=== PATIENT | male | born 1945 | race Caucasian/White ===

== ENCOUNTER 2024-10-26 11:33 | Inpatient (IN) ==
--- NOTE | 2024-10-26 11:59 | Emergency Department Note ---
Impression & Plan CARVER (dyspnea on exertion), Pneumonia, Leukocytosis, Failure of outpatient treatment, Pulmonary fibrosis ED Provider Note NAME: RYLAN MCCORMICK AGE: 79 SEX: M : 1945 ARRIVES VIA: Ambulance INFORMANT: [Patient][family] ED PROVIDER(S): [Jared Miranda MD] CHIEF COMPLAINT: Short of breath HISTORY OF PRESENT ILLNESS: The patient is a 79-year-old male with COPD who was discharged from [facility] 5 days ago. He was in the hospital for pneumonia, he did test positive for COVID-19. The patient states that when he left, he felt okay. He was on antibiotics but they have finished. He is on a daily maintenance dose of prednisone. In the last few days, he has been short of breath especially with exertion. No fever, he does cough some in the morning but this is a dry nonproductive cough. He has not really had chest pain. No sick contacts. No recent increased stuffy nose. The patient went to the [facility] today, his saturations were quite low in the 80s. He was sent to the hospital for evaluation. He feels better on oxygen. He does not currently have oxygen to use at home. PMHx/PSHx/Social Hx: See Below PHYSICAL EXAM: GENERAL: Patient is in no acute distress. HEENT: No acute trauma, normocephalic atraumatic, mucous membranes moist, no nasal congestion. NECK: No stridor, no adenopathy, no meningismus, trachea is midline. LUNGS: Crackles bilaterally, worse on the left. No wheezing. Slightly increased respiratory rate. HEART: Without murmurs gallops or rubs, regular rate and rhythm. ABDOMEN: Soft, nontender, no peritonitis. EXTREMITIES: No cyanosis, full range of motion of all the joints without pain or difficulty. No pedal edema. NEUROLOGIC: Oriented x 3, no acute motor or sensory deficits, no focal weakness. SKIN: No jaundice, no diaphoresis. DIFFERENTIAL DIAGNOSIS: Bronchitis or pneumonia, COPD flare, anemia, TN, PE, new viral illness, among others. EMERGENCY DEPARTMENT PROCEDURES: MEDICAL DECISION MAKING: There is a moderate leukocytosis, this would be consistent with infection. There is a mild anemia with a hemoglobin of 11.8. Platelet count was slightly high at 488. INR mildly elevated at 1.2. VBG does not show acidosis. CO2 was actually a bit low likely from tachypnea. There was no renal failure or significant electrolyte abnormality. Lactic acid level was not elevated making severe sepsis less likely. No concerning liver enzyme elevation. BNP was somewhat elevated consistent with potential fluid overload. Urinalysis did not show findings of infection. Respiratory bio fire was positive for COVID-19, this is consistent with his history. On exam, the patient had crackles throughout his lungs. He appeared somewhat tachypneic. The patient received IV Solu-Medrol and IV cefepime. He was given a DuoNeb. The patient presents with increasing dyspnea. He appears to have pneumonia on top of his pulmonary fibrosis. He has failed outpatient management. I do think he will require a hospital stay and further pulmonary workup/care. I spoke with the patient and his family, I spoke with case management. The on- call hospitalist was consulted. Prior/Outside records/notes reviewed: None ECG per my interpretation: Indication was shortness of breath. The ECG shows a normal sinus rhythm with a rate of 63. There is no acute ST elevation, no PVCs. There is some poor R wave progression. QTc is 450. Continuous Cardiac Monitoring per my interpretation: An order was placed for continuous cardiac monitoring. The monitor shows a rate of 69 with normal sinus rhythm. Imaging/x-ray results per my interpretation: Chest x-ray shows pulmonary congestion, far worse on the left. Findings consistent with pneumonia. Chronic Medical/Social conditions affecting care: Recent hospital discharge, advanced age. Care/Management discussed with: Case management, the on-call hospitalist. Level of care consideration(s): After review of the information above and other included data: --I believe the patient requires escalation of care to admission DISPOSITION: Admission Past Med/Surg History Problem List (Updated 10/27/24 @ 11:45 by Jared Miranda MD) Pulmonary fibrosis (Acute) Failure of outpatient treatment (Acute) Leukocytosis (Acute) Pneumonia (Acute) CARVER (dyspnea on exertion) (Acute) Abnormal chest CT Bilateral pulmonary infiltrates Status post partial lobectomy of lung BPH (benign prostatic hyperplasia) Hypertension History of bladder cancer History of lung cancer COPD (chronic obstructive pulmonary disease) Rheumatoid arthritis 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 Acute on chronic hypoxic respiratory failure Medical History ILD (interstitial lung disease) Social History Smoking Status: Former smoker Tobacco Type: Cigarettes Second Hand Exposure: No; Do You Dip or Chew Tobacco: No; Tobacco Cessation Education Requested by Patient: No Hx Alcohol Use: No Hx Substance Use: No Preferred Language: Maori Communication Ability: Effective Senior Pl Sql Developer Required: No Beliefs That Will Affect Care: None Current Living Situation: Spouse Other Information That Helps Us Care for You: No Feels Safe at Home: Yes Safety Concerns: Feels Safe At This Time Assistive Devices: Cane Allergies Allergies Allergy/AdvReac Type Severity Reaction Status Date / Time amlodipine Allergy Unknown Verified 10/26/24 12:25 Penicillins Allergy Hives Verified 10/26/24 12: simvastatin [From Zocor] Allergy Unknown Verified 10/26/24 12: Home Meds Home Medications Medication Instructions Recorded Confirmed atorvastatin 40 mg tablet 60 mg PO HS 10/26/24 10/26/24 budesonide 90 mcg/actuation breath 0 inh inhalation DAILY 10/26/24 10/26/24 activated powder inhaler carvedilol 12.5 mg tablet 12.5 mg PO BID 10/26/24 10/26/24 chlorthalidone 25 mg tablet 25 mg PO DAILY 10/26/24 10/26/24 cholecalciferol (vitamin D3) 25 50 mcg PO DAILY 10/26/24 10/26/24 mcg (1,000 unit) tablet (Vitamin D3) fluticasone 500 mcg-salmeterol 50 1 inh inhalation DAILY 10/26/24 10/26/24 mcg/dose blistr powdr for inhalation folic acid 1 mg tablet 1 mg PO DAILY 10/26/24 10/26/24 hydroxychloroquine 200 mg tablet 200 mg PO BID 10/26/24 10/26/24 methotrexate sodium 2.5 mg tablet 20 mg PO DAILY 10/26/24 10/26/24 montelukast 10 mg tablet 10 mg PO DAILY 10/26/24 10/26/24 nifedipine 60 mg tablet,extended 60 mg PO DAILY 10/26/24 10/26/24 release 24 hr oxybutynin chloride 5 mg tablet 5 mg PO BID 10/26/24 10/26/24 potassium chloride 20 mEq oral 20 meq PO DAILY 10/26/24 10/26/24 packet prednisone 5 mg tablet 5 mg PO QAM 10/26/24 10/26/24 sertraline 100 mg tablet 100 mg PO QAM 10/26/24 10/26/24 tamsulosin 0.4 mg capsule 0.4 mg PO HS 10/26/24 10/26/24 Results & Data (ED) Vital Signs Vital Signs - 24 hr 10/26/24 11:40 10/26/24 11:40 10/26/24 11:40 Temperature 36.4 C L Temperature Source Oral Pulse Rate 69 Pulse Rate from SpO2 Sensor Pulse Strength Normal Respiratory Rate 27 H Respiratory Effort / Characteristics Spontaneous Short of Breath SOB on Exertion Spontaneous Short of Breath Respiratory Depth Normal Normal Respiratory Pattern Regular Regular Blood Pressure 112/58 L Blood Pressure Mean 76 Pulse Oximetry 85 L 85 L Oxygen Delivery Method Room Air Room Air Oxygen Flow Rate Sepsis Recent Fever Within 48 Hours No Sepsis New/Unexplained Change in Mental Status N/A Sepsis Action Taken by Nursing No Action Required Oxygen Flow Rate - Titration 3 10/26/24 12:14 10/26/24 12:30 Temperature Temperature Source Pulse Rate 78 61 Pulse Rate from SpO2 Sensor 61 Pulse Strength Respiratory Rate 21 Respiratory Effort / Characteristics Respiratory Depth Respiratory Pattern Blood Pressure 125/63 Blood Pressure Mean 83 Pulse Oximetry 94 Oxygen Delivery Method Nasal Cannula Oxygen Flow Rate 3 Sepsis Recent Fever Within 48 Hours Sepsis New/Unexplained Change in Mental Status Sepsis Action Taken by Nursing Oxygen Flow Rate - Titration Home Medications Current Medication List: was personally reviewed by me Laboratory Data Attestation: I reviewed the patient's lab results. 10/27/24 07:27 10/27/24 07:27 Lab Results 10/26/24 10/26/24 10/26/24 Range/Units 11:45 11:57 12:15 WBC 15.16 H (4.8-10.8) K/ul RBC 3.89 L (4.70-6.10) M/uL Hgb 11.8 L (14.0-18.0) g/dl Hct 35.0 L (42.0-52.0) % MCV 90.0 (80.0-100.0) fL MCH 30.3 (25.0-34.0) pg MCHC 33.7 (32.0-36.0) g/dL RDW Std Deviation 45.8 (36.4-46.3) fL RDW Coeff of Parvin 13.8 (11.5-14.5) % Plt Count 488 H (130-400) K/uL MPV 10.1 (9.4-12.4) fL Immature Gran % (Auto) 0.8 % Neut % (Auto) 89.9 % Lymph % (Auto) 4.7 % Placer % (Auto) 4.2 % Eos % (Auto) 0.3 % Baso % (Auto) 0.1 % Neut # (Auto) 13.63 H (1.40-6.50) K/uL Lymph # (Auto) 0.71 L (1.20-3.40) K/uL Placer # (Auto) 0.64 H (0.11-0.59) K/uL Eos # (Auto) 0.04 (0.00-0.50) K/uL Baso # (Auto) 0.02 (0.00-0.20) K/uL Immature Gran # (Auto) 0.12 (0.01-0.20) K/uL ESR 117 H (0-20) mm/hr PT 13.0 H (9.0-12.0) Seconds INR 1.2 H (0.9-1.1) APTT 24 (21-31) Seconds PTT Ratio 0.9 VBG pH 7.54 H (7.36-7.41) VBG pCO2 32 L (38-50) mmHg VBG pO2 38 mmHg VBG HCO3 27 mmol/L VBG O2 Saturation 68.2 % VBG Base Excess 5.2 mEq/L Sodium 134 L (136-145) mmol/L Potassium 4.2 (3.5-5.1) mmol/L Chloride 99 (98-107) mmol/L Carbon Dioxide 28 (21-32) mmol/L Anion Gap 7 (3-11) BUN 20 (6-23) mg/dl Creatinine 0.94 (0.6-1.4) mg/dl Est Cr Clr Drug Dosing 79.5 ml/min eGFR 82.98 BUN/Creatinine Ratio 21.3 H (10-20) Glucose 104 H (70-99(Fasting)) mg/dl Lactate 1.4 (0.4-2.0) mmol/L Calcium 9.5 (8.6-10.3) mg/dl Magnesium 1.7 (1.7-2.4) mg/dl Total Bilirubin 0.8 (0.2-1.0) mg/dl AST 18 (13-39) U/L ALT 34 (7-52) U/L Alkaline Phosphatase 51 (34-104) U/L Troponin I High Sens 6.6 (0-20) pg/ml C-Reactive Protein 14.31 H (0-0.5) mg/dl B-Natriuretic Peptide 243 H (0-100) pg/ml Total Protein 7.1 (6.0-8.3) gm/dl Albumin 3.0 L (3.4-5.0) gm/dl Globulin 4.1 H (2.5-4.0) gm/dl Albumin/Globulin Ratio 0.7 L (0.9-2) Procalcitonin 0.05 (0-0.5) ng/ml Adenovirus (PCR) (NotDetected) B. pertussis DNA (PCR) (NotDetected) B.parapertussis DNA PCR (NotDetected) C. pneumoniae DNA (PCR) (NotDetected) Coronavirus OC43 (PCR) (NotDetected) Coronavirus HKU1 (PCR) (NotDetected) Coronavirus 229E (PCR) (NotDetected) SARS-CoV-2 (PCR) (NotDetected) Coronavirus NL63 (PCR) (NotDetected) Human Metapneumovir PCR (NotDetected) Influenza Type A (PCR) (NotDetected) Influenza Type B (PCR) (NotDetected) M. pneumoniae (PCR) (NotDetected) Parainfluenza 1 (PCR) (NotDetected) Parainfluenza 2 (PCR) (NotDetected) Parainfluenza 3 (PCR) (NotDetected) Parainfluenza 4 (PCR) (NotDetected) RSV (PCR) (NotDetected) Entero/Rhino (PCR) (NotDetected) Bld Cult ID Panel PCR PCR Panel Negative (NotDetected) 10/26/24 Range/Units 12:18 WBC (4.8-10.8) K/ul RBC (4.70-6.10) M/uL Hgb (14.0-18.0) g/dl Hct (42.0-52.0) % MCV (80.0-100.0) fL MCH (25.0-34.0) pg MCHC (32.0-36.0) g/dL RDW Std Deviation (36.4-46.3) fL RDW Coeff of Parvin (11.5-14.5) % Plt Count (130-400) K/uL MPV (9.4-12.4) fL Immature Gran % (Auto) % Neut % (Auto) % Lymph % (Auto) % Placer % (Auto) % Eos % (Auto) % Baso % (Auto) % Neut # (Auto) (1.40-6.50) K/uL Lymph # (Auto) (1.20-3.40) K/uL Placer # (Auto) (0.11-0.59) K/uL Eos # (Auto) (0.00-0.50) K/uL Baso # (Auto) (0.00-0.20) K/uL Immature Gran # (Auto) (0.01-0.20) K/uL ESR (0-20) mm/hr PT (9.0-12.0) Seconds INR (0.9-1.1) APTT (21-31) Seconds PTT Ratio VBG pH (7.36-7.41) VBG pCO2 (38-50) mmHg VBG pO2 mmHg VBG HCO3 mmol/L VBG O2 Saturation % VBG Base Excess mEq/L Sodium (136-145) mmol/L Potassium (3.5-5.1) mmol/L Chloride (98-107) mmol/L Carbon Dioxide (21-32) mmol/L Anion Gap (3-11) BUN (6-23) mg/dl Creatinine (0.6-1.4) mg/dl Est Cr Clr Drug Dosing ml/min eGFR BUN/Creatinine Ratio (10-20) Glucose (70-99(Fasting)) mg/dl Lactate (0.4-2.0) mmol/L Calcium (8.6-10.3) mg/dl Magnesium (1.7-2.4) mg/dl Total Bilirubin (0.2-1.0) mg/dl AST (13-39) U/L ALT (7-52) U/L Alkaline Phosphatase (34-104) U/L Troponin I High Sens (0-20) pg/ml C-Reactive Protein (0-0.5) mg/dl B-Natriuretic Peptide (0-100) pg/ml Total Protein (6.0-8.3) gm/dl Albumin (3.4-5.0) gm/dl Globulin (2.5-4.0) gm/dl Albumin/Globulin Ratio (0.9-2) Procalcitonin (0-0.5) ng/ml Adenovirus (PCR) Not Detected (NotDetected) B. pertussis DNA (PCR) Not Detected (NotDetected) B.parapertussis DNA PCR Not Detected (NotDetected) C. pneumoniae DNA (PCR) Not Detected (NotDetected) Coronavirus OC43 (PCR) Not Detected (NotDetected) Coronavirus HKU1 (PCR) Not Detected (NotDetected) Coronavirus 229E (PCR) Not Detected (NotDetected) SARS-CoV-2 (PCR) DETECTED A (NotDetected) Coronavirus NL63 (PCR) Not Detected (NotDetected) Human Metapneumovir PCR Not Detected (NotDetected) Influenza Type A (PCR) Not Detected (NotDetected) Influenza Type B (PCR) Not Detected (NotDetected) M. pneumoniae (PCR) Not Detected (NotDetected) Parainfluenza 1 (PCR) Not Detected (NotDetected) Parainfluenza 2 (PCR) Not Detected (NotDetected) Parainfluenza 3 (PCR) Not Detected (NotDetected) Parainfluenza 4 (PCR) Not Detected (NotDetected) RSV (PCR) Not Detected (NotDetected) Entero/Rhino (PCR) Not Detected (NotDetected) Bld Cult ID Panel PCR (NotDetected) Administered Medications Acetaminophen (Acetaminophen 325 Mg Tab) 650 mg PO Q4H PRN PRN Reason: pain/fever Stop: 11/25/24 16:20 Last Admin: 10/26/24 19:56 Dose: 650 mg Documented By: RES Albuterol (Albut/Ipratrop 3mg/0.5mg Neb 3 Ml Vial) 3 ml INH Q6R MAYTE Stop: 11/25/24 18:59 Last Admin: 10/27/24 07:59 Dose: 3 ml Documented By: Admin: 10/27/24 00:08 Dose: 3 ml Documented By: Admin: 10/26/24 20:08 Dose: 3 ml Documented By: RITESH Aspirin (Aspirin 81 Mg Ectab) 81 mg PO DAILY [facility] Stop: 11/26/24 08:59 Last Admin: 10/27/24 07:21 Dose: 81 mg Documented By: DELANEY Carvedilol (Carvedilol 12.5 Mg Tab) 12.5 mg PO BIDM [facility] Stop: 11/25/24 16:59 Last Admin: 10/27/24 08:17 Dose: Not Given Documented By: Admin: 10/26/24 17:42 Dose: 12.5 mg Documented By: MARLI Chlorthalidone (Chlorthalidone 25 Mg Tab) 25 mg PO QAM [facility] Stop: 11/26/24 08:59 Last Admin: 10/27/24 07:20 Dose: 25 mg Documented By: DELANEY Doxycycline Hyclate (Doxycycline Hyclate 100 Mg Cap) 100 mg PO BID [facility] Stop: 10/31/24 20:59 Last Admin: 10/27/24 07:22 Dose: 100 mg Documented By: Admin: 10/26/24 19:57 Dose: 100 mg Documented By: NOA Enoxaparin Sodium (Enoxaparin Inj 40 Mg/0.4 Ml Syr) 40 mg SQ Q24H [facility] Stop: 11/25/24 17:59 Last Admin: 10/26/24 17:43 Dose: 40 mg Documented By: MARLI Finasteride (Finasteride 5 Mg Tab) 5 mg PO QAM [facility] Stop: 11/26/24 08:59 Last Admin: 10/27/24 07:20 Dose: 5 mg Documented By: DELANEY Fluticasone/Vilanterol (Fluticasone/Vilanterol 100/25mcg 14 Puffs/Inhaler) 1 puffs INH DAILY [facility] Stop: 11/26/24 08:59 Last Admin: 10/27/24 07:19 Dose: 1 puffs Documented By: DELANEY Folic Acid (Folic Acid 1 Mg Tab) 1 mg PO QAM [facility] Stop: 11/26/24 08:59 Last Admin: 10/27/24 07:22 Dose: 1 mg Documented By: DELANEY Hydroxychloroquine Sulfate (Hydroxychloroquine Sulfate 200 Mg Tab) 200 mg PO BID [facility] Stop: 11/25/24 20:59 Last Admin: 10/27/24 07:21 Dose: 200 mg Documented By: Admin: 10/26/24 19:57 Dose: 200 mg Documented By: NOA Ceftriaxone Sodium (Rocephin) 2,000 mg in 50 mls @ 100 mls/hr IV Q24H [facility]TE Stop: 10/31/24 17:59 Last Infusion: 10/26/24 18:39 Dose: Infused Documented By: Admin: 10/26/24 18:04 Dose: 100 mls/hr Documented By: MARLI Montelukast Sodium (Montelukast Sodium 10 Mg Tablet) 10 mg PO HS [facility]TE Stop: 11/25/24 20:59 Last Admin: 10/26/24 19:58 Dose: 10 mg Documented By: NOA Nifedipine (Nifedipine Extended Rel 30 Mg Tabcr) 60 mg PO QAM [facility] Stop: 11/26/24 08:59 Last Admin: 10/27/24 07:20 Dose: 60 mg Documented By: DELANEY Oxybutynin Chloride (Oxybutynin Chloride 5 Mg Tab) 5 mg PO BID [facility] Stop: 11/25/24 20:59 Last Admin: 10/27/24 07:23 Dose: 5 mg Documented By: Admin: 10/26/24 19:57 Dose: 5 mg Documented By: NOA Potassium Chloride (Potassium Chloride Crtab 20 Meq Tabcr) 20 meq PO BID [facility] Stop: 11/25/24 20:59 Last Admin: 10/27/24 07:24 Dose: 20 meq Documented By: Admin: 10/26/24 20:02 Dose: 20 meq Documented By: NOA Prednisone (Pred[facility] 20 Mg Tab) [facility] Stop: 11/01/24 08:59 Last Admin: 10/27/24 07:20 Dose: 60 mg Documented By: DELANEY Sertraline HCl (Sertraline Hcl 100 Mg Tablet) [facility] Stop: 11/26/24 08:59 Last Admin: 10/27/24 07:21 Dose: 100 mg Documented By: DELANEY Tamsulosin HCl (Tamsulosin Hcl 0.4 Mg Cap) 0.4 [facility] Stop: 11/26/24 08:59 Last Admin: 10/27/24 07:21 Dose: 0.4 mg Documented By: DELANEY Trazodone HCl (Trazodone Hcl 50 Mg Tab) 150 mg PO HS [facility]TE Stop: 11/25/24 20:59 Last Admin: 10/26/24 19:58 Dose: 150 mg Documented By: NOA Discontinued Medications Albuterol (Albut/Ipratrop 3mg/0.5mg Neb 3 Ml Vial) 3 ml NEB NOW STA; Protocol Stop: 10/26/24 11:56 Last Admin: 10/26/24 12:30 Dose: 3 ml Documented By: ASA Cefepime HCl (Maxipime 2000mg) 2,000 mg in 20 mls @ 5 mls/min IV NOW STA; Protocol Stop: 10/26/24 12:09 Last Admin: 10/26/24 12:19 Dose: 5 mls/min Documented By: ASA Ioversol (Optiray 320 125ml) 94 ml IV ONCE ONE Stop: 10/26/24 13:59 Last Admin: 10/26/24 14:00 Dose: 94 ml Documented By: SAVANNAH Methylprednisolone (Methylprednisolone 125 Mg/2 Ml Vial) 80 mg IV NOW STA Stop: 10/26/24 11:56 Last Admin: 10/26/24 12:19 Dose: 80 mg Documented By: ASA Discharge Plan Visit Data Chief Complaint: Shortness of Breath/Dyspnea Stated Complaint: HYPOXIA ED Provider: Jared Miranda Discharge Problem: CARVER (dyspnea on exertion), Pneumonia, Leukocytosis, Failure of outpatient treatment, Pulmonary fibrosis Patient Disposition: Admitted As Inpatient Condition: Serious Discharge Instructions Interventions: ED Discharge Assessment Last Done: 10/26/24 16:11 Discharge Problem: Pneumonia Qualifiers: Pneumonia type: due to unspecified organism Laterality: bilateral Lung location: unspecified part of lung Qualified Code(s): J18.9 - Pneumonia, unspecified organism Leukocytosis Qualifiers: Leukocytosis type: unspecified Qualified Code(s): D72.829 - Elevated white blood cell count, unspecified
[2024-10-26 12:04] LABS: Basophils # (auto) 0.02 K/uL (0.00-0.20); Basophils % (auto) 0.1 %; Eosinophils # (auto) 0.04 K/uL (0.00-0.50); Eosinophils % (auto) 0.3 %; Hemoglobin 11.8 g/dl (14.0-18.0); Immature Granulocytes # (auto) 0.12 K/uL (0.01-0.20); Immature Granulocytes % (auto) 0.8 %; Lymphocytes # (auto) 0.71 K/uL (1.20-3.40); Lymphocytes % (auto) 4.7 %; Mean Corpuscular Hemoglobin 30.3 pg (25.0-34.0); Mean Corpuscular Hgb Conc 33.7 g/dL (32.0-36.0); Mean Platelet Volume 10.1 fL (9.4-12.4); Monocytes # (auto) 0.64 K/uL (0.11-0.59); Monocytes % (auto) 4.2 %; Neutrophils # (auto) 13.63 K/uL (1.40-6.50); Neutrophils % (auto) 89.9 %; Platelet Count 488 K/uL (130-400); RDW Coefficient of Variation 13.8 % (11.5-14.5); RDW Standard Deviation 45.8 fL (36.4-46.3); Red Blood Count 3.89 M/uL (4.70-6.10); White Blood Count 15.16 K/ul (4.8-10.8)
--- NOTE | 2024-10-26 12:10 | XRay Report ---
XR chest 1V portable CLINICAL HISTORY: Dyspnea COMPARISON STUDY: None FINDINGS: Heart size and pulmonary vasculature are normal. There are reticular and patchy opacities t hroughout the left lung and at the right lung base. No pleural effusion or pneumothorax. IMPRESSION: Bilateral pneumonia, left greater than right. Recommend follow-up to resolution to rule out underlying pulmonary nodule. ACT 112: Positive. There are findings on this exam that require communication between the performing entity and the patient following Patient Test Result Information Act ([place] Act 112) guidelines. Electronically signed by: Mat Westbrook M.D. 10/26/2024 12:09 PM
[2024-10-26 12:19] LABS: Base Excess VBG 5.2 mEq/L; HCO3 VBG 27 mmol/L; Oxygen Saturation VBG 68.2 %; PCO2 VBG 32 mmHg (38-50); PO2 VBG 38 mmHg; pH VBG 7.54 (7.36-7.41)
[2024-10-26 12:19] LABS: Albumin Globulin Ratio 0.7 (0.9-2); BUN Creatinine Ratio 21.3 (10-20); Bilirubin,Total 0.8 mg/dl (0.2-1.0); Calcium 9.5 mg/dl (8.6-10.3); Creatinine Clr Calc Pharmacy 79.5 ml/min; Globulin 4.1 gm/dl (2.5-4.0); Magnesium 1.7 mg/dl (1.7-2.4); Potassium 4.2 mmol/L (3.5-5.1); Total Protein 7.1 gm/dl (6.0-8.3)
[2024-10-26] MEDS: CEFEPIME 2000MG 2,000 MG/20 ML SYR IV STA (12:19)
[2024-10-26] MEDS: methylPREDNISolone 125 MG/2 ML VIAL IV STA (12:19)
[2024-10-26 12:24] LABS: Troponin I High Sensitivity 6.6 pg/ml (0-20)
[2024-10-26 12:27] LABS: INR 1.2 (0.9-1.1); Partial Thromboplastin Ratio 0.9; Partial Thromboplastin Time 24 Seconds (21-31)
[2024-10-26] MEDS: ALBUT/IPRATROP 3MG/0.5MG NEB 3 ML VIAL NEB STA (12:30)
[2024-10-26 13:50] LABS: Adenovirus PCR Not Detected (NotDetected); Bordetella parapertussis PCR Not Detected (NotDetected); Bordetella pertussis PCR Not Detected (NotDetected); Chlamydia pneumoniae PCR Not Detected (NotDetected); Coronavirus 229E PCR Not Detected (NotDetected); Coronavirus CoV-2 (COVID19)PCR DETECTED (NotDetected); Coronavirus HKU1 PCR Not Detected (NotDetected); Coronavirus NL63 PCR Not Detected (NotDetected); Coronavirus OC43PCR Not Detected (NotDetected); Human Metapneumovirus PCR Not Detected (NotDetected); Influenza A PCR Not Detected (NotDetected); Influenza B PCR Not Detected (NotDetected); Mycoplasma pneumoniae PCR Not Detected (NotDetected); Parainfluenza Virus 1 PCR Not Detected (NotDetected); Parainfluenza Virus 2 PCR Not Detected (NotDetected); Parainfluenza Virus 3 PCR Not Detected (NotDetected); Parainfluenza Virus 4 PCR Not Detected (NotDetected); Respiratory Syncytial VirusPCR Not Detected (NotDetected); Rhinovirus/Enterovirus PCR Not Detected (NotDetected)
--- NOTE | 2024-10-26 13:57 | History & Physical Report ---
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 Patient recently had a hospitalization for similar diagnosis. Over 1 month ago tested positive for COVID-19. He was also treated last week for possible bacterial pneumonia. And was also treated for flare/progression of interstitial lung/rheumatoid lung disease with steroids. Ultimately after pulmonary eval patient the interstitial lung disease is the most likely diagnosis. He was continued on a taper of steroids down to his baseline prednisone which he takes for his rheumatoid arthritis. He did not meet criteria for home oxygen at the time of discharge last week. Today he is hypoxic on room air. He is at high risk for further respiratory failure and subsequent additional organ failure if he is not cared for at the hospital. Admit to the MedSurg unit in the hospital He is at risk for secondary bacterial pneumonia with chronic prednisone use and autoimmune disorder with rheumatoid arthritis. Will empirically treat for bacterial pneumonia with antibiotics, however it is reassuring that lactic acid is low and procalcitonin is low. Continue oxygen support Patient received IV Solu-Medrol here in the hospital, continue prednisone 60 mg nebulizer treatments Continue home medications as ordered. Reviewed his outpatient medication list and ordered appropriate medications Consult pulmonary for ongoing input and recommendations on most likely progressive interstitial lung disease Case management, anticipate patient will require home oxygen. Will need to step testing prior to discharge Lites and renal function Patient did have recent position. His mobility has been decreased, would be at risk for possible PE, check CTA of the chest to rule out PE Follow-up viral respiratory panel, if positive for influenza would consider starting Tamiflu. History of Present Illness Chief Complaint: Shortness of breath and low oxygen level Primary Care Provider: [facility] Patient is a an 89-year-old gentleman who was just recently discharged from [facility] where he was treated for a presumed pneumonia and hypoxia. He received a full course of antibiotics and ultimately was determined that most likely he had progression of interstitial lung disease and possibly rheumatoid lung disease. At the time of discharge he did not meet criteria for home oxygen. He was discharged this past . Initially was doing fine, however the weekend he started noticing some more shortness of breath especially with exertion. Today he had a follow-up appointment at the [facility]. He reported just the activities of getting ready to go to the [facility] because some significant amount of dyspnea. Home O2 sat monitor showed that his O2 sat dropped into the low 70s. When he rested it would come up to about 88%. Over at the [facility] as he was going through there facility getting blood work etc. he was noted to be hypoxic. The [facility] sent to the emergency room here at [facility] for evaluation. Here in the emergency room was noted to be hypoxic on room air about 85% and improved on 3 to 4 L of oxygen. Chest x-ray was concerning for bilateral infiltrates and he did have a slightly elevated white blood cell count. He received IV antibiotics here in the emergency room as well as IV Solu-Medrol and referred to our service for further evaluation. Time my evaluation the patient was feeling better on the oxygen. He was convinced that he needed to have oxygen when he was discharged from [facility]. Did take some time to explain to him the criteria required for insurance to pay for home oxygen. He denies any fevers. His cough might be a little bit more congested than his chronic baseline cough. He has continued a low dose prednisone which is a chronic medication for him. As mentioned he completed all 6 at the time of discharge last week. Appetite has been down a little bit but no nausea, no diarrhea. Has chronic joint pain associated with his rheumatoid arthritis. 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 Sclera clear Neck: Soft, no adenopathy Lungs: Decreased breath sounds bilaterally, prolonged expiratory phase, diffuse crackles bilaterally with left greater than right, CV: S1-S2, regular Abdomen: Soft, nontender, nondistended Extremities: No significant edema Musculoskeletal: Chronic joint deformities from rheumatoid arthritis Neuro: No focal deficits, generalized weakness Psych: Cooperative, normal mood Results & Data Results & Data Vital Signs (Past 12 Hours) Vital Signs Temp Pulse Resp BP Pulse Ox O2 Del Method 10/26/24 12:14 78 10/26/24 11:40 36.4 C L 69 27 H 112/58 L 85 L Room Air Diagnostic Findings Reviewed imaging, laboratory and diagnostic studies. Pertinent findings as below. WBCs 15.1 Hemoglobin 11.8 Platelets 488 Venous blood gas reviewed Electrolytes stable Creatinine 0.94 Glucose 104 BNP 243 Respiratory viral panel pending Procalcitonin 0.05 Lactic acid 1.4 Personally reviewed chest x-ray, bilateral lower lobe groundglass haziness and infiltrates. Personally compared these images to chest x-ray done last week at [place]. Left sided infiltrates might be a little bit more pronounced today than compared to on 10/18/2024 Personally reviewed EKG, sinus rhythm no acute ST-T wave changes Reviewed outside EMR Reviewed past medical history, family history, social history, surgical history and outside EMR Reviewed hospitalization at [facility] discharge date 219 2520 mg of prednisone for a few days then decrease to his usual prednisone dose. Reviewed the lung disease or rheumatoid lung disease that is progressing excess prior Reviewed CT of the chest done at outside facility showed moderate bilateral groundglass infiltrates in the lower lobe, some mild infiltrates upper lobes. Overall more consistent with fibrotic/interstitial lung disease and infectious process. No pulmonary embolism. Code Status & VTE Plan VTE Prophylaxis Plan VTE Prophylaxis will be ordered: Yes
[2024-10-26] MEDS: OPTIRAY 320 125ml IV ONE (14:00)
[2024-10-26 14:23] LABS: Appearance Urine Clear (Clear); Bacteria Urine Automated None Seen (None Seen); Bilirubin Urine Negative (Negative); Blood Urine Negative (Negative); Cast Urine Automated 0-2 /lpf (0-2); Color Urine Yellow; Epithelial Cell Urine Auto 0-2 /hpf (0-2); Glucose Urine UA Negative (Negative); Ketones Urine Negative (Negative); Leukocyte Esterase Urine Negative (Negative); Nitrite Urine Negative (Negative); Protein Urine 1+ (Negative); RBC Urine Automated 0-2 /hpf (0-2); Specific Gravity Urine 1.018 (1.000-1.030); Urobilinogen Urine Negative (Negative); WBC Urine Automated 0-5 /hpf (0-5)
--- NOTE | 2024-10-26 14:24 | CT Scan Report ---
CT angio chest PE protocol CT DOSE: 851.18 mGy.cm HISTORY: 79 years-old Male with PE. Acute short of breath with hypoxia TECHNIQUE: Multiple CTA images of the chest were obtained after the intravenous administration of 112 ml Optiray. Coronal and sagittal MIPS were obtained from the axial data set and were submitted for review. All measurements were obtained according to NASCET criteria. A dose lowering technique was u tilized adhering to the principles of ALARA. COMPARISON: Chest radiograph of same day FINDINGS: CTA: Mild cardiomegaly without pericardial effusion. Moderate coronary artery calcifications. Atherosclero sis of the thoracic aorta with patency of the imaged great vessels. No pulmonary emboli identified. D ilation of the main pulmonary artery measures 3.[address] CHEST: No thyroid nodule. 1.3; tracheoesophageal recess lymph node on image 148 series 4. Subcarinal lymph n odes measure up to 1.2 cm. Small left pleural effusion. No pneumothorax. Subpleural reticulation with groundglass densities, sub pleural cyst with traction bronchiectasis, left greater than right. Mild subpleural consolidation not ed within the mid to lower lung zones, left greater than right. Prior right-sided pulmonary resection . No acute upper abdominal abnormality. No acute fracture. IMPRESSION: 1. No pulmonary emboli identified. 2. Cardiomegaly with coronary artery calcifications and probable pulmonary arterial hypertension. 3. Chronic interstitial lung disease. Groundglass opacities within the left greater than right lungs is likely secondary to the chronic lung disease, however a superimposed infectious or inflammatory pn eumonitis could appear similarly. 4. Mild likely reactive mediastinal lymphadenopathy. Attention at follow-up recommended. 5. Small left pleural effusion. ACT 112: Negative or not required by law. The above report was generated using voice recognition software. It may contain grammatical, syntax o r spelling errors. Electronically signed by: Fransisco Daniel M.D. 10/26/2024 2:22 PM
--- NOTE | 2024-10-26 15:48 | Electrocardiogram Report ---
Test Reason : Blood Pressure : */* mmHG Vent. Rate : 63 BPM Atrial Rate : 63 BPM P-R Int : 164 ms QRS Dur : 88 ms QT Int : 440 ms P-R-T Axes : -1 12 13 degrees QTcB Int : 450 ms Normal sinus rhythm Normal ECG No previous ECGs available Confirmed by Darell Madison ([id number]) on 10/26/2024 3:47:51 PM Referred By: REFERRED SELF Confirmed By: Darell Madison
[2024-10-26] MEDS ORDERED: ALBUT/IPRATROP 3MG/0.5MG NEB 3 ML VIAL NEB PRN (16:21)
[2024-10-26] MEDS ORDERED: ONDANSETRON INJ 2 MG/ML 2 ML VIAL IV PRN (16:21)
[2024-10-26] MEDS ORDERED: MAGNESIUM HYDROXIDE SUSP 30 ML UDC PO PRN (16:21)
[2024-10-26] MEDS: carvediloL 12.5 MG TAB PO SCH (17:42)
[2024-10-26] MEDS: ENOXAPARIN INJ 40 MG/0.4 ML SYR SQ SCH (17:43)
[2024-10-26] MEDS: cefTRIAXone SODIUM 2,000 MG/50 ML BAG IV SCH (18:04)
--- NOTE | 2024-10-26 18:15 | Pulmonary Consultation ---
Date of Consultation October 26, 2024 Assessment & Plan (1) Abnormal chest CT: (2) ILD (interstitial lung disease): (3) History of lung cancer: (4) COPD (chronic obstructive pulmonary disease): (5) Acute on chronic hypoxic respiratory failure: Plan CT chest 08/25/2025 personally reviewed: Increased interstitial marking appreciated in the left upper and left lower as well as right lower lobe More pronounced on the left side Questionable traction bronchiectasis in the right lower lobe Minimal subcarinal as well as 10L lymphadenopathy --Acute hypoxic respiratory failure Respiratory [employer] positive for COVID-19 on 10/26/2024, he also tested positive on 09/25/2024 at [facility] BNP 243 Procalcitonin 0.05 I do not think patient has active COVID given that he was positive more than a month ago -- History of rheumatoid arthritis On chronic prednisone as well as methotrexate --History of lung cancer Status post partial lobectomy Plan: Continue with empiric antibiotics for the time being Patient did not have any autoimmune workup done at [facility] I will try to get the images pushed from [facility] to look at the previous CAT scans Case discussed with primary team Please note the above document was generated using voice recognition software. It may contain grammatical, syntax or spelling errors.Any formal questions or concerns about the content, text or information contained within the body of this dictation should be directly addressed to the provider for clarification. History of Present Illness Attending Physician: Breezy Hameed DO History of Present Illness 79-year-old male presented to the hospital for shortness of breath Past medical history: Hypertension, rheumatoid arthritis on prednisone and methotrexate, hypertension, BPH, lung cancer s/p partial right sided lobectomy Pulmonary consulted for abnormal chest CT Signout was given by Dr. Hameed Patient was apparently admitted to the [facility] approximately a month ago where he was diagnosed with COVID-19 09/25/2024. He was given steroids and antibiotics and gradually discharged home on room air At the time of examination patient was not in respiratory distress He has been compliant with his prednisone and takes it on a regular basis Denies any hemoptysis No fever or chills When did have COVID his complaint was mostly cough. Did not have any fever or chills No unusual headache or blurry vision No other history of autoimmune disease in the family like lupus, sarcoid, Sjogren's No Raynaud's Social history: Approximately [id number] smoking history, quit around the age of 51. Used to work in [employer] with exposure to dust Pets: Has dogs and cats at home. No birds or poultry nearby Allergies Allergy/AdvReac Type Severity Reaction Status Date / Time amlodipine Allergy Unknown Verified 10/26/24 12:25 Penicillins Allergy Hives Verified 10/26/24 12:25 simvastatin [From Zocor] Allergy Unknown Verified 10/26/24 12:25 Home Medications Medication Instructions Recorded Confirmed Type atorvastatin 40 mg tablet 60 mg PO HS 10/26/24 10/26/24 History budesonide 90 mcg/actuation breath 0 inh inhalation DAILY 10/26/24 10/26/24 History activated powder inhaler carvedilol 12.5 mg tablet 12.5 mg PO BID 10/26/24 10/26/24 History chlorthalidone 25 mg tablet 25 mg PO DAILY 10/26/24 10/26/24 History cholecalciferol (vitamin D3) 25 50 mcg PO DAILY 10/26/24 10/26/24 History mcg (1,000 unit) tablet (Vitamin D3) fluticasone 500 mcg-salmeterol 50 1 inh inhalation DAILY 10/26/24 10/26/24 History mcg/dose blistr powdr for inhalation folic acid 1 mg tablet 1 mg PO DAILY 10/26/24 10/26/24 History hydroxychloroquine 200 mg tablet 200 mg PO BID 10/26/24 10/26/24 History methotrexate sodium 2.5 mg tablet 20 mg PO DAILY 10/26/24 10/26/24 History montelukast 10 mg tablet 10 mg PO DAILY 10/26/24 10/26/24 History nifedipine 60 mg tablet,extended 60 mg PO DAILY 10/26/24 10/26/24 History release 24 hr oxybutynin chloride 5 mg tablet 5 mg PO BID 10/26/24 10/26/24 History potassium chloride 20 mEq oral 20 meq PO DAILY 10/26/24 10/26/24 History packet prednisone 5 mg tablet 5 mg PO QAM 10/26/24 10/26/24 History sertraline 100 mg tablet 100 mg PO QAM 10/26/24 10/26/24 History tamsulosin 0.4 mg capsule 0.4 mg PO HS 10/26/24 10/26/24 History Patient History Medical History ILD (interstitial lung disease) Social History Smoking Status: Former smoker Tobacco Type: Cigarettes Second Hand Exposure: No; Do You Dip or Chew Tobacco: No; Tobacco Cessation Education Requested by Patient: No Hx Alcohol Use: No Hx Substance Use: No Preferred Language: Panamanian Communication Ability: Effective Window And Siding Craftsman Required: No Beliefs That Will Affect Care: None Current Living Situation: Spouse Other Information That Helps Us Care for You: No Feels Safe at Home: Yes Safety Concerns: Feels Safe At This Time Assistive Devices: Cane Review of Systems 2 Review of Systems: All systems reviewed & are unremarkable except as noted in HPI & below Physical Exam 2 Physical Exam: Constitutional: No acute distress HEENT: EOMI, PERRLA, legally blind in the right eye Respiratory system: Decreased air entry bilaterally, no wheeze, no rhonchi, positive Velcro-like crackles appreciated bilaterally more on the right side CVS: S1-S2 positive, no murmurs or gallops Abdomen: Soft, nontender, nondistended, positive bowel sounds x4 Extremities: +2 pulses bilaterally radialis/ dorsalis pedis, no cyanosis, no edema Neuro: Awake alert oriented x3 Psych: Normal mood and affect G/U: No Clemons Skin: no rashes, warm and dry Lymphatic: no cervical or axillary lymphadenopathy Results & Data Results & Data Vital Signs (Past 12 Hours) Vital Signs Temp Pulse Pulse Resp BP BP Pulse Ox 10/26/24 16:28 10/26/24 16:27 36.6 C 62 16 110/64 93 10/26/24 14:36 60 20 131/60 97 10/26/24 12:30 61 21 125/63 94 10/26/24 12:14 78 10/26/24 11:40 85 L 10/26/24 11:40 36.4 C L 69 27 H 112/58 L 85 L O2 Del Method O2 Flow Rate 10/26/24 16:28 Nasal Cannula 3 10/26/24 16:27 Nasal Cannula 3 10/26/24 14:36 Nasal Cannula 3 10/26/24 12:30 Nasal Cannula 3 10/26/24 12:14 10/26/24 11:40 Room Air 10/26/24 11:40 Room Air Laboratory Results 10/26/24 11:45 10/26/24 11:45 PG Care Time/CCT Total # of Minutes Spent Total Time Spent with Patient: Total time spent is greater than 50% in coordination of care (as documented) at patient's floor/unit and/or counseling patient: Coding Level of Care Code 30655 INT INP/OBS CARE 375MIN Diagnoses Abnormal chest CT R93.89 ILD (interstitial lung disease) J84.9 History of lung cancer Z85.118 COPD (chronic obstructive pulmonary disease) J44.9 Acute on chronic hypoxic respiratory failure J96.21
[2024-10-26 18:36] LABS: C Reactive Protein 14.31 mg/dl (0-0.5)
[2024-10-26] MEDS: ACETAMINOPHEN 325 MG TAB PO PRN (19:56)
[2024-10-26] MEDS: HYDROXYCHLOROQUINE SULFATE 200 MG TAB PO SCH (19:57)
[2024-10-26] MEDS: oxyBUTYnin chloride 5 MG TAB PO SCH (19:57)
[2024-10-26] MEDS: DOXYCYCLINE HYCLATE 100 MG CAP PO SCH (19:57)
[2024-10-26] MEDS: traZODone HCL 50 MG TAB PO SCH (19:58)
[2024-10-26] MEDS: MONTELUKAST SODIUM 10 MG TABLET PO SCH (19:58)
[2024-10-26] MEDS: POTASSIUM CHLORIDE CRTAB 20 MEQ TABCR PO SCH (20:02)
[2024-10-26] MEDS: ALBUT/IPRATROP 3MG/0.5MG NEB 3 ML VIAL INH SCH (20:08)
--- OUTSIDE RECORDS SUMMARY | 2024-10-27 02:37 | External Medical Summary ---
Author Name Unknown Address Unknown Organization K1[facility] - [address] [place] [address] [address] [address] Laboratory Report Ordering Provider Test Date Status FABIAN GAMEZ 10/21/2024 07:08:00 Final Observation Date Value Abnormality Reference (Units ) Status WBC, Total 10/21/2024 07:08:00 13.41 Above high normal 4.00-10.80 (K/uL) Final RBC 10/21/2024 07:08:00 3.31 4.50-5.25 (M/uL) Final Hemoglobin 10/21/2024 07:08:00 10.0 Below low normal 14.0-16.8 (g/dL) Final HCT 10/21/2024 07:08:00 31.5 Below low normal 40.0-48.4 (%) Final MCV 10/21/2024 07:08:00 95.2 82.0-99.5 (fL) Final MCH 10/21/2024 07:08:00 30.2 27.0-34.0 (pg) Final MCHC 10/21/2024 07:08:00 31.7 32.0-36.0 (g/dL) Final RDW 10/21/2024 07:08:00 14.0 11.5-15.5 (%) Final Platelets 10/21/2024 07:08:00 274 140-400 (K/uL) Final MPV 10/21/2024 07:08:00 10.4 6.6-11.1 (fL) Final Nucleated erythrocytes/100 leukocytes [Ratio] in Blood by Automated count 10/21/2024 07:08:00 0 <=0 (/100 WBCs) Final Performing Location [facility] - [address] [address]
--- OUTSIDE RECORDS SUMMARY | 2024-10-27 02:37 | External Medical Summary ---
Author Name Unknown Address Unknown Organization [facility] - [address] [address] Laboratory Report Ordering Provider Test Date Status LISA PRICE 10/18/2024 10:17:53 Final Observation Date Value Abnormality Reference (Units ) Status Lactic Acid 10/18/2024 10:17:53 1.0 0.4-2.0 (mmol/L) Final Performing Location [facility] - [address] [id number]
--- OUTSIDE RECORDS SUMMARY | 2024-10-27 02:37 | External Medical Summary ---
Author Name Unknown Address Unknown Organization K1[facility] - [address] [address] Laboratory Report Ordering Provider Test Date Status FABIAN GAMEZ 10/21/2024 07:08:00 Final Observation Date Value Abnormality Reference (Units ) Status BUN 10/21/2024 07:08:00 32 Above high normal 6-20 (mg/dL) Final Creatinine 10/21/2024 07:08:00 1.0 0.6-1.2 (mg/dL) Final Glomerular filtration rate/1.73 sq M.predicted [Volume Rate/Area] in Serum, Plasma or Blood by Creatinine-based formula (CKD-EPI) 10/21/2024 07:08:00 80 >=60 (mL/min) Final eGFR is calculated based on the CKD-EPI 2020 equation. Sodium 10/21/2024 07:08:00 136 135-146 (m mol/L) Final Potassium 10/21/2024 07:08:00 4.5 3.5-5.1 (m mol/L) Final Cl 10/21/2024 07:08:00 102 98-107 (mm ol/L) Final CO2 10/21/2024 07:08:00 24 22-32 (mmo l/L) Final Anion gap 10/21/2024 07:08:00 10 7-15 (mmol /L) Final Glucose 10/21/2024 07:08:00 144 Above high normal 70 -120 (mg/dL) Final Calcium 10/21/2024 07:08:00 8.9 8.4-10.2 ( mg/dL) Final Performing Location [facility] - [address] [address]
--- OUTSIDE RECORDS SUMMARY | 2024-10-27 02:37 | External Medical Summary | Summary of Care ---
Author Name Unknown Organization [facility] Address [address] [place] [address] Phone [phone] Care Team Providers Care Orthodontic Treatment Coordinator Name Role Phone Lesa Cash PA-C Primary Care Provid er Reason for Visit * Reason Comments Follow Up Encounter Details Date Type Department Care Team (Latest Contact Info) Description 10/08/2024 11:45 AM EST Office Visit General Surgery Vicky Kapoor [address] [address] Sidney Govea MD [address] [phone] Right groin pain*; Degeneration of intervertebral disc of lumbosacral region, unspecified whether pain present; Peripheral arterial disease (HCC) Allergies Active Allergy Reactions Criticality Noted Date Comments Amlodipine Unknown 04/01/2017 Penicillins 02/05/2002 hives/eye swelling Simvastatin Other (Please comment) 12/16/2007 Pt states felt really bad Other Reaction(s): Liver enzymes abnormal documented as of this encounter (statuses as of 10/08/2024) Medications ALBUTEROL 90 MCG/ACT IN AERSIndications :Acute sinusitis 2 puffs every 4 hrs as needed 1 MDI 5 4 Active oxybutynin (DITROPAN) 5 MG Tablet 1 Tablet in the morning and 1 Tablet before bedtime. Active Aspirin 81 MG Tablet Take 1 Tablet by mouth in the morning. Active budesonide-form oterol (SYMBICORT) 80-4.5 MCG/ACT inhaler Inhale 1 Puff by mouth in the morning and 1 Puff before bedtime. Active atorvaSTATin (LIPITOR) 20 MG TabletIndicatio ns:take half tablet at bedtime 2 Tablets in the morning. Active chlorthalidone (HYGROTON) 25 MG Tablet Take 1 Tablet by mouth in the morning. Active finasteride (PROSCAR) 5 MG Tablet 1 Tablet in the morning. Active tamsulosin (FLOMAX) 0.4 MG Capsule 1 Capsule in the morning. Active CYANOCOBALAMIN (VITAMIN B-12) 500 MCG Sublingual Tablet 1 Tablet in the morning. Active traZODone (DESYREL) 150 MG Tablet 1 Tablet at bedtime. Active NIFEdipine ER 30 MG Oral Tablet Extended Release 24 Hour (Adalat CC) Take 1 Tablet by mouth daily. 30 Tablet 2 Active Additional Information Patient taking differently:30 mg Oral Daily(AM),Taking 60 mg daily, Reported on 10/08/2024 Fluticasone-Stephen meterol 500-50 MCG/ACT Inhalation Aerosol Powder Breath Activated Inhale 1 Puff by mouth in the morning and 1 Puff before bedtime. Active Potassium Chloride 20 MEQ Oral Packet Take 20 mEq by mouth in the morning and 20 mEq before bedtime. Active Sertraline HCl 100 MG Oral Tablet (Zoloft) Take 1 Tablet by mouth in the morning. Active Carvedilol 25 MG Oral Tablet (Coreg) 0.5 Tablets. 3 Active Montelukast Sodium 10 MG Oral Tablet (Singulair) 1 Tablet. 3 Active Turmeric 500 MG Oral Capsule (RA Turmeric) daily. 4 Active Paraffin Wax Use as directed. 4 Active Vitamin D (Cholecalcifero l) 25 MCG (1000 UT) Oral Capsule Take by mouth every morning. Active Methotrexate Sodium 2.5 MG Oral Tablet Take 8 Tablets by mouth once a week. Takes on Saturday 4 Active Folic Acid 1 MG Oral Tablet Take 1 Tablet by mouth in the morning. 4 Active Hernia Belt Double MediumIndicatio ns:Right groin pain Wear as directed. 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 Post Traumatic Stress Disorder 04/16/2005 Overview (04/16/2005): mixed depression, panic and rage OBESITY, UNSPECIFIED 02/05/2002 Irritable bowel syndrome Osteoarthrosis Varicose vein of leg Strain of rotator cuff capsule Alcohol dependence in remission HTN (hypertension) BPH (benign prostatic hyperplasia) documented as of this encounter (statuses as of 10/08/2024) Social History Tobacco Use Types Packs/Day Years Used Date Smoking Tobacco: Former Cigarettes Q uit: 09/02/1986 Smokeless Tobacco: Never Alcohol Use Standard Drinks/Week Comments No 0 (1 standard drink = 0.6 oz pur e alcohol) Patient sober since 1986 Sex and Gender Information Value Date Recorded Sex Assigned at Not on file Legal Sex Male 5:53 AM EST Gender Identity Not on file Sexual Orientation Not on file 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 Answer Date of Assessment Author No 09/15/2021 4:32 PM EST Pamela Cole S, [employer]LECT[employer] MAINTENANCE MAN * Are you blind or do you have serious difficulty seeing, even when wearing glasses? Answer Date of Assessment Author No 09/15/2021 4:32 PM Pamela Ying S, ELECTRICAL MAINTENANCE MAN * Do you have serious difficulty walking or climbing stairs? (5 years old or older) Answer Date of Assessment Author Yes 09/15/2021 4:32 PM Pamela Ying S, ELECTRICAL MAINTENANCE MAN * Do you have difficulty dressing or bathing? (5 years old or older) Answer Date of Assessment Author No 09/15/2021 4:32 PM Pamela Ying S [employer] MAINTENA[employer] * Because of a physical, mental, or emotional condition, do you have difficulty doing errands alone such as visiting a doctors office or shopping? (15 years old or older) Answer Date of Assessment Author No 09/15/2021 4:32 PM Pamela Ying LPN documented as of this encounter Mental Status * Because of a physical, mental, or emotional condition, do you have serious difficulty concentrating, remembering, or making decisions? (5 years old or older) Answer Entry Date Author Yes 09/15/2021 4:32 PM Pamela Ying LPN documented in this encounter Progress Notes * Sidney Govea MD - 10/08/2024 11:54 AM EST DOS: 10/08/2024 CC: FU from Office Visit on 09/01/2024 for right groin pain HPI: Patient states pain much improved. Has been using hernia belt when he strains. Here to review CT. PE: BP 91/42 | Pulse 62 | Temp 36.8 C (98.2 F) (Temporal Artery) | Wt 97.9 kg (215 lb 12.8 oz) | BMI 26.28 kg/m | BSA 2.29 m General: Appears well. CT PELVIS WO IV CONTRAST AND WO ORAL CONTRAST on 09/09/2024 1. Postoperative changes of prior right inguinal hernia repair, without evidence of recurrent hernia. 2. Unchanged fat-containing left inguinal hernia. 3. Osseous degenerative findings as above. My read: 1) no recurrent right inguinal hernia. 2) the "left inguinal hernia" is a cord lipoma and does not require surgery. 3) degenerative disc disease of L4-5 and L5-S1 may cause referred pain to the groin. 4) significant atherosclerosis of the bifurcation and internal / external iliac arteries A: No sign recurrent hernia. Degenerative disc disease of the lumbar spine. Asymptomatic peripheral artery disease - atherosclerosis of the aortic bifurcation and its branches. P: No surgical intervention is planned. Would have PCP monitor patient for symptoms of lower back pain and consider referral for pain management should pain persist. Would have PCP monitor patient for symptoms of lower extremity claudication through regular vascular checks. Consider formal evaluation with duplex ultrasound with VARINDER should symptoms present. I spent a total of 30-39 minutes (exact time 30 mins) on the date of service in preparation, delivery, and documentation of the care provided to Levi Ford excluding any time spent in the performance of separately billed services or time spent by another provider/QHP. G Eleazar Govea MD 10/08/2024 documented in this encounter Nursing Notes * Samina Soto LPN - 10/08/2024 11:33 AM EST Chief Complaint Patient presents with Follow Up Pt here for FU CT images for RIGHT groin pain. He has been using the hernia belt with some relief. documented in this encounter Plan of Treatment Scheduled Procedures Name Priority Associated Diagnoses Date/Ti me COLONOSCOPY FLEXIBLE PROXIMA L DIAGNOSTIC Recall History of colonic polyps Health Maintenance Due Date Last Done Comments COVID-19 Vaccine (#1) 1950 Depression Screening 1958 Albumin/Creatinine Ratio 1964 Hepatitis C Screening 1963 DTap/Tdap Vaccines (1 - Tdap) 1965 GFR 09/25/2025 09/25/2024, 03/02, 09/16/2021, Additional history exists Colonoscopy 02/23/2028 02/22/2023, 02/01, 04/04/2017, Additional history exists Pneumococcal Vaccine: 50+ Years Completed 10/01/2017, 07/10/2016 Zoster Vaccines Completed 09/30/2019, 10/03, 08/06/2012 RETIRED - COLONOSCOPY-EVERY 5 YRS AGES 18-100 Discontinued 02/22/2023, 02/22/2023, 04/04/2017, Additional history exists Influenza Vaccine (FLU shot) Completed 04/29/2024, 08/12/2019, 09/15/2018, Additional history exists HPV (Gardasil) Vaccine Aged Out No lo nger eligible based on patient's age to complete this topic Hepatitis B Vaccine Aged Out No longe r eligible based on patient's age to complete this topic MENINGOCOCCAL (MENACTRA/MENVEO) Aged Out No longer eligible based on patient's age to complete this topic documented as of this encounter Medical Devices Implanted Type Area Farm Management Agent Device Identifier Shelf Expiration Date Model / Serial / Lot Mesh Plug And Patch Med - [id number] Implanted:Qty: 1 on 05/08/2024 by Carolina Goldman MD at OR [facility] Mesh Right: Groin COVIDIEN : US SURGICAL 06/01/2028 [facility]-02 [id number] documented as of this encounter Visit Diagnoses Diagnosis Right groin pain- Primary Abdominal pain, right lower quadrant Degeneration of intervertebral disc of lumbosacral region, unspecified whether pain present Peripheral arterial disease (HCC) Peripheral vascular disease, unspecified documented in this encounter Additional Health Concerns Infection Onset Date Last Indicated Resolved Time SARS-CoV-2 (COVID-19) 09/25/2024 09/25/2024 documented as of this encounter Advance Directives * Full Code (Latest Code Status on File) Date Activated Date Inactivated Comments 05/08/2024 10:21 AM 05/08/2024 6:36 PM This order re flects the patients wishes and were consensually agreed upon. Question Answer Comments Discussion of Advance Directives occurred with: Patient * Full Code Date Activated Date Inactivated Comments 09/15/2021 3:54 PM 09/16/2021 10:28 PM This order reflects the patients wishes and were consensually agreed upon. Question Answer Comments Discussion of Advance Directives occurred with: Patient * Full Code Date Activated Date Inactivated Comments 11/16/2019 8:26 AM 11/16/2019 3:56 PM This order r eflects the patients wishes and were consensually agreed upon. Question Answer Comments Discussion of Advance Directives occurred with: Not Discussed Does the patient have a Living Will? No Does the patient have Health Care Power of Attor mika? No Healthcare Agents on File Name Relationship Healthcare Agent [facility] Communication Jennifer Ford Spouse Health Care Agent Care Teams Orthodontic Treatment Coordinator Relationship Specialty Start Date End Date Lesa Cash PA-C [address] [place] [address] PCP - General Physician Facing End Trimmer 09/15/21 documented as of this encounter
--- OUTSIDE RECORDS SUMMARY | 2024-10-27 02:37 | External Medical Summary ---
Author Name Unknown Address Unknown Organization [id number]:[facility] - [address] [facility] [place] [address] Laboratory Report Ordering Provider Test Date Status LISA PRICE 10/18/2024 10:17:53 Final Observation Date Value Abnormality Reference (Units ) Status Body temperature 10/18/2024 10:17:53 37.0 (C) Final pH of Venous blood 10/18/2024 10:17:53 7.486 Above high normal 7.320-7.430 (units) Final Carbon dioxide [Partial pressure] in Venous blood 10/18/2024 10:17:53 33.5 Below low normal 40.0-60.0 (mmHg) Final Oxygen [Partial pressure] in Venous blood 10/18/2024 10:17:53 44.4 25.0-50.0 (mmHg) Final Base excess, Capillary 10/18/2024 10:17:53 2.3 Above high normal -2.0-2.0 (mmol/L) Final Hemoglobin [Mass/volume] in Blood by Oximetry 10/18/2024 10:17:53 11.2 Below low normal 14.0-16.8 (g/dL) Final Oxyhemoglobin, Venous (FO2HB) 10/18/2024 10:17:53 75.5 40.0-85.0 (% total Hgb) Final Carboxyhemoglobin 10/18/2024 10:17:53 2.0 Above high normal <=1.5 (% total Hgb) Final Smokers: 0-9.0 % Methemoglobin 10/18/2024 10:17:53 0.8 <=1.5 (% total Hgb) Final Deoxyhemoglobin/Hemoglobin.t otal in Venous blood 10/18/2024 10:17:53 21.7 (% total Hgb) Myranda l Oxygen content in Venous blood 10/18/2024 10:17:53 11.9 7.0-18.0 (%vol) Final Bicarbonate, Venous, POC (i-STAT) 10/18/2024 10:17:53 25.0 23.0-31.0 (mmol/L) formerly [facility] Performing Location [facility] [address] [place] [address]
--- OUTSIDE RECORDS SUMMARY | 2024-10-27 02:37 | External Medical Summary ---
Author Name Unknown Address Unknown Organization K01:[facility] [place] [address] [place] [address] Laboratory Report Ordering Provider Test Date Status MAGGIE CARNES 10/18/2024 16:39:54 Final Observation Date Value Abnormality Reference (Units ) Status Legionella pneumophila 1 Ag [Presence] in Urine 10/18/2024 16:39:54 Negative Negative Final Presumptive negative for L. pneumophila serogroup 1 antigens. A negative result does not rule out the possibility of Legionella infection due to other serogroups or species of Legionella. Performing Location [facility] [place] [address] [facility] [address]
--- OUTSIDE RECORDS SUMMARY | 2024-10-27 02:37 | External Medical Summary ---
Author Name Unknown Address Unknown Organization [id number]:[facility] - [address] [place] [address] Laboratory Report Ordering Provider Test Date Status NIDHITIGIST 10/19/2024 06:01:00 Final Less than 0.5 ng/mL: Low ris k for progression to sepsis. Review patients condition for localized infections.

0.5 to 2.0 ng/mL: Intermediate risk for progresion to sepsis. Review underlying conditions. Recommend repeat PCT after 6 hours has elapsed.

Greater than 2.0 ng/mL: high risk for progression to sepsis unless other causes are known. Observation Date Value Abnormality Reference (Units ) Status Procalcitonin [Mass/volume] in Serum or Plasma by Immunoassay 10/19/2024 06:01:00 0.07 <0.10 (ng/mL) Final Performing Location [facility] - [address] [place] [address]
--- OUTSIDE RECORDS SUMMARY | 2024-10-27 02:37 | External Medical Summary | Summary of Care ---
Author Name Unknown Organization [facility] [address] [place] [address] Phone [phone] Care Team Providers Care Agriculture Laborer Name Role Phone Lesa Cash PA-C Primary Care Provid er Reason for Visit * Auth/Cert Specialty Diagnoses / Procedures Referred By Tai t Referred To Contact [facility] [address] [place] [address] Phone: [phone] [facility] Emergency Department ([facility]) [address] [place] [address] Phone: tel: fax: Referral ID Status Reason Start Date Expiration Date Visits Re quested Visits Authorized [id number] Encounter Details Date Type Department Care Team (Latest Contact Info) Description 10/19/2024 2:19 PM EST - 10/19/2024 11:59 PM EST Hospital Encounter Cardiac Studies, [facility] [address] [place], [place] [id number] Discharge Disposition: Home - Self Care Allergies Active Allergy Reactions Criticality Noted Date Comments Amlodipine Unknown 04/01/2017 Penicillins 02/05/2002 hives/eye swelling Simvastatin Other (Please comment) 12/16/2007 Pt states felt really bad Other Reaction(s): Liver enzymes abnormal documented as of this encounter (statuses as of 10/20/2024) Medications ALBUTEROL 90 MCG/ACT IN AERSIndications :Acute sinusitis 2 puffs every 4 hrs as needed 1 MDI 5 4 Suspended oxybutynin (DITROPAN) 5 MG Tablet 1 Tablet in the morning and 1 Tablet before bedtime. Suspended Aspirin 81 MG Tablet Take 1 Tablet by mouth in the morning. Suspended chlorthalidone (HYGROTON) 25 MG Tablet Take 1 Tablet by mouth in the morning. Suspended finasteride (PROSCAR) 5 MG Tablet 1 Tablet in the morning. Suspended tamsulosin (FLOMAX) 0.4 MG Capsule 1 Capsule in the morning. Suspended traZODone (DESYREL) 150 MG Tablet 1 Tablet at bedtime. Suspended Fluticasone-Stephen meterol 500-50 MCG/ACT Inhalation Aerosol Powder Breath Activated Inhale 1 Puff by mouth in the morning and 1 Puff before bedtime. Suspended Potassium Chloride 20 MEQ Oral Packet Take 20 mEq by mouth in the morning and 20 mEq before bedtime. Suspended Sertraline HCl 100 MG Oral Tablet (Zoloft) Take 1 Tablet by mouth in the morning. Suspended Carvedilol 25 MG Oral Tablet (Coreg) 0.5 Tablets. 3 Suspended Montelukast Sodium 10 MG Oral Tablet (Singulair) 1 Tablet. 3 Suspended Turmeric 500 MG Oral Capsule (RA Turmeric) daily. 4 Suspended Paraffin Wax Use as directed. 4 Suspended Vitamin D (Cholecalcifero l) 25 MCG (1000 UT) Oral Capsule Take by mouth every morning. Suspended Methotrexate Sodium 2.5 MG Oral Tablet Take 8 Tablets by mouth once a week. Takes on Saturday 4 Suspended Folic Acid 1 MG Oral Tablet Take 1 Tablet by mouth in the morning. 4 Suspended Hernia Belt Double MediumIndicatio ns:Right groin pain Wear as directed. 1 Each 4 Suspended Atorvastatin Calcium 20 MG Oral Tablet (Lipitor) Take 1 Tablet by mouth every evening. Suspended NIFEdipine ER 60 MG Oral Tablet Extended Release 24 Hour (Adalat CC) Take 1 Tablet by mouth in the morning. Suspended Hydroxychloroqu ine Sulfate 100 MG Oral Tablet Take 200 mg by mouth in the morning and 200 mg before bedtime. Suspended predniSONE 5 MG Oral Tablet (Deltasone) Take 1 Tablet by mouth in the morning. Suspended documented as of this encounter (statuses as of 10/20/2024) Active Problems Problem Noted Date Diagnosed Date Bacterial pneumonia 10/18/2024 Immunocompromised 10/18/2024 Rheumatoid arthritis 10/18/2024 S/P lobectomy of lung 10/18/2024 Bladder cancer 10/18/2024 COPD (chronic obstructive pulmonary disease) HLD (hyperlipidemia) 10/18/2024 OAB (overactive bladder) 10/18/2024 Acute respiratory failure with hypoxia Peripheral arterial disease 10/08/2024 Right inguinal hernia [...] as of this encounter (statuses as of 10/20/2024) Social History Tobacco Use Types Packs/Day Years Used Date Smoking Tobacco: Former Cigarettes 1.5 25 Smokeless Tobacco: Never Alcohol Use Standard Drinks/Week Comments No 0 (1 standard drink = 0.6 oz pur e alcohol) Patient sober since 1986 Personal Safety Answer Date Recorded Do you feel unsafe or have concerns for your saf ety? No 10/18/2024 Do you have concerns for you r family's safety? (Household - for ages 0-17 years) Not on file 10/18/2024 Utilities Answer Date Recorded Do you have trouble paying y our heating, water, or electric bill? No 10/18/2024 Is your family able to pay t he heat, water, or electric bill? (Household - for ages 0-17 years) Not on file 10/18/2024 Does your family have access to good internet? (Household - for ages 0-17 years) Not on file 10/18/2024 Transportation Needs Answer Date Record ed Do you have trouble getting a ride to medical visits or work? (Adult - for ages 18 years and over) Not on file 10/18/2024 Does your family have a hard time getting a ride to doctors visits? (Household - for ages 0-17 years) Not on file 10/18/2024 Has lack of transportation k ept you from medical appointments, meetings, work, or from getting things needed for daily living? Check all that apply. No 10/18/2024 Do you (or your family) have trouble finding or paying for a ride (transportation)? (Household - for ages 0-17 years) Not on file 10/18/2024 Housing Stability Answer Date Recorded Do you currently live in a s helter or have no steady place to sleep at night? (Adult - for ages 18 years and over) Not on file 10/18/2024 Do you think you are at risk of becoming homeless? (Adult - for ages 18 years and over) Not on file 10/18/2024 Does your family worry about paying for your home or becoming homeless? (Household - for ages 0-17 years) Not on file 0 10/18/2024 Are you homeless or worried that you might be in the future? No 10/18/2024 Are you (or your family) jonatan eless or worried that you might be in the future? (Household - for ages 0-17 years) Not on file Food Insecurity Answer Date Recorded Worried About Running Out of Food in the Last Ye ar Not on file 10/18/2024 Ran Out of Food in the Last Year Not on file 10/18/2024 Do you need food for this week? 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 Answer Date of Assessment Author Yes 10/18/2024 4:48 PM Souleymane Orosco RN * Are you blind or do you have serious difficulty seeing, even when wearing glasses? Answer Date of Assessment Author Yes 10/18/2024 4:48 PM Souleymane Orosco RN * Do you have serious difficulty walking or climbing stairs? (5 years old or older) Answer Date of Assessment Author No 10/18/2024 4:48 PM Souleymane Orosco RN * Do you have difficulty dressing or bathing? (5 years old or older) Answer Date of Assessment Author No 10/18/2024 4:48 PM Souleymane Orosco RN * Because of a physical, mental, or emotional condition, do you have difficulty doing errands alone such as visiting a doctors office or shopping? (15 years old or older) Answer Date of Assessment Author No 10/18/2024 4:48 PM Souleymane Orosco RN documented as of this encounter Mental Status * Because of a physical, mental, or emotional condition, do you have serious difficulty concentrating, remembering, or making decisions? (5 years old or older) Answer Entry Date Author No 10/18/2024 4:48 PM Souleymane Orosco RN documented in this encounter Plan of Treatment Scheduled Procedures Name Priority Associated Diagnoses Date/Ti me COLONOSCOPY FLEXIBLE PROXIMA L DIAGNOSTIC Recall History of colonic polyps Health Maintenance Due Date Last Done Comments COVID-19 Vaccine (#1) 1950 Depression Screening 1957 Albumin/Creatinine Ratio 1964 Alpha-1 Antitrypsin 1964 Hepatitis C Screening 1963 DTap/Tdap Vaccines (1 - Tdap) 1965 O2 ASSESSMENT COMPLETED IN PAST YEAR FOR COPD 05/08/2025 05/08/2024 GFR 10/19/2025 10/19/2024, 10/03, 09/25/2024, Additional history exists Colonoscopy 02/23/2028 02/22/2023, 02/01, [...] on patient's age to complete this topic Meningitis B Vaccine (Bexsero/Trumemba) Aged Out No longer eligible based on patient's age to complete this topic documented as of this encounter Medical Devices Implanted Type Area Genetic Counselor Device Identifier Shelf Expiration Date Model / Serial / Lot Mesh Plug And Patch Med - [id number] Implanted:Qty: 1 on 05/08/2024 by Carolina Goldman MD at [facility] Mesh Right: Groin COVIDIEN : [facility] 06/01/2028 [id number] / / [id number] documented as of this encounter Procedures Procedure Name Priority Date/Time Associated Diagnosis Comments ECHO, COMPLETE (2D), TRANS-THORACIC Routine 10/19/2024 3:04 PM EST Heart failure (HCC) documented in this encounter Results * ECHO, COMPLETE (2D), TRANS-THORACIC (10/19/2024 3:04 PM EST) LEFT VENTRICULAR EJECTION FRACTION 60 % [facility] 10/19/2024 2:36 PM EST Jorge Weems MD ECHOCARDIOLOGY Final Result [facility] CARDIOLOGY documented in this encounter Advance Directives * Full Code (Latest Code Status on File) Date Activated Date Inactivated Comments 10/18/2024 3:49 PM This order ref lects the patients wishes and were consensually agreed upon. Question Answer Comments Discussion of Advance Directives occurred with: Patient * Full Code Date Activated Date Inactivated Comments 05/08/2024 10:21 [...] Agents on File Name Relationship Healthcare Agent Relationshi p Communication Jennifer A Logan Spouse Health Care Agent Care Teams Agriculture Laborer Relationship Specialty Start Date End Date Lesa Cahs PA-C [address] [place] [address] PCP - General Physician Cat Operator 09/15/21 documented as of this encounter
--- OUTSIDE RECORDS SUMMARY | 2024-10-27 02:37 | External Medical Summary ---
Author Name Unknown Address Unknown Organization K1F:LABORATORY [facility] - [address] [place] [address] Laboratory Report Ordering Provider Test Date Status RENNY HUTSON 10/19/2024 06:01:00 Final Observation Date Value Abnormality Reference (Units ) Status Magnesium 10/19/2024 06:01:00 1.7 1.5-2.6 (m g/dL) Final Performing Location [facility]ATORY [facility] - [address] [address]
--- OUTSIDE RECORDS SUMMARY | 2024-10-27 02:37 | External Medical Summary ---
Author Name Unknown Address Unknown Organization K1F:[facility] - [address] [facility]. [place] [address] Laboratory Report Ordering Provider Test Date Status LISA PRICE 10/18/2024 10:17:53 Final Observation Date Value Abnormality Reference (Units ) Status BUN 10/18/2024 10:17:53 20 6-20 (mg/dL) Final Creatinine 10/18/2024 10:17:53 0.9 0.6-1.2 (mg/dL) Final Glomerular filtration rate/1.73 sq M.predicted [Volume Rate/Area] in Serum, Plasma or Blood by Creatinine-based formula (CKD-EPI) 10/18/2024 10:17:53 89 >=60 (mL/min) Final eGFR is calculated based on the CKD-EPI 2020 equation. Sodium 10/18/2024 10:17:53 130 Below low normal 135 -146 (mmol/L) Final Potassium 10/18/2024 10:17:53 3.6 3.5-5.1 (m mol/L) Final Cl 10/18/2024 10:17:53 96 Below low normal 98- 107 (mmol/L) Final CO2 10/18/2024 10:17:53 22 22-32 (mmo l/L) Final Anion gap 10/18/2024 10:17:53 12 7-15 (mmol /L) Final Glucose 10/18/2024 10:17:53 90 70-120 (mg /dL) Final Albumin 10/18/2024 10:17:53 2.9 Below low normal 3.8 -5.0 (g/dL) Final AST (Aspartate aminotransferase) 10/18/2024 10:17:53 22 10-50 (U/L) Fin al Alk Phos 10/18/2024 10:17:53 52 35-130 (U/ L) Final Bilirubin, Total 10/18/2024 10:17:53 0.7 <=1 .2 (mg/dL) Final Calcium 10/18/2024 10:17:53 8.7 8.4-10.2 ( mg/dL) Final Protein 10/18/2024 10:17:53 6.7 6.0-8.3 (g /dL) Final ALT (Alanine aminotransferase) 10/18/2024 10:17:53 29 10-50 (U/L) Sajan wells Performing Location LAB[facility]ATORY [facility] - [address] [place] [address] [place] [address]
--- OUTSIDE RECORDS SUMMARY | 2024-10-27 02:37 | External Medical Summary ---
Author Name Unknown Address Unknown Organization K1F:LAB[facility]ATORY [facility] - [address] [address] Laboratory Report Ordering Provider Test Date Status LISA PRICE 10/18/2024 10:17:53 Final Exclude Heart Failure: <300 pg/mL
Diagnose Heart Failure:
Age <50 yr: >450 pg/mL
50-75 yr: >900 pg/mL
>75 yr: >1800 pg/mL
GFR is 30-59 mL/min: >1200 pg/mL or Age- adjusted values
GFR <30 mL/min: do not use, not reliable

Prognostic threshold: 1000 pg/mL Observation Date Value Abnormality Reference (Units ) Status BNP, Pro-hormone 10/18/2024 10:17:53 1138 Above high no rmal <300 (pg/mL) Final Performing Location [facility] - [address] [address]
--- OUTSIDE RECORDS SUMMARY | 2024-10-27 02:37 | External Medical Summary ---
Author Name Unknown Address Unknown Organization K01:LABORATORY [facility] - [facility] [address] [facility]. [place] [address] Laboratory Report Ordering Provider Test Date Status MAGGIE CARNES 10/19/2024 11:48:37 Final Observation Date Value Abnormality Reference (Units) Status Bacteria identified in Specimen by Culture 10/19/2024 11:48:37 Specimen unsatisfactory. Not tested. Final Gram Stain 10/19/2024 11:48:37 Specimen contaminated with epithelial cells customer field representative of oropharyngeal contamination. Further processing may yield potentially misleading results. Final Test: Culture, Respiratory, Lower, Aerobic
Specimen Source: Sputum
Specimen Type: Lower Respiratory
Specimen Date: 10/19/2024 1148
Result Date: 10/20/2024 0036
Result Status: Final result
Resulting Lab: [facility]ATORY [facility]
[address] [facility] [address]

CULTURE

Specimen unsatisfactory. Not tested.

STAIN

Specimen contaminated with epithelial cells customer field representative of oropharyngeal
contamination. Further processing may yield potentially misleading results.

null Performing Location LABORATORY [facility] - [address] [facility] [address] [place] [id number]
--- OUTSIDE RECORDS SUMMARY | 2024-10-27 02:37 | External Medical Summary | Summary of Care ---
Author Name Unknown Organization [facility] [address] [place] [address] Phone [phone] Care Team Providers Care [address] Service Name Role Phone Lesa Cash PA-C Primary Care Provid er Reason for Visit * Reason Comments Short of Breath * Auth/Cert Specialty Diagnoses / Procedures Referred By Tai t Referred To Contact [facility] [address] [place] [address] Phone: tel:[phone] [facility] Emergency Department (H) [address] [place] [address] Phone: tel: fax: Referral ID Status Reason Start Date Expiration Date Visits Re quested Visits Authorized [id number] Encounter Details Date Type Department Care Team (Latest Contact Info) Description 10/18/2024 10:01 AM EST - 10/21/2024 2:27 PM EST Hospital Encounter 3B [facility], [facility] 3rd Floor [address], [place] [id number] Wili Cassidy DO [address] [place] [id number] Jorge Weems MD [address] [place] [address] [address] Marco Gutierrez MD [address] [place] [address] [id number] Estrada Gomez MD [address] [facility] [place] [address] Various: KRAVS,EKG,CDIQDC Discharge Disposition: Home - Self Care Allergies Active Allergy Reactions Criticality Noted Date Comments Amlodipine Unknown 04/01/2017 Penicillins 02/05/2002 hives/eye swelling Simvastatin Other (Please comment) 12/16/2007 Pt states felt really bad Other Reaction(s): Liver enzymes abnormal documented as of this encounter (statuses as of 10/22/2024) Medications ALBUTEROL 90 MCG/ACT IN AERSIndication s:Acute sinusitis 2 puffs every 4 hrs as needed 1 MDI 5 12/22/19 04 Active oxybutynin (DITROPAN) 5 MG Tablet 1 Tablet in the morning and 1 Tablet before bedtime. Active Aspirin 81 MG Tablet Take 1 Tablet by mouth in the morning. Active chlorthalidone (HYGROTON) 25 MG Tablet Take 1 Tablet by mouth in the morning. Active finasteride (PROSCAR) 5 MG Tablet 1 Tablet in the morning. Active tamsulosin (FLOMAX) 0.4 MG Capsule 1 Capsule in the morning. Active traZODone (DESYREL) 150 MG Tablet 1 Tablet at bedtime. Active Fluticasone-Sa lmeterol 500-50 MCG/ACT Inhalation Aerosol Powder Breath Activated [...] 25 MG Oral Tablet (Coreg) 0.5 Tablets. 07/14/20 23 Active Turmeric 500 MG Oral Capsule (RA Turmeric) daily. 10/30/19 24 Active Paraffin Wax Use as directed. 01/29/20 24 Active Vitamin D (Cholecalcifer ol) 25 MCG (1000 UT) Oral Capsule Take by mouth every morning. Active Folic Acid 1 MG Oral Tablet Take 1 Tablet by mouth in the morning. 01/22/20 24 Active Hernia Belt Double MediumIndicati ons:Right groin pain Wear as directed. 1 Each 09/01/20 24 Active Atorvastatin Calcium 20 MG Oral Tablet (Lipitor) Take 1 Tablet by mouth every evening. Active NIFEdipine ER 60 MG Oral Tablet Extended Release 24 Hour (Adalat CC) Take 1 Tablet by mouth in the morning. Active Montelukast Sodium 10 MG Oral Tablet (Singulair) Take 1 Tablet by mouth at bedtime. 30 Tablet 3 5 2:09 PM EST 10/21/19 25 Active predniSONE 20 MG Oral Tablet (Deltasone) Take 1 Tablet by mouth in the morning for 5 days. 5 Tablet 5 2:09 PM EST 10/21/19 25 025 Active predniSONE 5 MG Oral Tablet (Deltasone) Take 1 Tablet by mouth in the morning. Do not start before October 27, 2024. 30 Tablet 3 10/27/19 25 Active Hydroxychloroq uine Sulfate 200 MG Oral Tablet (Plaquenil) Take 1 Tablet by mouth in the morning and 1 Tablet before bedtime. Do not start before October 22, 2024. 14 Tablet 3 5 2:09 PM EST 10/22/19 25 Active Methotrexate Sodium 2.5 MG Oral Tablet Take 8 Tablets by mouth once a week - take on Saturday - Do not start before October 25, 2024. 30 Tablet 5 2:09 PM EST 10/25/19 25 Active budesonide-for moterol (SYMBICORT) 80-4.5 MCG/ACT inhaler Inhale 1 Puff by mouth in the morning and 1 Puff before bedtime. 025 Discontinued(Me dication List Clean Up) atorvaSTATin (LIPITOR) 20 MG TabletIndicati ons:take half tablet at bedtime 2 Tablets in the morning. 025 Discontinued(Me dication List Clean Up) CYANOCOBALAMIN (VITAMIN B-12) 500 MCG Sublingual Tablet 1 Tablet in the morning. 025 Discontinued(Me dication List Clean Up) NIFEdipine ER 30 MG Oral Tablet Extended Release 24 Hour (Adalat CC) Take 1 Tablet by mouth daily. 30 Tablet 09/17/19 22 025 Discontinued(Me dication List Clean Up) Montelukast Sodium 10 MG Oral Tablet (Singulair) 1 Tablet. 06/20/20 23 025 Discontinued Methotrexate Sodium 2.5 MG Oral Tablet Take 8 Tablets by mouth once a week. Takes on Saturday04/06/20 24 025 Discontinued Azithromycin 250 MG Oral Tablet (Zithromax) Take 1 Tablet by mouth in the morning for 4 days. 4 Tablet 09/25/19 25 025 Discontinued Cefdinir 300 MG Oral Capsule (Omnicef) Take 1 Capsule by mouth in the morning and 1 Capsule before bedtime. Do all this for 7 days. 14 Capsule 09/25/19 25 025 Discontinued dexAMETHasone 6 MG Oral Tablet (Decadron) Take 1 Tablet by mouth in the morning for 10 days. 10 Tablet 09/25/19 025 Discontinued Hydroxychloroq uine Sulfate 100 MG Oral Tablet Take 200 mg by mouth in the morning and 200 mg before bedtime. 025 Discontinued predniSONE 5 MG Oral Tablet (Deltasone) Take 1 Tablet by mouth in the morning. 025 Discontinued Doxycycline Hyclate 100 MG Oral Tablet Take 1 Tablet by mouth in the morning and 1 Tablet before bedtime. Do all this for 8 days. 16 Tablet 10/21/19 025 Discontinued Hydroxychloroq uine Sulfate 100 MG Oral Tablet Take 200 mg by mouth in the morning and 200 mg before bedtime. Do not start before October 30, 2024. 30 Tablet 3 10/30/19 025 Discontinued Methotrexate Sodium 2.5 MG Oral Tablet Take 8 Tablets by mouth once a week. Takes on Saturday Do not start before October 30, 2024. 30 Tablet 10/30/19 025 Discontinued documented as of this encounter (statuses as of 10/22/2024) Active Problems Problem Noted Date Diagnosed Date [...] as of this encounter (statuses as of 10/22/2024) Social History Tobacco Use Types Packs/Day Years Used Date Smoking Tobacco: Former Cigarettes 1.5 25 Smokeless Tobacco: Never Tobacco Cessation:Counseling Given: Not Answered Alcohol Use Standard Drinks/Week Comments No 0 [...] Sign Reading Time Taken Comments Blood Pressure 143/70 10/21/2024 7:12 AM EST Pulse 60 10/21/2024 7:53 AM EST Temperature 35.9 C (96.6 F) 10/21/2024 7:12 AM ES T Respiratory Rate 18 10/21/2024 7:53 AM EST Oxygen Saturation 95% 10/21/2024 9:43 AM EST Inhaled Oxygen Concentration - - Weight 93.8 kg (206 lb 12.8 oz) 10/21/2024 4:00 AM EST Height 193 cm (6' 4") 10/18/2024 4:33 PM EST Body Mass Index 25.17 10/18/2024 4:33 PM EST documented in this encounter Functional Status * [...] Souleymane Orosco RN documented in this encounter Discharge Instructions * Appointments* Laney Rogers [facility] - 10/21/2024 1:24 PM EST [facility] Office will call to schedule with PCP (1 week) and Rheumatology (2 weeks). * Discharge Instr - AVS* Estrada Gomez MD - 10/21/2024 12:25 PM EST Discharge Date: 10/21/24 The information below provides you with the instructions and the list of medications you need to betaking following discharge from the hospital. If you have any questions, please ask before leaving. If you have questions after leaving, you can reach us at the numbers below. YOUR HOSPITAL PROVIDERS: Discharging Provider: Estrada Gomez MD Provider Department: Hospital Medicine To reach this Provider Saturday through Saturday (8:00 AM to 4:30 PM) for any questions or test results: Call [phone] For after-hours concerns: Call [phone] and have your provider paged, or the provider neonatal intensive care unit nurse for the Department of Hospital Medicine paged. Please note, the discharging provider will not be able to provide you with any medications refills.Please discuss these with your primary care provider. Worsening Symptoms: If you have new symptoms, or your symptoms get worse, please contact your Discharge Provider or Primary Care Provider (PCP). If these providers are not available, you can go to your local [facility] or [facility] Clinic during their business hours. In an EMERGENCY situation: Call [phone] or go to the nearest emergency room. A BRIEF SUMMARY OF YOUR HOSPITAL STAY: You came to the hospital with: complaint of shortness of breath, cough Your main diagnosis at discharge was: Acute hypoxic respiratory failure from interstitial lung disease , COPD Operations & Procedures performed: none Complications: none applicable Inpatient test results that are pending at discharge: none Advance Directive Documented: Advance Directive Does the Patient have an Advance Directive? Yes YOUR FOLLOW UP APPOINTMENTS: Primary Care Provider Information: PCP: Lesa Cash PA-C [id number] / [place] [address] (office) [phone] (fax) An appointment was requested with your PCP (Lesa Cash PA-C) within 7 days. (Please take this form to this visit with your primary care physician.) You need the following studies in the future: follow up CT chest in 4 -6 weeks INSTRUCTIONS: Diet: Heart healthy diet Activity: As tolerated COPD DISCHARGE INSTRUCTIONS HOW DO YOU FEEL TODAY? ALL CLEAR You are feeling well * Your breathing feels normal for you * The color of your phlegm is clear or white * You can do your normal activities without unusual tiredness or shortness of breath * Your appetite is normal * You are sleeping like you normally do * You can think clearly What you should do: * Take your daily medicines as prescribed * Eat healthy foods * Be active every day * Include some exercise, like walking, in your daily routine * Balance your activity with rest periods * Do not smoke. Make your home and car smoke free. Stay away from smoky areas. CAUTION You are feeling worse: * You are more short of breath * You are wheezing or coughing more than usual * You notice changes in your phlegm (thicker, color, amount) * You are using your rescue inhaler (the fast acting one) or your nebulizer more often than usual * You are more tired and cannot do your usual activities * You have a fever and chills * You are sleeping abnormally * Your symptoms wake you up What you should do: * Limit your activities * Make sure your oxygen system, if you have one, is working properly * Make sure you have been taking your medicines. Have you forgotten any today? * Eat smaller meals more often during the day rather than 3 big meals * Use your nebulizer or rescue inhaler (fast acting one), as prescribed CALL YOUR FAMILY DOCTOR !! EMERGENCY You feel you are in DANGER! * You have severe shortness of breath (You feel like you cannot breathe or catch your breath while resting) * Hard and fast breathing * Hard to walk and talk in complete sentences * You have chest pain * Your heart rate or pulse is very fast * You feel faint * You are sleepier than normal and have difficulty staying awake * You feel confused or are very drowsy * Your speech is slurred * You have bluish color to your lips or fingernails * Your medicine is not helping What you should do: CALL 911 OR GO TO THE HOSPITAL EMERGENCY ROOM !! Additional Instructions: - Call your primary care physician or seek medical attention if worsening shortness of breath, cough, fever, chills . You can resume your methotrexate , plaquenil since your antibiotics are off. Please follow up with plant physiology teacher for further evalautino of interstitial lung disease , possible from rheumatoid arthritis Prednisone 40 mg daily for 5 days, then go back to your home regimen. documented in this encounter Progress Notes * Marco Gutierrez MD - 10/20/2024 4:15 PM EST Images from the original note were not included. [facility] 3B-3019/D 79 y/o male with PMHx RA on MTX/plaquenil, IBS, lung cancer s/p lobectomy, BPH, bladder cancer, HLD, COPD, PTSD, HTN. 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 INTERVAL HISTORY: Patient states he feels better; however, still feels a bit winded, CARVER. CT Facial: Fluid density lesion or collection at the superficial aspect of the left masseter muscle, contained within the superficial facial fat, is nonspecific. Correlate with clinical information regarding possible abscess. Objective Physical Exam Most Recent Vital Signs: BP: 97 mmHg/51 mmHg (10/20/24 1400) Pulse: 61 (10/20/24 1400) Resp: 20 (10/20/24 1400) Temp: 35.72 C (10/20/24 1400) Temp Summary: Temp Min: 35.7 C (96.3 F) Max: 36.7 C (98.1 F) SpO2: 97 % (10/20/24 1400) O2 flow rate: 3 L/MIN (10/20/24 1400) Supplemental O2 Delivery: Nasal Cannula (10/20/24 1400) Physical Exam Vitals reviewed. Constitutional: Appearance: He is ill-appearing. He is not toxic-appearing. Comments: Left jaw with palpable soft mass. Cardiovascular: Rate and Rhythm: Normal rate. Heart sounds: No friction rub. No gallop. Pulmonary: Breath sounds: Decreased breath sounds and rales present. Abdominal: General: Abdomen is flat. Bowel sounds are normal. There is no distension. Tenderness: There is no abdominal tenderness. There is no guarding. Musculoskeletal: Right lower leg: No edema. Left lower leg: No edema. Neurological: Mental Status: He is alert. Motor: Weakness present. Peripheral Line Left;Lower;Posterior Arm 20 Gauge (Active) Number of days: 2 STUDIES: Encounter Orders Labs and other studies reviewed with pertinent findings noted below: Hematology Lab results within last 7 days (see chart for full results) Units 10/19/24 0601 10/18/24 1017 HGB g/dL 10.1* 10.5* HCT % 31.3* 32.5* WBC K/uL 9.90 10.96* PLT K/uL 224 223 MCV fL 95.1 95.3 Chemistry Lab results within last 7 days (see chart for full results) Units 10/19/24 0601 10/18/24 1017 SODIUM mmol/L 132* 130* POTASSIUM mmol/L 3.7 3.6 CHLORIDE mmol/L 99 96* CO2 mmol/L 24 22 BUN mg/dL 16 20 CREATININE mg/dL 0.8 0.9 GLUCOSE mg/dL 93 90 Lab results within last 7 days (see chart for full results) Units 10/19/24 0601 10/18/24 1017 Magnesium mg/dL 1.7 -- CALCIUM mg/dL 8.4 8.7 Lab results within last 7 days (see chart for full results) Units 10/19/24 0943 10/18/24 1017 Lactate mmol/L 0.9 1.0 Liver Function Lab results within last 7 days (see chart for full results) Units 10/18/24 1017 Protein g/dL 6.7 Bilirubin, Total mg/dL 0.7 Alkaline Phosphatase U/L 52 AST U/L 22 ALT U/L 29 Cardiac Markers Lab results within last 7 days (see chart for full results) Units 10/18/24 1017 Troponin T, High Sensitivity ng/L 19 Infectious Disease Recent Cultures (2 Weeks) 10/19/2024 11:48 AM STAIN DESCRIPTION Specimen contaminated with epithelial cells leasing representative of oropharyngeal contamination. Further processing may yield potentially misleading results. CULTURE GROWTH Specimen unsatisfactory. Not tested. No results found for the last [address] MAXILLOFACIAL WO CONTRAST Result Date: 10/19/2024 IMPRESSION: Fluid density lesion or collection at the superficial aspect of the left masseter muscle, contained within the superficial facial fat, is nonspecific. Correlate with clinical information regarding possible abscess. THIS DOCUMENT HAS BEEN ELECTRONICALLY SIGNED BY DESIREE CARDOZA MD CT PULMONARY EMBOLUS W CONTRAST Result Date: 10/18/2024 IMPRESSION: Moderate fibrotic changes in bilateral lower lobes (UIP pattern) and patchy fibrotic changes in upper lobes with superimposed ground-glass densities, peribronchial infiltrative pattern changes suspicious for superimposed acute infection. Recommend short-term follow-up study. THIS DOCUMENT HAS BEEN ELECTRONICALLY SIGNED BY BALDOMERO CARRION MD XR CHEST 2 VIEWS Result Date: 10/18/2024 IMPRESSION: Infiltrates superimposed on chronic changes in left lower lobe, suspicious for acute pneumonia. Recommend follow-up. THIS DOCUMENT HAS BEEN ELECTRONICALLY SIGNED BY BALDOMERO CARRION MD Assessment and Plan IMPRESSION : Principal Problem: Acute respiratory failure with hypoxia (HCC) Active Problems: Irritable bowel syndrome Post Traumatic Stress Disorder Cancer of lung (HCC) Right carotid artery occlusion HTN (hypertension) BPH (benign prostatic hyperplasia) Bacterial pneumonia Immunocompromised (HCC) Rheumatoid arthritis (HCC) S/P lobectomy of lung Bladder cancer (HCC) COPD (chronic obstructive pulmonary disease) (HCC) HLD (hyperlipidemia) OAB (overactive bladder) Resolved Problems: * No resolved hospital problems. * DIFFERENTIAL AND PLAN: De-escalating abx given Procal normal. No leukocytosis or fever. Will monitor Appreciate Pulm input . Hold MTX/Plaquenil for now. Might benefit from Ofev OP Continue supportive care Steroids/bronchodilators/IS/Flutter COMMUNITY OUTREACH COORDINATOR meds where appropriate Follow AM labs CT facial: unclear cause. Will have see ENT or maxillofacial at discharge Continue oxygen and wean as tolerated. Will need ambulatory pulse ox Will need PT/OT PHARMACOLOGIC VTE PROPHYLAXIS: Enoxaparin CODE STATUS: Full Code EXPECTED DISCHARGE DATE: 10/21/2024 I spent a total of 35 minutes coordinating, documenting, and providing care for this patient excluding time spent in the performance of separately billed services or time spent by another provider/QHP. * Marco Gutierrez MD - 10/19/2024 4:40 PM EST Images from the original note were not included. [facility] 3B-3019/D 79 y/o male with PMHx RA on MTX/plaquenil, IBS, lung cancer s/p lobectomy, BPH, bladder cancer, HLD, COPD, PTSD, HTN. 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 INTERVAL HISTORY: Patient states he feels better; however, noted mass of left jaw. Ordered CT of face. CT Facial: Fluid density lesion or collection at the superficial aspect of the left masseter muscle, contained within the superficial facial fat, is nonspecific. Correlate with clinical information regarding possible abscess. Objective Physical Exam Most Recent Vital Signs: BP: 104 mmHg/57 mmHg (10/19/24 1622) Pulse: 66 (10/19/24 1622) Resp: 18 (10/19/24 151) Temp: 35.61 C (10/19/24 151) Temp Summary: Temp Min: 35.6 C (96.1 F) Max: 38.4 C (101.2 F) SpO2: 96 % (10/19/24 151) O2 flow rate: 4 L/MIN (10/19/24 151) Supplemental O2 Delivery: Nasal Cannula (10/19/241511) Physical Exam Vitals reviewed. Constitutional: Appearance: He is ill-appearing. He is not toxic-appearing. Comments: Left jaw with palpable soft mass. Cardiovascular: Rate and Rhythm: Normal rate. Heart sounds: No friction rub. No gallop. Pulmonary: Breath sounds: Decreased breath sounds and rales present. Abdominal: General: Abdomen is flat. Bowel sounds are normal. There is no distension. Tenderness: There is no abdominal tenderness. There is no guarding. Musculoskeletal: Right lower leg: No edema. Left lower leg: No edema. Neurological: Mental Status: He is alert. Motor: Weakness present. Peripheral Line Left;Lower;Posterior Arm 20 Gauge (Active) Number of days: 1 STUDIES: Encounter Orders Labs and other studies reviewed with pertinent findings noted below: Hematology Lab results within last 7 days (see chart for full results) Units 10/19/24 0601 10/18/24 1017 HGB g/dL 10.1* 10.5* HCT % 31.3* 32.5* WBC K/uL 9.90 10.96* PLT K/uL 224 223 MCV fL 95.1 95.3 Chemistry Lab results within last 7 days (see chart for full results) Units 10/19/24 0601 10/18/24 1017 SODIUM mmol/L 132* 130* POTASSIUM mmol/L 3.7 3.6 CHLORIDE mmol/L 99 96* CO2 mmol/L 24 22 BUN mg/dL 16 20 CREATININE mg/dL 0.8 0.9 GLUCOSE mg/dL 93 90 Lab results within last 7 days (see chart for full results) Units 10/19/24 0601 10/18/24 1017 Magnesium mg/dL 1.7 -- CALCIUM mg/dL 8.4 8.7 Lab results within last 7 days (see chart for full results) Units 10/19/24 0943 10/18/24 1017 Lactate mmol/L 0.9 1.0 Liver Function Lab results within last 7 days (see chart for full results) Units 10/18/24 1017 Protein g/dL 6.7 Bilirubin, Total mg/dL 0.7 Alkaline Phosphatase U/L 52 AST U/L 22 ALT U/L 29 Cardiac Markers Lab results within last 7 days (see chart for full results) Units 10/18/24 1017 Troponin T, High Sensitivity ng/L 19 Infectious Disease Recent Cultures (2 Weeks) No lab values to display. No results found for the last [address] MAXILLOFACIAL WO CONTRAST Result Date: 10/19/2024 IMPRESSION: Fluid density lesion or collection at the superficial aspect of the left masseter muscle, contained within the superficial facial fat, is nonspecific. Correlate with clinical information regarding possible abscess. THIS DOCUMENT HAS BEEN ELECTRONICALLY SIGNED BY DESIREE CARDOZA MD CT PULMONARY EMBOLUS W CONTRAST Result Date: 10/18/2024 IMPRESSION: Moderate fibrotic changes in bilateral lower lobes (UIP pattern) and patchy fibrotic changes in upper lobes with superimposed ground-glass densities, peribronchial infiltrative pattern changes suspicious for superimposed acute infection. Recommend short-term follow-up study. THIS DOCUMENT HAS BEEN ELECTRONICALLY SIGNED BY BALDOMERO CARRION MD XR CHEST 2 VIEWS Result Date: 10/18/2024 IMPRESSION: Infiltrates superimposed on chronic changes in left lower lobe, suspicious for acute pneumonia. Recommend follow-up. THIS DOCUMENT HAS BEEN ELECTRONICALLY SIGNED BY BALDOMERO CARRION MD Assessment and Plan IMPRESSION : Principal Problem: Acute respiratory failure with hypoxia (HCC) Active Problems: Irritable bowel syndrome Post Traumatic Stress Disorder Cancer of lung (HCC) Right carotid artery occlusion HTN (hypertension) BPH (benign prostatic hyperplasia) Bacterial pneumonia Immunocompromised (HCC) Rheumatoid arthritis (HCC) S/P lobectomy of lung Bladder cancer (HCC) COPD (chronic obstructive pulmonary disease) (HCC) HLD (hyperlipidemia) OAB (overactive bladder) Resolved Problems: * No resolved hospital problems. * DIFFERENTIAL AND PLAN: Continue abx for now given imaging findings. Will consider de-escalating based on improvement Appreciate Pulm input . Hold MTX/Plaquenil for now. Might benefit from Ofev OP Procal normal. No leukocytosis or fever. Will monitor Continue supportive care Steroids/bronchodilators/IS/Flutter COMMUNITY OUTREACH COORDINATOR meds where appropriate Follow AM labs CT facial: unclear cause. Will have him see ENT at discharge Continue oxygen and wean as tolerated. Will need ambulatory pulse ox Will need PT/OT PHARMACOLOGIC VTE PROPHYLAXIS: Enoxaparin CODE STATUS: Full Code EXPECTED DISCHARGE DATE: 10/21/2024 I spent a total of 50 minutes coordinating, documenting, and providing care for this patient excluding time spent in the performance of separately billed services or time spent by another provider/QHP. documented in this encounter H&P Notes * Jessie Holder CRNP - 10/18/2024 2:47 PM EST Images from the original note were not included. [facility] H6/X PRESENTING PROBLEM: Shortness of breath and cough HPI: 79 y/o male with PMHx RA on MTX/plaquenil, IBS, lung cancer s/p lobectomy, BPH, bladder cancer, HLD, COPD, PTSD, HTN. HLD, OAB, depression, R carotid stenosis presented to ED with increased shortness of breath and coughing. Seen in ED 09/25/24--Covid 19--LLL pneumonia--given azithromycin, cefdinir and dexamethasone. He has been checking Spo2 at home and noted he was dropping with ambulation. EMS reported they put 4L on and Spo2 improved to 99%. Pt reports he has not felt good for several weeks and worse the past couple days. + shortness of breath and TAGMAN coughing, feels cold/chilled and has chronic night sweats. Does not use oxygen at home. Denies N/V/D and appetite has been ok. Lives with . In ED, WBC 10.96, D dimer 1.89, BNP 1138. RVP neg. CT PE---moderate fibrotic changes BLL, patchy fibrotic changes upper lobes with superimposed ground glass densities, peribronchial infiltrative pattern changes suspicious for superimposed acute infection. Ambulated in ED on RA and dropped to 75%. Placed on O2. Given azithromycin, ceftriaxone. Admission recommended for further monitoring and mgmt. Subjective Patient's past history, medications, and allergies were reviewed. Objective Physical Exam Most Recent Vital Signs: BP: 150 mmHg/68 mmHg (10/18/24 1530) Pulse: 64 (10/18/24 1530) Resp: 20 (10/18/24 1530) Temp: 37.5 C (10/18/24 1003) Temp Summary: Temp Min: 37.5 C (99.5 F) Max: 37.5 C (99.5 F) SpO2: 98 % (10/18/24 1230) O2 flow rate: Supplemental O2 Delivery: Room Air, None (10/18/24 1003) Physical Exam Vitals and nursing note reviewed. Constitutional: Appearance: He is ill-appearing. He is not toxic-appearing. HENT: Head: Normocephalic. Mouth/Throat: Mouth: Mucous membranes are dry. Eyes: Conjunctiva/sclera: Conjunctivae normal. Cardiovascular: Rate and Rhythm: Normal rate and regular rhythm. Heart sounds: No murmur heard. Pulmonary: Effort: Pulmonary effort is normal. No tachypnea. Abdominal: General: Bowel sounds are normal. Palpations: Abdomen is soft. Musculoskeletal: General: Normal range of motion. Right lower leg: No edema. Left lower leg: No edema. Skin: General: Skin is warm and dry. Coloration: Skin is not pale. Neurological: General: No focal deficit present. Mental Status: He is alert. Psychiatric: Mood and Affect: Mood normal. Behavior: Behavior normal. Thought Content: Thought content normal. Judgment: Judgment normal. Peripheral Line Left;Lower;Posterior Arm 20 Gauge (Active) Number of days: 0 STUDIES: Encounter Orders Labs and other studies reviewed with pertinent findings noted below: Results for orders placed or performed during the hospital encounter of 10/18/24 COMPREHENSIVE METABOLIC PANEL Result Value Ref Range BUN 20 6 - 20 mg/dL CREATININE 0.9 0.6 - 1.2 mg/dL EGFR 89 >=60 mL/min SODIUM 130 (L) 135 - 146 mmol/L POTASSIUM 3.6 3.5 - 5.1 mmol/L CHLORIDE 96 (L) 98 - 107 mmol/L CO2 22 22 - 32 mmol/L ANION GAP 12 7 - 15 mmol/L GLUCOSE 90 70 - 120 mg/dL Albumin 2.9 (L) 3.8 - 5.0 g/dL AST 22 10 - 50 U/L Alkaline Phosphatase 52 35 - 130 U/L Bilirubin, Total 0.7 <=1.2 mg/dL CALCIUM 8.7 8.4 - 10.2 mg/dL Protein 6.7 6.0 - 8.3 g/dL ALT 29 10 - 50 U/L BLOOD GAS, VENOUS Result Value Ref Range Temperature 37.0 C pH, Venous 7.486 (H) 7.320 - 7.430 units pCO2, Venous 33.5 (L) 40.0 - 60.0 mmHg pO2, Venous 44.4 25.0 - 50.0 mmHg Base Excess, Venous 2.3 (H) -2.0 - 2.0 mmol/L HGB 11.2 (L) 14.0 - 16.8 g/dL Oxyhemoglobin, Venous 75.5 40.0 - 85.0 % total Hgb Carboxyhemoglobin, Whole Blood 2.0 (H) <=1.5 % total Hgb Methemoglobin, Whole Blood 0.8 <=1.5 % total Hgb Reduced Hemoglobin, Venous 21.7 % total Hgb O2 Content, Venous 11.9 7.0 - 18.0 %vol Bicarbonate, Whole Blood 25.0 23.0 - 31.0 mmol/L LACTATE WITH REFLEX IF ABNORMAL Result Value Ref Range Lactate 1.0 0.4 - 2.0 mmol/L TROPONIN T, HIGH SENSITIVITY Result Value Ref Range Troponin T, High Sensitivity 19 <=22 ng/L BNP, NT-PRO Result Value Ref Range BNP, NT-Pro 1,138 (H) <300 pg/mL D-DIMER Result Value Ref Range D-Dimer 1.89 (H) <0.50 ug/mL FEU CBC Result Value Ref Range WBC 10.96 (H) 4.00 - 10.80 K/uL RBC 3.41 4.50 - 5.25 M/uL HGB 10.5 (L) 14.0 - 16.8 g/dL HCT 32.5 (L) 40.0 - 48.4 % MCV 95.3 82.0 - 99.5 fL MCH 30.8 27.0 - 34.0 pg MCHC 32.3 32.0 - 36.0 g/dL RDW 14.5 11.5 - 15.5 % PLT 223 140 - 400 K/uL MPV 9.8 6.6 - 11.1 fL nRBCs 0 <=0 /100 WBCs DIFFERENTIAL, AUTOMATED Result Value Ref Range WBC 10.96 (H) 4.00 - 10.80 K/uL Neutrophils % 78.5 (H) 40.0 - 75.0 % Lymphocytes % 9.9 (L) 18.0 - 42.0 % Monocytes % 7.3 1.0 - 11.0 % Eosinophils % 3.2 0.0 - 6.0 % Basophils % 0.6 0.0 - 2.0 % Immature Granulocytes % 0.5 0.0 - 2.0 % Absolute Neutrophils 8.60 (H) 1.80 - 7.70 K/uL Absolute Lymphocytes 1.09 1.00 - 4.80 K/ul Absolute Monocytes 0.80 0.00 - 1.10 K/uL Absolute Eosinophils 0.35 0.00 - 0.70 K/uL Absolute Basophils 0.07 0.00 - 0.20 K/uL Absolute Immature Granulocytes 0.05 0.00 - 0.20 K/uL RESPIRATORY PATHOGEN PANEL, PCR Result Value Ref Range Adenovirus by PCR Negative Negative Coronavirus 229E by PCR Negative Negative Coronavirus HKU1 by PCR Negative Negative Coronavirus NL63 by PCR Negative Negative Coronavirus OC43 by PCR Negative Negative Coronavirus SARS-CoV-2 by PCR Negative Negative Human Metapneumovirus by PCR Negative Negative Rhinovirus/Enterovirus by PCR Negative Negative Influenza A Virus by PCR Negative Negative Influenza B Virus by PCR Negative Negative Parainfluenza Virus 1 by PCR Negative Negative Parainfluenza Virus 2 by PCR Negative Negative Parainfluenza Virus 3 by PCR Negative Negative Parainfluenza Virus 4 by PCR Negative Negative Respiratory Syncytial Virus by PCR Negative Negative Bordetella pertussis by PCR Negative Negative Chlamydia pneumoniae by PCR Negative Negative Mycoplasma pneumoniae by PCR Negative Negative Bordetella parapertussis by PCR Negative Negative CT PULMONARY EMBOLUS W CONTRAST Final Result PROCEDURE INFORMATION: Exam: CTA Chest With Contrast Exam date and time: 10/18/2024 1:00 PM Age: 79 years old Clinical indication: Other: SOB; Recent covid; HX malignancy; Elevated d-dimer TECHNIQUE: Imaging protocol: Computed tomographic angiography of the chest with contrast. Exam focused on the arteries. 3D rendering (Not supervised by radiologist): MIP and/or 3D reconstructed images were created by the technologist. Radiation optimization: All CT scans at this facility use at least one of these dose optimization techniques: automated exposure control; mA and/or kV adjustment per patient size (includes targeted exams where dose is matched to clinical indication); or iterative reconstruction. Contrast material: ISOVUE 370; Contrast volume: 100 ml; Contrast route: INTRAVENOUS (IV); COMPARISON: DX XR CHEST 2 VIEWS 10/18/2024 11:36 AM FINDINGS: Pulmonary arteries: No acute pulmonary embolism. Aorta: Atherosclerotic calcifications. Coronary artery calcifications. No aortic aneurysm. No aortic dissection. Lungs: Peripheral reticulations and ground-glass densities in left upper lobe anteriorly. Minimal honeycombing and traction bronchiectasis also noted. Small focal peripheral honeycombing and ground-glass densities in right upper lobe inferiorly. Bilateral lower lobes show diffuse honeycombing and traction bronchiectasis with superimposed ground-glass densities. Postop changes of the right middle lobe with volume loss noted. Pleural spaces: Small left pleural effusion. Heart: Cardiomegaly. No pericardial effusion. Lymph nodes: Nonenlarged right paratracheal lymph nodes. Aortopulmonary window lymph node measuring 1 cm. Left lower paratracheal lymph node measuring 1.4 cm, subcarinal lymph node measuring 1.8 cm. Nonenlarged hilar lymph nodes. Bones/joints: Minimal spondylotic changes. No acute fracture. Soft tissues: Unremarkable. IMPRESSION IMPRESSION: Moderate fibrotic changes in bilateral lower lobes (UIP pattern) and patchy fibrotic changes in upper lobes with superimposed ground-glass densities, peribronchial infiltrative pattern changes suspicious for superimposed acute infection. Recommend short-term follow-up study. THIS DOCUMENT HAS BEEN ELECTRONICALLY SIGNED BY BALDOMERO CARRION MD XR CHEST 2 VIEWS Final Result PROCEDURE INFORMATION: Exam: XR Chest Exam date and time: 10/18/2024 11:36 AM Age: 79 years old Clinical indication: Other: SOB; Cough; 3 weeks ago diagnosed with covid SX worsening past week TECHNIQUE: Imaging protocol: Radiologic exam of the chest. Views: 2 views. COMPARISON: DX XR CHEST 2 VIEWS 09/25/2024 3:07 PM FINDINGS: Lungs: Infiltrates in left lower lobe superimposed on interstitial changes. Likely chronic changes in right lung base. Pleural spaces: Pleural thickening bilaterally suspected. Small pleural effusions can not be excluded. No pneumothorax. Heart/Mediastinum: Stable. Bones/joints: Stable. IMPRESSION IMPRESSION: Infiltrates superimposed on chronic changes in left lower lobe, suspicious for acute pneumonia. Recommend follow-up. THIS DOCUMENT HAS BEEN ELECTRONICALLY SIGNED BY BALDOMERO CARRION MD Assessment and Plan IMPRESSION: Principal Problem: Bacterial pneumonia Active Problems: Irritable bowel syndrome Post Traumatic Stress Disorder Cancer of lung (HCC) Right carotid artery occlusion HTN (hypertension) BPH (benign prostatic hyperplasia) Immunocompromised (HCC) Rheumatoid arthritis (HCC) S/P lobectomy of lung Bladder cancer (HCC) COPD (chronic obstructive pulmonary disease) (HCC) HLD (hyperlipidemia) OAB (overactive bladder) Acute respiratory failure with hypoxia (HCC) Resolved Problems: * No resolved hospital problems. * DIFFERENTIAL AND PLAN: Bacterial pneumonia/acute respiratory failure/COPD --Treated with azith and cefdinir 09/25/24 when seen in ED for COVID pneumonia. Will treat with cefepime and vanco for now --Follow up MRSA screen, legionella, sputum cx --Duoneb QID --NAC BID --Flutter and incentive spirometry --Pulm consult --Titrate oxygen to maintain SpO2>90% --Appears slightly dry, give NSS 100ml x 10 hrs --Continue breo --Echo in am RA/immunocompromised: --Holding MTX and plaquenil --continue COMMUNITY OUTREACH COORDINATOR prednisone 5mg daily HTN: --Continue COMMUNITY OUTREACH COORDINATOR carvedilol, nifedipine --Continue COMMUNITY OUTREACH COORDINATOR Chlorthalidone tomorrow BPH: -- continue COMMUNITY OUTREACH COORDINATOR tamsulosin, finasteride OAB: --Continue COMMUNITY OUTREACH COORDINATOR oxybutynin PTSD/depression: --Continue COMMUNITY OUTREACH COORDINATOR sertraline HLD: --Continue COMMUNITY OUTREACH COORDINATOR atorvastatin PHARMACOLOGIC VTE PROPHYLAXIS: Enoxaparin CODE STATUS: Full Code-- Desiree emergency contact EXPECTED DISCHARGE DATE: 10/21/24 I spent a total of 75 minutes coordinating, documenting, and providing care for this patient excluding time spent in the performance of separately billed services or time spent by another provider/QHP. Discussed case and plan of care with Dr. Weems. OLIVERIO Erazo Cosigned by Jorge Weems MD at 10/18/2024 4:35 PM EST Associated attestation - Jorge Weems MD - 10/18/2024 4:35 PM EST I have reviewed the advanced practitioner's documentation on the date of service referenced in note, and I agree with, and take responsibility for the plan of care. I spent a total of 30 minutes coordinating, documenting, and providing care for this patient excluding time spent in the performance of separately billed services or time spent by another provider/QHP. Patient is being admitted for signs and symptoms consistent with acute respiratory failure with hypoxia in the setting of secondary bacterial pneumonia, given recent COVID-19 infection. Given that heis immunocompromised being on methotrexate Plaquenil and steroids I suspect patient is having either Gram-negative bacterial pneumonia or MRSA bacterial pneumonia. We will admit to med [facility] under inpatient status. We will continue broad- spectrum IV antibiotics including cefepime and vancomycin. We have ordered for respiratory culture as well as MRSA screen as well as Legionella testing. Thoracic Medicine consulted. Rest of the plan as per OLIVERIO note. documented in this encounter Procedure Notes * Guillermo Archer DO - 10/18/2024 10:09 AM ESTAssociated Order(s): EKG REASON FOR STUDY: SOB CONCLUSIONS: Normal sinus rhythm Normal ECG When compared with ECG of 25-Sep-2024 15:05, Premature atrial complexes are no longer Present Ventricular Rate: 66 Atrial Rate: 66 NC Interval: 160 QRS Duration: 88 QT/QTc: 416/436 ms P-R-T [place]: 6 : 1 : 4 degrees documented in this encounter Consult Notes * Elton Ramey PA-C - 10/19/2024 2:27 PM ESTAssociated Order(s): THORACIC MEDICINE / PULMONOLOGY CONSULT IP CONSULT - Thoracic / Pulmonary Medicine [facility]-[address] [id number] Name: Levi Ford Location: [facility] [id number] Date: 10/19/2024 Time: 2:28 PM REQUESTING SERVICE: Hospitalist REASON FOR CONSULT: Pneumonia HISTORY OF PRESENT ILLNESS: Patient is a 79-year-old male with past medical history significant for history of lung cancer (2010 s/p lobectomy, no chemo or XRT), history of tobacco use, rheumatoid arthritis on methotrexate and Plaquenil, and COPD (per history, no gilson). Patient was seen in the ED on 09/25 and diagnosed with COVID-19 and left lower lobe pneumonia. He was not hypoxic at the time, and was discharged with 10 day course of Decadron, azithromycin and cefdinir. He returned to the ED yesterday with complaints of shortness of breath, malaise, dry cough andthis time desaturated to 75% on room air in the ED. chest CT was performed and shows bibasilar pneumonia superimposed on chronic fibrotic changes, most consistent with UIP. At the time of my exam, patient continues to feel short of breath, and he does seem short of breatheven just with talking briefly. Currently on 4 L of oxygen with SpO2 in the low 90s. Cough has beenmostly dry, he did bring up a small amount of foamy clear sputum for culture. He reports roughly 25pack-year history, quit smoking nearly 40 years ago. He is a [place] of [employer] and was exposed to agent orange. 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 Has been maintained on methotrexate and Plaquenil for his RA, and notes that he was told to hold the methotrexate when he was diagnosed with COVID and since then he has had increasing RA symptoms. Denies chest pain, n/v/d. He was febrile on presentation to the ED. Chronic very dry mouth with some dysphagia but denies olga aspiration. 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 Bladder cancer (HCC) BPH (benign prostatic hyperplasia) HTN (hypertension) Hyperlipemia INFORMATION blind in right eye Irritable bowel syndrome Lung cancer (HCC) Osteoarthrosis Rheumatoid arthritis (HCC) Strain of rotator cuff capsule R shoulder Varicose vein of leg Varicose Veins of Leg PAST SURGICAL HISTORY: Past Surgical History: Procedure Laterality Date COLONOSCOPY, DIAGNOSTIC (RECTUM) N/A 04/04/2017 normal/recall 5 years/COLONOSCOPY FLEXIBLE PROXIMAL DIAGNOSTIC performed by Singh Bailey MD at ENDOSCOPY [facility] COLONOSCOPY, DIAGNOSTIC (RECTUM) N/A 02/22/2023 biopsies show adenomatous polps/recall 5 years/COLONOSCOPY FLEXIBLE PROXIMAL DIAGNOSTIC performed by Singh Bailye MD at ENDOSCOPY [facility] CYSTOSCOPY/TREAT MED BLADDER TUMOR N/A 11/16/2019 CYSTOURETHROSCOPY WITH FULGURATION MEDIUM BLADDER TUMOR performed by Elijah Moulton Jr., MD at OR [facility] EGD, FLEXIBLE, DIAGNOSTIC 04/06/2024 erythematous mucosa antrum/biopsies normal/ESOPHAGOGASTRODUODENOSCOPY (EGD), FLEXIBLE, TRANSORAL, DIAGNOSTIC performed by Mat Rincon DO at ENDOSCOPY [facility] INFORMATION Right 2006 [facility] lung lobectomy INFORMATION surgery for bladder cancer x3 prior to 2019 INFORMATION romeo REPAIR INITIAL INGUINAL HERNIA REDUCIBLE AGE 5 OR MORE Right 05/08/2024 REPAIR INITIAL INGUINAL HERNIA REDUCIBLE AGE 6 OR MORE performed by Carolina Goldman MD at OR [facility] REPAIR OF NASAL SEPTUM 1960 Nasal Septum Repair FAMILY HISTORY: Family History Problem Relation Name Age of Onset Cancer Father colon Heart Disorder Father Heart Disorder Mother Heart Disorder Brother Heart Disorder Brother SOCIAL HISTORY: Social History Tobacco Use Smoking status: Former Current packs/day: 1.50 Average packs/day: 1.5 packs/day for 25.0 years (37.5 ttl pk-yrs) Types: Cigarettes Smokeless tobacco: Never Vaping Use Vaping status: Never Used Substance Use Topics Alcohol use: No Comment: Patient sober since 1986 Drug use: Never ALLERGIES: Amlodipine, Penicillins, and Simvastatin Current Outpatient Medications Medication Instructions ALBUTEROL 90 MCG/ACT IN AERS 2 puffs every 4 hrs as needed Aspirin 81 mg, Daily(AM) atorvaSTATin (LIPITOR) 20 mg, QPM-1999 Carvedilol (COREG) 12.5 mg Chlorthalidone (HYGROTON) 25 mg, Daily(AM) Finasteride (PROSCAR) 5 mg, Daily(AM) Fluticasone-Salmeterol 500-50 MCG/ACT Inhalation Aerosol Powder Breath Activated 1 Puff, BID (.AM/PM) folic acid 1 mg, Daily(AM) Hernia Belt Double Medium Wear as directed. Hydroxychloroquine Sulfate 200 mg, BID (.AM/PM) Methotrexate Sodium 2.5 MG Oral Tablet 8 Tablets, QWEEK montelukast (SINGULAIR) 10 mg NIFEdipine ER (ADALAT CC) 60 mg, Daily(AM) oxybutynin (DITROPAN) 5 mg, BID (.AM/PM) Paraffin Wax Use as directed. Potassium Chloride 20 MEQ Oral Packet 20 mEq, BID (.AM/PM) predniSONE (DELTASONE) 5 mg, Daily(AM) sertraline (ZOLOFT) 100 mg, Daily(AM) tamsulosin (FLOMAX) 0.4 mg, Daily(AM) traZODone (DESYREL) 150 mg, HS Turmeric 500 MG Oral Capsule (RA Turmeric) Daily(AM) Vitamin D (Cholecalciferol) 25 MCG (1000 UT) Oral Capsule [id number] ROS: See HPI PHYSICAL EXAMINATION: Most Recent Vital Signs: BP: 92 mmHg/53 mmHg (10/19/24 1025) Pulse: 64 (10/19/24 1025) Resp: 16 (10/19/24 1025) Temp: 36.28 C (10/19/24 1025) Temp Summary: Temp Min: 36.3 C (97.3 F) Max: 38.4 C (101.2 F) SpO2: 97 % (10/19/24 1025) O2 flow rate: 4 L/MIN (10/19/24 1025) Supplemental O2 Delivery: Nasal Cannula (10/19/24 1025) O2 Mode: O2 %: O2 Flow Rate: O2 flow rate: 4 L/MIN (10/19/24 102) IPAP: CPAP/EPAP: Vital Signs Last 24 Hours: Systolic BP: Most Recent Systolic BP Av.3 mmHg Min: 92 mmHg Max: 157 mmHg Temperature: Most Recent Temperature Av.4 C Min: 36.28 C Max: 38.44 C Pulse: Pulse Av.1 Min: 56 Max: 69 Respirations: Resp Av.4 Min: 16 Max: 20 SpO2: SpO2 Av.6 % Min: 90 % Max: 100 % Constitutional: no acute distress, (+) ill appearing HEENT: normal: normocephalic, atraumatic; no masses, tenderness, or adenopathy Neck: supple, normal range of motion CV: normal rate and rhythm, no murmur, gallops or rub Chest: mild tachypnea with conversation, fine bibasilar crackles BL, otherwise CTA. Abdomen: soft Extremities: no clubbing, cyanosis, or edema, otherwise grossly normal, warm, and dry Skin: warm, dry, intact Neuro: alert, oriented to person, place, and time LABS: Labs reviewed as indicated below: Latest Reference Range & Units 10/18/24 10:17 Temperature C 37.0 pH, Venous 7.320 - 7.430 units 7.486 (H) pCO2, Venous 40.0 - 60.0 mmHg 33.5 (L) pO2, Venous 25.0 - 50.0 mmHg 44.4 O2 Content, Venous 7.0 - 18.0 %vol 11.9 Oxyhemoglobin, Venous 40.0 - 85.0 % total Hgb 75.5 Base Excess, Venous -2.0 - 2.0 mmol/L 2.3 (H) Carboxyhemoglobin, Whole Blood <=1.5 % total Hgb 2.0 (H) Methemoglobin, Whole Blood <=1.5 % total Hgb 0.8 Reduced Hemoglobin, Venous % total Hgb 21.7 Latest Reference Range & Units 10/18/24 10:17 Troponin T, High Sensitivity <=22 ng/L 19 BNP, NT-Pro <300 pg/mL 1,138 (H) Latest Reference Range & Units 10/19/24 06:01 SODIUM 135 - 146 mmol/L 132 (L) POTASSIUM 3.5 - 5.1 mmol/L 3.7 CHLORIDE 98 - 107 mmol/L 99 CO2 22 - 32 mmol/L 24 BUN 6 - 20 mg/dL 16 CREATININE 0.6 - 1.2 mg/dL 0.8 EGFR >=60 mL/min 90 ANION GAP 7 - 15 mmol/L 9 GLUCOSE 70 - 120 mg/dL 93 CALCIUM 8.4 - 10.2 mg/dL 8.4 Magnesium 1.5 - 2.6 mg/dL 1.7 Phosphorus 2.5 - 4.8 mg/dL 3.0 CBC Rpt ! WBC 4.00 - 10.80 K/uL 9.90 RBC 4.50 - 5.25 M/uL 3.29 HGB 14.0 - 16.8 g/dL 10.1 (L) HCT 40.0 - 48.4 % 31.3 (L) MCV 82.0 - 99.5 fL 95.1 MCH 27.0 - 34.0 pg 30.7 MCHC 32.0 - 36.0 g/dL 32.3 RDW 11.5 - 15.5 % 14.4 PLT 140 - 400 K/uL 224 MPV 6.6 - 11.1 fL 10.3 Latest Reference Range & Units 10/18/24 10:17 10/19/24 09:43 Lactate 0.4 - 2.0 mmol/L 1.0 0.9 Latest Reference Range & Units 10/18/24 15:08 10/18/24 16:39 Coronavirus SARS-CoV-2 by PCR Negative Negative Legionella Antigen, Urine Negative Negative Latest Reference Range & Units 10/18/24 16:39 MRSA PCR Result Negative Negative CT THORAX: IMPRESSION: No PE. Moderate fibrotic changes in bilateral lower lobes (UIP pattern) and patchy fibrotic changes in upper lobes with superimposed ground-glass densities, peribronchial infiltrative pattern changes suspicious for superimposed acute infection. Recommend short-term follow-up study. 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 No Patient is being followed by a Forestry Scientist: yes, non-[facility] ([place]) PULMONARY CONSULTATION SUGGESTION(S): Start medrol 40 mg IV daily for ILD flare, can taper to prednisone at discharge but should have 40 mg x 5 days, followed by 30 mg x 5, 20 mg x 5, 10 mg x 5 then return to daily 5 mg. Continue cefepime Add procalcitonin Continue nebulized bronchodilators Continue Breo He reports baseline BID ICS[facility]LABA [facility] Hold MTX and Plaquenil for now Stop NAC, he c/o feeling very dry Flutter, incentive gilson Ambulatory pulse ox prior to DC Will need outpatient chest CT in 4-6 weeks May be a candidate for Ofev or other antifibrotic, as these are indicated for pulmonary fibrosis related to connective tissue disease -- this should be discussed at his outpatient follow up. Follow up with his [place] pulmonary provider after discharge Pulm will sign off, please TT or re-consult if patient status changes or with any questions or concerns Patient seen and discussed with Dr Anton, Pulmonary / Thoracic Medicine Attending. STAFF NOTE: Cosigned by Cynthia Anton MD at 10/19/2024 7:08 PM EST Associated attestation - Cynthia Anton MD - 10/19/2024 7:08 PM EST I was the supervising physician in the delivery of the service. I have personally seen and examinedthe patient, and personally reviewed the patient's database including laboratory, radiographic, cardiac, etc. studies. I have discussed and reviewed the case with AN Conde. I reviewed the documentation on the date of service referenced in note, and I agree with, and take responsibility for the planof care other than any changes indicated below. These 2 notes should be considered linked. Attending Narrative: Known rheumatoid arthritis and worsened hands and ankles. On methotrexate. Receiving treatment by Rheumatology at [facility]. COVID-19 infection September 21, 2024. He presented with increased shortness of breath and cough. Unable to expectorate. Symptoms started about a week ago. He was found to be febrile on admission. He reports occasional lumps on his wrists and forearms. Stopped smoking more than 35 years ago. 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 Currently on supplemental oxygen at 4 liters/minute via nasal cannula. T-max is 38.2. Comfortable. No JVD or stridor. Chest examination with fine inspiratory crackles. I did not hear any murmurs. Abdomen was soft and benign. Extremities showed tender right wrist and swollen MCPs. There was mild edema. There was no clubbing or cyanosis. Neurologic examination appears to be nonfocal. CT scan of the chest was reviewed. Concerning for interstitial lung disease - UIP, in this case possibly secondary to rheumatoid arthritis. The normal procalcitonin argues against a bacterial infection-pneumonia. Agree with burst steroids. Would discontinue antibiotics, if procalcitonin remains negative after 24 hours. He will discuss the CT scan findings with his plant physiology teacher. I strongly recommended a follow-up CT scan of the chest in 4-6 weeks, and complete pulmonary function test. Doubt that this is methotrexate toxicity. I have personally - independently reviewed the patient's data base including labs results, relevantradiographic studies and cardiac reports, available ED and previous admissions notes, etc. I have personally spent a total of 25 minutes coordinating, documenting, and providing care for this patient in addition to the time spent by the GUEST HISTORY CLERK. Those minutes exclude time spent in the performance of separately billed services or time spent by another provider - [facility]. Cynthia Anton MD [facility] Pulmonary and Critical Care Medicine documented in this encounter Nursing Notes * Alejadnro Barnes RN - 10/21/2024 2:15 PM EST Patient being discharged home at this time. Discharge teaching and instructions were provided by this RN. Patient verbalizes understanding and has no further questions or concerns at this time. IV site removed. Patient ambulated out of this department independently with supervision from this RN. Nofurther concerns at this time. * Alejandro Barnes RN - 10/21/2024 9:55 AM EST Patient assessment completed by this RN. Patient has no complaints at this time. Patient oxygen removed at this time and placed on RA. SPO2 remains 95% at this time. Is to have an ambulatory pulse oxy completed today. * Fifi Austin RN - 10/18/2024 7:12 PM EST While completing the admission database, the pt admitted he attempted to commit suicide many years in 1983. Pt DOES NOT have these thoughts at this time. Pt answered NO to all other suicide questions. This VRN made his bedside nurse (Gail Colon RN) aware of this information via tiger text. * Fifi Austin RN - 10/18/2024 5:04 PM EST VIRTUAL RN [facility]-[address] [id number] Name: Levi Ford Location: [facility] [id number] Date: 10/18/2024 Time: 5:04 PM I completed the Admission Navigator. The patient was in the hospital. I was not in a hospital or clinic location. After connecting through [employer], the patient was identified by name and date of and / or wristband checked. Patient (or authorized legal leasing representative) was then informed that this was a Virtual Nurse visit and was being conducted confidentially over secure lines. I used a headset and other methods to ensure confidentiality for the patient. My office door was closed. No oneelse was in the room with me. Patient acknowledged consent and understanding of privacy and security of the Virtual Nurse visit. I presented the opportunity for the patient or authorized legal leasing representative to ask any questions regarding the visit today. The patient or authorized legal leasing representative agreed to participate. documented in this encounter ED Notes * Wili Cassidy, - 10/18/2024 4:13 PM EST HISTORY OF PRESENT ILLNESS Levi Ford is a 79 year old male who presents to the ED for evaluation of Short of Breath. The patient was seen at 10/18/24 1009. Short of Breath This is a 79-year-old male with history of bladder cancer, lung cancer status post lobectomy, hypertension, COPD, hyperlipidemia presenting for shortness of breath and cough. Reports that around 3 weeks ago he was diagnosed with COVID. Was having some degree of shortness of breath and cough with this. One week ago this seemed to acutely worsened. Has not noticed any fevers at home. Has been checking his oxygen saturation at home intermittently since then. Does not typically require oxygen. Seemed to be in the upper 80s at room air, not normal for him. Shortness of breath seems to worsened with exertion. Has not noticed any recent lower extremity swelling or weight gain. Denies any history of CHF. Denies any associated headache, vision changes, neck pain, back pain, chest pain, abdominal pain, nausea, vomiting, diarrhea, urinary symptoms, lightheadedness, focal weakness, or numbness. Review of Systems Respiratory: Positive for shortness of breath. The patient's allergies, past history, and medications were reviewed. PHYSICAL EXAM Initial Vitals (see all): BP 153/87 | Pulse 68 | Resp 20 | Temp 99.5 | O2 91 %, Room Air, None | Weight 95.44 kg | Height 193cm | BMI 25.61 kg/m2 Initial Pain Assessment (see all): 4 (moderate pain)/10, location: L shoulder blade ([facility] Adult Scale 0-10 (18 years and older)) Physical Exam Vitals and nursing note reviewed. Constitutional: General: He is not in acute distress. Appearance: He is well-developed. HENT: Head: Normocephalic and atraumatic. Right Ear: External ear normal. Left Ear: External ear normal. Nose: Nose normal. No rhinorrhea. Mouth/Throat: Mouth: Mucous membranes are moist. Pharynx: Oropharynx is clear. Eyes: Extraocular Movements: Extraocular movements intact. Conjunctiva/sclera: Conjunctivae normal. Pupils: Pupils are equal, round, and reactive to light. Cardiovascular: Rate and Rhythm: Normal rate and regular rhythm. Heart sounds: No murmur heard. Pulmonary: Effort: Pulmonary effort is normal. No respiratory distress. Breath sounds: No stridor. Rhonchi (Bibasilar) present. No wheezing or rales. Abdominal: General: There is no distension. Palpations: Abdomen is soft. Tenderness: There is no abdominal tenderness. There is no right CVA tenderness, left CVA tenderness, guarding or rebound. Musculoskeletal: General: No swelling. Normal range of motion. Cervical back: Normal range of motion and neck supple. Skin: General: Skin is warm and dry. Capillary Refill: Capillary refill takes less than 2 seconds. Neurological: General: No focal deficit present. Mental Status: He is alert and oriented to person, place, and time. Sensory: No sensory deficit. Motor: No weakness. Psychiatric: Mood and Affect: Mood normal. PROCEDURES AND TREATMENTS ED Orders | ED Results MEDICAL DECISION MAKING Nursing notes and vital signs were reviewed. ED consults were placed. ED Course as of 10/18/24 1702 Sun Oct 18, 2024 1059 Patient was evaluated. Afebrile and hemodynamically stable. Presenting for shortness of breathand cough. Reportedly diagnosed with COVID 3 weeks ago. Worsened shortness of breath and cough overthe past week. Somewhat worsened with exertion. Denies history of heart failure. No lower extremityswelling. History of lung cancer no recent treatment for this previously controlled. Saturating well on room air at bedside. Laboratory studies with BNP elevated at 1100, no leukocytosis, no significant anemia, negative troponin, negative lactate, normal renal function, no significant electrolyte abnormalities. Venous blood gas with no acidosis or hypercarbia. Chest x-ray pending. EKG interpretedby ut with normal sinus rhythm with a rate of 66bpm, no evidence of significant ST elevation, ST depressions, or significant dysrhythmia otherwise. [AH] 1326 CT Pulmonary Embolus with IV contrast No large saddle or proximal pulmonary emboli on my independent interpretation. What appears to be multifocal pneumonia on my independent interpretation. Patient was taken for ambulatory trial while going to the bathroom. Desaturated to 75% on room air. Placed on 4 L of oxygen via nasal cannula withimprovement. Provided with ceftriaxone and azithromycin. [AH] 1701 Patient resting comfortably on re-evaluation on supplemental oxygen. Discussed plan for admission, who was agreeable. Admitted to hospitalist service for further management. [AH] ED Course User Index [AH] Wili Cassidy DO Differential Diagnoses Based on my history, physical exam, and evaluation, the differential includes, but is not limited, to the following diagnoses: Pneumonia, URI, pulmonary embolism, ACS, dysrhythmia. Amount and/or Complexity of Data Reviewed Labs: ordered. Radiology: ordered. Decision-making details documented in ED Course. ECG/medicine tests: ordered. Risk Prescription drug management. Decision regarding hospitalization. Clinical Impressions SOB (shortness of breath) Community acquired pneumonia Acute hypoxic respiratory failure (HCC) Disposition Admitted. I discussed the management of this patient with the admitting provider and I made a decision to admit the patient. Admission Order Ordered Status . 10/18/24 1500 Admit for Inpatient Services (incl ZPO) ONCE Completed Wili Cassidy * Erika Acosta RN - 10/18/2024 10:04 AM EST Per EMS, pt is having SOB and has a cough. Says that pt was 90% on RA. EMS says they put pt on 4L O2 and spo2 improved to 99%. Says that pt was covid + at some point. documented in this encounter Miscellaneous Notes * Diagnostic Clarification - Estrada Gomez MD - 10/21/2024 2:27 PM EST Pneumonia has been ruled out at this time. * Pt Handout (on AVS) - Zoraida Carbone RN - 10/21/2024 12:46 PM EST Images from the original note were not included. [id number] Interstitial Lung Disease: Preventing Lung Infections Interstitial lung disease is a group of conditions with inflammation and scarring around the tiny air sacs (alveoli)of the lungs. The changes make it hard to take in oxygen. Often, the cause is unknown. This is called idiopathic pulmonary fibrosis. Breathing in certain substances, such as asbestos,can also cause fibrosis of the lungs. Some medicines and radiation treatments can also cause interstitial lung disease. When you have interstitial lung disease, you're more likely to get lung infections. Do what you jes prevent infections. And get treatment right away at the first sign of illness. Prevent infection Wash hands often with soap and warm water. Practice correct hand washing. Wash hands often. This includes before and after eating, after coughing, sneezing, or blowing your nose, when you are in public places, and after using the bathroom. o Use soap and clean, running water. Scrub your hands for at least 20 seconds. o Scrub all over your hands, under your nails, and between your fingers. o If soap and water are not available, use a hand microfabrication engineer manager with at least 60% alcohol in it. Don't touch your face and mouth with your hands. Use disposable tissues instead of a handkerchief. Throw away used tissues. Wash your hands after. Stay away from people who have a cold or the flu. Try to stay away from crowded places. Don't smoke or let people smoke in your home or car. Get vaccinated Vaccines help prevent lung infections and complications. Talk with your healthcare provider about what vaccines are right for you and when you should get them. These may include: Influenza (flu) vaccine Pneumococcal pneumonia vaccine COVID-19 vaccine Take care of your body Drink plenty of water to keep yourself hydrated. Eat well-balanced, nutritious meals. Don't drink alcohol. Don't smoke. Stay away from places where people are smoking. Stay away from irritants. Try to stay away from chemicals, fumes, and dust in your home and the workplace. Stay indoors on smoggy days. Reduce your exposure to outdoor pollution. Don?t be afraid to be active. Being active may make you short of breath. But it's good for your lungs. Exercise can strengthen the muscles that help you breathe. Ask your healthcare provider aboutsafe exercises for you. Walking is often a good choice. Get regular check-ups. See your provider even when you are feeling well. Get enough rest. Sleep at least 8 hours each night. Rest or nap during the day as needed. When to call your healthcare provider If you start to get sick, call your healthcare provider right away. Symptoms to watch for include: Increased shortness of breath with normal activities A fever of 100.4 F ( 38C ) or higher, or as directed by your healthcare provider Shaking or chills Increased coughing or coughing up dark or bloody mucus Increased tiredness and lack of energy (fatigue) Chest tightness or wheezing Ankle swelling or fast weight gain Call 911 Call 911 if any of these occur: Chest pain or pressure Severe shortness of breath Feeling dizzy or faint Lips or skin looks blue, purple, or syed Confusion or loss of consciousness Last Reviewed Date: 2023 00:00:00 [id number] [employer]. All rights reserved. This information is not intended as a substitute for professional medical care. Always follow your healthcare professional's instructions. * Pt Handout (on AVS) - Zoraida Carbone RN - 10/21/2024 12:46 PM EST 17498 Discharge Instructions: COPD You have been diagnosed with chronic obstructive pulmonary disease (COPD). This group of diseases that limit the flow of air in and out of your lungs. This makes it harder to breathe. With COPD, you are also more likely to get lung infections. COPD includes chronic bronchitis and emphysema. COPD ismost often caused by heavy, long-term cigarette smoking. Home care Quit smoking If you smoke, get help to quit. It's the best thing you can do for your COPD and your overall health. Join a program to stop smoking. There are even telephone, text message, and online programs to help you quit. Ask your healthcare provider about medicines or other methods to help you quit. Ask family members to quit smoking as well. Don't allow people to smoke in your home, in your car, or when they are around you. Don't use e-cigarettes and vaping products because their long-term risks aren't known. Protect yourself from infection Wash your hands often. Do your best to keep your hands away from your face. Most germs are spread from your hands to your mouth. Get a flu shot every year. Also ask your healthcare provider about pneumonia vaccines and the most recent COVID vaccine. Stay away from crowds. It's especially important to do this in the winter when more people have colds and flu. Get enough sleep, exercise regularly, and eat a balanced diet to stay healthy. : o Get about 8 hours of sleep every night. o Try to exercise for at least 30 minutes on most days. Ask your healthcare provider what type of exercise is safe for you. o Have healthy foods, including fruits and vegetables, 100% whole grains, lean meats and fish, and low-fat dairy products. Try to stay away from foods high in fats and sugar. Eating a healthy, balanced diet is important to staying as healthy as possible. So is trying to stay at your ideal weight. Being overweight or underweight can affect your health. Take your medicines and use oxygen therapy Take your medicines exactly as directed. Don't skip doses. Talk with your healthcare provider during each appointment about how well you can: Correctly use your inhaler. This is to make sure you are getting the correct medicine dose. [place] with other conditions you have and their treatments and if they affect your COPD Use oxygen correctly if you use it. That means the amount you use and the length of time you use it. Discuss long-term oxygen therapy with your provider. Don?t allow smoking in your home, in your car, or around you. This is very important if you use oxygen. Try to stay away from things that may affect your breathing. Stay away from indoor and outdoor pollution. Indoor pollution includes burning wood, smoke from home cooking, and heating fuels. Outdoor pollution includes smoke, dusts, vapors, fumes, gases, and other chemicals. It also includes cold weather, high humidity, and allergens. Drink at least 8 glasses of fluid every day to keep mucus thin unless your provider has told you otherwise. Ask about other things that can help. Ask your provider to show you how to breathe through pursed lips to help decrease shortness of breath. Manage your stress Stress can make COPD worse. Use this stress management method: Find a quiet place and sit or lie in a comfortable position. Close your eyes and do breathing exercises for several minutes. Ask your provider about the bestway to breathe. Talk to your healthcare provider about your ability to cope in your normal environment. Pulmonary rehabilitation Pulmonary rehab can help you feel better. Programs that are based in the community or at home work as well as those based in a hospital as long as they are held as often and are at the same intensity. Standard pulmonary rehab programs based at home help with breathing problems in people with COPD. Traditional supervised pulmonary rehab is still the best choice for people with COPD. These programs include exercise, breathing methods, information about COPD, counseling, and help for smokers. Ask your provider or your local hospital about programs in your area. Also talk with your healthcare provider about a self-management program to help control your symptoms. When to call your healthcare provider Call your provider right away if you have: More mucus Yellow, green, bloody, or smelly mucus Fever of 100.4F (38C) or higher, or as directed by your healthcare provider Chills Swollen ankles Increased cough Call 911 Call 911 if you have: Shortness of breath, wheezing, or trouble breathing that gets worse or doesn't get better with treatment Tightness in your chest that does not go away with your normal medicines, or as directed by yourhealthcare provider A new irregular heartbeat or feeling that your heart is racing Trouble talking Feeling lightheaded or dizzy Feeling of doom Skin turning blue, syed, or purple Last Reviewed Date: 2022 00:00:00 2613-7577 [employer]. All rights reserved. This information is not intended as a substitute for professional medical care. Always follow your healthcare professional's instructions. * Pt Handout (on AVS) - Zoraida Carbone RN - 10/21/2024 12:46 PM EST Images from the original note were not included. [id number] Chronic Lung Disease: Preventing Lung Infections There are many types of chronic lung disease. You may have one of these: Chronic obstructive lung disease (COPD) Chronic bronchitis Emphysema Pulmonary fibrosis Sarcoidosis When you have a chronic lung disease, it's important to protect yourself from respiratory infections. This includes colds, the flu, and lung infections such as pneumonia. Infections like these may cause your chronic lung disease to get worse. It's hard to fully escape getting sick. But there are things you can do to lower your risk of infections. Tips for preventing illness You can lower your risk of respiratory infections with these steps: Keep your hands clean. Wash your hands often, including before and after eating, after using thebathroom, and after coughing, sneezing, or blowing your nose. If you can?t wash, use hand sanitizerthat has at least 60% alcohol. Use it after touching doorknobs, handles, keypads, and anything elseother people have touched. Then wash your hands as soon as you can. Wash well. When you wash your hands, use soap and clean, running water. Rub your hands together well for at least 20 seconds. Be sure to wash the backs of your hands, between your fingers, and under your fingernails. Rinse them well. Dry your hands on clean towels or let them air-dry. Don?t touch your face. If your hands aren?t clean, keep them away from your nose and mouth. Germs on your hands can get into your respiratory system this way. Get recommended vaccines. To help prevent the flu, get a flu shot every year. You may be able toget it at your healthcare provider's office, a drugstore, pharmacy, or at work. Get your flu shot as soon as the vaccines are available in your area. This is often around May each year. A pneumonia vaccine can also help prevent pneumococcal pneumonia. Talk with your healthcare provider about which vaccine you need, the number of doses, and when you should have them. The COVID-19 vaccine canhelp prevent serious illness from COVID-19. Stay away from sick people. Try to stay away from people with colds or the flu. Stay away from crowded places during cold and flu season. This may include shopping centers, movie theaters, and social events. Quit smoking. If you smoke, talk with your healthcare provider about getting help to quit. Smoking can make your lung disease worse. And it increases your risk of infections. Also stay away from other people's smoke. This is called secondhand smoke. It is also harmful and increases your chance of infections. Wear a mask. Wearing a mask indoors can help prevent respiratory illnesses. Consider wearing a mask during cold and flu season if you are in crowded places. Last Reviewed Date: 2022 00:00:00 5829-1028 [employer]. All rights reserved. This information is not intended as a substitute for professional medical care. Always follow your healthcare professional's instructions. * Pt Handout (on AVS) - Zoraida Carbone RN - 10/21/2024 12:46 PM EST Images from the original note were not included. 13772 Interstitial Lung Disease (ILD) Interstitial lung disease (ILD) is a group of conditions that cause inflammation and scarring around the tiny air sacs (alveoli) in the lungs. The changes make it hard to take in oxygen. People with ILD may feel short of breath and tired. They may also have a dry cough and chest discomfort. Examples of ILD include these conditions: Asbestosis Hypersensitivity pneumonitis Idiopathic pulmonary fibrosis Sarcoidosis The diaphragm is a muscle below the lungs. It flattens to draw air in as you inhale, then rises as you exhale. Inside your lungs When you breathe, air travels in and out of your lungs through the windpipe (trachea), airways (bronchi), and branching airways (bronchioles). Oxygen (O2) and carbon dioxide (CO2) are exchanged in the tiny air sacs (alveoli). Oxygen passes from the alveoli to the blood vessels through the tissue called interstitium. The blood vessels then carry oxygen-rich blood to the rest of your body. Carbon dioxide moves back from the blood vessels to the alveoli. You then breathe it out. Alveoli are air sacs at the ends of bronchioles. Damaged alveoli supply less oxygen to the body. How lungs become damaged With ILD, the lungs have inflammation and scarring around the alveoli. The changes make it hard to take in oxygen. Normal interstitium Scarred interstitium Causes of ILD In most cases, ILD has no known cause. This is called idiopathic pulmonary fibrosis. Some known causes of ILD include: Dust from asbestos or silica, coal dust, gases, fumes, or poisons Some medicines Radiation therapy Certain lung infections Connective tissue disease, such as scleroderma, lupus, or rheumatoid arthritis Smoking. Smoking can cause ILD or make it much worse. Treatment and healthcare providers for ILD Treatment may include: Medicine Breathing methods Exercise Pulmonary rehab Supplemental oxygen Smoking cessation programs In some cases, you may need a lung transplant Your healthcare team may include: Primary care provider. This could be your family healthcare provider or principal statistical scientist. Forestry Scientist. This is a healthcare provider who specializes in treating lung problems. Respiratory therapist. This person gives treatment and support for people with lung disease. tannery worker. This person helps with your daily needs and family life, accessing community resources, counseling services, and stress management. Last Reviewed Date: 2021 00:00:00 9001-3677 [employer]. All rights reserved. This information is not intended as a substitute for professional medical care. Always follow your healthcare professional's instructions. * Ancillary Progress Note - Jelena Comer RRT - 10/21/2024 10:14 AM EST AMBULATING PULSE OX TESTING/TITRATION- [facility] [address] [address] Name: Levi Ford Location: [facility] [id number] Date: 10/21/2024 Time: 10:15 AM Date and Time performed: 10/21/2024 at 10:15 AM 1. Resting SpO2: SpO2(at rest on O2 flow rate) 96 O2 flow rate: room air Resting Heart Rate: 86 bpm 2. Is SpO2 on at rest greater than 88%? yes If greater than 88% 3. Exercise Only: SpO2(Exercise w/O2 flow rate):91 O2 flow rate:room air Date: 10/21/24 4. Comments: patient does not qualify for oxygen with rest or ambulation. * Care Plan - Kelis Sommer RN - 10/21/2024 5:39 AM EST Clinical Goal(s): Patient's SPO2 will remain greater than 90% this shift. (10/20/24 6104) Possible barriers to meeting goal(s)/advancing plan of care: Acuity of illness Stability of the patient: Moderately stable - low risk of patient condition declining or worsening Summary regarding today's goal(s): Met: Patient's SPO2 remained greater than 90% this shift. Recommendations: Continue current plan of care. * Care Plan - Samantha Egan RN - 10/20/2024 6:45 PM EST Clinical Goal(s): pt will not have any falls this shift (10/20/24 0700) Possible barriers to meeting goal(s)/advancing plan of care: falls, SOB Stability of the patient: Moderately stable - low risk of patient condition declining or worsening Summary regarding today's goal(s): Met: no falls reported or witnessed Recommendations: continue to monitor * Care Plan - Melissa Dawson RN - 10/19/2024 6:05 AM EST Clinical Goal(s): Pt will have adequate pain control this shift (10/18/24 1900) Possible barriers to meeting goal(s)/advancing plan of care: Pt has arthritis. Stability of the patient: Moderately stable - low risk of patient condition declining or worsening Summary regarding today's goal(s): Met: Pt had adequate pain control with PRN Tylenol this shift Recommendations: continue to assess for pain and administer meds per doctors orders. * Pt Handout (on AVS) - Ann Marie Hernandes RN - 10/19/2024 12:54 AM EST Images from the original note were not included. [id number] Pneumonia (Adult) Pneumonia is an infection inside the lungs. It's in the small air sacs (alveoli). It may be caused by a virus, fungus, or bacteria. Pneumonia caused by bacteria is treated with an antibiotic medicine. Severe cases may need to be treated in the hospital. Milder cases can be treated at home. Symptomsmay include fever, chills, and cough (dry or with phlegm). You may have a headache, muscle weakness, trouble breathing, and pain. These symptoms often get worse in the first 2 days. But they often start to get better in the first week of treatment. Home care Follow these guidelines when caring for yourself at home: Get plenty of rest. Take naps as needed. Don?t let yourself get too tired when you go back to your activities. Go back to activities as directed by your healthcare provider. Stop smoking. This is the most important step you can take to help treat pneumonia. If you need help to stop, talk with your healthcare provider. Stay away from secondhand smoke. Don?t let anyone smoke in your home or your car. Wash your hands often with soap and clean, running water. Rub for at least 20 seconds. Make sureto clean under your nails and between your fingers. When you can't wash your hands, use hand microfabrication engineer manager with at least 60% alcohol. Cover your mouth and nose when coughing or sneezing. Use a tissue or the inside of your elbow. Don't cough or sneeze into your hands. Throw used tissues away. Be sure to wash your hands after coughing, sneezing, or blowing your nose. Limit close contact with other people while you are sick. Stay away from crowds during cold and flu season. Consider wearing a mask in crowds. Use pain medicine as directed. You may use acetaminophen or ibuprofen to control fever or pain, unless another medicine was prescribed. If you have chronic liver or kidney disease, talk with your healthcare provider before using these medicines. Also talk with your provider if you?ve had a stomach ulcer or bleeding in your stomach or intestines. Don?t give aspirin to a child younger than age 19 unless directed by the provider. Taking aspirin can put a child at risk for Robert syndrome. This [place] rare but very serious disorder. It most often affects the brain and the liver. Drink plenty of water and other fluids. This can make mucus thinner and easier to cough up. Ask your healthcare provider how much water you should drink. For many people, 6 to 8 glasses (8 ounces each) a day is a good goal. Other fluids include sport drinks, sodas without caffeine, juices, tea, or soup. If you also have heart or kidney disease, check with your provider before you drink extra fluids. Eat as you are able. You may not feel hungry, so a light diet is fine. Follow the treatment syd advised by your healthcare provider. Take medicines as instructed by your healthcare provider. If you were given an antibiotic medicine, take it until it's all gone, even if you are feeling better after a few days. Try to stay away from air pollution. If you live in an area with air pollution, track the Air Quality Index reports. Plan your outdoor activities when air quality is OK. Follow-up care Follow up with your healthcare provider in the next 2 to 3 days, or as advised. Following up with your provider as directed is important to make sure you are getting better. You may need more tests if you aren't getting better. Take steps to prevent future infections. Ask your healthcare provider what vaccines are right for you and when to get them. This may include the influenza (flu), COVID-19, and pneumococcal vaccines. Call 911 Call 911 if any of these occur: Unable to speak or swallow Lips or skin looks blue, purple, or syed Feeling dizzy Fainting Unable to be awake or aware Feeling of doom Trouble breathing or wheezing Shortness of breath gets worse or doesn't get better with treatment Rapid breathing (more than 25 breaths per minute) Coughing up blood Chest pain gets worse with breathing or doesn't get better with treatment When to get medical advice Call your healthcare provider right away if any of these occur: You don?t get better in the first 2 to 3 days of treatment Fever of 100.4F (38C) or higher, or as directed by your healthcare provider Shaking chills Cough with phlegm that doesn't get better, or get worse Shortness of breath with activities Weakness, dizziness, or fainting that gets worse Thirst or dry mouth that gets worse Sinus pain, headache, or a stiff neck Chest pain with breathing or coughing Symptoms that get worse or don't get better Last Reviewed Date: 2024 00:00:00 [id number] [employer]. All rights reserved. This information is not intended as a substitute for professional medical care. Always follow your healthcare professional's instructions. * Pt Handout (on AVS) - Ann Marie Hernandes RN - 10/19/2024 12:54 AM EST Images from the original note were not included. [id number] What Is Pneumonia? Pneumonia is a serious lung infection. It can affect 1 or both lungs. Many cases of pneumonia are caused by bacteria or viruses. Fungi may also cause pneumonia. But this is less common. You may get pneumonia after an illness, such as a cold, flu, or bronchitis. Those most at risk for pneumonia include: Babies Children Older adults Smokers People with long-term (chronic) health problems or weak immune systems Healthy lungs Air travels in and out of the lungs through tubes called airways. The tubes branch into smaller passages called bronchioles. These end in tiny air sacs called alveoli. Blood vessels surrounding the alveoli take oxygen into the bloodstream. At the same time, the alveoli remove carbon dioxide (a waste gas) from the blood. The carbon dioxide is then exhaled. When you have pneumonia Pneumonia causes the bronchioles and the alveoli to fill with excess mucus or pus. They become inflamed. Your body?s response may be to cough. This can help clear out the fluid. The fluid (mucus) you cough up may look green or dark yellow. The excess mucus may make you feel short of breath. The inflammation and infection may give you a fever. What are the symptoms? Pneumonia symptoms can come without warning. At first, you may think you have a cold or flu. But symptoms may get worse quickly. They then turn into pneumonia. Symptoms can be different for bacterialand viral pneumonia. They may be mild or severe. Common symptoms may include: Severe cough with green or yellow mucus that doesn't get better. Or gets worse. Fever and chills Upset stomach (nausea), vomiting, or diarrhea Loss of appetite Shortness of breath with normal daily activities Increased heart rate Chest pain or discomfort when breathing in or coughing Headache A lot of sweating and clammy skin Severe tiredness (fatigue) Last Reviewed Date: 2023 00:00:00 [id number] [employer]. All rights reserved. This information is not intended as a substitute for professional medical care. Always follow your healthcare professional's instructions. * ED Tire Beader Maker Note - Erika Acosta RN - 10/18/2024 4:17 PM EST Report called to Gail on 3B. All questions addressed and answered. * Medical Necessity - Suzanne Castellon RN - 10/18/2024 3:01 PM EST AdmissionCare Guideline: Pneumonia, Inpatient Based on the indications selected for the patient, the bed status of Inpatient was determined to beMET The following indications were selected as present at the time of evaluation of the patient: - Clinical Indications for Admission to Inpatient Care - Admission is indicated for 1 or more of the following: - Hypoxemia, as indicated by 1 or more of the following: - Patient without baseline need for supplemental oxygen with oxygen saturation (SaO2) of less than 90% or arterial blood gas partial pressure of oxygen (PO2) of less than 60 mm Hg (8.0 kPa) on room air Additional Information: CAP 75%RA AdmissionCare documentation entered by: [facility] SendMe, 28th edition, Copyright 2023 [facility] [employer] All Rights Reserved. [id number]:01:[id number]:00 Solely for purpose of utilization review and payment; not a diagnostic tool Cosigned by Estrada Gomez MD at 10/21/2024 8:50 AM EST * ED Tire Beader Maker Note - Mason Velásquez TECH - 10/18/2024 11:49 AM EST This tech completed an ambulatory pulse ox on this patient to the restroom. Pt did not tolerate as his SpO2 was down to 75% on RA. Pt was returned to his room following using the restroom where he was placed on 5 L NC. Pt's SpO2 returned to 95%. Pt is currently on 2 L NC while being transported to X-ray. He denied any lightheadedness or dizziness. Mild SOB reported but otherwise no other complaints. JEREMY Emanuel informed and aware. * ED Tire Beader Maker Note - Adelina Francois RN - 10/18/2024 10:43 AM EST This RN has reviewed and agrees with the assessment completed by Mark Kirkland LPN. * ED Tire Beader Maker Note - Chente Medina LPN - 10/18/2024 10:22 AM EST Pt presents for evaluation of ongoing SOB and cough. Pt reports a recent admission for Covid, pt reports he has noticed his SpO2 has been dropping with ambulation. Pt reports a persistent non-productive cough. Pt reports his recently had shoulder surgery and he would like to stay in the hospital to get over his symptoms. PIV 20g L forearm established, ordered labs obtained, CCM initiated, call mcneil in place. documented in this encounter Plan of Treatment Scheduled Orders Name Type Priority Associated Diagnoses Orde r Schedule EKG EKG STAT Screening for cardiovascular condition Perform Now for 1 Occurrences starting 10/18/2024 until 10/18/2024 Scheduled Procedures Name Priority Associated Diagnoses Date/Ti me COLONOSCOPY FLEXIBLE PROXIMA L DIAGNOSTIC Recall History of colonic polyps Health Maintenance Due Date Last Done Comments COVID-19 Vaccine (#1) 1950 Depression Screening 1958 Albumin/Creatinine Ratio 1964 Alpha-1 Antitrypsin 1964 Hepatitis C Screening 1964 DTap/Tdap Vaccines (1 - Tdap) 1965 *COPD SEVERITY VERIFIED BY PFT 10/21/2024 O2 ASSESSMENT COMPLETED IN PAST YEAR FOR COPD 05/08/2025 05/08/2024 GFR 10/21/2025 10/21/2024, 10/03, 10/18/2024, Additional history exists Colonoscopy 02/23/2028 02/22/2023, 02/01, [...] this encounter Medical Devices Implanted Type Area Health Care Liaison Device Identifier Shelf Expiration Date Model / Serial / Lot Mesh Plug And Patch Med - [id number] Implanted:Qty: 1 on 05/08/2024 by Carolina Goldman MD at OR [facility] Mesh Right: Groin COVIDIEN : US SURGICAL 06/01/2028 PM-02 / / [id number] documented as of this encounter Procedures Procedure Name Priority Date/Time Associated Diagnosis Comments BASIC METABOLIC PANEL Routine 10/21/2024 7:08 AM EST CBC Routine 10/21/2024 7:[address] MAXILLOFACIAL WO CONTRAST STAT 10/19/2024 3:52 PM EST ECHO, COMPLETE (2D), TRANS-THORACIC Routine 10/19/2024 3:04 PM EST Heart failure (HCC) CULTURE, RESPIRATORY, LOWER, AEROBIC Routine 10/19/2024 11:48 AM EST LACTATE, WHOLE BLOOD WITH REFLEX IF ABNORMAL STAT 10/19/2024 9:43 AM EST PROCALCITONIN Add-on 10/19/2024 6:01 AM EST BASIC METABOLIC PANEL Routine 10/19/2024 6:01 AM EST PHOSPHORUS Routine 10/19/2024 6:01 AM EST CBC Routine 10/19/2024 6:01 AM EST MAGNESIUM Routine 10/19/2024 6:01 AM EST MRSA SCREEN, PCR Routine 10/18/2024 4:39 PM EST LEGIONELLA ANTIGEN, URINE Routine 10/18/2024 4:39 PM EST RESPIRATORY PATHOGEN PANEL, PCR STAT 10/18/2024 3:[address] PULMONARY EMBOLUS W CONTRAST STAT 10/18/2024 1:05 PM EST Emphysema, unspecified (HCC) Other nonspecific abnormal finding of lung field Abnormal coagulation profile COVID-19 Personal history of malignant neoplasm, unspecified XR CHEST 2 VIEWS STAT 10/18/2024 12:0 4 PM EST Other nonspecific abnormal finding of lung field COVID-19 D-DIMER STAT 10/18/2024 10:44 AM EST LACTATE WITH REFLEX IF ABNORMAL STAT 10/18/2024 10:17 AM EST DIFFERENTIAL, AUTOMATED STAT 10/18/2024 10:17 AM EST TROPONIN T, HIGH SENSITIVITY STAT 10/18/2024 10:17 AM EST BLOOD GAS, VENOUS STAT 10/18/2024 10: 17 AM EST BNP (NT-PROBNP) STAT 10/18/2024 10:17 AM EST COMPREHENSIVE METABOLIC PANEL STAT 10/18/2024 10:17 AM EST CBC STAT 10/18/2024 10:17 AM EST CBC STAT 10/18/2024 10:17 AM EST HC ECG TRACING ONLY STAT 10/18/2024 1 0:09 AM EST SOB (shortness of breath) documented in this encounter Results * (ABNORMAL) BASIC METABOLIC PANEL (10/21/2024 7:08 AM EST) BUN 32(H) 6 - 20 mg/dL 10/21/2024 8:23 AM EST LABORATORY [facility] CREATININE 1.0 0.6 - 1.2 mg/dL 10/21/2024 8:23 AM EST LAB[facility]ATORY [facility] EGFR 80 >=60 mL/min 10/21/2024 8:23 AM EST LAB[facility]ORY [facility] Comment:eGFR is calculated b ased on the CKD-EPI 2020 equation. SODIUM 136 135 - 146 mmol/L 10/21/2024 8:23 AM EST [facility] POTASSIUM 4.5 3.5 - 5.1 mmol/L 10/21/2024 8:23 AM EST [facility] CHLORIDE 102 98 - 107 mmol/L 10/21/2024 8:23 AM EST [facility] CO2 24 22 - 32 mmol/L 10/21/2024 8:23 AM EST [facility] ANION GAP 10 7 - 15 mmol/L 10/21/2024 8:23 AM EST [facility] GLUCOSE 144(H) 70 - 120 mg/dL 10/21/2024 8:23 AM EST [facility] CALCIUM 8.9 8.4 - 10.2 mg/dL 10/21/2024 8:23 AM EST [facility] Blood Venous blood specimen / Unknown Venipuncture / Unknown 10/21/2024 7:08 AM EST 10/21/2024 7:36 AM EST us Marco Gutierrez MD LAB BLOOD ORDERABLES Final Resu lt LABORATORY [facility] [address] [place] [address] * (ABNORMAL) CBC (10/21/2024 7:08 AM EST) WBC 13.41(H) 4.00 - 10.80 K/uL 10/21/2024 7:59 AM EST LABORATORY GL RBC 3.31 4.50 - 5.25 M/uL 10/21/2024 7:59 AM EST LABORATORY [facility] HGB 10.0(L) 14.0 - 16.8 g/dL 10/21/2024 7:59 AM EST LABORATORY [facility] HCT 31.5(L) 40.0 - 48.4 % 10/21/2024 7:59 AM EST LABORATORY [facility] MCV 95.2 82.0 - 99.5 fL 10/21/2024 7:59 AM EST LABORATORY [facility] MCH 30.2 27.0 - 34.0 pg 10/21/2024 7:59 AM EST LABORATORY [facility] MCHC 31.7 32.0 - 36.0 g/dL 10/21/2024 7:59 AM EST LABORATORY [facility] RDW 14.0 11.5 - 15.5 % 10/21/2024 7:59 AM EST LABORATORY [facility] PLT 274 140 - 400 K/uL 10/21/2024 7:59 AM EST LABORATORY [facility] MPV 10.4 6.6 - 11.1 fL 10/21/2024 7:59 AM EST LABORATORY GL nRBCs 0 <=0 /100 WBCs 10/21/2024 7:59 AM EST LABORATORY GL Blood Venous blood specimen / Unknown Venipuncture / Unknown 10/21/2024 7:08 AM EST 10/21/2024 7:36 AM EST Marco Gutierrez MD LAB BLOOD ORDERABLES [place] [address] * CT MAXILLOFACIAL WO CONTRAST (10/19/2024 3:52 PM EST) Anatomical Region Laterality Modality Head, Neck, Sinus Computed Tomog sascha 10/19/2024 3:44 PM EST Impressions 10/19/2024 4:13 PM EST IMPRESSION: Fluid density lesion or collection at the superficial aspect of the left masseter muscle, contained within the superficial facial fat, is nonspecific. Correlate with clinical information regarding possible abscess. THIS DOCUMENT HAS BEEN ELECTRONICALLY SIGNED BY DESIREE CARDOZA MD Narrative 10/19/2024 4:13 PM EST PROCEDURE INFORMATION: Exam: CT Maxillofacial Without Contrast; Mandible Exam date and time: 10/19/2024 3:44 PM Age: 79 years old Clinical indication: Other: Left jaw mass TECHNIQUE: Imaging protocol: Computed tomography maxillofacial without contrast. Exam focused on the mandible. Radiation optimization: All CT scans at this facility use at least one of these dose optimization techniques: automated exposure control; mA and/or kV adjustment per patient size (includes targeted exams where dose is matched to clinical indication); or iterative reconstruction. COMPARISON: [facility] DUPLEX CAROTID BILAT 08/05/2023 12:10 PM FINDINGS: Paranasal sinuses: There is mild sinus mucosal disease, with no air-fluid level identified. Orbital cavities: Postsurgical changes of the right optic globe.The appearance of the optic globes suggests previous bilateral cataract surgery. Bones: No acute fracture. No destructive osseous lesions. Mastoid air cells: There is no mastoid effusion detected. Soft tissues: At the superficial aspect of the left masseter muscle, contained within the left facial superficial fat, there is a triangular fluid density lesion or collection which measures 15 x 8 x 15 mm (series 8 image 91, series 10, image 83). The under lying masseter muscle is unremarkable. Teeth: Edentulous. Procedure Note Desiree Cardoza MD - 10/19/2024 PROCEDURE INFORMATION: Exam: CT Maxillofacial Without Contrast; Mandible Exam date and time: 10/19/2024 3:44 PM Age: 79 years old Clinical indication: Other: Left jaw mass TECHNIQUE: Imaging protocol: Computed tomography maxillofacial without contrast. Exam focused on the mandible. Radiation optimization: All CT scans at this facility use at least one ofthese dose optimization techniques: automated exposure control; mA and/or kV adjustment per patient size (includes targeted exams where dose is matchedto clinical indication); or iterative reconstruction. COMPARISON: [facility] DUPLEX CAROTID BILAT 08/05/2023 12:10 PM FINDINGS: Paranasal sinuses: There is mild sinus mucosal disease, with no air-fluidlevel identified. Orbital cavities: Postsurgical changes of the right optic globe.Theappearance of the optic globes suggests previous bilateral cataract surgery. Bones: No acute fracture. No destructive osseous lesions. Mastoid air cells: There is no mastoid effusion detected. Soft tissues: At the superficial aspect of the left masseter muscle,contained within the left facial superficial fat, there is a triangular fluiddensity lesion or collection which measures 15 x 8 x 15 mm (series 8 image 91,series 10, image 83). The under lying masseter muscle is unremarkable. Teeth: Edentulous. IMPRESSION IMPRESSION: Fluid density lesion or collection at the superficial aspect of the left masseter muscle, contained within the superficial facial fat, isnonspecific. Correlate with clinical information regarding possible abscess. THIS DOCUMENT HAS BEEN ELECTRONICALLY SIGNED BY DESIREE CARDOZA MD Marco Gutierrez MD RAD CT Final Result * ECHO, COMPLETE (2D), TRANS-THORACIC (10/19/2024 3:04 PM EST) LEFT VENTRICULAR EJECTION FRACTION 60 % [facility] CARDIOLOGY 10/19/2024 2:36 PM EST Jorge Weems MD ECHOCARDIOLOGY Final Result [facility] CARDIOLOGY * CULTURE, RESPIRATORY, LOWER, AEROBIC (10/19/2024 11:48 AM EST) Culture Growth Specimen unsatisfactory. Not tested. 10/20/2024 12:36 AM EST LAB[facility]ATORY [facility] Stain Description Specimen contaminated with epithelial cells leasing representative of oropharyngeal contamination. Further processing may yield potentially misleading results. 10/20/2024 12:36 AM EST [facility] Lower Respiratory Sputum specimen / Unknown Non-blood Collection / Unknown 10/19/2024 11:48 AM EST 10/19/2024 11:52 AM EST Jorge Weems MD LAB MICRO - GENERAL ORDERABLE S Final Result Performing Organization Address City/[facility]/ZIP Co de Phone Number LABORATORY [facility] [address] [place] [address] * LACTATE, WHOLE BLOOD WITH REFLEX IF ABNORMAL (10/19/2024 9:43 AM EST) Lactate 0.9 0.4 - 2.0 mmol/L 10/19/2024 12:25 PM EST LABORATORY [facility] Blood Venous blood specimen / Unknown Venipuncture / Unknown 10/19/2024 9:43 AM EST 10/19/2024 9:46 AM EST Elton NOLAN-Jenae LAB BLOOD ORDERABLES Final Res ult Performing Organization Address City/[facility]/ZIP Co de Phone Number LABORATORY [address] [address] * PROCALCITONIN (10/19/2024 6:01 AM EST) Procalcitonin 0.07 <0.10 ng/mL 10/19/2024 3:16 PM EST LABORATORY [facility] Blood Venous blood specimen / Unknown Venipuncture / Unknown 10/19/2024 6:01 AM EST 10/19/2024 6:29 AM EST Narrative LABORATORY [facility] - 10/19/2024 3:16 PM EST Less than 0.5 ng/mL: Low risk for progression to sepsis. Review patients condition for localized infections. 0.5 to 2.0 ng/mL: Intermediate risk for progresion to sepsis. Review underlying conditions. Recommend repeat PCT after 6 hours has elapsed. Greater than 2.0 ng/mL: high risk for progression to sepsis unless other causes are known. Elton NOLAN-C LAB BLOOD ORDERABLES Final Res ult Performing Organization Address [facility]/[place] Co de Phone Number LABORATORY [address] [address] * PHOSPHORUS (10/19/2024 6:01 AM EST) Phosphorus 3.0 2.5 - 4.8 mg/dL 10/19/2024 6:58 AM EST LABORATORY [facility] Blood Venous blood specimen / Unknown Venipuncture / Unknown 10/19/2024 6:01 AM EST 10/19/2024 6:29 AM EST us Jessie DURON LAB BLOOD ORDERABLES Final Re sult Performing Organization Address [facility]/[place] Co de Phone Number LABORATORY [address] [address] * MAGNESIUM (10/19/2024 6:01 AM EST) Magnesium 1.7 1.5 - 2.6 mg/dL 10/19/2024 6:58 AM EST LABORATORY [facility] Blood Venous blood specimen / Unknown Venipuncture / Unknown 10/19/2024 6:01 AM EST 10/19/2024 6:29 AM EST us Jessie DURON LAB BLOOD ORDERABLES Final Re sult Performing Organization Address [facility] de Phone Number LABORATORY [address] [phone] * (ABNORMAL) CBC (10/19/2024 6:01 AM EST) WBC 9.90 4.00 - 10.80 K/uL 10/19/2024 6:46 AM EST LABORATORY [facility] RBC 3.29 4.50 - 5.25 M/uL 10/19/2024 6:46 AM EST LABORATORY GL HGB 10.1(L) 14.0 - 16.8 g/dL 10/19/2024 6:46 AM EST LABORATORY GL HCT 31.3(L) 40.0 - 48.4 % 10/19/2024 6:46 AM EST LABORATORY [facility] MCV 95.1 82.0 - 99.5 fL 10/19/2024 6:46 AM EST LABORATORY [facility] MCH 30.7 27.0 - 34.0 pg 10/19/2024 6:46 AM EST LABORATORY [facility] MCHC 32.3 32.0 - 36.0 g/dL 10/19/2024 6:46 AM EST LABORATORY [facility] RDW 14.4 11.5 - 15.5 % 10/19/2024 6:46 AM EST LABORATORY [facility] PLT 224 140 - 400 K/uL 10/19/2024 6:46 AM EST LABORATORY [facility] MPV 10.3 6.6 - 11.1 fL 10/19/2024 6:46 AM EST LABORATORY [facility] nRBCs 0 <=0 /100 WBCs 10/19/2024 6:46 AM EST LABORATORY [facility] Blood Venous blood specimen / Unknown Venipuncture / Unknown 10/19/2024 6:01 AM EST 10/19/2024 6:29 AM EST us Jessie DURON LAB BLOOD ORDERABLES Final Re sult LABORATORY [facility] [address] [place] [address] * (ABNORMAL) BASIC METABOLIC PANEL (10/19/2024 6:01 AM EST) BUN 16 6 - 20 mg/dL 10/19/2024 6:58 AM EST LABORATORY GL CREATININE 0.8 0.6 - 1.2 mg/dL 10/19/2024 6:58 AM EST LABORATORY GL EGFR 90 >=60 mL/min 10/19/2024 6:58 AM EST LABORATORY GL Comment:eGFR is calculated b ased on the CKD-EPI 2020 equation. SODIUM 132(L) 135 - 146 mmol/L 10/19/2024 6:58 AM EST LABORATORY GL POTASSIUM 3.7 3.5 - 5.1 mmol/L 10/19/2024 6:58 AM EST LABORATORY GL CHLORIDE 99 98 - 107 mmol/L 10/19/2024 6:58 AM EST LAB[facility]ATORY [facility] CO2 24 22 - 32 mmol/L 10/19/2024 6:58 AM EST LABORATORY GL ANION GAP 9 7 - 15 mmol/L 10/19/2024 6:58 AM EST LABORATORY GL GLUCOSE 93 70 - 120 mg/dL 10/19/2024 6:58 AM EST LABORATORY GL CALCIUM 8.4 8.4 - 10.2 mg/dL 10/19/2024 6:58 AM EST LABORATORY [facility] Blood Venous blood specimen / Unknown Venipuncture / Unknown 10/19/2024 6:01 AM EST 10/19/2024 6:29 AM EST Jessie DURON LAB BLOOD ORDERABLES Final Re sult Performing Organization Address City/[facility]/ZIP Co de Phone Number LABORATORY [address] [phone] * LEGIONELLA ANTIGEN, URINE (10/18/2024 4:39 PM EST) Pathologist [facility] Legionella Antigen, Urine Negative Negative 10/19/2024 6:54 AM EST LABORATORY [facility] Comment:Presumptive negative for L. pneumophila serogroup 1 antigens. A negative result does not rule out the possibility of Legionella infection due to other serogroups or species of Legionella. Urine Urine specimen obtained by clean catch procedure / Unknown Non-blood Collection / Unknown 10/18/2024 4:39 PM EST 10/18/2024 4:43 PM EST Jorge Weems MD LAB URINE ORDERABLES Final Re sult LABORATORY [facility] [address] [place] [address] * MRSA SCREEN, PCR (10/18/2024 4:39 PM EST) Pathologist [facility] MRSA PCR Result Negative Negative 1:00 AM EST LABORATORY [facility] Comment:No Methicillin resis tant Staphylococcus aureus detected by PCR (amplified probe). Upper Respiratory Swab of internal nose / Unknown Non-blood Collection / Unknown 10/18/2024 4:39 PM EST 10/18/2024 4:42 PM EST us Jorge Weems MD LAB MICRO - GENERAL ORDERABLE S Final Result LABORATORY [facility] [address] [place] [address] * RESPIRATORY PATHOGEN PANEL, PCR (10/18/2024 3:08 PM EST) Adenovirus by PCR Negative Negative 025 4:05 PM EST LABORATORY [facility] Coronavirus 229E by PCR Negative Negative 10/18/2024 4:05 PM EST LABORATORY [facility] Coronavirus HKU1 by PCR Negative Negative 10/18/2024 4:05 PM EST LABORATORY [facility] Coronavirus NL63 by PCR Negative Negative 10/18/2024 4:05 PM EST LABORATORY [facility] Coronavirus OC43 by PCR Negative Negative 10/18/2024 4:05 PM EST LABORATORY [facility] Coronavirus SARS-CoV-2 by PCR Negative Negative 10/18/2024 4:05 PM EST LABORATORY [facility] Human Metapneumovirus by PCR Negative Negative 10/18/2024 4:05 PM EST LABORATORY [facility] Rhinovirus/Enterovi clifton by PCR Negative Negative 10/18/2024 4:05 PM EST LABORATORY [facility] Influenza A Virus by PCR Negative Negative 10/18/2024 4:05 PM EST LABORATORY [facility] Influenza B Virus by PCR Negative Negative 10/18/2024 4:05 PM EST LABORATORY [facility] Parainfluenza Virus 1 by PCR Negative Negative 10/18/2024 4:05 PM EST LABORATORY [facility] Parainfluenza Virus 2 by PCR Negative Negative 10/18/2024 4:05 PM EST LABORATORY [facility] Parainfluenza Virus 3 by PCR Negative Negative 10/18/2024 4:05 PM EST LABORATORY [facility] Parainfluenza Virus 4 by PCR Negative Negative 10/18/2024 4:05 PM EST LABORATORY [facility] Respiratory Syncytial Virus by PCR Negative Negative 10/18/2024 4:05 PM EST LABORATORY [facility] Bordetella pertussis by PCR Negative Negative 10/18/2024 4:05 PM EST LABORATORY [facility] Chlamydia pneumoniae by PCR Negative Negative 10/18/2024 4:05 PM EST LABORATORY [facility] Mycoplasma pneumoniae by PCR Negative Negative 10/18/2024 4:05 PM EST LABORATORY [facility] Bordetella parapertussis by PCR Negative Negative 10/18/2024 4:05 PM EST LABORATORY [facility] Comment: The primers that detect Rhinovirus may cross react with some Enterorviruses. The validation of bronchial specimens, tracheal aspirates, and throats for this assay was developed and performance characteristics determined by [employer]. The validation of alternate specimen types has not been cleared or approved by the U.S. Food and Drug Administration (FDA). It has been determined that such clearance or approval is not necessary. 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 Recommend short-term follow-up study. THIS DOCUMENT HAS BEEN ELECTRONICALLY SIGNED BY BALDOMERO CARRION MD Narrative 10/18/2024 1:37 PM EST PROCEDURE INFORMATION: Exam: CTA Chest With Contrast Exam date and time: 10/18/2024 1:00 PM Age: 79 years old Clinical indication: Other: SOB; Recent covid; HX malignancy; Elevated d-dimer TECHNIQUE: Imaging protocol: Computed tomographic angiography of the chest with contrast. Exam focused on the arteries. 3D rendering (Not supervised by radiologist): MIP and/or 3D reconstructed images were created by the technologist. Radiation optimization: All CT scans at this facility use at least one of these dose optimization techniques: automated exposure control; mA and/or kV adjustment per patient size (includes targeted exams where dose is matched to clinical indication); or iterative reconstruction. Contrast material: ISOVUE 370; Contrast volume: 100 ml; Contrast route: INTRAVENOUS (IV); COMPARISON: DX XR CHEST 2 VIEWS 10/18/2024 11:36 AM FINDINGS: Pulmonary arteries: No acute pulmonary embolism. Aorta: Atherosclerotic calcifications. Coronary artery calcifications. No aortic aneurysm. No aortic dissection. Lungs: Peripheral reticulations and ground-glass densities in left upper lobe anteriorly. Minimal honeycombing and traction bronchiectasis also noted. Small focal peripheral honeycombing and ground-glass densities in right upper lobe inferiorly. Bilateral lower lobes show diffuse honeycombing and traction bronchiectasis with superimposed ground-glass densities. Postop changes of the right middle lobe with volume loss noted. Pleural spaces: Small left pleural effusion. Heart: Cardiomegaly. No pericardial effusion. Lymph nodes: Nonenlarged right paratracheal lymph nodes. Aortopulmonary window lymph node measuring 1 cm. Left lower paratracheal lymph node measuring 1.4 cm, subcarinal lymph node measuring 1.8 cm. Nonenlarged hilar lymph nodes. Bones/joints: Minimal spondylotic changes. No acute fracture. Soft tissues: Unremarkable. Procedure Note Baldomero Carrion MD - 10/18/2024 PROCEDURE INFORMATION: Exam: CTA Chest With Contrast Exam date and time: 10/18/2024 1:00 PM Age: 79 years old Clinical indication: Other: SOB; Recent covid; HX malignancy; Elevatedd-dimer TECHNIQUE: Imaging protocol: Computed tomographic angiography of the chest withcontrast. Exam focused on the arteries. 3D rendering (Not supervised by radiologist): MIP and/or 3D reconstructed images were created by the technologist. Radiation optimization: All CT scans at this facility use at least one ofthese dose optimization techniques: automated exposure control; mA and/or kV adjustment per patient size (includes targeted exams where dose is matchedto clinical indication); or iterative reconstruction. Contrast material: ISOVUE 370; Contrast volume: 100 ml; Contrast route: INTRAVENOUS (IV); COMPARISON: DX XR CHEST 2 VIEWS 10/18/2024 11:36 AM FINDINGS: Pulmonary arteries: No acute pulmonary embolism. Aorta: Atherosclerotic calcifications. Coronary artery calcifications. No aortic aneurysm. No aortic dissection. Lungs: Peripheral reticulations and ground-glass densities in left upperlobe anteriorly. Minimal honeycombing and traction bronchiectasis also noted.Small focal peripheral honeycombing and ground-glass densities in right upperlobe inferiorly. Bilateral lower lobes show diffuse honeycombing and traction bronchiectasis with superimposed ground-glass densities. Postop changes ofthe right middle lobe with volume loss noted. Pleural spaces: Small left pleural effusion. Heart: Cardiomegaly. No pericardial effusion. Lymph nodes: Nonenlarged right paratracheal lymph nodes. Aortopulmonarywindow lymph node measuring 1 cm. Left lower paratracheal lymph node measuring1.4 cm, subcarinal lymph node measuring 1.8 cm. Nonenlarged hilar lymph nodes. Bones/joints: Minimal spondylotic changes. No acute fracture. Soft tissues: Unremarkable. 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 Recommend short-term follow-up study. THIS DOCUMENT HAS BEEN ELECTRONICALLY SIGNED BY BALDOMERO CARRION MD [facility] DO RAD CT Final Result * XR CHEST 2 VIEWS (10/18/2024 12:04 PM EST) Anatomical Region Laterality Modality Chest Digital Radiogra phy 10/18/2024 11:3 6 AM EST Impressions 10/18/2024 12:41 PM EST IMPRESSION: Infiltrates superimposed on chronic changes in left lower lobe, suspicious for acute pneumonia. Recommend follow-up. THIS DOCUMENT HAS BEEN ELECTRONICALLY SIGNED BY BALDOMERO CARRION MD Narrative 10/18/2024 12:41 PM EST PROCEDURE INFORMATION: Exam: XR Chest Exam date and time: 10/18/2024 11:36 AM Age: 79 years old Clinical indication: Other: SOB; Cough; 3 weeks ago diagnosed with covid SX worsening past week TECHNIQUE: Imaging protocol: Radiologic exam of the chest. Views: 2 views. COMPARISON: DX XR CHEST 2 VIEWS 09/25/2024 3:07 PM FINDINGS: Lungs: Infiltrates in left lower lobe superimposed on interstitial changes. Likely chronic changes in right lung base. Pleural spaces: Pleural thickening bilaterally suspected. Small pleural effusions can not be excluded. No pneumothorax. Heart/Mediastinum: Stable. Bones/joints: Stable. Procedure Note Baldomero Carrion MD - 10/18/2024 PROCEDURE INFORMATION: Exam: XR Chest Exam date and time: 10/18/2024 11:36 AM Age: 79 years old Clinical indication: Other: SOB; Cough; 3 weeks ago diagnosed with covidSX worsening past week TECHNIQUE: Imaging protocol: Radiologic exam of the chest. Views: 2 views. COMPARISON: DX XR CHEST 2 VIEWS 09/25/2024 3:07 PM FINDINGS: Lungs: Infiltrates in left lower lobe superimposed on interstitialchanges. Likely chronic changes in right lung base. Pleural spaces: Pleural thickening bilaterally suspected. Small pleural effusions can not be excluded. No pneumothorax. Heart/Mediastinum: Stable. Bones/joints: Stable. IMPRESSION IMPRESSION: Infiltrates superimposed on chronic changes in left lower lobe, suspiciousfor acute pneumonia. Recommend follow-up. THIS DOCUMENT HAS BEEN ELECTRONICALLY SIGNED BY BALDOMERO CARRION MD [employer] RADIOLOGY (RAD GENERAL) Final Result * (ABNORMAL) D-DIMER (10/18/2024 10:44 AM EST) D-Dimer 1.89(H) <0.50 ug/mL FEU 10/18/2024 11:16 AM EST LABORATORY [facility] Blood Venous blood specimen / Unknown Venipuncture / Unknown 10/18/2024 10:44 AM EST 10/18/2024 10:50 AM EST [facility] LABORATORY [facility] - 10/18/2024 11:16 AM EST Rheumatoid factor at a level above 50 IU/mL may lead to an overestimation of the D-dimer level. A normal D-dimer result (<0.50 ug/mL FEU) has a negative predictive value of approximately 95% for the exclusion of acute pulmonary embolism (PE) or deep vein thrombosis when there is low or moderate pretest PE probability. Increased D-dimer values are abnormal but do not indicate a specific disease state and the D-dimer increase does not definitively correlate with clinical severity of disease. [employer] LAB BLOOD ORDERABLES Final Re sult LABORATORY [facility] [address] [place] [address] * (ABNORMAL) DIFFERENTIAL, AUTOMATED (10/18/2024 10:17 AM EST) WBC 10.96(H) 4.00 - 10.80 K/uL 10/18/2024 10:29 AM EST LABORATORY [facility] Neutrophils % 78.5(H) 40.0 - 75.0 % 10/18/2024 10:29 AM EST LABORATORY [facility] Lymphocytes % 9.9(L) 18.0 - 42.0 % 10/18/2024 10:29 AM EST LABORATORY [facility] Monocytes % 7.3 1.0 - 11.0 % 10/18/2024 10:29 AM EST LAB[facility]ATORY [facility] Eosinophils % 3.2 0.0 - 6.0 % 10/18/2024 10:29 AM EST LAB[facility]ATORY [facility] Basophils % 0.6 0.0 - 2.0 % 10/18/2024 10:29 AM EST LABORATORY [facility] Immature Granulocytes % 0.5 0.0 - 2.0 % 10/18/2024 10:29 AM EST LABORATORY [facility] Absolute Neutrophils 8.60(H) 1.80 - 7.70 K/uL 10/18/2024 10:29 AM EST LABORATORY [facility] Absolute Lymphocytes 1.09 1.00 - 4.80 K/ul 10/18/2024 10:29 AM EST LABORATORY [facility] Absolute Monocytes 0.80 0.00 - 1.10 K/uL 10/18/2024 10:29 AM EST LAB[facility]ATORY [facility] Absolute Eosinophils 0.35 0.00 - 0.70 K/uL 10/18/2024 10:29 AM EST LAB[facility]ATORY [facility] Absolute Basophils 0.07 0.00 - 0.20 K/uL 10/18/2024 10:29 AM EST LABORATORY [facility] Absolute Immature Granulocytes 0.05 0.00 - 0.20 K/uL 10/18/2024 10:29 AM EST LAB[facility]ATORY [facility] Blood Venous blood specimen / Unknown Venipuncture / Unknown 10/18/2024 10:17 AM EST 10/18/2024 10:21 AM EST Wili Cassidy DO LAB BLOOD ORDERABLES Final Re sult Performing Organization Address City/[facility]/ZIP Co de Phone Number LABORATORY [facility] [address], [place] [phone] * (ABNORMAL) CBC (10/18/2024 10:17 AM EST) WBC 10.96(H) 4.00 - 10.80 K/uL 10/18/2024 10:29 AM EST LABORATORY [facility] RBC 3.41 4.50 - 5.25 M/uL 10/18/2024 10:29 AM EST LABORATORY [facility] HGB 10.5(L) 14.0 - 16.8 g/dL 10/18/2024 10:29 AM EST LABORATORY GL HCT 32.5(L) 40.0 - 48.4 % 10/18/2024 10:29 AM EST LABORATORY GL MCV 95.3 82.0 - 99.5 fL 10/18/2024 10:29 AM EST LABORATORY [facility] MCH 30.8 27.0 - 34.0 pg 10/18/2024 10:29 AM EST LABORATORY [facility] MCHC 32.3 32.0 - 36.0 g/dL 10/18/2024 10:29 AM EST LABORATORY [facility] RDW 14.5 11.5 - 15.5 % 10/18/2024 10:29 AM EST LABORATORY [facility] PLT 223 140 - 400 K/uL 10/18/2024 10:29 AM EST LABORATORY [facility] MPV 9.8 6.6 - 11.1 fL 10/18/2024 10:29 AM EST LABORATORY [facility] nRBCs 0 <=0 /100 WBCs 10/18/2024 10:29 AM EST LABORATORY GL Blood Venous blood specimen / Unknown Venipuncture / Unknown 10/18/2024 10:17 AM EST 10/18/2024 10:21 AM EST Wili Cassidy LAB BLOOD ORDERABLES Final Re sult Performing Organization Address City/[facility]/ZIP Co de Phone Number LABORATORY [facility] [address], [place] [phone] * (ABNORMAL) BNP, NT-PRO (10/18/2024 10:17 AM EST) BNP, NT-Pro 1,138(H) <300 pg/mL 10/18/2024 10:53 AM EST LABORATORY [facility] Blood Venous blood specimen / Unknown Venipuncture / Unknown 10/18/2024 10:17 AM EST 10/18/2024 10:21 AM EST Narrative LABORATORY [facility] - 10/18/2024 10:53 AM EST Exclude Heart Failure: <300 pg/mL Diagnose Heart Failure: Age <50 yr: >450 pg/mL 50-75 yr: >900 pg/mL >75 yr: >1800 pg/mL GFR is 30-59 mL/min: >1200 pg/mL or Age-adjusted values GFR <30 mL/min: do not use, not reliable Prognostic threshold: 1000 pg/mL [facility] LAB BLOOD ORDERABLES Final Re sult Performing Organization Address [facility] de Phone Number LABORATORY [address] [address] * TROPONIN T, HIGH SENSITIVITY (10/18/2024 10:17 AM EST) Pathologist [facility] Troponin T, High Sensitivity 19 <=22 ng/L 10/18/2024 10:46 AM EST LABORATORY [facility] Blood Venous blood specimen / Unknown Venipuncture / Unknown 10/18/2024 10:17 AM EST 10/18/2024 10:21 AM EST [facility] LAB BLOOD ORDERABLES Final Re sult Performing Organization Address City/[facility]/ZIP Co de Phone Number LABORATORY [address] [address] * LACTATE WITH REFLEX IF ABNORMAL (10/18/2024 10:17 AM EST) Pathologist [facility] Lactate 1.0 0.4 - 2.0 mmol/L 10/18/2024 10:43 AM EST LABORATORY [facility] Blood Venous blood specimen / Unknown Venipuncture / Unknown 10/18/2024 10:17 AM EST 10/18/2024 10:21 AM EST us Wili Cassidy LAB BLOOD ORDERABLES Final Re sult LABORATORY [facility] [address] [place] [address] * (ABNORMAL) BLOOD GAS, VENOUS (10/18/2024 10:17 AM EST) Temperature 37.0 C 10/18/2024 10:27 AM EST LABORATORY [facility] pH, Venous 7.486(H) 7.320 - 7.430 units 10/18/2024 10:27 AM EST LABORATORY [facility] pCO2, Venous 33.5(L) 40.0 - 60.0 mmHg 10/18/2024 10:27 AM EST LAB[facility]AT[facility] pO2, Venous 44.4 25.0 - 50.0 mmHg 10/18/2024 10:27 AM EST LAB[facility]ATORY [facility] Base Excess, Venous 2.3(H) -2.0 - 2.0 mmol/L 10/18/2024 10:27 AM EST LAB[facility]ATORY [facility] HGB 11.2(L) 14.0 - 16.8 g/dL 10/18/2024 10:27 AM EST LAB[facility]ATORY [facility] Oxyhemoglobin, Venous 75.5 40.0 - 85.0 % total Hgb 10/18/2024 10:27 AM EST LAB[facility]AT[facility] Carboxyhemoglobi n, Whole Blood 2.0(H) <=1.5 % total Hgb 10/18/2024 10:27 AM EST LAB[facility]ATORY [facility] Comment:Smokers: 0-9.0 % Methemoglobin, Whole Blood 0.8 <=1.5 % total Hgb 10/18/2024 10:27 AM EST LAB[facility]ATORY [facility] Reduced Hemoglobin, Venous 21.7 % total Hgb 10/18/2024 10:27 AM EST LAB[facility] O2 Content, Venous 11.9 7.0 - 18.0 %vol 10/18/2024 10:27 AM EST LAB[facility] Bicarbonate, Whole Blood 25.0 23.0 - 31.0 mmol/L 10/18/2024 10:27 AM EST LAB[facility] Blood Venous blood specimen / Unknown Venipuncture / Unknown 10/18/2024 10:17 AM EST 10/18/2024 10:21 AM EST us Wili Cassidy LAB BLOOD ORDERABLES Final Re sult LABORATORY [facility] [address] [place] [address] * (ABNORMAL) COMPREHENSIVE METABOLIC PANEL (10/18/2024 10:17 AM EST) BUN 20 6 - 20 mg/dL 10/18/2024 10:53 AM EST LAB[facility]ATORY [facility] CREATININE 0.9 0.6 - 1.2 mg/dL 10/18/2024 10:53 AM EST LABORATORY [facility] EGFR 89 >=60 mL/min 10/18/2024 10:53 AM EST LAB[facility]ATORY [facility] Comment:eGFR is calculated b ased on the CKD-EPI 2020 equation. SODIUM 130(L) 135 - 146 mmol/L 10/18/2024 10:53 AM EST LAB[facility]ATORY [facility] POTASSIUM 3.6 3.5 - 5.1 mmol/L 10/18/2024 10:53 AM EST LAB[facility]ATORY [facility] CHLORIDE 96(L) 98 - 107 mmol/L 10/18/2024 10:53 AM EST LAB[facility] CO2 22 22 - 32 mmol/L 10/18/2024 10:53 AM EST LAB[facility]ORY [facility] ANION GAP 12 7 - 15 mmol/L 10/18/2024 10:53 AM EST LAB[facility] GLUCOSE 90 70 - 120 mg/dL 10/18/2024 10:53 AM EST LAB[facility] Albumin 2.9(L) 3.8 - 5.0 g/dL 10/18/2024 10:53 AM EST LAB[facility] AST 22 10 - 50 U/L 10/18/2024 10:53 AM EST LAB[facility] Alkaline Phosphatase 52 35 - 130 U/L 10/18/2024 10:53 AM EST [facility] Bilirubin, Total 0.7 <=1.2 mg/dL 10/18/2024 10:53 AM EST LAB[facility] CALCIUM 8.7 8.4 - 10.2 mg/dL 10/18/2024 10:53 AM EST LAB[facility] Protein 6.7 6.0 - 8.3 g/dL 10/18/2024 10:53 AM EST LAB[facility] ALT 29 10 - 50 U/L 10/18/2024 10:53 AM EST LABORATORY [facility] Blood Venous blood specimen / Unknown Venipuncture / Unknown 10/18/2024 10:17 AM EST 10/18/2024 10:21 AM EST Wili Cassidy DO LAB BLOOD ORDERABLES Final Re sult Performing Organization Address City/[facility]/ZIP Co de Phone Number LABORATORY [address] [address] * EKG (10/18/2024 10:09 AM EST) 10/18/2024 10:0 9 AM EST Narrative Procedure Note Guillermo Archer DO - 10/18/2024 10:09 AM EST REASON FOR STUDY: SOB CONCLUSIONS: Normal sinus rhythm Normal ECG When compared with ECG of 25-Sep-2024 15:05, Premature atrial complexes are no longer Present Ventricular Rate: 66 Atrial Rate: 66 NC Interval: 160 QRS Duration: 88 QT/QTc: 416/436 ms P-R-T [place]: 6 : 1 : 4 degrees [facility] EKG Final Result Performing Organization Address City/[facility]/[place] Co de Phone Number [facility] documented in this encounter Visit Diagnoses Diagnosis Acute respiratory failure with hypoxia (HCC)- Primary Acute respiratory failure SOB (shortness of breath) Shortness of breath Screening for cardiovascular condition Screening for other and unspecified cardiovascular conditions Community acquired pneumonia Pneumonia, organism unspecified Heart failure (HCC) Heart failure, unspecified Chest pain Chest pain, unspecified Acute hypoxic respiratory failure (HCC) Other nonspecific abnormal finding of lung field COVID-19 Emphysema, unspecified (HCC) Abnormal coagulation profile Personal history of malignant neoplasm, unspecified Bacterial pneumonia Bacterial pneumonia, unspecified Immunocompromised (HCC) Unspecified immunity deficiency Cancer of lung (HCC) Malignant neoplasm of bronchus and lung, unspecified site Post Traumatic Stress Disorder Anxiety state, unspecified Right carotid artery occlusion Occlusion and stenosis of carotid artery without mention of cerebral infarction HTN (hypertension) Unspecified essential hypertension BPH (benign prostatic hyperplasia) Unspecified hyperplasia of prostate without urinary obstruction and other lower urinary tract symptoms (LUTS) Rheumatoid arthritis (HCC) Irritable bowel syndrome S/P lobectomy of lung Other postprocedural status Bladder cancer (HCC) Malignant neoplasm of bladder, part unspecified COPD (chronic obstructive pulmonary disease) (HCC) Chronic airway obstruction, not elsewhere classified HLD (hyperlipidemia) Other and unspecified hyperlipidemia OAB (overactive bladder) Hypertonicity of bladder documented in this encounter Administered Medications Inactive Administered Medications - up to 3 most recent administrations Medication Order MAR Action Action Date Dose Rate Site Acetaminophen (Tylenol) tab 650 mg 650 mg, Oral, Q6H PRN Pain, Mild, Fever >38C(100.5F), Starting on Sat10/18/24 at 1548, Until Sat10/21/24 at 1827, Maximum of 4 grams (4000 mg) per day. Given 10/19/2024 8:20 AM EST 650 mg Given 10/18/2024 7:41 PM EST 650 mg Acetylcysteine (NAC) cap 600 mg 600 mg, Oral, BID (.AM/PM), First dose on Sat10/18/24 at 2100, Until Discontinued Given 10/19/2024 8:20 AM EST 600 mg Given 10/18/2024 8:10 PM EST 600 mg albuterol-ipratropium (Duoneb) inhalation solution 3 mL 3 mL, Nebulizer, RESPQID, First dose on Sat10/18/24 at 1900, Until Discontinued, 3 mL = 0.5 mg ipratropium/ 2.5 mg albuterol Given 10/19/2024 11:04 AM EST 3 mL Given 10/19/2024 6:28 AM EST 3 mL Given 10/18/2024 6:56 PM EST 3 mL albuterol-ipratropium (Duoneb) inhalation solution 3 mL 3 mL, Nebulizer, Q4H PRN Dyspnea, Starting on Sat10/19/24 at 1442, Until Sat10/21/24 at 1827, 3 mL = 0.5 mg ipratropium/ 2.5 mg albuterol aspirin enteric coated tab 81 mg 81 mg, Oral, Daily(AM), First dose on Sat10/19/24 at 0900, Until Discontinued Given 10/21/2024 9:23 AM EST 81 mg Given 10/20/2024 9:23 AM EST 81 mg Given 10/19/2024 8:20 AM EST 81 mg atorvaSTATin (Lipitor) tab 20 mg 20 mg, Oral, QPM-1999, First dose on Sat10/19/24 at 2000, Until Discontinued Given 10/20/2024 10:13 PM EST 20 mg Given 10/19/2024 9:32 PM EST 20 mg Azithromycin (Zithromax) tab 500 mg 500 mg, Oral, ONCE, On Sat10/18/24 at 1345, For 1 dose Given 10/18/2024 2:33 PM EST 500 mg Bisacodyl (Dulcolax) supp 10 mg 10 mg, Rectal, DAILY PRN Constipation, Starting on Sat10/21/24 at 1548, Until Sat10/21/24 at 1827, Administer if no bowel movement within past 72 hours and patient unable to take oral medications. Bisacodyl (Dulcolax) tab 5 mg 5 mg, Oral, DAILY PRN Constipation, Starting on Sat10/21/24 at 1548, Until Sat10/21/24 at 1827, Administer in addition to polyethylene glycol and senna-docusate if no bowel movement in past 72 hours. Carvedilol (Coreg) tab 12.5 mg 12.5 mg, Oral, BID (AM/PM MEALS), First dose on Sat10/18/24 at 1915, Until Discontinued, Hold for HR less than 60 or SBP below 100 and notify service if dose is held MUST BE GIVEN WITH MEAL Given 10/21/2024 9:23 AM EST 12.5 mg Given 10/20/2024 5:47 PM EST 12.5 mg Given 10/20/2024 9:24 AM EST 12.5 mg cefepime in D5W (Maxipime) ivpb (THREE hour infusion) 1 g 1 g, IV Piggyback, Q6HNOW, 20 doses, First dose on Sat10/18/24 at 2200, Last dose on Sat10/23/24 at 1600, THREE HOUR INFUSION Rate Verify 10/20/2024 6:49 AM EST 0.333 g/hr 16.67 mL/hr New Bag 10/20/2024 5:04 AM EST 1 g 16.67 mL/hr New Bag 10/19/2024 9:47 PM EST 1 g 16.67 mL/hr cefepime in dextrose premix ivpb 2 g 2 g, IV Piggyback, ONCE, 1 dose, On Sat10/18/24 at 1545, Administer over 30 Minutes New Bag 10/18/2024 4:46 PM EST 2 g 100 mL/hr cefTRIAXone in dextrose (Rocephin) IVPB 1 g IV Piggyback, 1 g, ONCE, 1 dose, On Sat10/18/24 at 1345, Administer over 30 Minutes New Bag 10/18/2024 1:47 PM EST 1 g 100 mL/hr Chlorthalidone (Hygroton) tab 25 mg 25 mg, Oral, Daily(AM), First dose on Sat10/19/24 at 0900, Until Discontinued Given 10/21/2024 9:23 AM EST 25 mg Given 10/20/2024 9:37 AM EST 25 mg Given 10/19/2024 8:19 AM EST 25 mg cholecalciferol (VIT D3) (Vitamin D3) tab 1,000 Units 1,000 Units, Oral, Daily(AM), First dose on Sat10/19/24 at 0900, Until Discontinued Given 10/21/2024 9:23 AM EST 1,000 Units Given 10/20/2024 9:24 AM EST 1,000 Units Given 10/19/2024 8:20 AM EST 1,000 Units doxycycline tab 100 mg 100 mg, Oral, Q12H, First dose on Sat10/20/24 at 0900, Last dose on Sat10/29/24 at 2100, For 10 days Given 10/21/2024 9:22 AM EST 100 mg Given 10/20/2024 10:13 PM EST 100 mg Given 10/20/2024 9:37 AM EST 100 mg Enoxaparin (Lovenox) inj 40 mg 40 mg, Subcutaneous, Daily(AM), First dose on Sat10/19/24 at 0900, Until Discontinued, If patient is on warfarin, inform provider if daily INR value is 2 or greater! Given 10/21/2024 9:23 AM EST 40 mg Abdom en Left Lower Given 10/20/2024 9:23 AM EST 40 mg Ab domen Right Lower Given 10/19/2024 8:19 AM EST 40 mg Ab domen Right Lower Finasteride (Proscar) tab 5 mg 5 mg, Oral, Daily(AM), First dose on Sat10/19/24 at 0900, Until Discontinued Given 10/21/2024 9:23 AM EST 5 mg Given 10/20/2024 9:24 AM EST 5 mg Given 10/19/2024 8:20 AM EST 5 mg fluticasone furoate-vilanterol (BREO ellipta) 200-25 MCG/ACT inhaler 1 Puff 1 Puff, Inhalation, Daily(AM), First dose on Sat10/19/24 at 0900, Until Discontinued Given 10/21/2024 7:53 AM EST 1 Pu ff Given 10/20/2024 8:16 AM EST 1 Puff Given 10/19/2024 6:28 AM EST 1 Puff folic acid tab 1 mg 1 mg, Oral, Daily(AM), First dose on Sat10/19/24 at 0900, Until Discontinued Given 10/21/2024 9:23 AM EST 1 mg Given 10/20/2024 9:24 AM EST 1 mg Given 10/19/2024 8:20 AM EST 1 mg Iopamidol (Isovue 370) inj 80 mL 80 mL, Intravenous, ONCE, On Sat10/18/24 at 1345, For 1 dose, Radiology Medication Routing (Non-IR) Given 10/18/2024 1:05 PM EST 80 mL melatonin tab 3 mg 3 mg, Oral, HS PRN Insomnia, Starting on Sat10/18/24 at 1548, Until Sat10/21/24 at 1827 methylPREDNISolone sodium succ (SOLU-Medrol) inj 40 mg 40 mg, Intravenous, Q12H, First dose (after last modification) on Sat10/19/24 at 2100, Last dose on Sat10/21/24 at 2100, For 5 doses Given 10/21/2024 9:2 3 AM EST 40 mg Given 10/20/2024 10:13 PM EST 40 mg Given 10/20/2024 9:23 AM EST 40 mg montelukast (Singulair) tab 10 mg 10 mg, Oral, QHS, First dose on Sat10/18/24 at 2200, Until Discontinued Given 10/20/2024 10:13 PM EST 10 mg Given 10/19/2024 9:33 PM EST 10 mg Given 10/18/2024 9:47 PM EST 10 mg NIFEdipine ER (Adalat CC) tab 60 mg 60 mg, Oral, Daily(AM), First dose on Sat10/19/24 at 0900, Until Discontinued, Hold for SBP below 100 and notify service if dose is held This med should NOT be Crushed or Chewed. Take on an empty stomach ! Given 10/21/2024 9:22 AM EST 60 mg Given 10/20/2024 9:23 AM EST 60 mg Given 10/19/2024 8:20 AM EST 60 mg NSS infusion Intravenous, at 100 mL/hr, CONTINUOUS, Starting on Sat10/18/24 at 1630, Until Sat10/19/24 at 0229 Restarted 10/19/2024 5:21 AM EST 100 mL/hr Rate Verify 10/19/2024 4:19 AM EST 100 mL/hr Restarted 10/19/2024 1:53 AM EST 100 mL/hr oxybutynin (Ditropan) tab 5 mg 5 mg, Oral, BID (.AM/PM), First dose on Sat10/18/24 at 2100, Until Discontinued Given 10/21/2024 9:23 AM EST 5 mg Given 10/20/2024 10:13 PM EST 5 mg Given 10/20/2024 9:24 AM EST 5 mg Polyethylene Glycol 3350 (Miralax) oral powder 17 g 17 g (1 Packet), Oral, DAILY PRN Constipation, Starting on Sat10/18/24 at 1548, Until Sat10/21/24 at 1827, Administer if no bowel movement within past 24 hours. potassium CHLORide liquid 20 mEq 20 mEq, Oral, BID (.AM/PM), First dose on Sat10/18/24 at 2100, Until Discontinued, To avoid GI irritation, must further diilute 15 ml in 3 ounces H2O or other fluid Given 10/21/2024 9:23 AM EST 20 mEq Given 10/20/2024 10:13 PM EST 20 mEq Given 10/20/2024 9:23 AM EST 20 mEq predniSONE (Deltasone) tab 5 mg 5 mg, Oral, Daily(AM), First dose on Sat10/19/24 at 0900, Until Discontinued Given 10/19/2024 8:20 AM EST 5 mg senna-docusate (Senokot-S) 1 Tablet 1 Tablet, Oral, BID PRN Constipation, Starting on Sat10/20/24 at 1548, Until Sat10/21/24 at 1827, Administer in addition to polyethylene glycol if no bowel movement within past 48 hours. sertraline (Zoloft) tab 100 mg 100 mg, Oral, Daily(AM), First dose on Sat10/19/24 at 0900, Until Discontinued Given 10/21/2024 9:23 AM EST 100 mg Given 10/20/2024 9:23 AM EST 100 mg Given 10/19/2024 8:20 AM EST 100 mg sodium chloride 0.9 % flush/inj 3 mL 3 mL, IV Push, PRN Other, Line Patency, Starting on Sat10/18/24 at 1545, Until Sat10/21/24 at 1827, Do not flush if lock, PICC, or central line not in place, IV infusing or unable to flush tamsulosin (Flomax) cap 0.4 mg 0.4 mg, Oral, Daily(AM), First dose on Sat10/19/24 at 0900, Until Discontinued, Administer 30 min after meal. This med should NOT be Crushed or Chewed or opened! ORAL administration only!! Given 10/21/2024 9:23 AM EST 0.4 mg Given 10/20/2024 9:24 AM EST 0.4 mg Given 10/19/2024 8:20 AM EST 0.4 mg traZODone (Desyrel) tab 150 mg 150 mg, Oral, QHS, First dose on Sat10/18/24 at 2200, Until Discontinued Given 10/20/2024 10:13 PM EST 150 mg Given 10/19/2024 9:32 PM EST 150 mg Given 10/18/2024 9:47 PM EST 150 mg vancomycin (Vancocin) 2500 mg in NSS 500 mL ivpb 2,500 mg, IV Piggyback, ONCE, 1 dose, On Sat10/18/24 at 1545 Rate Verify 10/18/2024 6:50 PM EST 1,000 mg/hr 230 mL/hr New Bag 10/18/2024 5:20 PM EST 2,500 mg 230 mL/hr documented in this encounter Active and Recently Administered Medications Times are shown in EST. Scheduled Medication Order 10/19/2024 10/20/2024 10/21/2024 Acetylcysteine (NAC) cap 600 mg (CANCELED) 600 mg, Oral, BID (.AM/PM), First dose on Sat10/18/24 at 2100, Until Discontinued 0820 (Given - Provider: Erika Santillan LPN) albuterol-ipratropium (Duoneb) inhalation solution 3 mL (CANCELED) 3 mL, Nebulizer, RESPQID, First dose on Sat10/18/24 at 1900, Until Discontinued, 3 mL = 0.5 mg ipratropium/ 2.5 mg albuterol 0628 (Given - Provider: Sarah Horne, RETAINING ROOM CUTTER)1104 (Given - Provider: Andriy Soriano, RETAINING ROOM CUTTER) aspirin enteric coated tab 81 mg 81 mg, Oral, Daily(AM), First dose on Sat10/19/24 at 0900, Until Discontinued 08 (Given - Provider: Erika Santillan LPN) 09 (Given - Provider: Samantha Egan, JEREMY) 09 (Given - Provider: Alejandro Barnes, JEREMY) atorvaSTATin (Lipitor) tab 20 mg 20 mg, Oral, QPM-1999, First dose on Sat10/19/24 at 2000, Until Discontinued 2131 (Given - Provider: Rosie Steward, JEREMY) 221 (Given - Provider: Kelsi Sommer, JEREMY) Carvedilol (Coreg) tab 12.5 mg 12.5 mg, Oral, BID (AM/PM MEALS), First dose on Sat10/18/24 at 1915, Until Discontinued, Hold for HR less than 60 or SBP below 100 and notify service if dose is held MUST BE GIVEN WITH MEAL 0820 (Given - Provider: Erika Santillan LPN)1622 (Given - Provider: Erika Santillan LPN) 0924 (Given - Provider: Samantha Egan, JEREMY)1747 (Given - Provider: Samantha Egan, JEREMY) 09 (Given - Provider: Alejandro Barnes RN) cefepime in D5W (Maxipime) ivpb (THREE hour infusion) 1 g (CANCELED) 1 g, IV Piggyback, Q6HNOW, 20 doses, First dose on Sat10/18/24 at 2200, Last dose on Sat10/23/24 at 1600, THREE HOUR INFUSION 0111 (Stopped - Provider: Melissa Dawson RN)0418 (New Bag - Provider: Melissa Dawson RN)0419 (Rate Verify - Provider: Melissa Dawson RN)0526 (Rate Verify - Provider: Melissa Dawson RN)1008 (New Bag - Provider: Erika Santillan LPN)1308 (Stopped - Provider: Rosie Steward RN)1637 (New Bag - Provider: Erika Santillan LPN)1937 (Stopped - Provider: Rosie Setward, JEREMY)2147 (New Bag - Provider: Rosie Steward, JEREMY) 0047 (Stopped - Provider: Rosie Steward RN)0504 (New Bag - Provider: Rosie Steward RN)0649 (Rate Verify - Provider: Rosie Steward RN)0811 (Stopped - Provider: Samantha Egan RN) Chlorthalidone (Hygroton) tab 25 mg 25 mg, Oral, Daily(AM), First dose on Sat10/19/24 at 0900, Until Discontinued 0819 (Given - Provider: Erika Santillan LPN) 0937 (Given - Provider: Samantha Egan RN) 0923 (Given - Provider: Alejandro Barnes RN) cholecalciferol (VIT D3) (Vitamin D3) tab 1,000 Units 1,000 Units, Oral, Daily(AM), First dose on Sat10/19/24 at 0900, Until Discontinued 0820 (Given - Provider: Erika Santillan LPN) 0924 (Given - Provider: Samantha Egna RN) 0923 (Given - Provider: Alejandro Barnes, JEREMY) doxycycline tab 100 mg 100 mg, Oral, Q12H, First dose on Sat10/20/24 at 0900, Last dose on Sat10/29/24 at 2100, For 10 days 0937 (Given - Provider: Samantha Egan RN)2213 (Given - Provider: Kelsi Sommer RN) 0922 (Given - Provider: Alejandro Barnes RN) Enoxaparin (Lovenox) inj 40 mg 40 mg, Subcutaneous, Daily(AM), First dose on Sat10/19/24 at 0900, Until Discontinued, If patient is on warfarin, inform provider if daily INR value is 2 or greater! 0819 (Given - Provider: Erika Santillan LPN) 09 (Given - Provider: Samantha Egan RN) 09 (Given - Provider: Alejandro Barnes RN) Finasteride (Proscar) tab 5 mg 5 mg, Oral, Daily(AM), First dose on Sat10/19/24 at 0900, Until Discontinued 08 (Given - Provider: Erika Santillan LPN) 0924 (Given - Provider: Samantha Egan RN) 09 (Given - Provider: Alejandro Barnes RN) fluticasone furoate-vilanterol (BREO ellipta) 200-25 MCG/ACT inhaler 1 Puff 1 Puff, Inhalation, Daily(AM), First dose on Sat10/19/24 at 0900, Until Discontinued 06 (Given - Provider: Sarah Horne, GURU) 0816 (Given - Provider: Yaquelin Christianson, GURU) 0753 (Given - Provider: Jelena Comer, GURU) folic acid tab 1 mg 1 mg, Oral, Daily(AM), First dose on Sat10/19/24 at 0900, Until Discontinued 08 (Given - Provider: Erika Santillan LPN) 09 (Given - Provider: Samantha Egan RN) 09 (Given - Provider: Alejandro Barnes RN) methylPREDNISolone sodium succ (SOLU-Medrol) inj 40 mg 40 mg, Intravenous, Q12H, First dose (after last modification) on Sat10/19/24 at 2100, Last dose on Sat10/21/24 at 2100, For 5 doses 2132 (Given - Provider: Rosie Steward RN) 922 (Given - Provider: Samantha Egan RN)2212 (Given - Provider: Kelsi Sommer RN) 09 (Given - Provider: Alejandro Barnes RN) montelukast (Singulair) tab 10 mg 10 mg, Oral, QHS, First dose on Sat25 at 2200, Until Discontinued 2132 (Given - Provider: Rosie Steward, JEREMY) 2212 (Given - Provider: Kelsi Sommer, JEREMY) NIFEdipine ER (Adalat CC) tab 60 mg 60 mg, Oral, Daily(AM), First dose on Sat10/19/24 at 0900, Until Discontinued, Hold for SBP below 100 and notify service if dose is held This med should NOT be Crushed or Chewed. Take on an empty stomach ! 819 (Given - Provider: Erika Santillan LPN) 922 (Given - Provider: Samantha Egan, JEREMY) 921 (Given - Provider: Alejandro Barnes, JEREMY) oxybutynin (Ditropan) tab 5 mg 5 mg, Oral, BID (.AM/PM), First dose on 10/18/24 at 2100, Until Discontinued 819 (Given - Provider: Erika Santillan LPN)2131 (Given - Provider: Rosie Steward RN) 923 (Given - Provider: Samantha Egan RN)2212 (Given - Provider: Kelsi Sommer, JEREMY) 922 (Given - Provider: Alejandro Barnes, JEREMY) potassium CHLORide liquid 20 mEq 20 mEq, Oral, BID (.AM/PM), First dose on 10/18/24 at 2100, Until Discontinued, To avoid GI irritation, must further diilute 15 ml in 3 ounces H2O or other fluid 819 (Given - Provider: Erika Santillan LPN)2132 (Given - Provider: Rosie Steward RN) 922 (Given - Provider: Samantha Egan, JEREMY)2212 (Given - Provider: Kelsi Sommer, JEREMY) 922 (Given - Provider: Alejandro Barnes, JEREMY) predniSONE (Deltasone) tab 5 mg (CANCELED) 5 mg, Oral, Daily(AM), First dose on Sat10/19/24 at 0900, Until Discontinued 819 (Given - Provider: Erika Santillan LPN) sertraline (Zoloft) tab 100 mg 100 mg, Oral, Daily(AM), First dose on Sat10/19/24 at 0900, Until Discontinued 0820 (Given - Provider: Erika Santillan LPN) 922 (Given - Provider: Samantha Egan, JEREMY) 922 (Given - Provider: Alejandro Barnes, JEREMY) tamsulosin (Flomax) cap 0.4 mg 0.4 mg, Oral, Daily(AM), First dose on 10/19/24 at 0900, Until Discontinued, Administer 30 min after meal. This med should NOT be Crushed or Chewed or opened! ORAL administration only!! 0820 (Given - Provider: Erika Santillan LPN) 24 (Given - Provider: Samantha Egan, JEREMY) 922 (Given - Provider: Alejandro Barnes, JEREMY) traZODone (Desyrel) tab 150 mg 150 mg, Oral, QHS, First dose on Sat10/18/24 at 2200, Until Discontinued 2131 (Given - Provider: Rosei Steward, JEREMY) 2212 (Given - Provider: Kelsi Sommer RN) Continuous Medication Order 10/19/2024 10/20/2024 10/21/2024 NSS infusion () Intravenous, at 100 mL/hr, CONTINUOUS, Starting on 10/18/24 at 1630, Until Sat10/19/24 at 0229 0150 (Paused - Provider: Melissa Dawson RN)0153 (Restarted - Provider: Melissa Dawson RN)0419 (Rate Verify - Provider: Melissa Dawson RN)0518 (Paused - Provider: Melissa Dawson RN)0521 (Restarted - Provider: Melissa Dawson RN)0521 (Stopped - Provider: Melissa Dawson RN) PRN Medication Order 10/19/2024 10/20/2024 10/21/2024 Acetaminophen (Tylenol) tab 650 mg 650 mg, Oral, Q6H PRN Pain, Mild, Fever >38C(100.5F), Starting on 10/18/24 at 1548, Until Sat10/21/24 at 1827, Maximum of 4 grams (4000 mg) per day. 0820 (Given - Provider: Erika Santillan LPN) albuterol-ipratropium (Duoneb) inhalation solution 3 mL 3 mL, Nebulizer, Q4H PRN Dyspnea, Starting on 10/19/24 at 1442, Until Sat10/21/24 at 1827, 3 mL = 0.5 mg ipratropium/ 2.5 mg albuterol Bisacodyl (Dulcolax) supp 10 mg(Linked Group 1) 10 mg, Rectal, DAILY PRN Constipation, Starting on Sat10/21/24 at 1548, Until Sat10/21/24 at 1827, Administer if no bowel movement within past 72 hours and patient unable to take oral medications. Bisacodyl (Dulcolax) tab 5 mg(Linked Group 1) 5 mg, Oral, DAILY PRN Constipation, Starting on Sat10/21/24 at 1548, Until Sat10/21/24 at 182, Administer in addition to polyethylene glycol and senna-docusate if no bowel movement in past 72 hours. melatonin tab 3 mg 3 mg, Oral, HS PRN Insomnia, Starting on Sat10/18/24 at 1548, Until Sat10/21/24 at 1827 Polyethylene Glycol 3350 (Miralax) oral powder 17 g(Linked Group 1) 17 g (1 Packet), Oral, DAILY PRN Constipation, Starting on Sat10/18/24 at 1548, Until Sat10/21/24 at 1827, Administer if no bowel movement within past 24 hours. senna-docusate (Senokot-S) 1 Tablet(Linked Group 1) 1 Tablet, Oral, BID PRN Constipation, Starting on Tu10/20/24 at 1548, Until Sat10/21/24 at 1827, Administer in addition to polyethylene glycol if no bowel movement within past 48 hours. sodium chloride 0.9 % flush/inj 3 mL 3 mL, IV Push, PRN Other, Line Patency, Starting on Sat10/18/24 at 1545, Until Sat10/21/24 at 1827, Do not flush if lock, PICC, or central line not in place, IV infusing or unable to flush Linked Groups Order Group 1: Polyethylene Glycol 3350 (Miralax) oral powder 17 gJump to med 17 g (1 Packet), Oral, DAILY PRN Constipation, Starting on Sat10/18/24 at 1548, Until Sat10/21/24 at 1827, Administer if no bowel movement within past 24 hours. And senna-docusate (Senokot-S) 1 TabletJump to med 1 Tablet, Oral, BID PRN Constipation, Starting on Sat10/20/24 at 1548, Until Sat10/21/24 at 1827, Administer in addition to polyethylene glycol if no bowel movement within past 48 hours. And Bisacodyl (Dulcolax) tab 5 mgJump to med 5 mg, Oral, DAILY PRN Constipation, Starting on Sat10/21/24 at 1548, Until Sat10/21/24 at 1827, Administer in addition to polyethylene glycol and senna- docusate if no bowel movement in past 72 hours. And Bisacodyl (Dulcolax) supp 10 mgJump to med 10 mg, Rectal, DAILY PRN Constipation, Starting on Sat10/21/24 at 1548, Until Sat10/21/24 at 1827, Administer if no bowel movement within past 72 hours and patient unable to take oral medications. documented in this encounter Additional Health Concerns Infection Onset Date Last Indicated Resolved Time Respiratory Rule-Out 10/18/2024 10/18/2024 025 4:05 PM EST COVID-19 Rule-Out 10/18/2024 10/18/2024 10/18/2024 4:05 PM EST documented as of this encounter Advance Directives * Full Code (Latest Code Status on File) Date Activated Date Inactivated Comments 10/18/2024 3:49 PM 10/21/2024 6:32 PM This order r eflects the patients [...] Name Relationship Healthcare Agent Relationshi p Communication Desiree Ford Spouse Health Care Agent Care Teams [address] Service Relationship Specialty Start Date End Date Lesa Cash PA-C [id number] [place] [address] PCP - General Physician Photocopier Technician 09/15/21 documented as of this encounter
--- OUTSIDE RECORDS SUMMARY | 2024-10-27 02:37 | External Medical Summary ---
Author Name Unknown Address Unknown Organization K01:[facility] [address] [facility] [place] [address] Laboratory Report Ordering Provider Test Date Status MAGGIE CARNES 10/18/2024 16:39:54 Final Observation Date Value Abnormality Reference (Units ) Status Methicillin resistant Staphylococcus aureus (MRSA) DNA [Presence] in Nose by JACQUI with probe detection 10/18/2024 16:39:54 Negative Negative Final No Methicillin resistant Sta phylococcus aureus detected by PCR (amplified probe). Performing Location [facility] - [address] [facility] [place] [address]
--- OUTSIDE RECORDS SUMMARY | 2024-10-27 02:37 | External Medical Summary ---
Author Name Unknown Address Unknown Organization [id number]:LABORATORY [facility] - [address] [address] Laboratory Report Ordering Provider Test Date Status RENNY HUTSON 10/19/2024 06:01:00 Final Observation Date Value Abnormality Reference (Units ) Status WBC, Total 10/19/2024 06:01:00 9.90 4.00-10.80 (K/uL) Final RBC 10/19/2024 06:01:00 3.29 4.50-5.25 (M/uL) Final Hemoglobin 10/19/2024 06:01:00 10.1 Below low normal 14.0-16.8 (g/dL) Final HCT 10/19/2024 06:01:00 31.3 Below low normal 40.0-48.4 (%) Final MCV 10/19/2024 06:01:00 95.1 82.0-99.5 (fL) Final MCH 10/19/2024 06:01:00 30.7 27.0-34.0 (pg) Final MCHC 10/19/2024 06:01:00 32.3 32.0-36.0 (g/dL) Final RDW 10/19/2024 06:01:00 14.4 11.5-15.5 (%) Final Platelets 10/19/2024 06:01:00 224 140-400 (K/uL) Final MPV 10/19/2024 06:01:00 10.3 6.6-11.1 (fL) Final Nucleated erythrocytes/100 leukocytes [Ratio] in Blood by Automated count 10/19/2024 06:01:00 0 <=0 (/100 WBCs) Final Performing Location LABORATORY [facility] - [address] [address]
--- OUTSIDE RECORDS SUMMARY | 2024-10-27 02:37 | External Medical Summary ---
Author Name Unknown Address Unknown Organization K1F:LABORATORY [facility] - [address] [address] Laboratory Report Ordering Provider Test Date Status RENNY HUTSON 10/19/2024 06:01:00 Final Observation Date Value Abnormality Reference (Units ) Status BUN 10/19/2024 06:01:00 16 6-20 (mg/dL) Final Creatinine 10/19/2024 06:01:00 0.8 0.6-1.2 (mg/dL) Final Glomerular filtration rate/1.73 sq M.predicted [Volume Rate/Area] in Serum, Plasma or Blood by Creatinine-based formula (CKD-EPI) 10/19/2024 06:01:00 90 >=60 (mL/min) Final eGFR is calculated based on the CKD-EPI 2020 equation. Sodium 10/19/2024 06:01:00 132 Below low normal 135 -146 (mmol/L) Final Potassium 10/19/2024 06:01:00 3.7 3.5-5.1 (m mol/L) Final Cl 10/19/2024 06:01:00 99 98-107 (mm ol/L) Final CO2 10/19/2024 06:01:00 24 22-32 (mmo l/L) Final Anion gap 10/19/2024 06:01:00 9 7-15 (mmol /L) Final Glucose 10/19/2024 06:01:00 93 70-120 (mg /dL) Final Calcium 10/19/2024 06:01:00 8.4 8.4-10.2 ( mg/dL) Final Performing Location LABORATORY [facility] - [address] [address]
--- OUTSIDE RECORDS SUMMARY | 2024-10-27 02:37 | External Medical Summary ---
Author Name Unknown Address Unknown Organization K1F:LABORATORY [facility] - [address] [place] [address] [address] [address] Laboratory Report Ordering Provider Test Date Status LISA PRICE 10/18/2024 10:44:20 Final Rheumatoid factor at a level above 50 [...] definitively correlate with clinical severity of disease. Observation Date Value Abnormality Reference (Units ) Status Fibrin D-dimer FEU [Mass/volume] in Platelet poor plasma by Immunoassay 10/18/2024 10:44:20 1.89 Above high normal <0.50 (ug/mL FEU) Final Performing Location LABORATORY [facility] - [address] [facility] [address] [place] [address]
--- OUTSIDE RECORDS SUMMARY | 2024-10-27 02:37 | External Medical Summary ---
Author Name Unknown Address Unknown Organization [id number]:LABORATORY [facility] - [address] [place] [address] [address] [address] Laboratory Report Ordering Provider Test Date Status LISA PRICE 10/18/2024 10:17:53 Final Observation Date Value Abnormality Reference (Units ) Status WBC, Total 10/18/2024 10:17:53 10.96 Above high normal 4.00-10.80 (K/uL) Final RBC 10/18/2024 10:17:53 3.41 4.50-5.25 (M/uL) Final Hemoglobin 10/18/2024 10:17:53 10.5 Below low normal 14.0-16.8 (g/dL) Final HCT 10/18/2024 10:17:53 32.5 Below low normal 40.0-48.4 (%) Final MCV 10/18/2024 10:17:53 95.3 82.0-99.5 (fL) Final MCH 10/18/2024 10:17:53 30.8 27.0-34.0 (pg) Final MCHC 10/18/2024 10:17:53 32.3 32.0-36.0 (g/dL) Final RDW 10/18/2024 10:17:53 14.5 11.5-15.5 (%) Final Platelets 10/18/2024 10:17:53 223 140-400 (K/uL) Final MPV 10/18/2024 10:17:53 9.8 6.6-11.1 (fL) Final Nucleated erythrocytes/100 leukocytes [Ratio] in Blood by Automated count 10/18/2024 10:17:53 0 <=0 (/100 WBCs) Final Performing Location LABORATORY [facility] - [address] [address]
--- OUTSIDE RECORDS SUMMARY | 2024-10-27 02:38 | External Medical Summary | Summary of Care ---
Author Name Unknown Organization [facility] Address [address] [place] [address] Phone [phone] Care Team Providers Care Post Office Markup Clerk Name Role Phone Lesa Cash PA-C Primary Care Provid er Reason for Visit * Reason Onset Date Comments TRIAGE 05/22/2024 Encounter Details Date Type Department Care Team (Late st Contact Info) Description 05/22/2024 Telephone Access Center, [place] [address] [facility] *DO NOT REMOVE THIS DEPARTMENT* [place] [phone] Services, Scheduling [address] [place] [address] TRIAGE Allergies Active Allergy Reactions Criticality Noted Date Comments Amlodipine Unknown 04/01/2017 Penicillins 02/05/2002 hives/eye swelling Simvastatin Other (Please comment) 12/16/2007 Pt states felt really bad Other Reaction(s): Liver enzymes abnormal documented as of this encounter (statuses as of 05/22/2024) Medications Medication Sig Dispensed Refills Start Date End Date Status ALBUTEROL 90 MCG/ACT IN AERSIndications:Acu te sinusitis 2 puffs every 4 hrs as needed 1 MDI 5 12/22/2003 Active oxybutynin (DITROPAN) 5 MG Tablet 1 Tablet in the morning and 1 Tablet before bedtime. Active Aspirin 81 MG Tablet Take 1 Tablet by mouth in the morning. Active budesonide-formoter ol (SYMBICORT) 80-4.5 MCG/ACT inhaler Inhale 1 Puff by mouth in the morning and 1 Puff before bedtime. Active atorvaSTATin (LIPITOR) 20 MG TabletIndications:t yana half tablet at bedtime 2 Tablets in [...] 1 Tablet by mouth daily. 30 Tablet 09/17/2021 Active Additional Information Patient taking differently:30 mg Oral Daily(AM),Taking 60 mg daily, Reported on 02/15/2023 Fluticasone-Salmete rol 500-50 MCG/ACT Inhalation Aerosol Powder Breath Activated [...] 25 MG Oral Tablet (Coreg) 0.5 Tablets. 07/14/2023 Act keanu Montelukast Sodium 10 MG Oral Tablet (Singulair) 1 Tablet. 06/20/2023 Active predniSONE 5 MG Oral Tablet (Deltasone) Take 1 Tablet by mouth in the morning. 01/22/2024 Active Turmeric 500 MG Oral Capsule (RA Turmeric) daily. 10/30/2023 Active Paraffin Wax Use as directed. 01/29/2024 Active Vitamin D (Cholecalciferol) 25 MCG (1000 UT) Oral Capsule Take by mouth every morning. Active Methotrexate Sodium 2.5 MG Oral Tablet Take 8 Tablets by mouth once a week. Takes on Saturday04/06/2024 Active Folic Acid 1 MG Oral Tablet Take 1 Tablet by mouth in the morning. 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, panic and rage OBESITY, UNSPECIFIED 02/05/2002 Irritable bowel syndrome Osteoarthrosis Varicose vein of leg Strain of rotator cuff capsule Alcohol dependence in remission HTN (hypertension) BPH (benign prostatic hyperplasia) documented as of this encounter (statuses as of 05/22/2024) Immunizations Name Administration Dates Next Due Seasonal Influenza, Trivalen t, (IIV3), with Preserv, (Fluzone) 07/23/1996 documented as of this encounter Social History Tobacco Use Types Packs/Day Years Used Date Smoking Tobacco: Former Cigarettes Q uit: 09/02/1986 Smokeless Tobacco: Never Alcohol Use Standard Drinks/Week Comments No 0 (1 standard drink = 0.6 oz pur e alcohol) Patient sober since 1986 Utilities Answer Date Recorded Do you have trouble paying y our heating, water, or electric bill? (Adult - for ages 18 years and over) Not on file 02/18/2024 Is your family able to pay t he heat, water, or electric bill? (Household - for ages 0-17 years) Not on file 02/18/2024 Does your family have access to good internet? (Household - for ages 0-17 years) Not on file 02/18/2024 Social Connections Answer Date Recorded How often do you feel lonely or isolated from those around you? (Adult - for ages 18 years and over) Not on file 02/18/2024 Sex and Gender Information Value Date Recorded Sex Assigned at Not on file Gender Identity Not on file Sexual Orientation Not on file Job Start Date Occupation Industry Not on file Not on file Not on file documented as of this encounter Functional Status Functional Status Response Date of Assess ment Are you deaf or do you have serious difficulty h earing? No 09/15/2021 Are you blind or do you have serious difficulty seeing, even when wearing glasses? No 09/15/2021 Do you have serious difficul ty walking or climbing stairs? (5 years old or older) Yes-Stairs 09/15/2021 Do you have difficulty dress ing or bathing? (5 years old or older) No 09/15/2021 Because of a physical, menta l, or emotional condition, do you have difficulty doing errands alone such as visiting a doctor s office or shopping? (15 years old or older) No 09/15/19 22 Cognitive Status Response Date of Assessm ent Because of a physical, menta l, or emotional condition, do you have serious difficulty concentrating, remembering, or making decisions? (5 years old or older) Yes 09/15/2021 documented as of this encounter Miscellaneous Notes * Telephone Encounter - Chloé Aguilera CRNP - 05/22/2024 10:19 AM EDT I see no reason this patient needs seen sooner. I don't see a new scan. Patient was evaluated 08/2023 and we recommended a 2 year follow-up which would be 08/2025. Erika/Jermain, do you see anything I'm missing. If not, [facility] reach out to [facility] and see if there is some new testing they did that was not attached to the scans that were sent 05/2024. Thanks. * Telephone Encounter - Jerri Rogers OSA - 05/22/2024 9:50 AM EDT Please advise on this referral from the [facility] patient [facility] states [facility] sent [facility] imaging reports in scan with referral wanting patient seen jessica, documented in this encounter Plan of Treatment Upcoming Encounters Date Type Department Care Team (Late st Contact Info) Description 08/10/2024 9:00 AM EST Office Visit Rheumatology, [address] [place] [address] Yan Del Rio CRNP [address] [facility] [place] [address] Scheduled Procedures Name Priority Associated Diagnoses Date/Ti me COLONOSCOPY FLEXIBLE PROXIMA L DIAGNOSTIC Recall History of colonic polyps Health Maintenance Due Date Last Done Comments COVID-19 Vaccine (#1) 1950 Depression Screening 1958 Albumin/Creatinine Ratio 1964 Hepatitis C Screening 1964 DTap/Tdap Vaccines (1 - Tdap) 1965 GFR 03/14/2025 03/14/2024, 09/02, 09/15/2021, Additional history exists Colonoscopy 02/23/2028 02/22/2023, 02/01, 04/04/2017, Additional history exists Pneumococcal Vaccine: 65+ Years Completed 10/01/2017, 07/10/2016 Zoster Vaccines Completed [...] this encounter Medical Devices Implanted Type Area Biofuels Engineering Manager Device Identifier Shelf Expiration Date Model / Serial / Lot Mesh Plug And Patch Med - [id number] Implanted:Qty: 1 on 05/08/2024 by Carolina Goldman MD at OR [facility] Mesh Right: Groin COVIDIEN : US SURGICAL 06/01/2028 [facility]-02 / / [id number] documented as of this encounter Advance Directives [...] Agents on File Name Relationship Healthcare Agent [facility] Communication Jennifer Ford Spouse Health Care Agent Care Teams Post Office Markup Clerk Relationship Specialty Start Date End Date Lesa Cash PA-C [address] [facility] [address] PCP - General Physician Continuous Crusher Operator 09/15/21 documented as of this encounter
--- OUTSIDE RECORDS SUMMARY | 2024-10-27 02:38 | External Medical Summary | Summary of Care ---
Author Name Unknown Organization [facility] Address [address] [place] [address] Phone [phone] Care Team Providers Care Cylinder Honer Name Role Phone Lesa Cash PA-C Primary Care Provid er Reason for Visit * Reason Onset Date Comments TRIAGE 05/22/2024 Encounter Details Date Type Department Care Team (Late st Contact Info) Description 05/22/2024 Telephone Access Center, [place] [address] [facility] *DO NOT REMOVE THIS DEPARTMENT* [place] [phone] Services, Scheduling [address] [place] [address] TRIAGE Allergies Active Allergy Reactions Criticality Noted [...] encounter Miscellaneous Notes * Telephone Encounter - Jermain Ballesteros OSA - 05/22/2024 3:36 PM EDT [facility] asking if they have any other imaging reports they can send us * Telephone Encounter - Chloé Aguilera CRNP [...] Please advise on this referral from the [facility] patient [facility] states they sent all imaging reports in scan with referral wanting patient seen jessica, documented in this encounter Plan of Treatment Upcoming Encounters Date Type Department Care Team (Late st Contact Info) Description 08/10/2024 9:00 AM EST Office Visit Rheumatology, [address] [place] [address] Yan Del Rio CRNP [address] [facility] [place] [place] [address] Scheduled Procedures Name Priority Associated Diagnoses [...] this encounter Medical Devices Implanted Type Area Maintenance Advisor Device Identifier Shelf Expiration Date Model / Serial / Lot Mesh Plug And Patch Med - [id number] Implanted:Qty: 1 on 05/08/2024 by Carolina Goldman MD at OR [facility] Mesh Right: Groin COVIDIEN : US SURGICAL 06/01/2028 [facility]-02 / / [id number] documented as of this encounter Advance Directives [...] Agents on File Name Relationship Healthcare Agent [facility] p Communication Jennifer Farr katherine Spouse Health Care Agent Care Teams Cylinder Honer Relationship Specialty Start Date End Date Lesa Cash PA-C [address] [place] [address] PCP - General Physician Paint Line Production Supervisor 09/15/21 documented as of this encounter
--- OUTSIDE RECORDS SUMMARY | 2024-10-27 02:38 | External Medical Summary ---
Author Name Unknown Address Unknown Organization K1F:LABORATORY [facility] - [address] [place] [address] Laboratory Report Ordering Provider Test Date Status ILSA ASENCIO 09/25/2024 15:21:00 Final Observation Date Value Abnormality Reference (Units ) Status WBC, Total 09/25/2024 15:21:00 8.75 4.00-10.80 (K/uL) Final RBC 09/25/2024 15:21:00 3.60 4.50-5.25 (M/uL) Final Hemoglobin 09/25/2024 15:21:00 11.5 Below low normal 14.0-16.8 (g/dL) Final HCT 09/25/2024 15:21:00 34.1 Below low normal 40.0-48.4 (%) Final MCV 09/25/2024 15:21:00 94.7 82.0-99.5 (fL) Final MCH 09/25/2024 15:21:00 31.9 27.0-34.0 (pg) Final MCHC 09/25/2024 15:21:00 33.7 32.0-36.0 (g/dL) Final RDW 09/25/2024 15:21:00 13.5 11.5-15.5 (%) Final Platelets 09/25/2024 15:21:00 250 140-400 (K/uL) Final MPV 09/25/2024 15:21:00 10.4 6.6-11.1 (fL) Final Nucleated erythrocytes/100 leukocytes [Ratio] in Blood by Automated count 09/25/2024 15:21:00 0 <=0 (/100 WBCs) Final Performing Location [facility] - [address] [place] [address]
--- OUTSIDE RECORDS SUMMARY | 2024-10-27 02:38 | External Medical Summary | Summary of Care ---
Author Name Unknown Organization [facility] Address [address] [facility] [address] Phone [phone] Care Team Providers Care Art Conservator Name Role Phone Lesa Cash PA-C Primary Care Provid er Reason for Visit * Reason Onset Date Comments Test Results 09/14/2024 Encounter Details Date Type Department Care Team (Late st Contact Info) Description 09/14/2024 Telephone General Surgery [address] [place] [address] Sidney Govea MD [address] [id number] Test Results Allergies Active Allergy Reactions Criticality Noted Date Comments Amlodipine Unknown 04/01/2017 Penicillins 02/05/2002 hives/eye swelling Simvastatin Other (Please comment) 12/16/2007 Pt states felt really bad Other Reaction(s): Liver enzymes abnormal documented as of this encounter (statuses as of 09/14/2024) Medications ALBUTEROL 90 MCG/ACT IN AERSIndications :Acute [...] Oral Daily(AM),Taking 60 mg daily, Reported on 09/01/2024 Fluticasone-Stephen meterol 500-50 MCG/ACT Inhalation Aerosol Powder [...] Oral Tablet (Singulair) 1 Tablet. 3 Active predniSONE 5 MG Oral Tablet (Deltasone) Take 1 Tablet by mouth in the morning. 4 Active Turmeric 500 MG Oral Capsule (RA [...] as of this encounter (statuses as of 09/14/2024) Active Problems Problem Noted Date Diagnosed Date [...] as of this encounter (statuses as of 09/14/2024) Social History Tobacco Use Types Packs/Day Years [...] No 09/15/2021 4:32 PM Pamela Ying LPN * Are you blind or do you have serious difficulty seeing, even when wearing glasses? Answer Date of Assessment Author No 09/15/2021 4:32 PM Pamela Ying LPN * Do you have serious difficulty walking or climbing stairs? (5 years old or older) Answer Date of Assessment Author Yes 09/15/2021 4:32 PM Pamela Ying LPN * Do you have difficulty dressing or bathing? (5 years old or older) Answer Date of Assessment Author No 09/15/2021 4:32 PM Pamela Ying LPN * Because of a physical, mental, or emotional condition, do you have difficulty doing errands alone such as visiting a doctors office or shopping? (15 years old or older) Answer Date of Assessment Author No 09/15/2021 4:32 PM EST Pamela Cole LPN documented as of this encounter Mental Status * Because of a physical, mental, or emotional condition, do you have serious difficulty concentrating, remembering, or making decisions? (5 years old or older) Answer Entry Date Author Yes 09/15/2021 4:32 PM EST Pamela Cole LPN documented in this encounter Miscellaneous Notes * Telephone Encounter - Tess Subramanian CMA - 09/14/2024 9:15 AM EST ----- Message from Sidney Govea MD sent at 09/12/2024 10:37 AM EST ----- I would like to have the patient make a return appointment to review and discuss the images. documented in this encounter Plan of Treatment [...] this encounter Medical Devices Implanted Type Area Sailboat Captain Device Identifier Shelf Expiration Date Model / Serial / Lot Mesh Plug And Patch Med - [id number] Implanted:Qty: 1 on 05/08/2024 by Carolina Goldman MD at OR [facility] Mesh Right: Groin COVIDIEN : US SURGICAL 06/01/2028 [facility]-02 / / [id number] documented as of this encounter Advance Directives [...] Agents on File Name Relationship [facility] Communication Jennifer Farr Drkatherine Spouse Health Care Agent Care Teams Art Conservator Relationship Specialty Start Date End Date Lesa Cash PA-C [address] [place] [address] PCP - General Physician Hotel Room Attendant 09/15/21 documented as of this encounter
--- OUTSIDE RECORDS SUMMARY | 2024-10-27 02:38 | External Medical Summary ---
Author Name Unknown Address Unknown Organization K1F:LABORATORY [facility] - [address] [place] [address] Laboratory Report Ordering Provider Test Date Status ILSA ASENCIO 09/25/2024 15:21:00 Final Observation Date Value Abnormality Reference (Units ) Status Troponin T 09/25/2024 15:21:00 24 Above high normal < =22 (ng/L) Final Performing Location LABORATORY [facility] - [address] [place] [address]
--- OUTSIDE RECORDS SUMMARY | 2024-10-27 02:38 | External Medical Summary | Summary of Care ---
Author Name Unknown Organization [facility] Address [address] [facility] [address] Phone [phone] Care Team Providers Care Nurse Sane Name Role Phone Lesa Cash PA-C Primary Care Provid er Reason for Visit * Reason Onset Date Comments Test Results 09/14/2024 Encounter Details Date Type Department Care Team (Late st Contact Info) Description 09/14/2024 Telephone General Surgery [address] [place] [address] Sidney Govea MD [address] [id number] Test Results Allergies Active Allergy Reactions Criticality [...] of this encounter (statuses as of 09/14/2024) Immunizations Name Administration Dates Next Due Seasonal Influenza Vac., MDV, IM, 0.5 mL (Fluzon e) 07/23/1996 documented as of this encounter Social [...] 09/15/2021 4:32 PM EST Pamela Cole LPN * Because of a physical, mental, [...] Pamela Ying LPN documented in this encounter Miscellaneous Notes * Telephone Encounter - Samina Soto LPN - 09/14/2024 10:27 AM EST Verified patient and . Patient has been informed of instructions. Verbalized understanding and no further questions. Appt scheduled. * Telephone Encounter - Tess Subramanian CMA - 09/14/2024 9:15 AM EST ----- Message from Sidney Govea MD sent at 09/12/2024 10:37 AM EST ----- I would like to have the patient make a return appointment to review and discuss the images. documented in this encounter Plan of Treatment Upcoming Encounters Date Type Department Care Team (Late st Contact Info) Description 09/17/2024 11:00 AM EST Office Visit General Surgery [address] [place] [address] Sidney Govea MD [address] [address] Scheduled Procedures Name Priority Associated Diagnoses Date/Ti [...] this encounter Medical Devices Implanted Type Area Automatic I Threading Machine Feeder Device Identifier Shelf Expiration Date Model / Serial / Lot Mesh Plug And Patch Med - [id number] Implanted:Qty: 1 on 05/08/2024 by Carolina Goldman MD at OR [facility] Mesh Right: Groin COVIDIEN : US SURGICAL 06/01/2028 [facility]-02 / / [id number] documented as of this encounter Advance Directives [...] Name Relationship Healthcare Agent Relationshi p Communication Jennifermin Ford Spouse Health Care Agent Care Teams Nurse Sane Relationship Specialty Start Date End Date Lesa Cash PA-C [address] [place] [address] PCP - General Physician Grounds/Maintenance Specialist 09/15/21 documented as of this encounter
--- OUTSIDE RECORDS SUMMARY | 2024-10-27 02:38 | External Medical Summary | Summary of Care ---
Author Name Unknown Organization [facility] Address [address] [place] [address] Phone [phone] Care Team Providers Care Field Radio Technician Name Role Phone Lesa Cash PA-C Primary Care Provid er Reason for Visit * Reason Onset Date Comments TRIAGE 05/22/2024 Encounter Details Date Type Department Care Team (Late st Contact Info) Description 05/22/2024 Telephone Access Center, [place] [address] [facility] *DO NOT REMOVE THIS DEPARTMENT* [place] [phone] Services, Scheduling [address] [place] [address] TRIAGE Allergies Active Allergy Reactions Criticality Noted [...] of this encounter (statuses as of 05/22/2024) Social History Tobacco Use Types Packs/Day Years [...] encounter Miscellaneous Notes * Telephone Encounter - Jerri Rogers OSA - 05/22/2024 9:50 AM EDT Please advise on this referral from the N[facility] patient Nv states they sent all imaging reports in scan with referral wanting patient seen jessica, documented in this encounter Plan of Treatment Upcoming Encounters Date Type Department Care Team (Late st Contact Info) Description 08/10/2024 9:00 AM EST Office Visit Rheumatology, [address] [address] Yan Del Rio CRNP [address] [place] [address] Scheduled Procedures Name Priority Associated Diagnoses [...] this encounter Medical Devices Implanted Type Area Flaking Roll Operator Device Identifier Shelf Expiration Date Model / Serial / Lot Mesh Plug And Patch Med - [id number] Implanted:Qty: 1 on 05/08/2024 by Carolina Goldman MD at OR [facility] Mesh Right: Groin COVIDIEN : US SURGICAL 06/01/2028 [facility]-02 / / [id number] documented as of this encounter Advance Directives [...] Healthcare Agent Relationshi p Communication Jennifer A Drass Spouse Health Care Agent Care Teams Field Radio Technician Relationship Specialty Start Date End Date Lesa Cash PA-C [address] [facility] [address] PCP - General Physician Reinsurance Clerk 09/15/21 documented as of this encounter
--- OUTSIDE RECORDS SUMMARY | 2024-10-27 02:38 | External Medical Summary ---
Author Name Unknown Address Unknown Organization K1F:LABORATORY [facility] - [address] [place] [address] Laboratory Report Ordering Provider Test Date Status RATNA ZHUONIEL 09/25/2024 17:25:33 Final Observation Date Value Abnormality Reference (Units ) Status Troponin T 09/25/2024 17:25:33 14 <=22 (ng/ L) Final Performing Location LABORATORY [facility] - [address] [place] [address]
--- OUTSIDE RECORDS SUMMARY | 2024-10-27 02:38 | External Medical Summary | Summary of Care ---
Author Name Unknown Organization [facility] Address [address] [facility] [place] [address] Phone [phone] Care Team Providers Care Mass Spectrometry Specialist Name Role Phone Lesa Cash PA-C Primary Care Provid er Reason for Visit * Reason Comments Post Op Surgery Encounter Details Date Type Department Care Team (Latest Contact Info) Description 05/21/2024 11:15 AM EDT Office Visit General Surgery Vicky Kapoor [address] [place] [address] [place] [id number] Carolina Goldman MD [address] [place] [address] Postoperative follow-up* Allergies Active Allergy Reactions Criticality Noted Date Comments Amlodipine Unknown 04/01/2017 Penicillins 02/05/2002 hives/eye swelling Simvastatin Other (Please comment) 12/16/2007 Pt states felt really bad Other Reaction(s): Liver enzymes abnormal documented as of this encounter (statuses as of 05/21/2024) Medications Medication Sig Dispensed Refills Start Date End Date Status ALBUTEROL 90 MCG/ACT IN AERSIndications: Acute sinusitis 2 puffs every 4 hrs as needed 1 MDI 5 12/22/2003 Active oxybutynin (DITROPAN) 5 MG Tablet 1 Tablet in the morning and 1 Tablet before bedtime. Active Aspirin 81 MG Tablet Take 1 Tablet by mouth in the morning. Active budesonide-formo terol (SYMBICORT) 80-4.5 MCG/ACT inhaler Inhale 1 Puff by mouth in the morning and 1 Puff before bedtime. Active atorvaSTATin (LIPITOR) 20 MG TabletIndication s:take half tablet at bedtime 2 Tablets in [...] Daily(AM),Taking 60 mg daily, Reported on 02/15/2023 Fluticasone-Salm eterol 500-50 MCG/ACT Inhalation Aerosol Powder Breath Activated [...] MG Oral Tablet (Coreg) 0.5 Tablets. 07/14/2023 Active Montelukast Sodium 10 MG Oral Tablet (Singulair) 1 Tablet. 06/20/2023 Active predniSONE 5 MG Oral Tablet (Deltasone) Take 1 Tablet by mouth in the morning. 01/22/2024 Active Turmeric 500 MG Oral Capsule (RA Turmeric) daily. 10/30/2023 Active Paraffin Wax Use as directed. 01/29/2024 Active Vitamin D (Cholecalciferol ) 25 MCG (1000 UT) Oral Capsule Take by mouth every morning. Active Methotrexate Sodium 2.5 MG Oral Tablet Take 8 Tablets by mouth once a week. Takes on Saturday04/06/2024 Active Folic Acid 1 MG Oral Tablet Take 1 Tablet by mouth in the morning. 01/22/2024 Active oxyCODONE-Acetam inophen 5-325 MG Oral Tablet (Percocet) Take 1 Tablet by mouth every 6 hours as needed for Pain, Breakthrough. 20 Tablet 05/08/2024 05/21/2024 Discontinue d(End of Procedure) documented as of this encounter (statuses as of 05/21/2024) Active Problems Problem Noted Date Diagnosed Date [...] as of this encounter (statuses as of 05/21/2024) Social History Tobacco Use Types Packs/Day Years Used Date Smoking Tobacco: Former Cigarettes Q uit: 09/02/1986 Smokeless Tobacco: Never Tobacco Cessation:Counseling Given: No Alcohol Use Standard Drinks/Week Comments No 0 [...] Sign Reading Time Taken Comments Blood Pressure 110/55 05/21/2024 10:57 AM EDT Pulse 63 05/21/2024 10:57 AM EDT Temperature 36.9 C (98.4 F) 05/21/2024 10:57 AM E DT Respiratory Rate - - Oxygen Saturation - - Inhaled Oxygen Concentration - - Weight 98.9 kg (218 lb) 05/21/2024 10:57 AM EDT Height - - Body Mass Index 26.55 05/08/2024 10:32 AM EDT documented in this encounter Functional Status Functional Status Response [...] (15 years old or older) No 09/15/19 Cognitive Status Response Date of Assessm ent Because of a physical, menta l, or emotional condition, do you have serious difficulty concentrating, remembering, or making decisions? (5 years old or older) Yes 09/15/2021 documented as of this encounter Progress Notes * Carolina Goldman MD - 05/21/2024 11:03 AM EDT F/U S/P open repair right inguinal hernia with mesh, POD 2 weeks Pt is doing fine. No incision pain. No fever or chills. PE : V S S AO x 3 Abd : soft, NT, ND. The incision heals well. No redness or bulging. Plan: F/U prn documented in this encounter Nursing Notes * Tess Subramanian CMA - 05/21/2024 10:54 AM EDT Chief Complaint Patient presents with Post Op Surgery Pt here for post op Open repair right inguinal hernia with mesh. Patient doing well with no complications. Incision healing well. Denies redness, swelling, dehiscence, or drainage. Denies N/V, fevers, chills, sweats. Pain is 0/10. Bowels are moving well with no problems documented in this encounter Plan of Treatment Upcoming Encounters Date Type Department Care Team (Late st Contact Info) Description 08/10/2024 9:00 AM EST Office Visit Rheumatology, [address] [address] Yan Del Rio CRNP [address] [place] [address] Scheduled Procedures Name Priority Associated Diagnoses [...] this encounter Medical Devices Implanted Type Area Special Needs Librarian Device Identifier Shelf Expiration Date Model / Serial / Lot Mesh Plug And Patch Med - [id number] Implanted:Qty: 1 on 05/08/2024 by Carolina Goldman MD at OR [facility] Mesh Right: Groin COVIDIEN : [place] SURGICAL 06/01/2028 [facility]-02 / / [id number] documented as of this encounter Visit Diagnoses Diagnosis Postoperative follow-up- Primary Follow-up examination, following unspecified surgery documented in this encounter Advance Directives * [...] Agents on File Name Relationship [facility] Jennifer Ford Spouse Health Care Agent Care Teams Mass Spectrometry Specialist Relationship Specialty Start Date End Date Lesa Cash [facility]-C [address] [facility] [address] PCP - General Physician Senior Corporate Accountant 09/15/21 documented as of this encounter
--- OUTSIDE RECORDS SUMMARY | 2024-10-27 02:38 | External Medical Summary | Summary of Care ---
Author Name Unknown Organization [facility] Address [address] [place] [address] Phone [phone] Care Team Providers Care Hand Stoner Name Role Phone Lesa Cash PA-C Primary Care Provid er Reason for Referral * Precert (Within 10 days (routine)) - Authorized Specialty Diagnoses / Procedures Referred By Contac t Referred To Contact Radiology Diagnoses Right groin pain Procedures CT PELVIS WO IV CONTRAST AND WO ORAL CONTRAST Sidney Govea MD [address] [place] [address] Phone: tel: fax: Referral ID Status Reason Start Date Expiration Date V isits Requested Visits Authorized [id number] Authorized Precert 03/17/2024 09/15/2024 [id number] Reason for Visit * Precert (Within 10 days (routine)) - Authorized Specialty Diagnoses / Procedures Referred By Contac t Referred To Contact Radiology Diagnoses Right groin pain Procedures CT PELVIS WO IV CONTRAST AND WO ORAL CONTRAST Sidney Govea MD [address] [place] [address] Phone: tel: fax: Referral ID Status Reason Start Date Expiration Date V isits Requested Visits Authorized [id number] Authorized Precert 03/17/2024 09/15/2024 [id number] Encounter Details Date Type Department Care Team (Latest Contact Info) Description 09/09/2024 7:25 AM EST - 09/09/2024 11:59 PM EST Hospital Encounter Radiology, [address] [place] [address] Arrived Discharge Disposition: Home - Self Care Allergies Active Allergy Reactions Criticality Noted Date Comments Amlodipine Unknown 04/01/2017 Penicillins 02/05/2002 hives/eye swelling Simvastatin Other (Please comment) 12/16/2007 Pt states felt really bad Other Reaction(s): Liver enzymes abnormal documented as of this encounter (statuses as of 09/10/2024) Medications ALBUTEROL 90 MCG/ACT IN AERSIndications :Acute [...] as of this encounter (statuses as of 09/10/2024) Active Problems Problem Noted Date Diagnosed Date [...] as of this encounter (statuses as of 09/10/2024) Social History Tobacco Use Types Packs/Day Years [...] Assessment Author No 09/15/2021 4:32 PM EST QuintonoPamela walker S, RESEARCH SUBJECT * Are you blind or do you have serious difficulty seeing, even when wearing glasses? Answer Date of Assessment Author No 09/15/2021 4:32 PM EST Linko, Ro walker S, RESEARCH SUBJECT * Do you have serious difficulty walking or climbing stairs? (5 years old or older) Answer Date of Assessment Author Yes 09/15/2021 4:32 PM EST Quintono Ro walker S, RESEARCH SUBJECT * Do you have difficulty dressing or bathing? (5 years old or older) Answer Date of Assessment Author No 09/15/2021 4:32 PM EST Linko, Ro walker S, RESEARCH SUBJECT * Because of a physical, mental, or emotional condition, do you have difficulty doing errands alone such as visiting a doctors office or shopping? (15 years old or older) Answer Date of Assessment Author No 09/15/2021 4:32 PM EST Linko, Ro walker S, RESEARCH SUBJECT documented as of this encounter Mental Status * Because of a physical, mental, or emotional condition, do you have serious difficulty concentrating, remembering, or making decisions? (5 years old or older) Answer Entry Date Author Yes 09/15/2021 4:32 PM EST QuintonoPamela walker S, RESEARCH SUBJECT documented in this encounter Plan of Treatment [...] this encounter Medical Devices Implanted Type Area Circulation Crew Leader Device Identifier Shelf Expiration Date Model / Serial / Lot Mesh Plug And Patch Med - [id number] Implanted:Qty: 1 on 05/08/2024 by Carolina Goldman MD at OR [facility] Mesh Right: Groin COVIDIEN : US SURGICAL 06/01/2028 [facility]-02 / / [id number] documented as of this encounter Procedures Procedure Name Priority Date/Time Associated Diagnosis Comments CT PELVIS WO IV CONTRACT AND WO ORAL CONTRAST Routine 09/09/2024 7:34 AM EST Right groin pain documented in this encounter Results * CT PELVIS WO IV CONTRAST AND WO ORAL CONTRAST (09/09/2024 7:34 AM EST) Anatomical Region Laterality Modality Pelvis, Body Computed Tomogra phy 09/09/2024 9:35 AM EST Impressions 09/09/2024 9:32 AM EST IMPRESSION 1. Postoperative changes of prior right inguinal hernia repair, without evidence of recurrent hernia. 2. Unchanged fat-containing left inguinal hernia. 3. Osseous degenerative findings as above. Narrative 09/09/2024 9:32 AM EST EXAM EXAM: CT PELVIS WO IV CONTRAST AND WO ORAL CONTRAST DATE and TIME: 09/09/2024 7:34 am HISTORY Provided clinical history: "Right groin pain s/p hernia repair; Evaluate for recurrence" Status post open right inguinal hernia repair with mesh on May 08, 2024. TECHNIQUE CT scan of the pelvis was performed without IV contrast, and coronal and sagittal reformats are provided. Oral contrast was not administered. COMPARISON Abdominopelvic CT scan dated March 14, 2024. FINDINGS LINES AND DEVICES: None BLADDER: Decompressed. BOWEL: Unremarkable PERITONEUM/RETROPERITONEUM: Unremarkable LYMPH NODES: Unremarkable VESSELS: Atherosclerotic calcifications. REPRODUCTIVE ORGANS: Unremarkable ABDOMINAL WALL/SOFT TISSUES: There is scarring of the adipose tissue in the right inguinal region and surrounding the right spermatic cord, in keeping with the history of prior open inguinal hernia repair. There is no recurrent hernia identified. Fat-containing left inguinal hernia is unchanged. 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 Transitional lumbosacral anatomy. 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 Procedure Note Jhonathan Flaherty MD - 09/09/2024 EXAM EXAM: CT PELVIS WO IV CONTRAST AND WO ORAL CONTRAST DATE and TIME: 09/09/2024 7:34 am HISTORY Provided clinical history: "Right groin pain s/p hernia repair; Evaluatefor recurrence" Status post open right inguinal hernia repair with mesh on May. TECHNIQUE CT scan of the pelvis was performed without IV contrast, and coronal andsagittal reformats are provided. Oral contrast was not administered. COMPARISON Abdominopelvic CT scan dated March 14, 2024. FINDINGS LINES AND DEVICES: None BLADDER: Decompressed. BOWEL: Unremarkable PERITONEUM/RETROPERITONEUM: Unremarkable LYMPH NODES: Unremarkable VESSELS: Atherosclerotic calcifications. REPRODUCTIVE ORGANS: Unremarkable ABDOMINAL WALL/SOFT TISSUES: There is scarring of the adipose tissue inthe right inguinal region and surrounding the right spermatic cord, inkeeping with the history of prior open inguinal hernia repair. There isno recurrent hernia identified. Fat-containing left inguinal hernia isunchanged. BONES: Severe multilevel intervertebral disc degeneration and facetosteoarthritis in the lower lumbar spine. Transitional lumbosacralanatomy. Moderate bilateral sacroiliac osteoarthritis. Moderateosteoarthritis of both hips. IMPRESSION IMPRESSION 1. Postoperative changes of prior right inguinal hernia repair, withoutevidence of recurrent hernia. 2. Unchanged fat-containing left inguinal hernia. 3. Osseous degenerative findings as above. Sidney Govea MD RAD CT Final Result documented in this encounter Visit Diagnoses Diagnosis Right groin pain Abdominal pain, right lower quadrant documented in this encounter Advance Directives * [...] Agents on File Name Relationship Healthcare Agent [facility] Communication Jennifer Ford Spouse Health Care Agent Care Teams Hand Stoner Relationship Specialty Start Date End Date Lesa Cash PA-C [address] [place] [id number] PCP - General Physician Urban Anthropologist 09/15/21 documented as of this encounter
--- OUTSIDE RECORDS SUMMARY | 2024-10-27 02:38 | External Medical Summary | Summary of Care ---
Author Name Unknown Organization [facility] Address [address] [facility] [place] [address] Phone [phone] Care Team Providers Care Carbonation Equipment Operator Name Role Phone Lesa Cash PA-C Primary Care Provid er Reason for Referral * Evaluate & Treat - Unlimited Visits (Within 10 days (routine)) - Authorized Specialty Diagnoses / Procedures Referred By Contbree t Referred To Contact General Surgery Diagnoses Unilateral inguinal hernia without obstruction or gangrene, recurrent Amisha Leblanc [facility]-C [address] [facility] [address] Phone: tel: fax: Referral ID Status Reason Start Date Expiration Date Visits Requested Visits Authorized [id number] Authorized Specialty Services Required 4 02/20/2025 [id number] Question Answer Referral Priority Within 10 days (routine) Where should this appointment be scheduled? [facility] What condition is the patient being seen for? General Surgery Conditions What condition is the patient being seen for? Hernia (excluding Hiatal) Comments Inguinal hernia Encounter Details Date Type Department Care Team (Late st Contact Info) Description 09/06/2024 Orders Only [facility] [place] [place] [address] [place] [address] Ext *DO NOT REMOVE THIS DEPARTMENT* AN [place] [id number] Request, External Referral Unilateral inguinal hernia without obstruction or gangrene, recurrent* Allergies Active Allergy Reactions Criticality Noted Date Comments Amlodipine Unknown 04/01/2017 Penicillins 02/05/2002 hives/eye swelling Simvastatin Other (Please comment) 12/16/2007 Pt states felt really bad Other Reaction(s): Liver enzymes abnormal documented as of this encounter (statuses as of 09/06/2024) Medications ALBUTEROL 90 MCG/ACT IN AERSIndications :Acute [...] as of this encounter (statuses as of 09/06/2024) Active Problems Problem Noted Date Diagnosed Date [...] as of this encounter (statuses as of 09/06/2024) Social History Tobacco Use Types Packs/Day Years [...] 09/15/2021 4:32 PM EST Pamela [place] S, PAPERBOARD MACHINE OPERATOR * Are you blind or do you have serious difficulty seeing, even when wearing glasses? Answer Date of Assessment Author No 09/15/2021 4:32 PM EST Pamela [place] S, PAPERBOARD MACHINE OPERATOR * Do you have serious difficulty walking or climbing stairs? (5 years old or older) Answer Date of Assessment Author Yes 09/15/2021 4:32 PM EST Pamela [place] S, PAPERBOARD MACHINE OPERATOR * Do you have difficulty dressing or bathing? (5 years old or older) Answer Date of Assessment Author No 09/15/2021 4:32 PM EST Pamela [place] S, PAPERBOARD MACHINE OPERATOR * Because of a physical, mental, or emotional condition, do you have difficulty doing errands alone such as visiting a doctors office or shopping? (15 years old or older) Answer Date of Assessment Author No 09/15/2021 4:32 PM EST Pamela [place] S, PAPERBOARD MACHINE OPERATOR documented as of this encounter Mental Status * Because of a physical, mental, or emotional condition, do you have serious difficulty concentrating, remembering, or making decisions? (5 years old or older) Answer Entry Date Author Yes 09/15/2021 4:32 PM EST Pamela [place] S, PAPERBOARD MACHINE OPERATOR documented in this encounter Plan of Treatment Upcoming Encounters Date Type Department Care Team (Late st Contact Info) Description 09/09/2024 7:30 AM EST Appointment Radiology, [address] [phone] Scheduled Procedures Name Priority Associated Diagnoses Date/Ti me COLONOSCOPY FLEXIBLE PROXIMA L DIAGNOSTIC Recall History of colonic polyps Scheduled Referrals Name Type Priority Associated Diagnoses Orde r Schedule SURGERY REFERRAL OP Referral Within 10 da ys (routine) Unilateral inguinal hernia without obstruction or gangrene, recurrent Ordered: 09/06/2024 Health Maintenance Due Date Last Done Comments [...] this encounter Medical Devices Implanted Type Area Social Services Counselor Device Identifier Shelf Expiration Date Model / Serial / Lot Mesh Plug And Patch Med - [id number] Implanted:Qty: 1 on 05/08/2024 by Carolina Goldman MD at [facility] Mesh Right: Groin COVIDIEN : US SURGICAL 06/01/2028 [facility]-02 / / [id number] documented as of this encounter Visit Diagnoses Diagnosis Unilateral inguinal hernia without obstruction or gangrene, recurrent- Primary Inguinal hernia without mention of obstruction or gangrene, recurrent unilateral or unspecified documented in this encounter Advance Directives * [...] Relationship Healthcare Agent Relationshi p Communication Jennifer Ford Spouse Health Care Agent Care Teams Carbonation Equipment Operator Relationship Specialty Start Date End Date Lesa Cash PA-C [address] [place] [address] PCP - General Physician Delivery Merchandiser 09/15/21 documented as of this encounter
--- OUTSIDE RECORDS SUMMARY | 2024-10-27 02:38 | External Medical Summary | Summary of Care ---
Author Name Unknown Organization [facility] Address [address] [facility] [address] Phone [phone] Care Team Providers Care Plant Utilities Engineer Name Role Phone Lesa Cash PA-C Primary Care Provid er Reason for Referral * Precert (Within 10 days (routine)) - Authorized Specialty Diagnoses / Procedures Referred By Contac t Referred To Contact Radiology Diagnoses Right groin pain Procedures CT PELVIS WO IV CONTRAST AND WO ORAL CONTRAST Sidney Govea MD [address] [address] Phone: tel: fax: Referral ID Status Reason Start Date Expiration Date V isits Requested Visits Authorized [id number] Authorized Precert 03/17/2024 09/15/2024 [id number] Reason for Visit * Reason Comments NEW PATIENT Encounter Details Date Type Department Care Team (Late st Contact Info) Description 09/01/2024 9:00 AM EST Office Visit General Surgery Vicky Kapoor [address] [phone] Sidney Govea MD [address] [phone] Right groin pain* Allergies Active Allergy Reactions Criticality Noted Date Comments Amlodipine Unknown 04/01/2017 Penicillins 02/05/2002 hives/eye swelling Simvastatin Other (Please comment) 12/16/2007 Pt states felt really bad Other Reaction(s): Liver enzymes abnormal documented as of this encounter (statuses as of 09/01/2024) Medications ALBUTEROL 90 MCG/ACT IN AERSIndications :Acute [...] as of this encounter (statuses as of 09/01/2024) Active Problems Problem Noted Date Diagnosed Date [...] as of this encounter (statuses as of 09/01/2024) Social History Tobacco Use Types Packs/Day Years Used Date Smoking Tobacco: Former Cigarettes Q uit: 09/02/1986 Smokeless Tobacco: Never Tobacco Cessation:Counseling Given: Not [...] Sign Reading Time Taken Comments Blood Pressure 122/84 09/01/2024 8:55 AM EST Pulse 61 09/01/2024 8:55 AM EST Temperature 36.6 C (97.9 F) 09/01/2024 8:55 AM ES T Respiratory Rate - - Oxygen Saturation - - Inhaled Oxygen Concentration - - Weight 98.7 kg (217 lb 9.6 oz) 09/01/2024 8:55 A M EST Height - - Body Mass Index 26.5 05/08/2024 10:32 AM EDT documented in this encounter Functional Status * Are you deaf or do you have serious difficulty hearing? Answer Date of Assessment Author No 09/15/2021 4:32 PM EST Linko, Ro walker S, BYPRODUCTS OPERATOR * Are you blind or do you have serious difficulty seeing, even when wearing glasses? Answer Date of Assessment Author No 09/15/2021 4:32 PM EST Linko, Ro walker S, BYPRODUCTS OPERATOR * Do you have serious difficulty walking or climbing stairs? (5 years old or older) Answer Date of Assessment Author Yes 09/15/2021 4:32 PM EST Linko, Ro walker S, BYPRODUCTS OPERATOR * Do you have difficulty dressing or bathing? (5 years old or older) Answer Date of Assessment Author No 09/15/2021 4:32 PM EST Linko, Ro walker S, BYPRODUCTS OPERATOR * Because of a physical, mental, or emotional condition, do you have difficulty doing errands alone such as visiting a doctors office or shopping? (15 years old or older) Answer Date of Assessment Author No 09/15/2021 4:32 PM EST Linko, Ro walker S, BYPRODUCTS OPERATOR documented as of this encounter Mental Status * Because of a physical, mental, or emotional condition, do you have serious difficulty concentrating, remembering, or making decisions? (5 years old or older) Answer Entry Date Author Yes 09/15/2021 4:32 PM EST Linko, Ro walker S, BYPRODUCTS OPERATOR documented in this encounter Progress Notes * Sidney Govea MD - 09/01/2024 9:26 AM EST DOS: 09/01/2024 Ref: Patient is seen at the request of Lesa Cash PA-C. CC: Right inguinal pain HPI: 79-year-old male presents for persistent right groin pain and bulge since right inguinal hernia repair performed in May, by Dr. Goldman. OR Encounter Link 05/08/2024. He states that since that surgery he has had persistent right groin pain along with testicle pain. Recently he began experiencing swelling in the groin like he had had previous to the repair. He is concerned about a recurrent hernia. He has a history of rheumatoid arthritis and is treated with methotrexate and prednisone. Subjective ROS: CONST: no weight loss, no fever, no fatigue EYES: no changes in vision ENT: no changes in hearing, no sinus problems, no sore throat, no hoarseness, no nodes RESP: no cough, no wheezing, no SOB, no change in breathing CV: no chest pain, no dyspnea, no palpitations, no edema GI: no melena, no hemetemesis, no vomiting, no diarrhea, no constipation : no dysuria, no hematuria, no frequency MSK: no change in joint pains, no new arthritis PSYCH: no anxiety, no depression HEME: no bleeding tendency, no clotting tendency NEURO: no significant headache, no seizures, no strokes SKIN: no new rashes, no itching Past Medical History: Diagnosis Date 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 Hernia Belt Double Medium Wear as directed. Folic Acid 1 MG Oral Tablet Take 1 Tablet by mouth in the morning. 08/31/2024 Methotrexate Sodium 2.5 MG Oral Tablet Take 8 Tablets by mouth once a week. Takes on Saturday08/31/2024 Paraffin Wax Use as directed. 08/31/2024 predniSONE 5 MG Oral Tablet (Deltasone) Take 1 Tablet by mouth in the morning. 08/31/2024 Turmeric 500 MG Oral Capsule (RA Turmeric) daily. 08/31/2024 Vitamin D (Cholecalciferol) 25 MCG (1000 UT) Oral Capsule Take by mouth every morning. 08/31/2024 Carvedilol 25 MG Oral Tablet (Coreg) 0.5 Tablets. 08/31/2024 Montelukast Sodium 10 MG Oral Tablet (Singulair) 1 Tablet. 08/31/2024 Fluticasone-Salmeterol 500-50 MCG/ACT Inhalation Aerosol Powder Breath Activated Inhale 1 Puff by mouth in the morning and 1 Puff before bedtime. 08/31/2024 Potassium Chloride 20 MEQ Oral Packet Take 20 mEq by mouth in the morning and 20 mEq before bedtime. 08/31/2024 Sertraline HCl 100 MG Oral Tablet (Zoloft) Take 1 Tablet by mouth in the morning. 08/31/2024 NIFEdipine ER 30 MG Oral Tablet Extended Release 24 Hour (Adalat CC) Take 1 Tablet by mouth daily. Patient taking differently: Take 1 Tablet by mouth in the morning. Taking 60 mg daily. 08/31/2024 Aspirin 81 MG Tablet Take 1 Tablet by mouth in the morning. 08/31/2024 atorvaSTATin (LIPITOR) 20 MG Tablet 2 Tablets in the morning. 08/31/2024 budesonide-formoterol (SYMBICORT) 80-4.5 MCG/ACT inhaler Inhale 1 Puff by mouth in the morning and 1 Puff before bedtime. 08/31/2024 chlorthalidone (HYGROTON) 25 MG Tablet Take 1 Tablet by mouth in the morning. 08/31/2024 CYANOCOBALAMIN (VITAMIN B-12) 500 MCG Sublingual Tablet 1 Tablet in the morning. 08/31/2024 finasteride (PROSCAR) 5 MG Tablet 1 Tablet in the morning. 08/31/2024 oxybutynin (DITROPAN) 5 MG Tablet 1 Tablet in the morning and 1 Tablet before bedtime. 08/31/2024 tamsulosin (FLOMAX) 0.4 MG Capsule 1 Capsule in the morning. 08/31/2024 traZODone (DESYREL) 150 MG Tablet 1 Tablet at bedtime. 08/31/2024 ALBUTEROL 90 MCG/ACT IN AERS 2 puffs every 4 hrs as needed 08/31/2024 Review of patient's allergies indicates: Allergen Reactions Amlodipine Unknown Penicillins hives/eye swelling Simvastatin Other (Please comment) Pt states felt really bad Other Reaction(s): Liver enzymes abnormal Past Surgical History: Procedure Laterality Date COLONOSCOPY, DIAGNOSTIC (RECTUM) N/A 04/04/2017 normal/recall 5 years/COLONOSCOPY FLEXIBLE PROXIMAL DIAGNOSTIC performed by Singh Bailey MD at ENDOSCOPY [facility] COLONOSCOPY, DIAGNOSTIC (RECTUM) N/A 02/22/2023 biopsies show adenomatous polps/recall 5 years/COLONOSCOPY FLEXIBLE PROXIMAL DIAGNOSTIC performed by Singh Bailey MD at ENDOSCOPY [facility] CYSTOSCOPY/TREAT MED BLADDER TUMOR N/A 11/16/2019 CYSTOURETHROSCOPY WITH FULGURATION MEDIUM BLADDER TUMOR performed by Elijah Moulton Jr., MD at OR [facility] EGD, FLEXIBLE, DIAGNOSTIC 04/06/2024 erythematous mucosa antrum/biopsies normal/ESOPHAGOGASTRODUODENOSCOPY (EGD), FLEXIBLE, TRANSORAL, DIAGNOSTIC performed by Mat Rincon DO at ENDOSCOPY [facility] INFORMATION Right 2007 right center lung lobectomy INFORMATION surgery for bladder cancer x3 prior to 2019 INFORMATION romeo REPAIR INITIAL INGUINAL HERNIA REDUCIBLE AGE 5 OR MORE Right 05/08/2024 REPAIR INITIAL INGUINAL HERNIA REDUCIBLE AGE 6 OR MORE performed by Carolina Goldman MD at OR [facility] REPAIR OF NASAL SEPTUM 1960 Nasal Septum Repair Family History Problem Relation Name Age of Onset Cancer Father colon Heart Disorder Father Heart Disorder Mother Heart Disorder Brother Heart Disorder Brother Social History Tobacco Use Smoking status: Former Current packs/day: 0.00 Types: Cigarettes Quit date: 09/02/1986 Years since quittin.0 Smokeless tobacco: Never Substance Use Topics Alcohol use: No Comment: Patient sober since 1986 Drug use: No Objective EXAM: BP 122/84 | Pulse 61 | Temp 36.6 C (97.9 F) (Temporal Artery) | Wt 98.7 kg (217 lb 9.6 oz) | BMI 26.50 kg/m | BSA 2.3 m GENERAL: alert, healthy, and no distress HEAD: Normocephalic, No masses, lesions, tenderness or abnormalities EYES: sclera clear EARS: External ears normal NOSE: no mucosal erythema MOUTH: mucous membranes are moist NECK: supple, no adenopathy ABDOMEN: abdomen soft and non-tender : testicles normal bilaterally; no obvious right recurrent hernia, but some tenderness to palpation BACK: no tenderness to percussion or palpation, No CVA tenderness EXTREMITIES: no edema NEURO: alert & oriented x 3 with fluent speech, no focal motor/sensory deficits SKIN: skin color, texture, turgor are normal, no rashes or significant lesions Assessment & Plan ASSESSMENT: ICD-10-CM 1. Right groin pain R10.31 PLAN: Will obtain CT Pelvis to further evaluate and will compare with preop CT 03/2024. Will contact patient with results. I spent a total of 40-54 minutes (exact time 40 mins) on the date of service in preparation, delivery, and documentation of the care provided to Levi Ford excluding any time spent in the performance of separately billed services or time spent by another provider/QHP. Chelsea Govea MD documented in this encounter Nursing Notes * Samina Soto LPN - 09/01/2024 8:50 AM EST Chief Complaint Patient presents with NEW PATIENT Pt is S/P Open repair right inguinal hernia with mesh from 05/08/[address] Goldman. Pt c/o RIGHT groin pain and swelling. Pain radiates to RIGHT testicle. documented in this encounter Plan of Treatment Upcoming Encounters Date Type Department Care Team (Late st Contact Info) Description 09/09/2024 7:30 AM EST Appointment Radiology, [address] [address] Scheduled Orders Name Type Priority Associated Diagnoses Orde r Schedule CT PELVIS WO IV CONTRAST AND WO ORAL CONTRAST Medical Imaging Routine Right groin pain Expected: 09/01/2024, Expires: 10/02/2025 Scheduled Procedures Name Priority Associated Diagnoses Date/Ti [...] this encounter Medical Devices Implanted Type Area Cloth Tester Device Identifier Shelf Expiration Date Model / Serial / Lot Mesh Plug And Patch Med - [id number] Implanted:Qty: 1 on 05/08/2024 by Caroilna Goldman MD at OR [facility] Mesh Right: Groin COVIDIEN : [employer] 06/01/2028 [facility]-02 / / [id number] documented as of this encounter Visit Diagnoses Diagnosis Right groin pain- Primary Abdominal pain, right lower quadrant documented in [...] Agents on File Name Relationship Healthcare Agent [facility] p Communication Jennifer Ford Spouse Health Care Agent Care Teams Plant Utilities Engineer Relationship Specialty Start Date End Date Lesa Cash PA-C [address] [facility] [place] [address] PCP - General Physician Forensic Social Worker 09/15/21 documented as of this encounter"
--- OUTSIDE RECORDS SUMMARY | 2024-10-27 02:38 | External Medical Summary | Summary of Care ---
Author Name Unknown Organization [facility] Address [address] [place] [address] Phone [phone] Care Team Providers Care Police Patrol Lieutenant Name Role Phone Lesa Cash PA-C Primary Care Provid er Reason for Visit * Reason Onset Date Comments TRIAGE 05/22/2024 Encounter Details Date Type Department Care Team (Late st Contact Info) Description 05/22/2024 Telephone Access Center, [place] [address] [facility] *DO NOT REMOVE THIS DEPARTMENT* [place] [phone] Services, Scheduling [address] [place] [address] TRIAGE Allergies Active Allergy Reactions Criticality Noted Date Comments Amlodipine Unknown 04/01/2017 Penicillins 02/05/2002 hives/eye swelling Simvastatin Other (Please comment) 12/16/2007 Pt states felt really bad Other Reaction(s): Liver enzymes abnormal documented as of this encounter (statuses as of 05/29/2024) Medications Medication Sig Dispensed Refills Start Date [...] as of this encounter (statuses as of 05/29/2024) Active Problems Problem Noted Date Diagnosed Date [...] as of this encounter (statuses as of 05/29/2024) Immunizations Name Administration Dates Next Due Seasonal [...] encounter Miscellaneous Notes * Telephone Encounter - Dawn Amos OSA - 05/29/2024 2:37 PM EDT Lmam ptc. Thank you LASHAY Cruz * Telephone Encounter - Jermain Ballesteros OSA [...] on this referral from the [facility] In states they sent all imaging reports in scan with referral wanting patient seen jessica, documented in this encounter Plan of Treatment Upcoming Encounters Date Type Department Care Team (Late st Contact Info) Description 08/10/2024 9:00 AM EST Office Visit Rheumatology, [address] [address] Yan Del Rio CRNP [facility] [place] [address] Scheduled Procedures Name Priority Associated Diagnoses [...] this encounter Medical Devices Implanted Type Area Power Transformer Repairer Device Identifier Shelf Expiration Date Model / Serial / Lot Mesh Plug And Patch Med - [id number] Implanted:Qty: 1 on 05/08/2024 by Carolina Goldman MD at OR [facility] Mesh Right: Qiana ARMSTRONG : [employer] 06/01/2028 [facility]-02 / / [id number] documented as of this encounter Advance Directives [...] Healthcare Agent Relationshi p Communication Jennifer A Drkatherine Spouse Health Care Agent Care Teams Police Patrol Lieutenant Relationship Specialty Start Date End Date Lesa Cash PA-C [address] [facility] [place] [address] PCP - General Physician Crusher Foreman 09/15/21 documented as of this encounter
--- OUTSIDE RECORDS SUMMARY | 2024-10-27 02:38 | External Medical Summary | Summary of Care ---
Author Name Unknown Organization [facility] [address] [place] [address] Phone [phone] Care Team Providers Care Cushion Worker Name Role Phone Lesa Cash PA-C Primary Care Provid er Reason for Visit * Reason Comments Cold Symptoms * Auth/Cert Specialty Diagnoses / Procedures Referred By Tai ramos Referred To Contact [place] [address] [place] [address] Phone: tel:[phone] [facility] Emergency Department ([facility]) [address] [place] [address] Phone: tel: fax: Referral ID Status Reason Start Date Expiration Date Visits Re quested Visits Authorized [id number] Encounter Details Date Type Department Care Team (Late st Contact Info) Description 09/25/2024 4:46 PM EST - 09/25/2024 7:13 PM EST Emergency [facility] Emergency Department ([facility]) [address] [place] [address] Valeria Jc MD [address] [facility] [place] [id number] COVID-19 (Primary Dx); Chest tightness; SOB (shortness of breath) Discharge Disposition: Home - Self Care Allergies Active Allergy Reactions Criticality Noted Date Comments Amlodipine Unknown 04/01/2017 Penicillins 02/05/2002 hives/eye swelling Simvastatin Other (Please comment) 12/16/2007 Pt states felt really bad Other Reaction(s): Liver enzymes abnormal documented as of this encounter (statuses as of 09/26/2024) Medications ALBUTEROL 90 MCG/ACT IN AERSIndication s:Acute sinusitis 2 puffs every 4 hrs as needed 1 MDI 5 12/22/19 04 Active oxybutynin (DITROPAN) 5 MG Tablet 1 Tablet in the morning and 1 Tablet before bedtime. Active Aspirin 81 MG Tablet Take 1 Tablet by mouth in the morning. Active budesonide-for moterol (SYMBICORT) 80-4.5 MCG/ACT inhaler Inhale 1 Puff by mouth in the morning and 1 Puff before bedtime. Active atorvaSTATin (LIPITOR) 20 MG TabletIndicati ons:take half [...] by mouth daily. 30 Tablet 09/17/19 22 Active Additional Information Patient taking differently:30 mg Oral Daily(AM),Taking 60 mg daily, Reported on 09/01/2024 Fluticasone-Sa lmeterol 500-50 MCG/ACT Inhalation Aerosol Powder [...] Tablet (Coreg) 0.5 Tablets. 07/14/20 23 Active Montelukast Sodium 10 MG Oral Tablet (Singulair) 1 Tablet. 06/20/20 23 Active Turmeric 500 MG Oral Capsule (RA Turmeric) daily. 10/30/19 Active Paraffin Wax Use as directed. 01/29/20 Active Vitamin D (Cholecalcifer ol) 25 MCG (1000 UT) Oral Capsule Take by mouth every morning. Active Methotrexate Sodium 2.5 MG Oral Tablet Take 8 Tablets by mouth once a week. Takes on Saturday04/06/20 Active Folic Acid 1 MG Oral Tablet Take 1 Tablet by mouth in the morning. 01/22/20 Active Hernia Belt Double MediumIndicati ons:Right groin pain Wear as directed. 1 Each 09/01/20 Active Azithromycin 250 MG Oral Tablet (Zithromax) Take 1 Tablet by mouth in the morning for 4 days. 4 Tablet 09/25/19 Active Cefdinir 300 MG Oral Capsule (Omnicef) Take 1 Capsule by mouth in the morning and 1 Capsule before bedtime. Do all this for 7 days. 14 Capsule 09/25/19 025 Active dexAMETHasone 6 MG Oral Tablet (Decadron) Take 1 Tablet by mouth in the morning for 10 days. 10 Tablet 09/25/19 025 Active predniSONE 5 MG Oral Tablet (Deltasone) Take 1 Tablet by mouth in the morning. 01/22/20 025 Discontinued documented as of this encounter (statuses as of 09/26/2024) Active Problems Problem Noted Date Diagnosed Date [...] as of this encounter (statuses as of 09/26/2024) Social History Tobacco Use Types Packs/Day Years [...] Sign Reading Time Taken Comments Blood Pressure 125/54 09/25/2024 6:20 PM EST Pulse 51 09/25/2024 6:20 PM EST Temperature 36.8 C (98.2 F) 09/25/2024 3:01 PM ES T Respiratory Rate 18 09/25/2024 6:20 PM EST Oxygen Saturation 93% 09/25/2024 3:01 PM EST Inhaled Oxygen Concentration - - Weight 97.5 kg (214 lb 14.4 oz) 09/25/2024 3:01 PM EST Height - - Body Mass Index 26.17 05/08/2024 10:32 AM EDT documented in this encounter Functional Status * Are you deaf or do you have serious difficulty hearing? Answer Date of Assessment Author No 09/15/2021 4:32 PM Pamela Ying LPN * Are you blind or do you have serious difficulty seeing, even when wearing glasses? Answer Date of Assessment Author No 09/15/2021 4:32 PM Pamela Ying, SURGICAL TECHNOLOGIST * Do you have serious difficulty walking [...] Pamela Cole LPN documented in this encounter Discharge Instructions * Discharge Instructions* Marisol Elizabeth CRNP - 09/25/2024 7:03 PM EST Start azithromycin and cefdinir for pneumonia. Start the Decadron for COVID-19. Do not take this medication while taking prednisone. You may use your nebulizers for wheezing and shortness of breath. Follow up with your primary care provider in 1-2 days. Return to the ER with new or worsening symptoms. documented in this encounter ED Notes * Samantha Jara PA-C - 09/25/2024 3:03 PM EST ED TRIAGE NOTE HISTORY OF PRESENT ILLNESS Levi Ford is a 79 year old male who presents to the ED with Cold Symptoms. Informant: patient Cough, congestion, fatigue, myalgias, SOB, chest tightness x 1 week. Worse with exertion. PHYSICAL EXAM Initial Vitals (see all): BP 101/51 | Pulse 63 | Resp 20 | Temp 98.2 | O2 93 %Weight 97.48 kg | Height 193 cm | BMI 26.17 kg/m2 Initial Pain Assessment (see all): 2 (mild pain)/10, location: body aches, no chest pain now ([facility] Adult Scale 0-10 (18 years andolder)) NOSE: no mucosal erythema, no mucosal edema, no purulent discharge. LUNGS: chest symmetric with normal AP diameter, no chest deformities noted, no chest wall tenderness, lungs clear to auscultation. HEART: regular rate , no murmurs, no gallops, and PMI non-displaced. ABDOMEN: abdomen soft, non-tender, no masses, no hepatosplenomegaly, no rebound or guarding. MEDICAL DECISION MAKING Are the vital signs unstable? No Degree of pain: none Is the patient's mental status altered? No Does the patient appear acutely ill or toxic? No Is there evidence for poor perfusion? No Is the patient and near term? No Was pain medication given? N/A I evaluated the patient in triage in order to provide a brief medical screening exam and initiationof appropriate diagnostic testing. Instructions were given to notify nursing staff if symptoms should worsen or if any other concerns arise while waiting for further evaluation. Samantha Jara PA-C Cosigned by Bear Inman MD at 09/26/2024 2:47 AM EST * Singh Pablo RN - 09/25/2024 2:59 PM EST Patient reports sick for one week, states trouble breathing, chest tightness, body aches, cough (limited sputum). Taking tylenol, mucinex, limited improvement with these. documented in this encounter Miscellaneous Notes * ED Mill Helper Note - Cee Payne LPN - 09/25/2024 7:12 PM EST Medicated patient per MAR. See MAR for details. PIV removed, cath intact. Reviewed d/c instructionswith patient. Patient verbalized understanding of information provided. Patient d/c with steady gait. * ED Mill Helper Note - Meera Maldonado TECH - 09/25/2024 7:08 PM EST Pt ambulated on Room Air from bed SW1 past bathrooms, Dr station, middle hallway , past dietary station and back to bed SW1. Pt started ambulation 95OX 58HR Pt while ambulating 94OX 67 * Pt Handout (on AVS) - Marisol Elizabeth LAYER UP - 09/25/2024 6:56 PM EST [id number] COVID-19 COVID-19 is an illness that infects the lungs. You may hear it called COVID or coronavirus disease 2019. It's caused by a type of coronavirus. The virus is called SARS-CoV-2. There are many types of coronaviruses. They are a common cause of colds and bronchitis. They can cause a lung infection called pneumonia. Symptoms can range from mild to severe. Some people have no symptoms. These types of viruses are also found in some animals. Viruses change (mutate) all the time. The changes lead to different forms of a virus. These are called variants. COVID-19 variants may spread more easily from person to person. They may cause milder symptoms. Or they may cause more severe symptoms. The virus spreads and infects people easily. It can infect a person more easily if they are not immune to it. The virus most often spreads through droplets of fluid that a person coughs or sneezes into the air. In some cases, you can get it from touching a surface with the virus on it and then touching your eyes, nose, or mouth. To help prevent spreading the infection, wash your hands often, or use an alcohol-based hand licensing representative. To learn more For the latest from the CDC: Go to the CDC website Call 315-VJX-SOKJ ([phone]) What are the symptoms of COVID-19? Some people have no symptoms. Some have mild symptoms. Others may have severe symptoms. This variesfrom person to person. Symptoms may start 2 to 14 days after contact with the virus. They can include: Fever Chills Coughing Trouble breathing or feeling short of breath Sore throat Stuffy or runny nose Headache Body aches Tiredness Nausea, vomiting, diarrhea, or belly pain New loss of sense of smell or taste What are possible complications of COVID-19? The virus can cause an infection in the lungs. This is called pneumonia. This can lead to in some cases. Experts are still learning more about COVID-19 problems. Problems may include: Low blood pressure Kidney failure Inflammation of the brain or heart Rashes Some people are at higher risk for problems. This includes: Older adults People with heart or lung disease People with diabetes or kidney disease People with health conditions that limit the immune system People who take medicines that limit the immune system Rarely, a child may have a severe complication. This is called multisystem inflammatory syndrome inchildren (MIS-C). MIS-C seems to be like Kawasaki disease. This is a rare illness. It causes swelling of blood vessels and body organs. MIS can also happen in adults. But this is less common. How is COVID-19 diagnosed? Your healthcare provider will ask: What symptoms you have If you've had recent close contact with someone known to have COVID-19 Where you live If you?ve traveled recently If you?ve had contact with sick people If you are vaccinated against COVID-19 If you have had COVID-19 You may have one of these tests for COVID-19: Viral (molecular) test. You may also hear this called a PCR or RT-PCR test. Viral tests are veryaccurate. A viral test looks for the genetic material (RNA) of the SARS-CoV-2 virus. There are a few ways to do this. A swab may be wiped inside your nose or throat. Or a long swab may be put into your nose down to the back of your throat. Or a sample of your saliva may be taken. Your test results may be back in 45 minutes to a few hours. This depends on the type of test. Some tests must be sent to a lab. These can take several days for the results. You can now get test kits to use at home. Some of these need a prescription. Follow the instructions in the kit closely if you use a home kit. Some kits show results quickly at home. Others must be sent to a lab for the results. Antigen test. This can find proteins from the SARS-CoV-2 virus. A swab may be wiped inside your nose or throat. Or a long swab may be put into your nose down to the back of your throat. Some results are back within 15 to 60 minutes. This depends on the type of test. Positive results are very accurate. But false positive results can happen. And the results can be negative even in people with COVID-19. Antigen tests are more likely to miss a COVID-19 infection than a viral (molecular) test. You may need to have a viral test if your antigen test is negative but you have symptoms of COVID-19. Breath test. This rapid test is not widely available at this time. It finds SARS-CoV-2 infectionin the breath. The test is done at healthcare providers' offices, hospitals, and mobile testing sites. You may have other tests if your provider thinks or confirms that you have COVID-19. These tests may include: Antibody blood test. This type of test can show if you had the virus in the past. It shows antibodies for the virus in the blood. The accuracy of these tests varies. And they are not available everywhere. An antibody test may not show if you have an infection right now. This is because it can take up to a few weeks for your body to make antibodies. None of the antibody tests can yet be used totell if a person is immune to the virus. Sputum culture. If you have a wet cough, you may be asked to cough up a bit of mucus (sputum) from your lungs. This is tested for the virus. It may be tested for pneumonia. Imaging tests. You may have a chest X-ray or CT scan. Can you get COVID-19 again? Yes, you can get COVID-19 more than once. You may not have immunity. You could have lost the immunity. Or you may get COVID-19 from a different strain (variant) of the virus that you are not immune to. But the COVID-19 vaccine helps lower the risk for COVID-19. Vaccines for COVID-19 The FDA and CDC advise the 1529-6350 updated COVID-19 vaccines for people 6 months and older to protect against COVID-19. These vaccines are Vostu, [employer], or Novavax. The vaccines can also make the illness less severe should you still get COVID-19. The vaccines can keep you from needingto go to the hospital. And they can prevent the spread of the virus to others. No vaccine is 100% effective at preventing an illness. But getting a vaccine is important. or people are also advised to be vaccinated. COVID-19 vaccines are given as a shot (injection) into the muscle. Ask your healthcare provider which vaccine is best for you and your loved ones. How is COVID-19 treated? The best treatments right now are those to help your body while it fights the virus. This is calledsupportive care. It includes: Rest. This helps your body fight the illness. Fluids. Try to drink 6 to 8 glasses of fluids every day. Ask your healthcare provider which drinks are best for you. Don't have drinks with caffeine or alcohol. Vklq-kgr-gbqmmaj (OTC) medicine. These are used to help ease pain and reduce fever. Ask your provider which OTC medicine is safe for you to use. Talk with your provider if you have confirmed COVID-19. You may qualify for medicines approved by the FDA to prevent severe COVID-19 infection. You may need to stay in the hospital for severe illness. Your care may include: IV fluids. These are given through a vein. This helps to replace fluids in your body. Oxygen. You may be given extra oxygen. Or you may be put on a breathing machine (ventilator). This is done so you get enough oxygen in your body. Prone positioning. Your healthcare team may regularly turn you on your stomach. This is called prone positioning. It helps increase the amount of oxygen you get to your lungs. Follow their instructions on position changes while you're in the hospital and at home. Antiviral medicines. Antivirals stop the SARS-CoV-2 virus from spreading in the body. The FDA has approved certain antiviral medicines to treat mild to moderate COVID-19 in people who are more likely to get very sick. These treatments are not available for everyone. Talk with your provider to learn more. Steroids or other anti-inflammatory medicines. These are used to lessen the inflammation that some people with COVID-19 have. Inflammation can lead to more trouble breathing. It can cause other complications or . Monoclonal antibodies. These were once used for earlier COVID-19 strains, but monoclonal antibody treatment is not effective for the latest variant. Talk with your provider to learn more. COVID-19 convalescent plasma. Plasma is the liquid part of blood. People who had COVID-19 may beasked to donate plasma. This is called COVID-19 convalescent plasma. The plasma may have antibodies. Some people with COVID-19 who have very weak immune systems may benefit from this treatment. Your provider can help decide if it's right for you. Are you at risk for COVID-19? You are at risk for COVID-19 if any of these apply to you: You live in or traveled to an area with cases of COVID-19 You had close contact (within 6 feet) with someone who had COVID-19 COVID-19 may be spread by people who don't show symptoms. Date last modified: 10/17/2023 Last Reviewed Date: 2023 00:00:00 [id number] The [employer]. All rights reserved. This information is not intended as a substitute for professional medical care. Always follow your healthcare professional's instructions. documented in this encounter Plan of Treatment Upcoming Encounters Date Type Department Care Team (Late st Contact Info) Description 09/29/2024 11:45 AM EST Office Visit General Surgery Vicky Kapoor [address] [address] Sidney Govea MD [address] [address] Pending Results Name Type Priority Associated Diagnoses Date /Time ECG Interpret Procedure Report Routine 09/25 5:54 PM EST Scheduled Procedures Name Priority Associated Diagnoses Date/Ti [...] this encounter Medical Devices Implanted Type Area Blood Bank Specialist Device Identifier Shelf Expiration Date Model / Serial / Lot Mesh Plug And Patch Med - [id number] Implanted:Qty: 1 on 05/08/2024 by Carolina Goldman MD at OR [facility] Mesh Right: Groin COVIDIEN : [employer] SURG[employer] 06/01/2028 [id number] / / [id number] documented as of this encounter Procedures Procedure Name Priority Date/Time Associated Diagnosis Comments ECG INTERPRET Routine 09/25/2024 5:54 PM EST TROPONIN T, HIGH SENSITIVITY STAT 09/25/2024 5:25 PM EST EXTRA LIGHT BLUE TOP Routine 09/25/2024 3:21 PM EST DIFFERENTIAL, AUTOMATED STAT 09/25/2024 3:21 PM EST TROPONIN T, HIGH SENSITIVITY STAT 09/25/2024 3:21 PM EST COMPREHENSIVE METABOLIC PANEL STAT 09/25/2024 3:21 PM EST CBC STAT 09/25/2024 3:21 PM EST CBC STAT 09/25/2024 3:21 PM EST XR CHEST 2 VIEWS STAT 09/25/2024 3:16 PM EST RESPIRATORY PATHOGEN PANEL, PCR STAT 09/25/2024 3:03 PM EST documented in this encounter Results * TROPONIN T, HIGH SENSITIVITY (09/25/2024 5:25 PM EST) Troponin T, High Sensitivity 14 <=22 ng/L 09/25/2024 6:37 PM EST LABORATORY [facility] Blood Venous blood specimen / Unknown Venipuncture / Unknown 09/25/2024 5:25 PM EST 09/25/2024 5:32 PM EST us Marisol Elizabeth LAYER UP LAB BLOOD ORDERABLES F inal Result LABORATORY [facility] [address] [place] [address] * (ABNORMAL) DIFFERENTIAL, AUTOMATED (09/25/2024 3:21 PM EST) Pathologist [facility] WBC 8.75 4.00 - 10.80 K/uL 09/25/2024 3:34 PM EST LABORATORY GL Neutrophils % 81.4(H) 40.0 - 75.0 % 09/25/2024 3:34 PM EST LABORATORY GL Lymphocytes % 9.8(L) 18.0 - 42.0 % 09/25/2024 3:34 PM EST LABORATORY GL Monocytes % 7.5 1.0 - 11.0 % 09/25/2024 3:34 PM EST LABORATORY GL Eosinophils % 0.3 0.0 - 6.0 % 09/25/2024 3:34 PM EST LABORATORY GL Basophils % 0.3 0.0 - 2.0 % 09/25/2024 3:34 PM EST LABORATORY GL Immature Granulocytes % 0.7 0.0 - 2.0 % 09/25/2024 3:34 PM EST LABORATORY GL Absolute Neutrophils 7.11 1.80 - 7.70 K/uL 09/25/2024 3:34 PM EST LABORATORY GL Absolute Lymphocytes 0.86(L) 1.00 - 4.80 K/ul 09/25/2024 3:34 PM EST LABORATORY GL Absolute Monocytes 0.66 0.00 - 1.10 K/uL 09/25/2024 3:34 PM EST LABORATORY GL Absolute Eosinophils 0.03 0.00 - 0.70 K/uL 09/25/2024 3:34 PM EST LABORATORY GL Absolute Basophils 0.03 0.00 - 0.20 K/uL 09/25/2024 3:34 PM EST LABORATORY GL Absolute Immature Granulocytes 0.06 0.00 - 0.20 K/uL 09/25/2024 3:34 PM EST LABORATORY GL Blood Venous blood specimen / Unknown Venipuncture / Unknown 09/25/2024 3:21 PM EST 09/25/2024 3:27 PM EST Samantha Jara PA-C LAB BLOOD ORDERABLES Fi nal Result LABORATORY [facility] [address] [place] [address] * (ABNORMAL) CBC (09/25/2024 3:21 PM EST) [facility] WBC 8.75 4.00 - 10.80 K/uL 09/25/2024 3:34 PM EST LABORATORY GL RBC 3.60 4.50 - 5.25 M/uL 09/25/2024 3:34 PM EST LABORATORY GL HGB 11.5(L) 14.0 - 16.8 g/dL 09/25/2024 3:34 PM EST LABORATORY [facility] HCT 34.1(L) 40.0 - 48.4 % 09/25/2024 3:34 PM EST LABORATORY [facility] MCV 94.7 82.0 - 99.5 fL 09/25/2024 3:34 PM EST LABORATORY [facility] MCH 31.9 27.0 - 34.0 pg 09/25/2024 3:34 PM EST LABORATORY GL MCHC 33.7 32.0 - 36.0 g/dL 09/25/2024 3:34 PM EST LABORATORY [facility] RDW 13.5 11.5 - 15.5 % 09/25/2024 3:34 PM EST LABORATORY GL PLT 250 140 - 400 K/uL 09/25/2024 3:34 PM EST LABORATORY GL MPV 10.4 6.6 - 11.1 fL 09/25/2024 3:34 PM EST LABORATORY GL nRBCs 0 <=0 /100 WBCs 09/25/2024 3:34 PM EST LABORATORY GL Blood Venous blood specimen / Unknown Venipuncture / Unknown 09/25/2024 3:21 PM EST 09/25/2024 3:27 PM EST Samantha Jara PA-C LAB BLOOD ORDERABLES Fi nal Result Performing Organization Address [facility] de Phone Number LABORATORY [address] [address] * (ABNORMAL) TROPONIN T, HIGH SENSITIVITY (09/25/2024 3:21 PM EST) Pathologist [facility] Troponin T, High Sensitivity 24(H) <=22 ng/L 09/25/2024 3:58 PM EST LABORATORY [facility] Blood Venous blood specimen / Unknown Venipuncture / Unknown 09/25/2024 3:21 PM EST 09/25/2024 3:27 PM EST Samantha Jara PA-C LAB BLOOD ORDERABLES Fi nal Result Performing Organization Address [facility] Co de Phone Number LABORATORY [address] [address] * EXTRA LIGHT BLUE TOP (09/25/2024 3:21 PM EST) Blood Venous blood specimen / Unknown Venipuncture / Unknown 09/25/2024 3:21 PM EST 09/25/2024 3:28 PM EST Samantha Jara PA-C LAB BLOOD ORDERABLES Fi nal Result Performing Organization Address [facility] de Phone Number LABORATORY [address] [address] * (ABNORMAL) COMPREHENSIVE METABOLIC PANEL (09/25/2024 3:21 PM EST) Pathologist [facility] BUN 17 6 - 20 mg/dL 09/25/2024 3:58 PM EST LABORATORY GL CREATININE 0.9 0.6 - 1.2 mg/dL 09/25/2024 3:58 PM EST LABORATORY GL EGFR 83 >=60 mL/min 09/25/2024 3:58 PM EST LABORATORY GL Comment:eGFR is calculated b ased on the CKD-EPI 2020 equation. SODIUM 131(L) 135 - 146 mmol/L 09/25/2024 3:58 PM EST LABORATORY GL POTASSIUM 3.5 3.5 - 5.1 mmol/L 09/25/2024 3:58 PM EST LABORATORY [facility] CHLORIDE 95(L) 98 - 107 mmol/L 09/25/2024 3:58 PM EST LABORATORY [facility] CO2 25 22 - 32 mmol/L 09/25/2024 3:58 PM EST LABORATORY [facility] ANION GAP 11 7 - 15 mmol/L 09/25/2024 3:58 PM EST LABORATORY [facility] GLUCOSE 104 70 - 120 mg/dL 09/25/2024 3:58 PM EST LABORATORY [facility] Albumin 3.1(L) 3.8 - 5.0 g/dL 09/25/2024 3:58 PM EST LABORATORY [facility] AST 19 10 - 50 U/L 09/25/2024 3:58 PM EST LABORATORY GL[facility] Alkaline Phosphatase 45 35 - 130 U/L 09/25/2024 3:58 PM EST LABORATORY [facility] Bilirubin, Total 0.5 <=1.2 mg/dL 09/25/2024 3:58 PM EST LABORATORY [facility] CALCIUM 8.8 8.4 - 10.2 mg/dL 09/25/2024 3:58 PM EST LABORATORY GL[facility] Protein 6.8 6.0 - 8.3 g/dL 09/25/2024 3:58 PM EST LABORATORY [facility] ALT 17 10 - 50 U/L 09/25/2024 3:58 PM EST LABORATORY [facility] Blood Venous blood specimen / Unknown Venipuncture / Unknown 09/25/2024 3:21 PM EST 09/25/2024 3:28 PM EST us Samantha Jara PA-C LAB BLOOD ORDERABLES Fi nal Result LABORATORY [address] [address] * XR CHEST 2 VIEWS (09/25/2024 3:16 PM EST) Anatomical Region Laterality Modality Chest Digital Radiogra phy 09/25/2024 3:07 PM EST Impressions 09/25/2024 3:39 PM EST IMPRESSION: Left lower lobe pneumonia. THIS DOCUMENT HAS BEEN ELECTRONICALLY SIGNED BY LILIAM ARECHIGA MD Narrative 09/25/2024 3:39 PM EST PROCEDURE INFORMATION: Exam: XR Chest Exam date and time: 09/25/2024 3:07 PM Age: 79 years old Clinical indication: Other: Patient reports sick for one week, states trouble breathing, chest tightness, body aches, cough (limited sputum); Additional info: Cough congestion TECHNIQUE: Imaging protocol: Radiologic exam of the chest. Views: 2 views. COMPARISON: DX (CXR AP X-GREEN GRID, CHEST, CXR AP GRID Crosswise) 09/15/2021 10:33 AM FINDINGS: Lungs: Left lower lobe ground-glass opacity compatible with pneumonia. Minimal right basilar atelectasis. Pleural spaces: Unremarkable. No pleural effusion. No pneumothorax. Heart/Mediastinum: Unremarkable. No cardiomegaly. Vasculature: Atherosclerotic disease of the aorta. Bones/joints: Degenerative disease of the spine. Procedure Note Liliam Arechiga MD - 09/25/2024 PROCEDURE INFORMATION: Exam: XR Chest Exam date and time: 09/25/2024 3:07 PM Age: 79 years old Clinical indication: Other: Patient reports sick for one week, statestrouble breathing, chest tightness, body aches, cough (limited sputum); Additional info: Cough congestion TECHNIQUE: Imaging protocol: Radiologic exam of the chest. Views: 2 views. COMPARISON: DX (CXR AP X-GREEN GRID, CHEST, CXR AP GRID Crosswise) 09/15/2021 10:33 AM FINDINGS: Lungs: Left lower lobe ground-glass opacity compatible with pneumonia.Minimal right basilar atelectasis. Pleural spaces: Unremarkable. No pleural effusion. No pneumothorax. Heart/Mediastinum: Unremarkable. No cardiomegaly. Vasculature: Atherosclerotic disease of the aorta. Bones/joints: Degenerative disease of the spine. IMPRESSION IMPRESSION: Left lower lobe pneumonia. THIS DOCUMENT HAS BEEN ELECTRONICALLY SIGNED BY LILIAM ARECHIGA MD Samantha Jara PA-C RADIOLOGY ([facility]) Final Result * (ABNORMAL) RESPIRATORY PATHOGEN PANEL, PCR (09/25/2024 3:03 PM EST) Adenovirus by PCR Negative Negative 025 4:36 PM EST [facility] Coronavirus 229E by PCR Negative Negative 09/25/2024 4:36 PM EST [facility] Coronavirus HKU1 by PCR Negative Negative 09/25/2024 4:36 PM EST LAB[facility] Coronavirus NL63 by PCR Negative Negative 09/25/2024 4:36 PM EST [facility] Coronavirus OC43 by PCR Negative Negative 09/25/2024 4:36 PM EST [facility] Coronavirus SARS-CoV-2 by PCR Positive(A) Negative 09/25/2024 4:36 PM EST [facility] Comment:Coronavirus SARS det ected by PCR (amplified probe). Test results reported to [facility]. Human Metapneumovirus by PCR Negative Negative 09/25/2024 4:36 PM EST [facility] Rhinovirus/Enterov irus by PCR Negative Negative 09/25/2024 4:36 PM EST [facility] Influenza A Virus by PCR Negative Negative 09/25/2024 4:36 PM EST [facility] Influenza B Virus by PCR Negative Negative 09/25/2024 4:36 PM EST [facility] Parainfluenza Virus 1 by PCR Negative Negative 09/25/2024 4:36 PM EST [facility] Parainfluenza Virus 2 by PCR Negative Negative 09/25/2024 4:36 PM EST [facility] Parainfluenza Virus 3 by PCR Negative Negative 09/25/2024 4:36 PM EST [facility] Parainfluenza Virus 4 by PCR Negative Negative 09/25/2024 4:36 PM EST [facility] Respiratory Syncytial Virus by PCR Negative Negative 09/25/2024 4:36 PM EST [facility] Bordetella pertussis by PCR Negative Negative 09/25/2024 4:36 PM EST [facility] Chlamydia pneumoniae by PCR Negative Negative 09/25/2024 4:36 PM EST [facility] Mycoplasma pneumoniae by PCR Negative Negative 09/25/2024 4:36 PM EST [facility] Bordetella parapertussis by PCR Negative Negative 09/25/2024 4:36 PM EST [facility] Comment: The primers that detect Rhinovirus may cross react with some Enterorviruses. The validation of bronchial specimens, tracheal aspirates, and throats for this assay was developed and performance characteristics determined by [email or web address]. The validation of alternate specimen types has not been cleared or approved by the U.S. Food and Drug Administration (FDA). It has been determined that such clearance or approval is not necessary. Upper Respiratory Mid-turbinate nasal swab / Unknown Non-blood Collection / Unknown 09/25/2024 3:03 PM EST 09/25/2024 3:18 PM EST us Samantha Jara PA-C LAB MICRO - GENERAL ORD ERABLES Final Result LABORATORY [address] [address] documented in this encounter Visit Diagnoses Diagnosis COVID-19- Primary Chest tightness Other chest pain SOB (shortness of breath) Shortness of breath documented in this encounter Administered Medications Inactive Administered Medications - up to 3 most recent administrations Medication Order MAR Action Action Date Dose Rate Site Albuterol Sulfate (Proventil) (2.5 MG/3ML) 0.083% inhalation solution 2.5 mg 2.5 mg, Nebulizer, ONCE, On Sat09/25/24 at 1745, For 1 dose Given 09/25/2024 5:25 PM EST 2.5 mg albuterol-ipratropium (Duoneb) inhalation solution 3 mL 3 mL, Nebulizer, ONCE, On Sat09/25/24 at 1745, For 1 dose, 3 mL = 0.5 mg ipratropium/ 2.5 mg albuterol Given 09/25/2024 5:25 PM EST 3 mL Azithromycin (Zithromax) tab 500 mg 500 mg, Oral, ONCE, On Sat09/25/24 at 1930, For 1 dose Given 09/25/2024 7:09 PM EST 500 mg Cefdinir (Omnicef) cap 300 mg 300 mg, Oral, ONCE, On Sat09/25/24 at 1945, For 1 dose Given 09/25/2024 7:09 PM EST 300 mg dexAMETHasone Sodium Phosphate (Decadron) 4 MG/ML inj 8 mg 8 mg, IV Push, ONCE, On Sat09/25/24 at 1745, For 1 dose, PROTECT FROM LIGHT Given 09/25/2024 5:25 PM EST 8 mg NSS 0.9% 500 mL bolus infusion Peripheral IV, at 500 mL/hr Administer over 60 Minutes, Administer entire volume within 60 minutes or less., ONCE, 1 dose, On Sat09/25/24 at 1745 New Bag 09/25/2024 5:29 PM EST 500 mL 500 mL/hr documented in this encounter Active and Recently Administered Medications Times are shown in EST. Scheduled Medication Order 09/23/2024 09/24/2024 09/25/2024 Albuterol Sulfate (Proventil) (2.5 MG/3ML) 0.083% inhalation solution 2.5 mg (COMPLETED) 2.5 mg, Nebulizer, ONCE, On Sat09/25/24 at 1745, For 1 dose 172 (Given - Provid er: Esther Gar, GURU) albuterol-ipratropium (Duoneb) inhalation solution 3 mL (COMPLETED) 3 mL, Nebulizer, ONCE, On Sat09/25/24 at 1745, For 1 dose, 3 mL = 0.5 mg ipratropium/ 2.5 mg albuterol 172 (Given - Provid er: Esther Gar, GURU) Azithromycin (Zithromax) tab 500 mg (COMPLETED) 500 mg, Oral, ONCE, On Sat09/25/24 at 1930, For 1 dose 190 (Given - Provid er: Cee Payne LPN) Cefdinir (Omnicef) cap 300 mg (COMPLETED) 300 mg, Oral, ONCE, On Sat09/25/24 at 1945, For 1 dose 190 (Given - Provid er: Cee Payne LPN) dexAMETHasone Sodium Phosphate (Decadron) 4 MG/ML inj 8 mg (COMPLETED) 8 mg, IV Push, ONCE, On Sat09/25/24 at 1745, For 1 dose, PROTECT FROM LIGHT 172 (Given - Provid er: Allie Dawson RN) NSS 0.9% 500 mL bolus infusion (COMPLETED) Peripheral IV, at 500 mL/hr Administer over 60 Minutes, Administer entire volume within 60 minutes or less., ONCE, 1 dose, On Sat09/25/24 at 1745 1729 (New Bag - Prov ider: Allie Dawson RN)190 (Stopped - Provider: Allie Dawson RN) documented in this encounter Additional Health Concerns [...] Agents on File Name Relationship Healthcare Agent [facility] Communication Jennifer Ford Spouse Health Care Agent Care Teams Cushion Worker Relationship Specialty Start Date End Date Lesa Cash [facility]-C [address] [facility] [address] PCP - General Physician Caster Operator 09/15/21 documented as of this encounter"
--- OUTSIDE RECORDS SUMMARY | 2024-10-27 02:38 | External Medical Summary | Summary of Care ---
Author Name Unknown Organization [facility] Address [address] [facility] [address] Phone [phone] Care Team Providers Care Sausage Inspector Name Role Phone Lesa Cash PA-C Primary Care Provid er Reason for Referral * Evaluate & Treat - Unlimited Visits (Within 10 days (routine)) - Pending Review Specialty Diagnoses / Procedures Referred By Tai ramos Referred To Contact Vascular Surgery / Cardiovascular Surgery Diagnoses Occlusion and stenosis of unspecified carotid artery Lesa Cash PA-C [address] [place] [address] Referral ID Status Reason Start Date Expiration Date Visits Requested Visits Authorized [id number] Pending Review Specialty Services Required 04/30/2024 10/27/2024 999 999 Question Answer Referral Priority Within 10 days (routine) Where should this appointment be scheduled? Yan What condition is the patient being seen for? Carotid stenosis / Bruit / TIA / CVA Comments Occlusion and stenosis of unspec carotid artery, [place], Appt request/medical notes scanned into patients chart under Media tab on 05/18/24, mif Encounter Details Date Type Department Care Team (Late st Contact Info) Description 05/18/2024 Orders Only Access [place] [address] [place] [address] Ext *DO NOT REMOVE THIS DEPARTMENT* [place] [phone] Request, External Referral Occlusion and stenosis of unspecified carotid artery* Allergies Active Allergy Reactions Criticality Noted Date Comments Amlodipine Unknown 04/01/2017 Penicillins 02/05/2002 hives/eye swelling Simvastatin Other (Please comment) 12/16/2007 Pt states felt really bad Other Reaction(s): Liver enzymes abnormal documented as of this encounter (statuses as of 05/18/2024) Medications Medication Sig Dispensed Refills Start Date [...] CYANOCOBALAMIN (VITAMIN B-12) 500 MCG Sublingual Tablet 500 mcg daily. Active traZODone (DESYREL) 150 MG Tablet 1 [...] by mouth in the morning. 01/22/2024 Active oxyCODONE-Acetamino phen 5-325 MG Oral Tablet (Percocet) Take 1 Tablet by mouth every 6 hours as needed for Pain, Breakthrough. 20 Tablet 05/08/2024 Active documented as of this encounter (statuses as of 05/18/2024) Active Problems Problem Noted Date Diagnosed Date [...] as of this encounter (statuses as of 05/18/2024) Social History Tobacco Use Types Packs/Day Years [...] Yes 09/15/2021 documented as of this encounter Plan of Treatment Upcoming Encounters Date Type Department Care Team (Late st Contact Info) Description 05/21/2024 11:15 AM EDT Office Visit General Surgery [place] [address] [place] [address] Carolina Goldman MD [address] [place] [address] 08/10/2024 9:00 AM EST Office Visit Rheumatology, [address] [place] [address] Yan Del Rio CRNP [address] [place] [address], [place] [address] Scheduled Procedures Name Priority Associated Diagnoses Date/Ti me COLONOSCOPY FLEXIBLE PROXIMA L DIAGNOSTIC Recall History of colonic polyps Scheduled Referrals Name Type Priority Associated Diagnoses Orde r Schedule VASCULAR SURGERY REFERRAL OP Referral Within 10 days (routine) Occlusion and stenosis of unspecified carotid artery Ordered: 05/18/2024 Health Maintenance Due Date Last Done Comments [...] this encounter Medical Devices Implanted Type Area Hat Block Bench Hand Device Identifier Shelf Expiration Date Model / Serial / Lot Mesh Plug And Patch Med - [id number] Implanted:Qty: 1 on 05/08/2024 by Carolina Goldman MD at OR [facility] Mesh Right: Groin COVIDIEN : [place] SURGICAL 06/01/2028 [facility]-02 / / [id number] documented as of this encounter Visit Diagnoses Diagnosis Occlusion and stenosis of unspecified carotid artery- Primary documented in this encounter Advance Directives * [...] Ford Spouse Health Care Agent Care Teams Sausage Inspector Relationship Specialty Start Date End Date Lesa Cash PA-C [address] [place] [address] PCP - General Physician Leather Sponger 09/15/21 documented as of this encounter
--- OUTSIDE RECORDS SUMMARY | 2024-10-27 02:38 | External Medical Summary ---
Author Name Unknown Address Unknown Organization [facility] [address] [facility] [place] [address] Laboratory Report Ordering Provider Test Date Status ILSA ASENCIO 09/25/2024 15:03:35 Final ADMITTED patient Observation Date Value Abnormality Reference (Units ) Status Adenovirus DNA [Presence] in Nasopharynx by JACQUI with non-probe detection 09/25/2024 15:03:35 Negative Negative Final Human coronavirus 229E RNA [Presence] in Nasopharynx by JACQUI with non-probe detection 09/25/2024 15:03:35 Negative Negative Final Human coronavirus HKU1 RNA [Presence] in Nasopharynx by JACQUI with non-probe detection 09/25/2024 15:03:35 Negative Negative Final Human coronavirus NL63 RNA [Presence] in Nasopharynx by JACQUI with non-probe detection 09/25/2024 15:03:35 Negative Negative Final Human coronavirus OC43 RNA [Presence] in Nasopharynx by JACQUI with non-probe detection 09/25/2024 15:03:35 Negative Negative Final SARS-CoV-2 (COVID-19) RNA [Presence] in Nasopharynx by JACQUI with non-probe detection 09/25/2024 15:03:35 Positive Abnormal Negative Final Coronavirus SARS detected by PCR (amplified probe). Test results reported to [facility]. Human metapneumovirus RNA [P resence] in Nasopharynx by JACQUI with non-probe detection 09/25/2024 15:03:35 Negative Negative Final Rhinovirus+Enterovirus RNA [ Presence] in Nasopharynx by JACQUI with non-probe detection 09/25/2024 15:03:35 Negative Negative Final Influenza virus A RNA [Prese nce] in Nasopharynx by JACQUI with non-probe detection 09/25/2024 15:03:35 Negative Negative Final Influenza virus B RNA [Prese nce] in Nasopharynx by JACQUI with non-probe detection 09/25/2024 15:03:35 Negative Negative Final Parainfluenza virus 1 RNA [P resence] in Nasopharynx by JACQUI with non-probe detection 09/25/2024 15:03:35 Negative Negative Final Parainfluenza virus 2 RNA [P resence] in Nasopharynx by JACQUI with non-probe detection 09/25/2024 15:03:35 Negative Negative Final Parainfluenza virus 3 RNA [P resence] in Nasopharynx by JACQUI with non-probe detection 09/25/2024 15:03:35 Negative Negative Final Parainfluenza virus 4 RNA [P resence] in Nasopharynx by JACQUI with non-probe detection 09/25/2024 15:03:35 Negative Negative Final Respiratory syncytial virus RNA [Presence] in Nasopharynx by JACQUI with non-probe detection 09/25/2024 15:03:35 Negative Negative F inal Bordetella pertussis.pertuss is toxin promoter region [Presence] in Nasopharynx by JACQUI with non-probe detection 09/25/2024 15:03:35 Negative Negative Final Chlamydophila pneumoniae DNA [Presence] in Nasopharynx by JACQUI with non-probe detection 09/25/2024 15:03:35 Negative Negative Final Mycoplasma pneumoniae DNA [P resence] in Nasopharynx by JACQUI with non-probe detection 09/25/2024 15:03:35 Negative Negative Final Bordetella parapertussis IS1 001 DNA [Presence] in Nasopharynx by JACQUI with non-probe detection 09/25/2024 15:03:35 Negative Negative F inal The primers that detect Rhin ovirus may cross react with some Enterorviruses. The validation of bronchial specimens, tracheal aspirates, and throats for this assay was developed and performance characteristics determined by [employer]. The validation of alternate specimen types has not been cleared or approved by the U.S. Food and Drug Administration (FDA). It has been determined that such clearance or approval is not necessary. [facility] - [address] [place] [address] sarah [place] [id number]
--- OUTSIDE RECORDS SUMMARY | 2024-10-27 02:39 | External Medical Summary | Summary of Care ---
Author Name Unknown Organization [facility] Address [address] [facility] [place] [address] Phone [phone] Care Team Providers Care Oncology Registrar Name Role Phone Lesa Cash PA-C Primary Care Provid er Reason for Visit * Reason Onset Date Comments Follow Up 05/11/2024 Encounter Details Date Type Department Care Team (Late st Contact Info) Description 05/11/2024 8:30 AM EDT Scheduled Telephone General Surgery Vicky Kapoor [address] [place] [place] [address] Vicky Nurse Gen Surg Lisa Tee RN [address] [place] [address] Arrived Allergies Active Allergy Reactions Criticality Noted Date Comments Amlodipine Unknown 04/01/2017 Penicillins 02/05/2002 hives/eye swelling Simvastatin Other (Please comment) 12/16/2007 Pt states felt really bad Other Reaction(s): Liver enzymes abnormal documented as of this encounter (statuses as of 05/11/2024) Medications Medication Sig Dispensed Refills Start Date [...] as of this encounter (statuses as of 05/11/2024) Active Problems Problem Noted Date Diagnosed Date [...] as of this encounter (statuses as of 05/11/2024) Social History Tobacco Use Types Packs/Day Years [...] Telephone Encounter - Tess Subramanian CMA - 05/11/2024 8:35 AM EDT PATIENT IS S/p Open repair right inguinal hernia with mesh on 05/08/[address] Goldman No answer. Left message to contact our office with any questions/concerns. If no questions/concernswill follow up at appointment scheduled below. Post operative follow up scheduled for 05/21/2024 at 11:15 AM documented in this encounter Plan of Treatment Upcoming Encounters Date Type Department Care Team (Late st Contact Info) Description 05/21/2024 11:15 AM EDT Office Visit General Surgery Lisa Randal [place] [address] [facility] [place] [address] [place] [address] Carolina [facility] [place] [address] 08/10/2024 9:00 AM EST Office Visit Rheumatology, [facility] [address] [facility] [place] [address] Yan Del Rio CRNP [address] [place] [address] [place] [address] Scheduled Procedures Name Priority Associated Diagnoses Date/Ti [...] this encounter Medical Devices Implanted Type Area Critical Care Cns Device Identifier Shelf Expiration Date Model / Serial / Lot Mesh Plug And Patch Med - [id number] Implanted:Qty: 1 on 05/08/2024 by Carolina Goldman MD at OR [facility] Mesh Right: Groin COVIDIEN : [place] SURGICAL 06/01/2028 [facility]-02 / / [id number] documented as of this encounter Advance Directives [...] Agents on File Name Relationship Healthcare Agent [facility] p Communication Jennifer Ford Spouse Health Care Agent Care Teams Oncology Registrar Relationship Specialty Start Date End Date Lesa Cash PA-C [address] [place] [address] PCP - General Physician Certified Corporate Travel Executive 09/15/21 documented as of this encounter
--- OUTSIDE RECORDS SUMMARY | 2024-10-27 02:39 | External Medical Summary | Summary of Care ---
Author Name Unknown Organization [facility] Address [address] [place] [address] Phone [phone] Care Team Providers Care Ore Miner Blasting Name Role Phone Lesa Cash PA-C Primary Care Provid er Reason for Visit * Reason Onset Date Comments Films 05/06/2024 Encounter Details Date Type Department Care Team (Late st Contact Info) Description 05/06/2024 Telephone Radiology Film File [address] [place] [address] Support, Imaging Radiology [address] [place] [address] Films Allergies Active Allergy Reactions Criticality Noted Date Comments Amlodipine Unknown 04/01/2017 Penicillins 02/05/2002 hives/eye swelling Simvastatin Other (Please comment) 12/16/2007 Pt states felt really bad Other Reaction(s): Liver enzymes abnormal documented as of this encounter (statuses as of 05/06/2024) Medications Medication Sig Dispensed Refills Start Date End Date Status ALBUTEROL 90 MCG/ACT IN AERSIndications:Acu te sinusitis 2 puffs every 4 hrs as needed 1 MDI 5 12/22/2003 Active Additional Information Patient not taking.Reported on 03/30/2024 oxybutynin (DITROPAN) 5 MG Tablet 1 Tablet [...] Oral Tablet (Singulair) 1 Tablet. 06/20/2023 Active documented as of this encounter (statuses as of 05/06/2024) Active Problems Problem Noted Date Diagnosed Date [...] as of this encounter (statuses as of 05/06/2024) Social History Tobacco Use Types Packs/Day Years [...] encounter Miscellaneous Notes * Telephone Encounter - Britt Kwong, LASHAY - 05/06/2024 4:41 PM [facility]T [facility] MRI and CT image(s) [place] Authorization to Release on file. Images pushed to [facility] account. Job ID: [id number] Associated report(s) not needed. documented in this encounter Plan of Treatment Upcoming Encounters Date Type Department Care Team (Latest Contact Info) Description 05/08/2024 11:53 AM EDT Hospital Encounter OR GL, Operating Room, [facility] - 4th Floor [address] [place] [address] Carolina Goldman MD [address] [place] [address] 05/08/2024 11:53 AM EDT - 05/08/2024 1:24 PM EDT Surgery OR [facility], Operating Room, [facility] Floor [address] [place] [address] [place] [phone] Carolina Goldman MD [address] [place] [address] REPAIR INITIAL INGUINAL HERNIA REDUCIBLE AGE 5 OR MORE 05/11/2024 8:30 AM EDT Scheduled Telephone General Surgery Vicky Kapoor [address] [place] [address] iVcky, Nurse Gen Surg Lisa Tee RN [address] [place] [address] 05/21/2024 11:15 AM EDT Office Visit General Surgery Vicky Kapoor [address] [place] [address] Carolina Goldman MD [address] [place] [address] 08/10/2024 9:00 AM EST Office Visit Rheumatology, [address] [place] [address] Yan Del Rio CRNP [address] [place] [address] Scheduled Procedures Name Priority Associated Diagnoses Date/Ti me REPAIR INITIAL INGUINAL HERNIA REDUCIBLE AGE 5 OR MORE Right inguinal hernia 05/08/2024 11:53 AM EDT COLONOSCOPY FLEXIBLE PROXIMAL DIAGNOSTIC Recall History of colonic polyps Health Maintenance Due Date Last Done Comments COVID-19 Vaccine (#1) 1950 Depression Screening 1958 Albumin/Creatinine Ratio 1964 Hepatitis C Screening 1963 DTap/Tdap Vaccines (1 - Tdap) 1965 Influenza Vaccine (FLU shot) (#1) 2024 08/12/2019, 09/15/2018, 05/25/2017, Additional history exists GFR 03/14/2025 03/14/2024, 09/02, 09/15/2021, Additional history exists Colonoscopy 02/23/2028 02/22/2023, 02/01, 04/04/2017, Additional history exists Pneumococcal Vaccine: 65+ Years Completed 10/01/2017, 07/10/2016 Zoster Vaccines Completed 09/30/2019, 10/03, 08/06/2012 RETIRED - COLONOSCOPY-EVERY 5 YRS AGES 18-100 Discontinued 02/22/2023, 02/22/2023, 04/04/2017, Additional history exists HPV (Gardasil) Vaccine Aged Out No lo nger eligible based on patient's age to complete this topic Hepatitis B Vaccine Aged Out No longe r eligible based on patient's age to complete this topic MENINGOCOCCAL (MENACTRA/MENVEO) Aged Out No longer eligible based on patient's age to complete this topic documented as of this encounter Medical Devices Not on filedocumented as of this encounter Advance Directives * Full Code (Latest Code Status on File) Date Activated Date Inactivated Comments 09/15/2021 3:54 [...] Ford Spouse Health Care Agent Care Teams Ore Miner Blasting Relationship Specialty Start Date End Date Lesa Cash PA-C [address] [place] [address] PCP - General Physician Physician Gynecologist 09/15/21 documented as of this encounter
--- OUTSIDE RECORDS SUMMARY | 2024-10-27 02:39 | External Medical Summary ---
Author Name Unknown Address Unknown Organization : Laboratory Report Ordering Provider Test Date Status EMILIE MURDOCK 05/08/2024 10:59:30 Final Observation Date Value Abnormality Reference (Units ) Status Glucose Point of Care 05/08/2024 10:59:30 120 70-120 (mg/dL) Final Performing Location
--- OUTSIDE RECORDS SUMMARY | 2024-10-27 02:39 | External Medical Summary | Summary of Care ---
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 Name Role Phone Lesa Cash PA-C Primary Care Provid er Reason for Visit * Auth/Cert Specialty Diagnoses / Procedures Referred By Tai t Referred To Contact Diagnoses Right inguinal hernia Right inguinal hernia [K40.90] Procedures REPAIR INITIAL INGUINAL HERNIA REDUCIBLE AGE 5 OR MORE REPAIR INITIAL INGUINAL HERNIA REDUCIBLE AGE 5 OR MORE Carolina Goldman MD [address] [place] [address] Or [facility] [address] [place] [phone] Referral ID Status Reason Start Date Expiration Date Visits Re quested Visits Authorized [id number] Encounter Details Date Type Department Care Team (Latest Contact Info) Description 05/08/2024 10:15 AM EDT - 05/08/2024 2:36 PM EDT Hospital Encounter OR [facility], Operating Room, [facility] - 4th Floor [address] [place] [phone] Carolina Goldman MD [address] [place] [address] Discharge Disposition: Home - Self Care Allergies Active Allergy Reactions Criticality Noted Date Comments Amlodipine Unknown 04/01/2017 Penicillins 02/05/2002 hives/eye swelling Simvastatin Other (Please comment) 12/16/2007 Pt states felt really bad Other Reaction(s): Liver enzymes abnormal documented as of this encounter (statuses as of 05/09/2024) Medications Medication Sig Dispensed Refills Start Date [...] for Pain, Breakthrough. 20 Tablet 05/08/2024 Active Cholecalciferol (VITAMIN D3) 3000 units Tablet 1,000 Units daily. 05/06/2024 Discontinue d(Medicatio n/Dose Changed) documented as of this encounter (statuses as of 05/09/2024) Active Problems Problem Noted Date Diagnosed Date [...] as of this encounter (statuses as of 05/09/2024) Social History Tobacco Use Types Packs/Day Years [...] Sign Reading Time Taken Comments Blood Pressure 116/68 05/08/2024 2:15 PM EDT Pulse 50 05/08/2024 2:15 PM EDT Temperature 36.4 C (97.5 F) 05/08/2024 2:15 PM ED T Respiratory Rate 14 05/08/2024 2:15 PM EDT Oxygen Saturation 96% 05/08/2024 2:15 PM EDT Inhaled Oxygen Concentration - - Weight 94.3 kg (208 lb) 05/08/2024 10:32 AM EDT Height 193 cm (6' 3.98") 05/08/2024 10:32 AM EDT Body Mass Index 25.33 05/08/2024 10:32 AM EDT documented in this [...] Yes 09/15/2021 documented as of this encounter Discharge Summaries * Carolina Goldman MD - 05/08/2024 1:39 PM EDT [address] [facility] [place] [place] [phone] OUTPATIENT SURGERY DISCHARGE SUMMARY NOTE Name: Levi Ford Location: [facility]/[place] Date: 05/08/2024 Time: 1:39 PM Surgery Date: 05/08/2024 Procedure: REPAIR INITIAL INGUINAL HERNIA REDUCIBLE AGE 5 OR MORE Right Surgeon: Carolina Goldman MD Discharge Diagnosis: Open repair right inguinal hernia with mesh After examination of this patient, I have determined he is ready for discharge to home when the patient meets criteria. Discharge instructions were given to the patient. documented in this encounter Discharge Instructions * Discharge Instr - AVS* Carolina Goldman MD - 05/08/2024 1:36 PM EDT Discharge Date: 05/08/2024 The information below provides you with the instructions and the list of medications you need to betaking following discharge from the hospital. If you have any questions, please ask before leaving.Please carry this letter with you when you see your doctor in the clinic. If you have questions, you can reach us at the numbers above. Post Anesthesia Instructions: 1. Do not drive today. 2. Resume driving when surgeon permits. 3. Do not make important decisions or sign legal documents today. 4. Call surgeon for: Temperature evaluation greater than 101 degrees Uncontrollable pain Excessive Bleeding Persistent Nausea and vomiting Medication intolerance (nausea, vomiting, or rash) 5. For nausea and vomiting use only clear liquids such as: tea, soda, bouillon until nausea subsides, then gradually increase diet as tolerated. 6. If you have any concerns or questions, call your surgeon's office at [phone] . If the physician is unavailable and it is an emergency, call 911 or go to the nearest emergency room. Preprinted instructions given: None (Form No.) Special Care / Other: Keep the dressing on for 4 days. He can take a shower on 05/12/2024. No driving while taking pain medicine. No heavy lifting > 15 LBS for 4 weeks. Activity : Rest today. Return to School or Work: May return to work/school on 05/12/2024 Diet: Resume previous diet Follow-up Visit with: Dr. Goldman [phone] When: in 2 weeks Discharged To: Home documented in this encounter H&P Notes * Carolina Goldman MD - 05/08/2024 11:44 AM EDT HISTORY & PHYSICAL INTERVAL NOTE [facility] [id number] History and Physical Update: Name: Levi Ford Location: [facility] Date: 05/08/2024 Time: 11:44 AM DATE OF HISTORY AND PHYSICAL: 05/08/2024 BP: 125 mmHg/75 mmHg (05/08/24 103) Pulse: 70 (05/08/24 103) Resp: 16 (05/08/24 103) Temp: 36.22 C (05/08/24 103) Temp Summary: Temp Min: 36.2 C (97.2 F) Max: 36.2 C (97.2 F) SpO2: 96 % (05/08/24 103) O2 flow rate: Supplemental O2 Delivery: Room Air, None (05/08/241031) Does patient take a beta keegan? No Did patient stop anticoagulants? None Heart Exam: regular rate and rhythm Lung Exam: clear to auscultation bilaterally Other Pertinent Physical Exam: I have reviewed the H&P previously performed and examined the patient today. There are no new findings noted. * Carolina Goldman MD - 05/08/2024 11:41 AM EDT Images from the original note were not included. HISTORY AND PHYSICAL EXAMINATION - General Surgery Name: Levi Ford Date: 05/08/2024 Time: 11:42 AM Subjective PRESENTING PROBLEM: Right inguinal hernia HISTORY OF PRESENT ILLNESS: Levi Ford is a 78 year-old male who is referral for consult right inguinal hernia by Doreen Hawkins PA- C. Patient's past medical history with HTN ,BPH, lung cancer, right carotid artery occlusion, and IBS. Patient presents couple of mi history bulging and discomfort on right groin area. The bulging is reducible. Patient denies nausea vomiting. No constipation, No pain or bulging left groinarea. Patient had a CT scan diagnoses-Small fat containing inguinal hernias. No bowel herniation identified. 05/08/2024 Time: 11:42 AM I reviewed pt's H/P with pt, no change. PROBLEM LIST: Problem List Patient Active Problem List Diagnosis OBESITY, UNSPECIFIED Irritable bowel syndrome Osteoarthrosis Varicose vein of leg Strain of rotator cuff capsule Alcohol dependence in remission (HCC) Post Traumatic Stress Disorder Cancer of lung (HCC) Right carotid artery occlusion Left carotid artery stenosis Syncope and collapse Orthostatic hypotension HTN (hypertension) BPH (benign prostatic hyperplasia) Right inguinal hernia PAST MEDICAL HISTORY: Past Medical History Past Medical History: Diagnosis Date Alcohol dependence in remission (HCC) patient sober since 1986 Bladder cancer (HCC) BPH (benign prostatic hyperplasia) HTN (hypertension) Hyperlipemia INFORMATION blind in right eye Irritable bowel syndrome Lung cancer (HCC) Osteoarthrosis Strain of rotator cuff capsule R shoulder Varicose vein of leg Varicose Veins of Leg PAST SURGICAL HISTORY: Past Surgical History Past Surgical History: Procedure Laterality Date COLONOSCOPY, DIAGNOSTIC (RECTUM) N/A 04/04/2017 normal/recall 5 years/COLONOSCOPY FLEXIBLE PROXIMAL DIAGNOSTIC performed by Singh Bailey MD at [facility] COLONOSCOPY, DIAGNOSTIC (RECTUM) N/A 02/22/2023 biopsies show adenomatous polps/recall 5 years/COLONOSCOPY FLEXIBLE PROXIMAL DIAGNOSTIC performed by Singh Bailey MD at [facility] CYSTOSCOPY/TREAT MED BLADDER TUMOR N/A 11/16/2019 CYSTOURETHROSCOPY WITH FULGURATION MEDIUM BLADDER TUMOR performed by Elijah Moulton Jr., MD at OR [facility] INFORMATION Right 2006 [facility] center lung lobectomy INFORMATION surgery for bladder cancer x3 prior to 2019 REPAIR OF NASAL SEPTUM 1960 Nasal Septum Repair FAMILY HISTORY: Family History Family History Problem Relation Name Age of Onset Cancer Father colon Heart Disorder Father Heart Disorder Mother Heart Disorder Brother Heart Disorder Brother SOCIAL HISTORY: Social History Social History Tobacco Use Smoking status: Former Current packs/day: 0.00 Types: Cigarettes Quit date: 09/02/1986 Years since quittin.5 Smokeless tobacco: Never Substance Use Topics Alcohol use: No Comment: Patient sober since 1986 Drug use: No CURRENT MEDICATIONS: Note that discontinued continue to display for 24 hours. Ordered medications to be given in the future also display. Current Medications Current Outpatient Medications Medication Sig Dispense Refill ALBUTEROL 90 MCG/ACT IN AERS 2 puffs every 4 hrs as needed 1 MDI 5 oxybutynin (DITROPAN) 5 MG Tablet 1 Tablet in the morning and 1 Tablet before bedtime. Aspirin 81 MG Tablet Take 1 Tablet by mouth in the morning. budesonide-formoterol (SYMBICORT) 80-4.5 MCG/ACT inhaler Inhale 1 Puff by mouth 2 times a day. (Patient not taking: Reported on 09/15/2021) atorvaSTATin (LIPITOR) 20 MG Tablet 2 Tablets in the morning. chlorthalidone (HYGROTON) 25 MG Tablet Take 1 Tablet by mouth in the morning. finasteride (PROSCAR) 5 MG Tablet 1 Tablet in the morning. tamsulosin (FLOMAX) 0.4 MG Capsule 1 Capsule in the morning. Cholecalciferol (VITAMIN D3) 3000 units Tablet 1,000 Units daily. CYANOCOBALAMIN (VITAMIN B-12) 500 MCG Sublingual Tablet 500 mcg daily. (Patient not taking: Reported on 02/15/2023) traZODone (DESYREL) 150 MG Tablet 1 Tablet at bedtime. NIFEdipine ER 30 MG Oral Tablet Extended Release 24 Hour (Adalat CC) Take 1 Tablet by mouth daily. (Patient taking differently: Take 1 Tablet by mouth in the morning. Taking 60 mg daily.) 30 Tablet 0 Fluticasone-Salmeterol 500-50 MCG/ACT Inhalation Aerosol Powder Breath Activated Inhale 1 Puff by mouth in the morning and 1 Puff before bedtime. Potassium Chloride 20 MEQ Oral Packet Take 20 mEq by mouth in the morning and 20 mEq before bedtime. Sertraline HCl 100 MG Oral Tablet (Zoloft) Take 1 Tablet by mouth in the morning. Carvedilol 25 MG Oral Tablet (Coreg) 0.5 Tablets. Montelukast Sodium 10 MG Oral Tablet (Singulair) 1 Tablet. No current facility-administered medications for this visit. ALLERGIES: Allergies Amlodipine, Penicillins, and Zocor [simvastatin] ROS: Review of Systems Constitutional: Negative. HENT: Negative. Eyes: Negative. Respiratory: Cancer of lung, 2010 Cardiovascular: HTN, Right carotid artery occlusion, Varicose vein of leg Left carotid artery stenosis Gastrointestinal: Negative. Endocrine: Negative. Genitourinary: BPH Musculoskeletal: Osteoarthrosis Neurological: Negative. Hematological: Negative. Psychiatric/Behavioral: Negative. Objective[]Expand by Default PHYSICAL EXAMINATION: Most Recent Vital Signs: BP 125/75 | Pulse 70 | Temp 36.2 C , RR 16, O2sat 96 % (Temporal Artery) | Wt 94.6 kg (208 lb 9.6oz) | BMI 25.39 kg/m | BSA 2.25 m Physical Exam Constitutional: Appearance: Normal appearance. HENT: Head: Normocephalic and atraumatic. Cardiovascular: Rate and Rhythm: Normal rate and regular rhythm. Pulses: Normal pulses. Heart sounds: Normal heart sounds. Pulmonary: Effort: Pulmonary effort is normal. Breath sounds: Normal breath sounds. Abdominal: General: Abdomen is flat. Bowel sounds are normal. Palpations: Abdomen is soft. Comments: Right inguinal hernia+. Mild tenderness, the hernia is reducible. No tenderness or bulging on left groin area. Musculoskeletal: Cervical back: Normal range of motion and neck supple. Skin: General: Skin is warm and dry. Neurological: General: No focal deficit present. Mental Status: He is alert and oriented to person, place, and time. Psychiatric: Mood and Affect: Mood normal. Behavior: Behavior normal. LABS: Labs reviewed as indicated below: Component Ref Range & Units 5 d ago BUN 6 - 20 mg/dL 25 High Creatinine 0.6 - 1.2 mg/dL 1.0 Estimated Glomerular Filtration Rate >=60 mL/min 78 Comment: eGFR is calculated based on the CKD-EPI 2020 equation Sodium 135 - 146 mmol/L 135 Potassium 3.5 - 5.1 mmol/L 3.5 Chloride 98 - 107 mmol/L 100 CO2 22 - 32 mmol/L 25 Anion Gap 7 - 15 mmol/L 10 Glucose 70 - 120 mg/dL 124 High Albumin 3.8 - 5.0 g/dL 3.7 Low AST 10 - 50 U/L 16 Alkaline Phosphatase 35 - 130 U/L 51 Bilirubin, Total <=1.2 mg/dL 0.4 Calcium 8.4 - 10.2 mg/dL 9.3 Protein 6.0 - 8.3 g/dL 7.0 ALT 10 - 50 U/L 18 Resulting [place] [facility] Specimen Collected: 03/14/24 10:51 Last Resulted: 03/14/24 11:14 Component Ref Range & Units 5 d ago WBC 4.00 - 10.80 K/uL 8.40 RBC 4.50 - 5.25 M/uL 4.07 HGB 14.0 - 16.8 g/dL 11.8 Low HCT 40.0 - 48.4 % 36.4 Low MCV 82.0 - 99.5 fL 89.4 MCH 27.0 - 34.0 pg 29.0 MCHC 32.0 - 36.0 g/dL 32.4 RDW 11.5 - 15.5 % 17.1 PLT 140 - 400 K/uL 233 MPV 6.6 - 11.1 fL 10.1 nRBCs <=0 /100 WBCs 0 Resulting [place] [facility] Specimen Collected: 03/14/24 10:51 Last Resulted: 03/14/24 10:57 Component Ref Range & Units 5 d ago Color, Urine Light Yellow, Yellow, Dark Yellow Yellow Clarity, Urine Clear Clear Glucose, Urine Negative mg/dL Negative Bilirubin, Urine Negative Negative Ketone, Urine Negative mg/dL Negative Specific [place], Urine 1.003 - 1.030 1.011 Blood, Urine Negative Negative pH, Urine 5.0 - 7.5 Units 7.0 Protein, Urine Negative mg/dL Negative Urobilinogen, Urine 0.2, 1.0 mg/dL 0.2 Nitrite, Urine Negative Negative Esterase, Urine Negative Negative RBC, Urine 0 - 2 /HPF 0-2 WBC, Urine 0 - 2 /HPF 0-2 Bacteria, Urine 0 - 25 /HPF 0-25 Resulting [place] [facility] Specimen Collected: 03/14/24 10:59 Last Resulted: 03/14/24 11:40 IMAGING: PROCEDURE INFORMATION: Exam: CT Abdomen And Pelvis Without Contrast Exam date and time: 03/14/2024 11:14 AM Age: 78 years old Clinical indication: Other: Rlq pain; Additional info: Inguinal hernia, rlq pain TECHNIQUE: Imaging protocol: Computed tomography of the abdomen and pelvis without contrast. Radiation optimization: All CT scans at this facility use at least one of these dose optimization techniques: automated exposure control; mA and/or kV adjustment per patient size (includes targeted exams where dose is matched to clinical indication); or iterative reconstruction. COMPARISON: MRI ABDOMEN W WO CONTRAST 02/17/2024 8:44 AM FINDINGS: Lungs: Chronic fibrotic and interstitial changes at the lung periphery are present.There is moderate atherosclerotic calcification of the coronary arteries. Heart: The heart is enlarged. Liver: Normal. No mass. Gallbladder and biliary ducts: Gallbladder not visualized. Question subtle high attenuation density in the region of common bile duct may represent previously seen common bile duct stones on MR, though the appearance not definitive on CT. Pancreas: Normal. No ductal dilation. Spleen: Normal. No splenomegaly. Adrenal glands: Normal. No mass. Kidneys and ureters: Exophytic cyst lower pole right kidney measures 7.5 cm.Fluid-filled nonspecific loops of small bowel. There is no evidence of hydronephrosis. There is no evidence of renal or ureteral calcifications. Stomach and bowel: There is excessive colonic stool content. Fluid-filled nonspecific loops of small bowel. Appendix: A normal appendix is identified. Intraperitoneal space: Unremarkable. No free air. No significant fluid collection. Vasculature: The vasculature demonstrates diffuse moderate atherosclerotic calcification. Aortic ectasia and aorta iliac atherosclerosis is present. Lymph nodes: Unremarkable. No enlarged lymph nodes. Urinary bladder: Unremarkable as visualized. Reproductive: Unremarkable as visualized. Bones/joints: There are marked degenerative changes present. Soft tissues: Small fat containing inguinal hernias. No bowel herniation identified. IMPRESSION IMPRESSION: 1. Small fat containing inguinal hernias. No bowel herniation identified. 2. Appendix not inflamed 3. Fluid-filled loops of small bowel nonspecific and may be incidental but also consistent with mild enteritis. 4. Constipation 5. Question subtle high attenuation density in the region of common bile duct may represent previously seen common bile duct stones on MR, though the appearance not definitive on CT. No evidence of biliary ductal dilatation. COMMENTS: Consistent with the [employer]'s Incidental Findings Committee white paper (J Am Leo Radiol 2018): Any incidental renal lesion less than 1 cm or classified as too small to characterize, or any incidental cystic renal lesion characterized as simple-appearing, is likely benign. No follow-up imaging is recommended for these lesions per consensus recommendations based on imaging criteria. THIS DOCUMENT HAS BEEN ELECTRONICALLY SIGNED BY LAWRENCE GTZ MD Exam Ended: 03/14/24 11:21 Last Resulted: 03/14/24 11:41 IMPRESSION and PLAN: IMP: Right inguinal hernia Assessment: Levi Ford is a 78 year-old male who is referral for consult right inguinal hernia byDoreen Hawkins PA- C. Patient's past medical history with HTN ,BPH, lung cancer, right carotid artery occlusion, and IBS. Patient presents couple of mi history bulging and discomfort on right groin area. The bulging is reducible. Patient denies nausea vomiting. No constipation, No pain or bulging left groin area. Patient had a CT scan diagnoses-Small fat containing inguinal hernias. No bowel herniation identified. Plan: Based on the patient's symptoms,history/physical exam, and CT scan finding. Recommend to do open repair right inguinal hernia with mesh under sedation plus local anesthesia. I did talk to patient about the benefits and risks and alternatives of the procedure. I indicated the risks may includebut are not limited such as bleeding, infection, hernia recurrence, chronic pain, complications related to mesh, myocardial infarction .patient understood. he agreed to proceed the surgery .he signedinformed consent. I answered all questions. PRIMARY CARE PHYSICIAN: Lesa Cash PA-C * Carolina Goldman MD - 05/08/2024 10:46 AM EDT HISTORY AND PHYSICAL EXAMINATION - General Surgery [address] [address] Name: Levi Ford Location: Room/bed info not found Date: 05/08/2024 Time: 9:52 AM PRESENTING PROBLEM: Elective hernia repair HISTORY OF PRESENT ILLNESS: Levi Ford is a 78 year old, male with inguinal hernia who presents for elective repair with Dr. Goldman today. Was seen in March. Reports no change to medical or surgical history. No change in medications. See below. Denies fevers, chills, runny nose, sore throat, cough, congestion, CP, SOB, N/V/D/C, BRBPR/melena, dysuria, hematuria, h/o blood clots or bleeding disorders, or rashes. Per chart review " Levi Ford is a 78 year-old male who is referral for consult right inguinal hernia by Doreen Hawkins PA- C. Patient's past medical history with HTN ,BPH, lung cancer, right carotid artery occlusion, and IBS. Patient presents couple of mi history bulging and discomfort on right groin area. The bulging is reducible. Patient denies nausea vomiting. No constipation, No pain or bulging left groin area. Patient had a CT scan diagnoses-Small fat containing inguinal hernias. No bowel herniation identified. " HOSPITAL PROBLEM LIST: Principal Problem: Right inguinal hernia (POA: Unknown) POA = Present On Admission PAST MEDICAL HISTORY: Past Medical History: Diagnosis [...] performed by Singh Bailey MD at [facility] COLONOSCOPY, DIAGNOSTIC (RECTUM) N/A 02/22/2023 biopsies show adenomatous polps/recall 5 years/COLONOSCOPY FLEXIBLE PROXIMAL DIAGNOSTIC performed by Singh Bailey MD at [facility] CYSTOSCOPY/TREAT MED BLADDER TUMOR N/A 11/16/2019 CYSTOURETHROSCOPY WITH FULGURATION MEDIUM BLADDER TUMOR performed by Elijah Moulton Jr., MD at [facility] EGD, FLEXIBLE, DIAGNOSTIC 04/06/2024 erythematous mucosa antrum/biopsies normal/ESOPHAGOGASTRODUODENOSCOPY (EGD), FLEXIBLE, TRANSORAL, DIAGNOSTIC performed by Mat Rincon DO at [facility] INFORMATION Right 2006 right center lung lobectomy INFORMATION surgery for bladder cancer x3 prior to 2019 INFORMATION romeo REPAIR OF NASAL SEPTUM 1960 Nasal Septum Repair FAMILY HISTORY: Family History Problem Relation Name Age of Onset Cancer Father colon Heart Disorder Father Heart Disorder Mother Heart Disorder Brother Heart Disorder Brother SOCIAL HISTORY: Social History Tobacco Use Smoking status: Former Current packs/day: 0.00 Types: Cigarettes Quit date: 09/02/1986 Years since quittin.7 Smokeless tobacco: Never Substance Use Topics Alcohol use: No Comment: Patient sober since 1986 Drug use: No CURRENT HOSPITAL MEDICATIONS: Note that completed medications (per the MAR) continue to display for 24 hours. Ordered medicationsto be given in the future also display. No current facility-administered medications for this encounter. Current Outpatient Medications Medication Folic Acid 1 MG Oral Tablet Methotrexate Sodium 2.5 MG Oral Tablet Paraffin Wax predniSONE 5 MG Oral Tablet (Deltasone) Turmeric 500 MG Oral Capsule (RA Turmeric) Vitamin D (Cholecalciferol) 25 MCG (1000 UT) Oral Capsule Carvedilol 25 MG Oral Tablet (Coreg) Montelukast Sodium 10 MG Oral Tablet (Singulair) Fluticasone-Salmeterol 500-50 MCG/ACT Inhalation Aerosol Powder Breath Activated Potassium Chloride 20 MEQ Oral Packet Sertraline HCl 100 MG Oral Tablet (Zoloft) NIFEdipine ER 30 MG Oral Tablet Extended Release 24 Hour (Adalat CC) Aspirin 81 MG Tablet atorvaSTATin (LIPITOR) 20 MG Tablet budesonide-formoterol (SYMBICORT) 80-4.5 MCG/ACT inhaler chlorthalidone (HYGROTON) 25 MG Tablet finasteride (PROSCAR) 5 MG Tablet oxybutynin (DITROPAN) 5 MG Tablet tamsulosin (FLOMAX) 0.4 MG Capsule traZODone (DESYREL) 150 MG Tablet CYANOCOBALAMIN (VITAMIN B-12) 500 MCG Sublingual Tablet ALBUTEROL 90 MCG/ACT IN AERS ALLERGIES: Amlodipine, Penicillins, and Simvastatin ROS: All others negative other than those noted in the HPI. PHYSICAL EXAMINATION: Most Recent Vital Signs: BP: / Pulse: Resp: Temp: Temp Summary: No data recorded SpO2: O2 flow rate: Supplemental O2 Delivery: Gen: NAD Head: normocephalic, atraumatic Eyes: sclera white Resp: no increased work of breathing, oxygenating well on room air, no adventitious breath sounds Cardiac: distally perfused, no murmurs Abd: soft, flat, nTTP, bulging in right groin area none to the left Extremities: no edema, clubbing, or cyanosis Skin: no jaundice or rash Neuro: awake, alert, answers questions appropriately Psych: normal behavior, normal judgement LABS: Labs reviewed as indicated below: Routine labs from 03/25 reviewed Cr, WBC WNL Anemic IMAGING: CT AP 03/14/24 reviewed with b/l inguinal hernias IMPRESSION and PLAN: 78 yo M with symptomatic inguinal hernia Proceed to OR IVF NPO + MEDS ABX pvc monitor SCDs Patient seen and examined. Discussed with Dr. Jones Frank MD I have discussed the patient's management with the resident/fellow physician and agree with the note. Please refer to the documented findings and plan of care. This patient's visit today consisted ofan evaluation. I was present and confirmed the findings of the history and exam. Carolina Goldman MD documented in this encounter Nursing Notes * Marie Bryant RN - 05/06/2024 10:47 AM EDT Patient identified by: name/birthdate Person taught: Patient Optimnnamdi case procedure confirmed with surgical consent Laterality confirmed as Right Surgery date at time of Pre-Surgery Center Encounter: 05/08/2024 What procedure is patient having? Procedure: REPAIR INITIAL INGUINAL HERNIA REDUCIBLE AGE 5 OR MORE(69179) In an emergency, is patient willing to accept blood products or blood transfusion? unknown Do you need to place a blood bank order? No Anesthesia consent pool notified? N/A Anesthesia evaluation requested per case documentation? No Preop Evaluation Requested? No PATIENT EDUCATION SCREENING Person taught: Patient Motivation Level: Asks Questions and Eager to Learn Language Barrier: No Physical Barrier: N/A METHOD: Lecture-telephone interview Patient Preferred Learning Methods: Lecture-Telephone interview Health History interview completed, questions answered, and the following patient instructions provided via telephone interview: Preoperative bathing instructions General preoperative instructions Medication instructions NPO instructions - If your normal morning routine take prednisone, carvedilol, Montelukast, sertraline, nifedipine, atorvastatin, routine and if needed rescue breathing medications the morning of surgery. OUTCOME: State / Describe / Explain, Needs Reinforcement, and Verbalizes understanding of education documented in this encounter OR Notes * OR Surgeon - Carolina Goldman MD - 05/08/2024 1:44 PM EDT [facility] [place] [id number] OPERATIVE REPORT Name: Levi Ford Date: 05/08/2024 Time: 1:44 PM Location: [facility] Service: General Surgery Date of Operation: 05/08/2024 Pre-op Diagnosis: Right inguinal hernia Post-op Diagnosis: Right inguinal hernia Surgeon: Carolina Goldman MD Assistants: Rocio Segura MD Anesthesia: Monitored Local Anesthesia with Sedation Operation: Open repair right inguinal hernia with mesh Findings: Right inguinal hernia Case Acuity: Elective Wound Class: Clean Specimen and Disposition: Tissue to Pathology. Cord lipoma Estimated Blood Loss: 10 mL Fluids: 600 mL Urine Output: N/A Drains/Implants: none Complications: none Postoperative Condition: good Indications and History: IMP: Right inguinal hernia Assessment: Levi Ford is a 78 year-old male who is referral for consult right inguinal hernia byDoreen Hawkins PA- C. Patient's past medical history with HTN ,BPH, lung cancer, right carotid artery occlusion, and IBS. Patient presents couple of mi history bulging and discomfort on right groin area. The bulging is reducible. Patient denies nausea vomiting. No constipation, No pain or bulging left groin area. Patient had a CT scan diagnoses-Small fat containing inguinal hernias. No bowel herniation identified. Plan: Based on the patient's symptoms,history/physical exam, and CT scan finding. Recommend to do open repair right inguinal hernia with mesh under sedation plus local anesthesia. I did talk to patient about the benefits and risks and alternatives of the procedure. I indicated the risks may includebut are not limited such as bleeding, infection, hernia recurrence, chronic pain, complications related to mesh, myocardial infarction .patient understood. he agreed to proceed the surgery .he signedinformed consent. I answered all questions. Description of Operation: Patient was brought to the operating room and identified and verify the procedure. He was placed onthe operating table in supine position. patient received a general anesthesia by Anesthesiologist. Patient received 600 mg clindamycin IV for prophylactic antibiotic, SCD on bilateral legs. The lower abdomen and right groin was prepped and draped in the usual sterile fashion. A Time Out was held, identifying correct patient, site, procedure, antibiotics, and expected duration, EBL and post op disposition. I injections local anesthesia by using 1% lidocaine mixed with 0.5% Marcaine on the right inguinal area. An incision was made parallel to and a few centimeters above the inguinal crease overlying theposition of the spermatic cord between the ASIS and the lateral aspect of the pubis on the right side. The incision was carried down through subcutaneous tissue and Claire's fascia to the level of the external oblique fascia. Local anesthetic was injected deep to the external oblique fascia to hydrodissect it away from the underlying structures. An incision was made in the external oblique fasciain the direction of its fibers down to open the external ring, and flaps were raised deep to the fascia medially and laterally to expose the spermatic cord structures. The spermatic cord structures were encircled with a Werner drain. Cremasteric muscle fibers were away from the cord structures. The ilioinguinal nerve was identified. Patient was found to have a right indirect inguinal hernia, which was dissected free from the cord structures. There is one cord lipoma, size about 2 x 2cm. I resection the cord lipoma which sent to pathology. The hernia sac was then reduced back into the abdomen. A mesh plug was placed into the direct space and sutured in place. Additional conjoint tendon was approximated to the shelving edge of the inguinal ligament using interrupted 2-0 prolenes. A 3x5 cm polypropylene Bard keyhole mesh was placed over the floor of the inguinal canal. This wassecured in place to the pubic tubercle using a 2-0 prolene. Next the mesh was secured to the shelving edge laterally using interrupted 2-0 prolene sutures and medially to the conjoint tendon using interrupted 2-0 prolene sutures. The wings of the mesh were brought around the cord structures and secured to eachother to encircle the cord again using a 2-0 prolene. The mesh was found to be lying flat in the floor of the inguinal canal at the completion of securing the mesh in place. The Townsend drain was removed, and the spermatic cord structures were restored to usual anatomic position. The exte rnal oblique fascia was closed over the spermatic cord structures to re-create the external ring using an 2-0 Vicryl in running fashion. Scarpas fascia was then closed with a running 3-0 vicryl. Further local anesthetic was injected in the surgical site. The site was inspected for hemostasis, whichwas achieved with electrocautery. The skin was then closed with a running 4-0 monocryl. The surgical site was cleaned and dryed and dermabond was applied to the incision. Two testicles were verified to be in anatomic position within the scrotum at the conclusion of the operation. Patient was then awakened from sedation without difficulty, and taken to the PACU in stable condition, having sufferedno untoward events. All surgical counts were correct at the conclusion of the case. The patient tolerated the procedurewell, was awakened from anesthesia, extubated, and taken to the recovery room in stable condition. Attestation: I performed the procedure * Operative Report Brief - Carolina Goldman MD - 05/08/2024 1:28 PM EDT [facility] [id number] OPERATIVE REPORT - BRIEF Name: Levi Ford Date: 05/08/2024 Time: 1:28 PM Location: OR [facility] Service: General Surgery Date of Operation: 05/08/2024 Pre-op Diagnosis: Right inguinal hernia Post-op Diagnosis: Right inguinal hernia Operation: open repair Right inguinal hernia with mesh Surgeon: Carolina Goldman MD Assistants: Rocio Segura MD Anesthesia: Monitored Local Anesthesia with Sedation Drains: none Estimated Blood Loss: 10 ml. IV Fluids: 600 ml. Urine Output: N/A Specimens/Disposition: cord lipoma Apparent Intraoperative Complications: NONE Patient Condition: good Disposition: Post Anesthesia Care Unit Attestation: I performed the procedure documented in this encounter Plan of Treatment Upcoming Encounters Date Type Department Care Team (Late st Contact Info) Description 05/11/2024 8:30 AM EDT Scheduled Telephone General Surgery Rachel Kapoorwn [address] [place] [address] Vicky, Nurse Gen Surg Lisa Tee RN [address] [place] [address] 05/21/2024 11:15 AM EDT Office Visit General Surgery Lisa TeeVicky [address] [place] [address] Carolina Goldman MD [address] [place] [address] 08/10/2024 9:00 AM EST Office Visit Rheumatology, [address] [place] [address] Yan Del Rio CRNP [address] [place] [address], [place] [address] Pending Results Name Type Priority Associated Diagnoses Date /Time SURGICAL PATHOLOGY Pathology Routine Right inguinal hernia 05/08/2024 12:55 PM EDT Scheduled Orders Name Type Priority Associated Diagnoses Orde r Schedule SURGICAL PATHOLOGY Pathology Routine Right inguinal hernia Release Upon Ordering for 1 Occurrences starting 05/08/2024, 1 completed Scheduled Procedures Name Priority Associated Diagnoses Date/Ti [...] this encounter Medical Devices Implanted Type Area Magazine Filler Device Identifier Shelf Expiration Date Model / Serial / Lot Mesh Plug And Patch Med - [id number] Implanted:Qty: 1 on 05/08/2024 by Carolina Goldman MD at OR [facility] Mesh Right: Groin COVIDIEN : [place] SURGICAL 06/01/2028 [facility]-02 / / [id number] documented as of this encounter Procedures Procedure Name Priority Date/Time Associated Diagnosis Comments GLUCOSE METER, POINT OF CARE RETA 05/08/2024 10:59 AM EDT documented in this encounter Results * GLUCOSE METER, POINT OF CARE (05/08/2024 10:59 AM EDT) Glucose Meter 120 70 - 120 mg/dL 05/08/2024 11:06 AM EDT [facility] Blood Whole blood specimen / Unknown 05/08/2024 10:59 AM EDT 05/08/2024 11:06 AM EDT Carolina Goldman MD LAB POINT OF CARE TE ST DOCKED DEVICE UNSOLICITED RESULTS [facility] [address] [facility] [place] [address] documented in this encounter Visit Diagnoses Diagnosis Right inguinal hernia- Primary Inguinal hernia without mention of obstruction or gangrene, unilateral or unspecified, (not specified as recurrent) documented in this encounter Administered Medications Inactive Administered Medications - up to 3 most recent administrations Medication Order MAR Action Action Date Dose Rate Site Acetaminophen (Tylenol) tab 975 mg 975 mg, Oral, ONCE, On Sat05/08/24 at 1100, For 1 dose, Maximum of 4 grams (4000 mg) per day., Pre-Op Given 05/08/2024 10:50 AM EDT 975 mg celecoxib (CeleBREX) cap 200 mg 200 mg, Oral, ONCE, On Sat05/08/24 at 1100, For 1 dose, Do not use in patients with GFR <60 or patients receiving ketorolac., Pre-Op Given 05/08/2024 10:50 AM EDT 200 mg chlorhexidine gluconate cloth 2 % pad 1 Pad 1 Pad, External, PREOP, First dose on Sat05/08/24 at 1100, Last dose on Sat05/08/24 at 1100, For 1 dose, Cleanse surgical site area immediately before transferring intra-op, Pre-Op Given 05/08/2024 11:00 AM EDT 1 Pad fentaNYL (PF) inj 50 mcg 50 mcg, IV Push, ONCE, On Sat05/08/24 at 1430, For 1 dose, When given IV Push its recommended that the dose be given over 3 to 5 minutes. Given 05/08/2024 1:57 PM EDT 50 mcg isolyte-S pH 7.4 infusion Intravenous, at 50 mL/hr, Plasma-LYTE 148, isolyte-S, and isolyte-S pH 7.4 are considered equivalent - including for MAR barcode scanning., CONTINUOUS, Starting on Sat05/08/24 at 1100, Until Sat05/08/24 at 1836, Pre-Op Restarted 05/08/2024 1:00 PM EDT Continue from Pre-Op 05/08/2024 12:03 PM EDT 50 mL/hr New Bag 05/08/2024 11:11 AM EDT 50 mL/hr metoclopramide (Reglan) tab 10 mg 10 mg, Oral, ONCE, On Sat05/08/24 at 1100, For 1 dose, Pre-Op Given 05/08/2024 10:50 AM EDT 10 mg Povidone-Iodine nasal swab 4 Swab 4 Swab, Nasal, PREOP, First dose on Sat05/08/24 at 1100, Last dose on Sat05/08/24 at 1100, For 1 dose, Tilt the bottle slightly, dip one swab into solution and stir vigorously for 10 seconds. Withdraw the swab slowly to avoid wiping solution off during removal. Insert swab comfortably into one nostril and rotate for 15 seconds, covering all surfaces. Then focus on the inside tip of nostril and rotate for an additional 15 seconds. Using a new swab, Repeat above steps in the other nostril (Swab 2). Repeat the application in both nostrils using a fresh swab each times (Swab 3 and 4)., Pre-Op Given 05/08/2024 11:00 AM EDT 4 Swabs documented in this encounter Active and Recently Administered Medications Times are shown in EDT. Scheduled Medication Order 05/06/2024 05/07/2024 05/08/2024 Acetaminophen (Tylenol) tab 975 mg (COMPLETED) 975 mg, Oral, ONCE, On Sat05/08/24 at 1100, For 1 dose, Maximum of 4 grams (4000 mg) per day., Pre-Op 1050 (Given - Provid er: Irene Louise RN) celecoxib (CeleBREX) cap 200 mg (COMPLETED) 200 mg, Oral, ONCE, On Sat05/08/24 at 1100, For 1 dose, Do not use in patients with GFR <60 or patients receiving ketorolac., Pre-Op 1050 (Given - Provid er: Irene Louise RN) chlorhexidine gluconate cloth 2 % pad 1 Pad (COMPLETED) 1 Pad, External, PREOP, First dose on Sat05/08/24 at 1100, Last dose on Sat05/08/24 at 1100, For 1 dose, Cleanse surgical site area immediately before transferring intra-op, Pre-Op 1100 (Given - Provid er: Irene Louise RN) Clindamycin in D5W ivpb 900 mg (COMPLETED) 900 mg, IV Piggyback, ONCE, On Sat05/08/24 at 1115, For 1 dose 1209 (Given - Provid er: Inez Boone CRNA) fentaNYL (PF) inj 50 mcg (COMPLETED) 50 mcg, IV Push, ONCE, On Sat05/08/24 at 1430, For 1 dose, When given IV Push its recommended that the dose be given over 3 to 5 minutes. 1357 (Given - Provid er: Irene Louise RN) metoclopramide (Reglan) tab 10 mg (COMPLETED) 10 mg, Oral, ONCE, On Sat05/08/24 at 1100, For 1 dose, Pre-Op 1050 (Given - Provid er: Irene Louise RN) oxyCODONE (Oxy IR) tab 5 mg 5 mg, Oral, ONCE, On Sat05/08/24 at 1415, For 1 dose, Post-op 1415 (Due) Povidone-Iodine nasal swab 4 Swab (COMPLETED) 4 Swab, Nasal, PREOP, First dose on Sat05/08/24 at 1100, Last dose on Sat05/08/24 at 1100, For 1 dose, Tilt the bottle slightly, dip one swab into solution and stir vigorously for 10 seconds. Withdraw the swab slowly to avoid wiping solution off during removal. Insert swab comfortably into one nostril and rotate for 15 seconds, covering all surfaces. Then focus on the inside tip of nostril and rotate for an additional 15 seconds. Using a new swab, Repeat above steps in the other nostril (Swab 2). Repeat the application in both nostrils using a fresh swab each times (Swab 3 and 4)., Pre-Op 1100 (Given - Provid er: Irene Louise RN) Continuous Medication Order 05/06/2024 05/07/2024 05/08/2024 isolyte-S pH 7.4 infusion Intravenous, at 50 mL/hr, Plasma-LYTE 148, isolyte-S, and isolyte-S pH 7.4 are considered equivalent - including for MAR barcode scanning., CONTINUOUS, Starting on Sat05/08/24 at 1100, Until Sat05/08/24 at 1836, Pre-Op 1111 (New Bag - Prov ider: Irene Louise RN)1203 (Continue from Pre-Op - Provider: Inez Boone CRNA)1259 (Paused - Provider: Adelina Moura CRNA - Comment: Switch to gravity)1300 (Restarted - Provider: Adelina Moura CRNA) PRN Medication Order 05/06/2024 05/07/2024 05/08/2024 bacitracin zinc ointment (CANCELED) ONCE PRN INTRA PROCEDURE, Starting on 05/08/24 at 1312, Until 05/08/24 at 1323, Intra-Op 1312 (Given - Provid er: Carolina Goldman MD - Comment: right groin) bupivacaine 15 mL, lidocaine 1 % 15 mL inj (CANCELED) ONCE PRN INTRA PROCEDURE, Starting on 05/08/24 at 1224, Until 05/08/24 at 1323, Intra-Op 1304 (Given - Provid er: Carolina Goldman MD - Comment: Right Groin) documented in this encounter Advance Directives * [...] Agents on File Name Relationship Healthcare Agent [facility] Communication Jennifer Farr Drkatherine Spouse Health Care Agent Care Teams [employer] Lab[employer] Relationship Specialty Start Date End Date Lesa Cash PA-C [address] [place] [address] PCP - General Physician Neighborhood Aide 09/15/21 documented as of this encounter
[2024-10-27] MEDS: FLUTICASONE/VILANTEROL 100/25MCG 14 PUFFS/INHALER INH SCH (07:19)
[2024-10-27] MEDS: FINASTERIDE 5 MG TAB PO SCH (07:20)
[2024-10-27] MEDS: NIFEdipine EXTENDED REL 30 MG TABCR PO SCH (07:20)
[2024-10-27] MEDS: CHLORTHALIDONE 25 MG TAB PO SCH (07:20)
[2024-10-27] MEDS: predniSONE 20 MG TAB PO SCH (07:20)
[2024-10-27] MEDS: TAMSULOSIN HCL 0.4 MG CAP PO SCH (07:21)
[2024-10-27] MEDS: SERTRALINE HCL 100 MG TABLET PO SCH (07:21)
[2024-10-27] MEDS: ASPIRIN 81 MG ECTAB PO SCH (07:21)
[2024-10-27] MEDS: FOLIC ACID 1 MG TAB PO SCH (07:22)
[2024-10-27 08:21] LABS: Hematocrit (blood only) 34.1 % (42.0-52.0); Hemoglobin 11.2 g/dl (14.0-18.0); Mean Corpuscular Hemoglobin 29.6 pg (25.0-34.0); Mean Corpuscular Hgb Conc 32.8 g/dL (32.0-36.0); Mean Platelet Volume 10.4 fL (9.4-12.4); Platelet Count 478 K/uL (130-400); RDW Standard Deviation 45.6 fL (36.4-46.3); Red Blood Count 3.79 M/uL (4.70-6.10); White Blood Count 13.22 K/ul (4.8-10.8)
[2024-10-27 08:36] LABS: BUN Creatinine Ratio 31.3 (10-20); Calcium 8.9 mg/dl (8.6-10.3); Creatinine Clr Calc Pharmacy 90.1 ml/min; Magnesium 1.9 mg/dl (1.7-2.4); Potassium 3.8 mmol/L (3.5-5.1)
[2024-10-27 09:26] LABS: A calco-baum cmplx NotReported Not Detected (NotDetected); Bact fragilis Not Reported Not Detected (NotDetected); Blood Culture Id Panel PCR Panel Negative (NotDetected); C auris Not Reported Not Detected (NotDetected); Calbicans Not Reported Not Detected (NotDetected); Candida glabrata Not Reported Not Detected (NotDetected); Candida krusei Not Reported Not Detected (NotDetected); Cneoformans/gatti Not Reported Not Detected (NotDetected); Cparapsilosis Not Reported Not Detected (NotDetected); E cloacae compx Not Reported Not Detected (NotDetected); Efaecalis Not Reported Not Detected (NotDetected); Efaecium Not Reported Not Detected (NotDetected); Enterobacterales Not Reported Not Detected (NotDetected); Escherichia coli Not Reported Not Detected (NotDetected); H influenzae Not Reported Not Detected (NotDetected); K aerogenes Not Reported Not Detected (NotDetected); Koxytoca Not Reported Not Detected (NotDetected); Kpneumoniae grp Not Reported Not Detected (NotDetected); Lmonocyt Not Reported Not Detected (NotDetected); N meningitidis Not Reported Not Detected (NotDetected); P aeruginosa Not Reported Not Detected (NotDetected); Proteus spp Not Reported Not Detected (NotDetected); Salmonella spp Not Reported Not Detected (NotDetected); Staph lugdunensis Not Reported Not Detected (NotDetected); Staph spp. Not Reported Not Detected (NotDetected); Staphaureus Not Reported Not Detected (NotDetected); Staphepi Not Reported Not Detected (NotDetected); Stenmaltophilia Not Reported Not Detected (NotDetected); Strep agal(GrpB) Not Reported Not Detected (NotDetected); Strep pneum Not Reported Not Detected (NotDetected); Strep pyog (GrpA) Not Reported Not Detected (NotDetected); Strep spp Not Reported Not Detected (NotDetected)
--- OUTSIDE RECORDS SUMMARY | 2024-10-27 09:40 | External Medical Summary | Summary of Care ---
Author Name Unknown Organization [facility] Address [address] [place] [address] Phone [phone] Care Team Providers Care Division Roadmaster Name Role Phone Lesa Cash PA-C Primary Care Provid er Reason for Visit * Reason Onset Date Comments Imaging Records Request 10/26/2024 Encounter Details Date Type Department Care Team (Late st Contact Info) Description 10/26/2024 Telephone Radiology Film File [address] [place] [address] Support, Imaging Radiology [address] [place] [address] Imaging Records Request Allergies Active Allergy Reactions Criticality Noted Date Comments Amlodipine Unknown 04/01/2017 Penicillins 02/05/2002 hives/eye swelling Simvastatin Other (Please comment) 12/16/2007 Pt states felt really bad Other Reaction(s): Liver enzymes abnormal documented as of this encounter (statuses as of 10/27/2024) Medications ALBUTEROL 90 MCG/ACT IN AERSIndications :Acute [...] MG Tablet 1 Tablet at bedtime. Active Fluticasone-Stephen meterol 500-50 MCG/ACT Inhalation Aerosol Powder [...] Oral Tablet (Coreg) 0.5 Tablets. 3 Active Turmeric 500 MG Oral Capsule [...] Wear as directed. 1 Each 4 Active Atorvastatin Calcium 20 MG Oral Tablet (Lipitor) Take 1 Tablet by mouth every evening. Active NIFEdipine ER 60 MG Oral Tablet Extended Release 24 Hour (Adalat CC) Take 1 Tablet by mouth in the morning. Active Montelukast Sodium 10 MG Oral Tablet (Singulair) Take 1 Tablet by mouth at bedtime. 30 Tablet 3 10/21/2024 2:09 PM EST 5 Active predniSONE 5 MG Oral Tablet (Deltasone) Take 1 Tablet by mouth in the morning. Do not start before October 27, 2024. 30 Tablet 3 5 Active Hydroxychloroqu ine Sulfate 200 MG Oral Tablet (Plaquenil) Take 1 Tablet by mouth in the morning and 1 Tablet before bedtime. Do not start before October 22, 2024. 14 Tablet 3 10/21/2024 2:09 PM EST 5 Active Methotrexate Sodium 2.5 MG Oral Tablet Take 8 Tablets by mouth once a week - take on Saturday - Do not start before October 25, 2024. 30 Tablet 10/21/2024 2:09 PM EST 5 Active predniSONE 20 MG Oral Tablet (Deltasone) Take 1 Tablet by mouth in the morning for 5 days. 5 Tablet 10/21/2024 2:09 PM EST 5 10/26/19 25 documented as of this encounter (statuses as of 10/27/2024) Active Problems Problem Noted Date Diagnosed Date [...] as of this encounter (statuses as of 10/27/2024) Social History Tobacco Use Types Packs/Day Years [...] Souleymane Orosco RN documented in this encounter Miscellaneous Notes * Telephone Encounter - Mat Padilla Epic Support - 10/26/2024 8:44 PM EST [facility] requesting 10/18/2024 CT PULM images be pushed to their system [place] Authorization to Release on file. Images pushed to [facility] Life Image account Job ID: [id number] Report(s) faxed to [phone] documented in this encounter Plan of Treatment [...] this encounter Medical Devices Implanted Type Area Educational Aide Device Identifier Shelf Expiration Date Model / Serial / Lot Mesh Plug And Patch Med - [id number] Implanted:Qty: 1 on 05/08/2024 by Carolina Goldman MD at OR [facility] Mesh Right: Groin COVIDIEN : [place] SURGICAL 06/01/2028 [facility]-02 / / [id number] documented as of this encounter Advance Directives [...] Ford Spouse Health Care Agent Care Teams Division Roadmaster Relationship Specialty Start Date End Date Lesa Cash PA-C [address] [facility] [place] [address] PCP - General Physician Superintendent [employer] 09/15/21 documented as of this encounter
--- NOTE | 2024-10-27 14:01 | Pulmonology Progress Note ---
Date of Service October 27, 2024 Assessment & Plan (1) Abnormal chest CT: (2) ILD (interstitial lung disease): (3) History of lung cancer: (4) COPD (chronic obstructive pulmonary disease): (5) Acute on chronic hypoxic respiratory failure: Plan CT chest 10/26/2024 personally reviewed: Increased interstitial marking appreciated in the left upper and left lower as well as right lower lobe More pronounced on the left side Questionable traction bronchiectasis in the right lower lobe Minimal subcarinal as well as 10L lymphadenopathy --Acute hypoxic respiratory failure Respiratory BioFire positive for COVID-19 on 10/26/2024, he also tested positive on 09/25/2024 at [facility] BNP 243 Procalcitonin 0.05 I do not think patient has active COVID given that he was positive more than a month ago -- Abnormal chest CT Patient seems to have increased reticular marking as well as traction bronchiectasis bilateral lower lobe I was able to look at the CAT scan of the chest which was done 10/18/2024 at [facility]. It seems that the opacities are getting worse especially in the left upper lobe -- History of rheumatoid arthritis On chronic prednisone as well as methotrexate --History of lung cancer Status post partial lobectomy Plan: Given the worsening opacities in the left upper lobe compared to the CAT scan of the chest which was done 10 days ago I think it is reasonable to proceed with bronchoscopy given the patient is immunosuppressed on methotrexate as well as chronic prednisone Risk and benefit of the procedure explained to the patient in depth. Patient understands and wants to go ahead with the procedures Consent signed, witnessed and put in the chart Case discussed with primary team Please note the above document was generated using voice recognition software. It may contain grammatical, syntax or spelling errors.Any formal questions or concerns about the content, text or information contained within the body of this dictation should be directly addressed to the provider for clarification. Admission and Anticipated Discharge Date Admission Date: October 26, 2024 Subjective Patient seen and examined at bedside. No acute distress, no adverse events overnight He was saturating 93% on 3 L nasal cannula Overall he stated that he is doing the same since coming to the hospital Coughing up clear phlegm. No hemoptysis Does complain of some chest congestion No fever or chills Review of Systems 2 Review of Systems: All systems reviewed & are unremarkable except as noted in Subjective Physical Exam 2 Physical Exam: Constitutional: No acute distress HEENT: EOMI, PERRLA, legally blind in the right eye Respiratory system: Decreased air entry bilaterally, no wheeze, no rhonchi, positive Velcro-like crackles appreciated bilaterally more on the right side CVS: S1-S2 positive, no murmurs or gallops Abdomen: Soft, nontender, nondistended, positive bowel sounds x4 Extremities: +2 pulses bilaterally radialis/ dorsalis pedis, no cyanosis, no edema Neuro: Awake alert oriented x3 Psych: Normal mood and affect G/U: No Clemons Skin: no rashes, warm and dry Lymphatic: no cervical or axillary lymphadenopathy Results & Data Results & Data Vital Signs (Past 12 Hours) Vital Signs Temp Pulse Resp BP Pulse Ox Pulse Ox Pulse Ox 10/27/24 13:21 59 L 18 96 10/27/24 11:24 90 82 L 10/27/24 09:17 10/27/24 07:59 57 L 20 86 L 10/27/24 07:14 36.3 C L 52 L 18 152/71 H 96 O2 Del Method O2 Flow Rate O2 Flow Rate O2 Flow Rate 10/27/24 13:21 Nasal Cannula 3 10/27/24 11:24 3 2.5 10/27/24 09:17 Nasal Cannula 3 10/27/24 07:59 Nasal Cannula 2 10/27/24 07:14 Nasal Cannula 2 Laboratory Results 10/27/24 07:27 10/27/24 07:27 PG Care Time/CCT Total # of Minutes Spent Total Time Spent with Patient: Total time spent is greater than 50% in coordination of care (as documented) at patient's floor/unit and/or counseling patient: Coding Level of Care Code 71074 SUB INP/OBS CARE 3/50MIN Diagnoses Abnormal chest CT R93.89 ILD (interstitial lung disease) J84.9 History of lung cancer Z85.118 COPD (chronic obstructive pulmonary disease) J44.9 Acute on chronic hypoxic respiratory failure J96.21
--- NOTE | 2024-10-27 15:02 | Hospitalist Progress Note ---
Date of Service October 27, 2024 Assessment & Plan (1) Acute on chronic hypoxic respiratory failure: Plan: -Patient recently had a hospitalization for similar diagnosis. 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: Plan: -f/u autoimmune workup (3) Bilateral pulmonary infiltrates: Plan: see above (4) Rheumatoid arthritis: Plan: -continue plaquenil (5) COPD (chronic obstructive pulmonary disease): Plan: -continue inhalers (6) History of lung cancer: Plan: -noted (7) History of bladder cancer: Plan: -noted (8) Hypertension: (9) BPH (benign prostatic hyperplasia): (10) Status post partial lobectomy of lung: Plan Feeding/fluids: NPO after midnight Analgesia: tylenol Sedation: na Thromboprophylaxis: lovenox Head up position: na Ulcer prophylaxis: na Glycemic control: na Spontaneous breathing trial: NC Bowel care: start miralax prn Indwelling catheter removal: na Deescalation of antibiotics: pending culture results I spent a total of 55 minutes in direct patient care, including [id number] time with the patient and/or family, reviewing medical records, ordering and reviewing diagnostic tests, and coordinating care with other healthcare providers. This time includes: history taking, physical examination, medical decision making, counseling, ECG interpretation, imaging interpretation, lab interpretation, orders, and education, excluding time spent in the performance of separately billed services. Admission and Anticipated Discharge Date Admission Date: October 26, 2024 Subjective Patient seen and examined at bedside. Patient is doing a little better today. He states he feels a little less short of breath. he states that he understands that he will likely need oxygen at discharge. He is agreeable with the plan, and looking forward to talking to the lung doctors. Review of Systems Review of Systems: CONSTITUTIONAL: fatigue, weakness EYES: Patient denies any visual symptoms. EARS, NOSE, AND THROAT: No difficulties with hearing. No symptoms of rhinitis or sore throat. CARDIOVASCULAR: Patient denies chest pains, palpitations, orthopnea and paroxysmal nocturnal dyspnea. RESPIRATORY: SOB GI: No nausea, vomiting, diarrhea, constipation, abdominal pain, hematochezia or melena. : No urinary hesitancy or dribbling. No nocturia or urinary frequency. No abnormal urethral discharge. MUSCULOSKELETAL: No myalgias or arthralgias. NEUROLOGIC: No chronic headaches, no seizures. Patient denies numbness, tingling or weakness. PSYCHIATRIC: Patient denies problems with mood disturbance. No problems with anxiety. ENDOCRINE: No excessive urination or excessive thirst. DERMATOLOGIC: Patient denies any rashes or skin changes. Physical Exam Physical Exam: Gen: A&O 3 NAD HEENT: NCAT, EOMI, not icteric. External ears normal. No rhinorrhea. Moist mucous membranes. Neck: Supple, full range of motion, no observable masses, No meningeal sign. Lungs: No Respiratory distress. CV: RRR, no edema. Abdomen: Soft, nondistended, No rebound tenderness. MSK: No joint swelling, no redness. Skin: No rashes, petechiae, lesions. Normal color per patient. Neuro: Normal Gait, Grossly intact. Psych: Appropriate for situation. Results & Data Results & Data Vital Signs (Past 12 Hours) Vital Signs Temp Pulse Resp BP Pulse Ox Pulse Ox Pulse Ox 10/27/24 13:21 59 L 18 96 10/27/24 11:24 90 82 L 10/27/24 09:17 10/27/24 07:59 57 L 20 86 L 10/27/24 07:14 36.3 C L 52 L 18 152/71 H 96 O2 Del Method O2 Flow Rate O2 Flow Rate O2 Flow Rate 10/27/24 13:21 Nasal Cannula 3 10/27/24 11:24 3 2.5 10/27/24 09:17 Nasal Cannula 3 10/27/24 07:59 Nasal Cannula 2 10/27/24 07:14 Nasal Cannula 2 Laboratory Results -personally reviewed,
[2024-10-27] MEDS: REMDESIVIR 200 MG in SODIUM CHLORIDE 0.9% 210 ML IV STA (19:06)
[2024-10-28] MEDS: oxyCODONE HCL IR 5 MG TAB (IMMEDIATE RELEASE) PO PRN (07:38)
--- NOTE | 2024-10-28 07:47 | Pulmonology Progress Note ---
Date of Service October 28, 2024 Assessment & Plan (1) Abnormal chest CT: (2) ILD (interstitial lung disease): (3) History of lung cancer: (4) COPD (chronic obstructive pulmonary disease): (5) Acute on chronic hypoxic respiratory failure: Plan CT chest 10/26/2024 personally reviewed: Increased interstitial marking appreciated in the left upper and left lower as well as right lower lobe More pronounced on the left side Questionable traction bronchiectasis in the right lower lobe Minimal subcarinal as well as 10L lymphadenopathy --Acute hypoxic respiratory failure Respiratory BioFire positive for COVID-19 on 10/26/2024, he also tested positive on 09/25/2024 at [facility] BNP 243 Procalcitonin 0.05 I do not think patient has active COVID given that he was positive more than a month ago -- Abnormal chest CT Patient seems to have increased reticular marking as well as traction bronchiectasis bilateral lower lobe I was able to look at the CAT scan of the chest which was done 10/18/2024 at [facility]. It seems that the opacities are getting worse especially in the left upper lobe -- History of rheumatoid arthritis On chronic prednisone as well as methotrexate --History of lung cancer Status post partial lobectomy Plan: Given the worsening opacities in the left upper lobe compared to the CAT scan of the chest which was done 10 days ago I think it is reasonable to proceed with bronchoscopy given the patient is immunosuppressed on methotrexate as well as chronic prednisone Bronchoscopy today Risk and benefit of the procedure explained to the patient in depth. Patient understands and wants to go ahead with the procedures Consent signed, witnessed and put in the chart Case discussed with primary team Please note the above document was generated using voice recognition software. It may contain grammatical, syntax or spelling errors.Any formal questions or concerns about the content, text or information contained within the body of this dictation should be directly addressed to the provider for clarification. Admission and Anticipated Discharge Date Admission Date: October 26, 2024 Subjective Patient seen and examined at bedside. No acute distress, no adverse events overnight Overall he says he is feeling the same He was saturating 94-95% 2 L nasal cannula No headache, no nausea, no vomiting He is n.p.o. for procedure today Review of Systems 2 Review of Systems: All systems reviewed & are unremarkable except as noted in Subjective Physical Exam 2 Physical Exam: Constitutional: No acute distress HEENT: EOMI, PERRLA, legally blind in the right eye Respiratory system: Decreased air entry bilaterally, no wheeze, no rhonchi, positive Velcro-like crackles appreciated bilaterally more on the right side CVS: S1-S2 positive, no murmurs or gallops Abdomen: Soft, nontender, nondistended, positive bowel sounds x4 Extremities: +2 pulses bilaterally radialis/ dorsalis pedis, no cyanosis, no edema Neuro: Awake alert oriented x3 Psych: Normal mood and affect G/U: No Clemons Skin: no rashes, warm and dry Lymphatic: no cervical or axillary lymphadenopathy Results & Data Results & Data Vital Signs (Past 12 Hours) Vital Signs Temp Pulse Resp BP Pulse Ox O2 Del Method O2 Flow Rate 10/28/24 07:28 66 20 96 Nasal Cannula 3 10/28/24 01:46 62 20 87 L Nasal Cannula 2 10/27/24 21:22 36.5 C 57 L 18 121/62 94 Nasal Cannula 2 10/27/24 20:58 Nasal Cannula 3 10/27/24 20:16 58 L 18 94 Nasal Cannula 2 Laboratory Results 10/28/24 07:16 10/28/24 07:16 PG Care Time/CCT Total # of Minutes Spent Total Time Spent with Patient: Total time spent is greater than 50% in coordination of care (as documented) at patient's floor/unit and/or counseling patient: Coding Level of Care Code 67276 SUB INP/OBS CARE 3/50MIN Diagnoses Abnormal chest CT R93.89 ILD (interstitial lung disease) J84.9 History of lung cancer Z85.118 COPD (chronic obstructive pulmonary disease) J44.9 Acute on chronic hypoxic respiratory failure J96.21
[2024-10-28 08:06] LABS: Hematocrit (blood only) 35.3 % (42.0-52.0); Hemoglobin 11.6 g/dl (14.0-18.0); Mean Corpuscular Hemoglobin 29.4 pg (25.0-34.0); Mean Corpuscular Hgb Conc 32.9 g/dL (32.0-36.0); Mean Corpuscular Volume 89.6 fL (80.0-100.0); Platelet Count 562 K/uL (130-400); RDW Standard Deviation 45.8 fL (36.4-46.3); Red Blood Count 3.94 M/uL (4.70-6.10); White Blood Count 16.58 K/ul (4.8-10.8)
[2024-10-28 08:19] LABS: BUN Creatinine Ratio 30.6 (10-20); Calcium 9.1 mg/dl (8.6-10.3); Creatinine Clr Calc Pharmacy 76.3 ml/min
[2024-10-28] MEDS: fentaNYL citrate PF 100 MCG/2 ML VIAL ONE (10:54)
[2024-10-28] MEDS: MIDAZOLAM HCL 5 MG/ML 1 ML VIAL ONE (10:54)
--- NOTE | 2024-10-28 11:13 | Pre Anesthesia Assessment ---
Date of Service October 28, 2024 Pre Sedation Assessment Vital Signs Temp Pulse Pulse Pulse Resp BP Pulse Ox 10/28/24 11:10 10/28/24 11:00 61 14 117/59 L 96 10/28/24 10:47 61 14 124/60 88 L 10/28/24 10:42 66 14 134/64 97 10/28/24 10:37 57 L 14 97 10/28/24 10:01 57 L 14 134/71 97 10/28/24 08:04 36.2 C L 64 18 146/70 H 96 10/28/24 07:28 66 20 96 10/28/24 01:46 62 20 87 L 10/27/24 21:22 36.5 C 57 L 18 121/62 94 10/27/24 20:58 10/27/24 20:16 58 L 18 94 10/27/24 13:21 59 L 18 96 10/27/24 11:24 Pulse Ox Pulse Ox O2 Del Method O2 Flow Rate O2 Flow Rate O2 Flow Rate 10/28/24 11:10 Oxymask 10/28/24 11:00 Room Air 10/28/24 10:47 Oxymask 12 10/28/24 10:42 Oxymask 8 10/28/24 10:37 Oxymask 8 10/28/24 10:01 Oxymask 8 10/28/24 08:04 Nasal Cannula 3 10/28/24 07:28 Nasal Cannula 3 10/28/24 01:46 Nasal Cannula 2 10/27/24 21:22 Nasal Cannula 2 10/27/24 20:58 Nasal Cannula 3 10/27/24 20:16 Nasal Cannula 2 10/27/24 13:21 Nasal Cannula 3 10/27/24 11:24 90 82 L 3 2.5 Pre-Sedation Airway Assessment Smoking Status: Former smoker Hx Sleep Apnea: No Short, Thick Neck: No Thyromental Distance: > or= 3.5 Finger Breadths Oral Cavity: + Dentures Mallampati Class: IV ASA: ASA4 NPO Status Date of Last Intake of Fluids: 10/27/24 Time of Last Intake of Fluids: 17:00 Date of Last Intake of Solid Food: 10/27/24 Time of Last Intake of Solid Foods: 17:00 Procedure Planning Contraindications for Sedation: none Current Medications Reviewed: Yes Notes The planned sedation has been discussed with the patient. Informed Consent was obtained. I have identified the patient, determined the appropriateness of sedation and have assessed the patient immediately prior to the procedure. All medicine(s) and interventions are by my order.
--- NOTE | 2024-10-28 11:14 | Post Anesthesia Assessment ---
Date of Service October 28, 2024 Post Sedation Assessment Vital Signs Temp Pulse Pulse Pulse Resp BP Pulse Ox 10/28/24 11:10 10/28/24 11:00 61 14 117/59 L 96 10/28/24 10:47 61 14 124/60 88 L 10/28/24 10:42 66 14 134/64 97 10/28/24 10:37 57 L 14 97 10/28/24 10:01 57 L 14 134/71 97 10/28/24 08:04 36.2 C L 64 18 146/70 H 96 10/28/24 07:28 66 20 96 10/28/24 01:46 62 20 87 L 10/27/24 21:22 36.5 C 57 L 18 121/62 94 10/27/24 20:58 10/27/24 20:16 58 L 18 94 10/27/24 13:21 59 L 18 96 10/27/24 11:24 Pulse Ox Pulse Ox O2 Del Method O2 Flow Rate O2 Flow Rate O2 Flow Rate 10/28/24 11:10 Oxymask 10/28/24 11:00 Room Air 10/28/24 10:47 Oxymask 12 10/28/24 10:42 Oxymask 8 10/28/24 10:37 Oxymask 8 10/28/24 10:01 Oxymask 8 10/28/24 08:04 Nasal Cannula 3 10/28/24 07:28 Nasal Cannula 3 10/28/24 01:46 Nasal Cannula 2 10/27/24 21:22 Nasal Cannula 2 10/27/24 20:58 Nasal Cannula 3 10/27/24 20:16 Nasal Cannula 2 10/27/24 13:21 Nasal Cannula 3 10/27/24 11:24 90 82 L 3 2.5 Recovery Score Activity: Moves 4 extremities Respiration: Deep Breath/Cough Circulation: +/-20% PreAnes Value Consciousness: Fully Awake Oxygen Saturation: > 92% On Room Air Post Anesthesia Score: 10 Discharge Sedation Level of Care: Fast Track Phase II Post Sedation Plan On clinical assessment, the patient appears to have tolerated the sedation without complications. Patient is recovering as anticipated. Patient will continue to be monitored by nursing and may be discharged when sedation discharge criteria are met per below protocol. Upon Completions of procedure up to 15 minutes continue every 5 minute vital signs and the P.A.R. score; then discharge to a Phase I or Fast Track to Phase II per the following guidelines: * Discharge Patient to appropriate Phase II area if PAR is 8 or greater or return to pre- procedure baseline. The post - procedure orders will be as directed. * If PAR score is less than 8 or not return to pre-procedure baseline then patient will follow Phase I monitoring till PAR is reached for Phase II. The Phase I may be done in procedure room or may call to secure a Phase I area. * If naloxone or flumazenil are used for reversal, hold in Phase I for continued monitoring from when last reversal dose was given for a minimum of 60 minutes or longer pending the nurse and/or physician discretion of patient condition before discharge to Phase II. Please call the Sedation Physician to re-evaluate and complete post-note for discharge to Phase II area. Do NOT discharge from procedure sedation or Phase 1 until post- sedation evaluation note is complete by procedure /sedation MD Sedation Discharge Instructions to be given to the patient at discharge to home.
--- NOTE | 2024-10-28 11:19 | Procedure Note ---
Procedure Note Date of Service October 28, 2024 PREOPERATIVE DIAGNOSIS: Abnormal chest CT with groundglass opacities POSTOPERATIVE DIAGNOSIS: Abnormal chest CT with groundglass opacities PROCEDURE PERFORMED: Flexible fiberoptic bronchoscopy with bronchoalveolar lavage COMPLICATIONS: None. INDICATION: Rule out infection PROCEDURE: After obtaining an informed consent, the patient was brought to the Bronchoscopy Suite. The patient had appropriate oxygen, blood pressure, heart rate, and respiratory rate monitoring applied and monitored continuously throughout the procedure. Supplemental oxygen via nasal cannula as per nursing records was applied to the nasopharynx with adequate saturations achieved. T opical anesthesia with nebulized 1% lidocaine was achieved. Subsequent to this, the patient was premedicated with 4 mg of midazolam and 75 mcg of fentanyl. Sedation start: 10:35 AM, sedation end: 10:48 AM Upper Airway: The oropharynx and larynx were well visualized and showed significant dryness of the nasal mucosa. There was significant thick light greenish phlegm at the vallecula which was suctioned out. There was normal vocal cord motion without masses or lesions. Additional topical anesthesia with 1% lidocaine was applied to the trachea and andrey. The trachea appeared normal.The bronchoscope was then advanced through the andrey, which was sharp. The scope was then advanced into the right main stem and each segment, subsegement in the right upper lobe, right middle lobe and right lower lobe were visualized. There was minimal amount of clear secretion which was suctioned out. There was foreign body in the right middle lobe, probably jonny visualized in the right middle lobe. There were no other findings including evidence of mass or hemorrhage. The bronchoscope was subsequently withdrawn and advanced into the left main stem. Again, each segment and subsegment was well visualized. No specific masses or other lesions were identified throughout the tracheobronchial tree on the left. There was minimal clear secretion which was suctioned out The bronchoscope was then wedged in the left upper lobe and bronchoalveolar lavage samples were obtained. 120 ml of saline was instilled and 45 ml of fluid was aspirated back.The bronchoscope was withdrawn and the area was suctioned clear. The bronchoscope was then withdrawn to the mainstem. The area was suctioned clear. The bronchoscope was then withdrawn. The patient tolerated the procedure well without evidence of desaturation or complications. Bronchoalveolar lavage samples were sent for cell count, Gram stain and bacterial culture, AFB culture and smear, fungal culture and smear, histoplasma, Coccidioides, PJP as well as cryptococcus and cytology. Recommendations: Follow-up micro and cytology Follow-up chest x-ray There seems to be foreign body in the right middle lobe which is most likely jonny from the previous surgery that he had done. I will try to look at the CAT scan again Please note the above document was generated using voice recognition software. It may contain grammatical, syntax or spelling errors.Any formal questions or concerns about the content, text or information contained within the body of this dictation should be directly addressed to the provider for clarification. [facility] [place] Codes (Charges) Pulmonary/Thoracic Procedure 1: Pulmonary and Thoracic: 38285 Dx bronchoscopy/BAL Sedation/Anesthesia Procedure 1: Sedation/Anesthesia: 69479 Mod Sedation by the same physician;Init15 Min Child Age 5 & Up Coding CPT Codes Sedation/Anesthesia - Sedation/Anesthesia: 30266 Mod Sedation by the same physician;Init15 Min Child Age 5 & Up ([id number]) Pulmonary/Thoracic - Pulmonary and Thoracic: 40634 Dx bronchoscopy/BAL ([id number]) Additional Codes Date of Service ([email or web address])
[2024-10-28] MEDS ORDERED: REMDESIVIR 100 MG in SODIUM CHLORIDE 0.9% 230 ML IV SCH (12:00)
--- NOTE | 2024-10-28 12:36 | XRay Report ---
XR chest 1V portable CLINICAL HISTORY: broch COMPARISON STUDY: 10/26/2024 FINDINGS: Stable cardiomegaly without pulmonary vascular congestion. Stable diffuse interstitial and patchy pulmonary opacities throughout the left lung. Stable stranding opacity at the right lung base. No pneumothorax seen. IMPRESSION: No pneumothorax. ACT 112: Negative or not required by law. Electronically signed by: Mat Westbrook M.D. 10/28/2024 12:35 PM
[2024-10-28 13:37] LABS: Fluid Mono/Macrophage 4 %; Lymphocyte Body Fluid Man 6 %; Neutrophil Body Fluid Man 90 %
[2024-10-28] MEDS: SULFAMETHOXAZOLE/TRIMETHOPRIM DS 800/160MG TAB PO SCH ×2 (15:29→22:28)
--- NOTE | 2024-10-28 18:23 | Hospitalist Progress Note ---
Date of Service October 28, 2024 Assessment & Plan (1) Acute on chronic hypoxic respiratory failure: Plan: -Patient recently had a hospitalization for similar diagnosis. 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: Plan: -f/u autoimmune workup (3) Bilateral pulmonary infiltrates: Plan: see above (4) Rheumatoid arthritis: Plan: -continue plaquenil (5) COPD (chronic obstructive pulmonary disease): Plan: -continue inhalers (6) History of lung cancer: Plan: -noted (7) History of bladder cancer: Plan: -noted (8) Hypertension: (9) BPH (benign prostatic hyperplasia): (10) Status post partial lobectomy of lung: Plan Feeding/fluids: NPO after midnight Analgesia: tylenol Sedation: na Thromboprophylaxis: lovenox Head up position: na Ulcer prophylaxis: na Glycemic control: na Spontaneous breathing trial: NC Bowel care: miralax prn Indwelling catheter removal: na Deescalation of antibiotics: pending culture results I spent a total of 40 minutes in direct patient care, including [id number] time with the patient and/or family, reviewing medical records, ordering and reviewing diagnostic tests, and coordinating care with other healthcare providers. This time includes: history taking, physical examination, medical decision making, counseling, ECG interpretation, imaging interpretation, lab interpretation, orders, and education, excluding time spent in the performance of separately billed services. Admission and Anticipated Discharge Date Admission Date: October 26, 2024 Subjective Patient seen and examined at bedside post bronchoscopy. Patient doing well post bronch. He feels better than he did before the bronchoscopy. Review of Systems Review of Systems: CONSTITUTIONAL: fatigue, weakness EYES: Patient denies any visual symptoms. EARS, NOSE, AND THROAT: No difficulties with hearing. No symptoms of rhinitis or sore throat. CARDIOVASCULAR: Patient denies chest pains, palpitations, orthopnea and paroxysmal nocturnal dyspnea. RESPIRATORY: SOB, improved from prior GI: No nausea, vomiting, diarrhea, constipation, abdominal pain, hematochezia or melena. : No urinary hesitancy or dribbling. No nocturia or urinary frequency. No abnormal urethral discharge. MUSCULOSKELETAL: No myalgias or arthralgias. NEUROLOGIC: No chronic headaches, no seizures. Patient denies numbness, tingling or weakness. PSYCHIATRIC: Patient denies problems with mood disturbance. No problems with anxiety. ENDOCRINE: No excessive urination or excessive thirst. DERMATOLOGIC: Patient denies any rashes or skin changes. Physical Exam Physical Exam: Gen: A&O 3 NAD HEENT: NCAT, EOMI, not icteric. External ears normal. No rhinorrhea. Moist mucous membranes. Neck: Supple, full range of motion, no observable masses, No meningeal sign. Lungs: No Respiratory distress. CV: RRR, no edema. Abdomen: Soft, nondistended, No rebound tenderness. MSK: No joint swelling, no redness. Skin: No rashes, petechiae, lesions. Normal color per patient. Neuro: Normal Gait, Grossly intact. Psych: Appropriate for situation. Results & Data Results & Data Vital Signs (Past 12 Hours) Vital Signs Temp Pulse Pulse Pulse Pulse Pulse Pulse 10/28/24 18:16 10/28/24 15:04 36.4 C L 66 10/28/24 14:08 10/28/24 14:06 66 66 64 66 10/28/24 13:18 36.5 C 67 10/28/24 13:15 36.4 C L 88 10/28/24 13:02 36.5 C 59 L 10/28/24 11:45 63 10/28/24 11:30 62 10/28/24 11:15 60 10/28/24 11:10 10/28/24 11:00 61 10/28/24 10:47 61 10/28/24 10:42 66 10/28/24 10:37 57 L 10/28/24 10:01 57 L 10/28/24 08:04 36.2 C L 10/28/24 07:28 Pulse Pulse Pulse Pulse Resp Resp Resp 10/28/24 18:16 89 18 10/28/24 15:04 18 10/28/24 14:08 20 10/28/24 14:06 64 62 66 20 22 10/28/24 13:18 18 10/28/24 13:15 18 10/28/24 13:02 18 10/28/24 11:45 14 10/28/24 11:30 14 10/28/24 11:15 14 10/28/24 11:10 10/28/24 11:00 14 10/28/24 10:47 14 10/28/24 10:42 14 10/28/24 10:37 14 10/28/24 10:01 14 10/28/24 08:04 64 18 10/28/24 07:28 66 20 Resp Resp Resp Resp Resp BP Pulse Ox 10/28/24 18:16 91 10/28/24 15:04 114/66 96 10/28/24 14:08 90 10/28/24 14:06 22 20 20 18 16 10/28/24 13:18 116/67 94 10/28/24 13:15 101/62 95 10/28/24 13:02 114/65 94 10/28/24 11:45 101/56 L 94 10/28/24 11:30 113/54 L 94 10/28/24 11:15 119/57 L 94 10/28/24 11:10 10/28/24 11:00 117/59 L 96 10/28/24 10:47 124/60 88 L 10/28/24 10:42 134/64 97 10/28/24 10:37 97 10/28/24 10:01 134/71 97 10/28/24 08:04 146/70 H 96 10/28/24 07:28 96 Pulse Ox Pulse Ox Pulse Ox Pulse Ox Pulse Ox Pulse Ox Pulse Ox 10/28/24 18:16 10/28/24 15:04 10/28/24 14:08 10/28/24 14:06 84 L 84 L 85 L 86 L 90 90 84 L 10/28/24 13:18 10/28/24 13:15 10/28/24 13:02 10/28/24 11:45 10/28/24 11:30 10/28/24 11:15 10/28/24 11:10 10/28/24 11:00 10/28/24 10:47 10/28/24 10:42 10/28/24 10:37 10/28/24 10:01 10/28/24 08:04 10/28/24 07:28 O2 Del Method O2 Flow Rate O2 Flow Rate O2 Flow Rate O2 Flow Rate O2 Flow Rate O2 Flow Rate 10/28/24 18:16 Nasal Cannula 2 10/28/24 15:04 Room Air 10/28/24 14:08 Nasal Cannula 2 10/28/24 14:06 2 3 4 6 8 10/28/24 13:18 Room Air 10/28/24 13:15 Nasal Cannula 2 10/28/24 13:02 Room Air 10/28/24 11:45 Room Air 10/28/24 11:30 Room Air 10/28/24 11:15 Room Air 10/28/24 11:10 Oxymask 10/28/24 11:00 Room Air 10/28/24 10:47 Oxymask 12 10/28/24 10:42 Oxymask 8 10/28/24 10:37 Oxymask 8 10/28/24 10:01 Oxymask 8 10/28/24 08:04 Nasal Cannula 3 10/28/24 07:28 Nasal Cannula 3 O2 Flow Rate 10/28/24 18:16 10/28/24 15:04 10/28/24 14:08 10/28/24 14:06 2 10/28/24 13:18 10/28/24 13:15 10/28/24 13:02 10/28/24 11:45 10/28/24 11:30 10/28/24 11:15 10/28/24 11:10 10/28/24 11:00 10/28/24 10:47 10/28/24 10:42 10/28/24 10:37 10/28/24 10:01 10/28/24 08:04 10/28/24 07:28 Laboratory Results -personally reviewed, uptrending leukocytosis in setting of steroid use Medications Administered Acetaminophen (Acetaminophen 325 Mg Tab) 650 mg PO Q4H PRN PRN Reason: pain/fever Stop: 11/25/24 16:20 Last Admin: 10/28/24 07:22 Dose: 650 mg Documented By: Admin: 10/27/24 21:03 Dose: 650 mg Documented By: Admin: 10/26/24 19:56 Dose: 650 mg Documented By: NOA Albuterol (Albut/Ipratrop 3mg/0.5mg Neb 3 Ml Vial) 3 ml INH Q6R MAYTE Stop: 11/25/24 18:59 Last Admin: 10/28/24 18:15 Dose: 3 ml Documented By: Admin: 10/28/24 14:05 Dose: 3 ml Documented By: Admin: 10/28/24 07:28 Dose: 3 ml Documented By: Admin: 10/28/24 01:44 Dose: 3 ml Documented By: Admin: 10/27/24 20:15 Dose: 3 ml Documented By: Admin: 10/27/24 13:21 Dose: 3 ml Documented By: Admin: 10/27/24 07:59 Dose: 3 ml Documented By: Admin: 10/27/24 00:08 Dose: 3 ml Documented By: Admin: 10/26/24 20:08 Dose: 3 ml Documented By: RITESH Aspirin (Aspirin 81 Mg Ectab) 81 mg PO DAILY MAYTE Stop: 11/26/24 08:59 Last Admin: 10/28/24 07:40 Dose: Not Given Documented By: Admin: 10/27/24 07:21 Dose: 81 mg Documented By: DELANEY Carvedilol (Carvedilol 12.5 Mg Tab) 12.5 mg PO BIDM MAYTE Stop: 11/25/24 16:59 Last Admin: 10/28/24 17:03 Dose: 12.5 mg Documented By: Admin: 10/28/24 07:42 Dose: 12.5 mg Documented By: Admin: 10/27/24 15:59 Dose: 12.5 mg Documented By: Admin: 10/27/24 08:17 Dose: Not Given Documented By: Admin: 10/26/24 17:42 Dose: 12.5 mg Documented By: MARLI Chlorthalidone (Chlorthalidone 25 Mg Tab) 25 mg PO QAM MAYTE Stop: 11/26/24 08:59 Last Admin: 10/28/24 07:44 Dose: 25 mg Documented By: Admin: 10/27/24 07:20 Dose: 25 mg Documented By: DELANEY Enoxaparin Sodium (Enoxaparin Inj 40 Mg/0.4 Ml Syr) 40 mg SQ Q24H MAYTE Stop: 11/25/24 17:59 Last Admin: 10/27/24 18:07 Dose: 40 mg Documented By: Admin: 10/26/24 17:43 Dose: 40 mg Documented By: MARLI Finasteride (Finasteride 5 Mg Tab) 5 mg PO QAM MAYTE Stop: 11/26/24 08:59 Last Admin: 10/28/24 07:44 Dose: 5 mg Documented By: Admin: 10/27/24 07:20 Dose: 5 mg Documented By: DELANEY Fluticasone/Vilanterol (Fluticasone/Vilanterol 100/25mcg 14 Puffs/Inhaler) 1 puffs INH DAILY MAYTE Stop: 11/26/24 08:59 Last Admin: 10/28/24 07:44 Dose: 1 puffs Documented By: Admin: 10/27/24 07:19 Dose: 1 puffs Documented By: DELANEY Folic Acid (Folic Acid 1 Mg Tab) 1 mg PO QAM MAYTE Stop: 11/26/24 08:59 Last Admin: 10/28/24 07:43 Dose: 1 mg Documented By: Admin: 10/27/24 07:22 Dose: 1 mg Documented By: DELANEY Hydroxychloroquine Sulfate (Hydroxychloroquine Sulfate 200 Mg Tab) 200 mg PO BID MAYTE Stop: 11/25/24 20:59 Last Admin: 10/28/24 07:43 Dose: 200 mg Documented By: Admin: 10/27/24 20:58 Dose: 200 mg Documented By: Admin: 10/27/24 07:21 Dose: 200 mg Documented By: Admin: 10/26/24 19:57 Dose: 200 mg Documented By: NOA Montelukast Sodium (Montelukast Sodium 10 Mg Tablet) 10 mg PO HS MAYTE Stop: 11/25/24 20:59 Last Admin: 10/27/24 20:58 Dose: 10 mg Documented By: Admin: 10/26/24 19:58 Dose: 10 mg Documented By: NOA Nifedipine (Nifedipine Extended Rel 30 Mg Tabcr) 60 mg PO QAM MATYE Stop: 11/26/24 08:59 Last Admin: 10/28/24 07:42 Dose: 60 mg Documented By: Admin: 10/27/24 07:20 Dose: 60 mg Documented By: DELANEY Oxybutynin Chloride (Oxybutynin Chloride 5 Mg Tab) 5 mg PO BID MAYTE Stop: 11/25/24 20:59 Last Admin: 10/28/24 07:45 Dose: 5 mg Documented By: Admin: 10/27/24 20:59 Dose: 5 mg Documented By: Admin: 10/27/24 07:23 Dose: 5 mg Documented By: Admin: 10/26/24 19:57 Dose: 5 mg Documented By: NOA Oxycodone HCl (Oxycodone Hcl Ir 5 Mg Tab (Immediate Release)) 5 mg PO Q4 PRN PRN Reason: Breakthrough Pain Stop: 11/11/24 07:30 Last Admin: 10/28/24 07:38 Dose: 5 mg Documented By: DELANEY Sertraline HCl (Sertraline Hcl 100 Mg Tablet) [facility] [place] Stop: 11/26/24 08:59 Last Admin: 10/28/24 07:42 Dose: 100 mg Documented By: Admin: 10/27/24 07:21 Dose: 100 mg Documented By: DELANEY Tamsulosin HCl (Tamsulosin Hcl 0.4 Mg Cap) 0.4 mg [facility] [place] Stop: 11/26/24 08:59 Last Admin: 10/28/24 07:42 Dose: 0.4 mg Documented By: Admin: 10/27/24 07:21 Dose: 0.4 mg Documented By: DELANEY Trazodone HCl (Trazodone Hcl 50 Mg Tab) 150 mg PO HS [facility] Stop: 11/25/24 20:59 Last Admin: 10/27/24 20:59 Dose: 150 mg Documented By: Admin: 10/26/24 19:58 Dose: 150 mg Documented By: NOA Trimethoprim/Sulfamethoxazole (Sulfamethoxazole/Trimethoprim Ds 800/160mg Tab) 4 tab PO DAILY@1400 [facility] Stop: 11/04/24 13:59 Last Admin: 10/28/24 15:29 Dose: 4 tab Documented By: DELANEY
[2024-10-29 06:40] LABS: Hematocrit (blood only) 33.3 % (42.0-52.0); Hemoglobin 10.9 g/dl (14.0-18.0); Mean Corpuscular Hemoglobin 29.5 pg (25.0-34.0); Mean Corpuscular Hgb Conc 32.7 g/dL (32.0-36.0); Mean Platelet Volume 10.1 fL (9.4-12.4); Platelet Count 493 K/uL (130-400); RDW Coefficient of Variation 14.3 % (11.5-14.5); RDW Standard Deviation 46.8 fL (36.4-46.3); White Blood Count 15.26 K/ul (4.8-10.8)
[2024-10-29 06:57] LABS: Calcium 8.7 mg/dl (8.6-10.3); Creatinine Clr Calc Pharmacy 69.9 ml/min; Potassium 4.2 mmol/L (3.5-5.1)
[2024-10-29] MEDS: predniSONE 20 MG TAB PO SCH (09:25)
--- NOTE | 2024-10-29 10:19 | Pulmonology Progress Note ---
Date of Service October 29, 2024 Assessment & Plan (1) Abnormal chest CT: (2) ILD (interstitial lung disease): (3) History of lung cancer: (4) COPD (chronic obstructive pulmonary disease): (5) Acute on chronic hypoxic respiratory failure: Plan CT chest 10/26/2024 personally reviewed: Increased interstitial marking appreciated in the left upper and left lower as well as right lower lobe More pronounced on the left side Questionable traction bronchiectasis in the right lower lobe Minimal subcarinal as well as 10L lymphadenopathy --Acute hypoxic respiratory failure Respiratory BioFire positive for COVID-19 on 10/26/2024, he also tested positive on 09/25/2024 at [facility] BNP 243 Procalcitonin 0.05 I do not think patient has active COVID given that he was positive more than a month ago S/p bronchoscopy 10/28/2024 Follow-up cultures especially fungal and PJP On bronchoscopy patient seems to have foreign body in the right middle lobe which is most likely jonny from the previous surgery that he had done. They have been present on multiple CAT scans of the chest in the past -- Abnormal chest CT Patient seems to have increased reticular marking as well as traction bronchiectasis bilateral lower lobe I was able to look at the CAT scan of the chest which was done 10/18/2024 at [facility]. It seems that the opacities are getting worse especially in the left upper lobe -- History of rheumatoid arthritis On chronic prednisone as well as methotrexate --History of lung cancer Status post partial lobectomy Admission and Anticipated Discharge Date Admission Date: October 26, 2024 Supervising Physician Co-Signing Physician Notes I saw and evaluated the patient with Basil Crump PA-C, and agree with findings and plan as documented in the note. Patient seen and examined at bedside. No acute distress, no adverse events overnight He was saturating 87-88% on 2 L nasal cannula. Although his nasal cannula was partially out during the time of examination Denies any nausea or vomiting Bringing up clear phlegm. No hemoptysis Fair appetite No difficulty swallowing Constitutional: No acute distress HEENT: EOMI, PERRLA, legally blind in the right eye Respiratory system: Decreased air entry bilaterally, no wheeze, no rhonchi, positive Velcro-like crackles appreciated bilaterally more on the right side CVS: S1-S2 positive, no murmurs or gallops Abdomen: Soft, nontender, nondistended, positive bowel sounds x4 Extremities: +2 pulses bilaterally radialis/ dorsalis pedis, no cyanosis, no edema Neuro: Awake alert oriented x3 Psych: Normal mood and affect G/U: No Clemons Plan: Follow-up cultures especially fungal and PJP Continue with empiric treatment with PJP till we get the PCR result Actively being treated with Bactrim and prednisone. Will need to monitor kidney function and specifically potassium. Will also start him on pantoprazole given that he is on high-dose prednisone right now Please note the above document was generated using voice recognition software. It may contain grammatical, syntax or spelling errors.Any formal questions or concerns about the content, text or information contained within the body of this dictation should be directly addressed to the provider for clarification. Subjective Patient seen and evaluated at bedside. He is saturating well on 2.5 L of nasal cannula. He does report dyspnea with exertion. No productive cough. No chest pain or or hemoptysis. Review of Systems 2 Review of Systems: As per subjective Physical Exam 2 Physical Exam: VITAL SIGNS Vital signs and nursing notes were reviewed. GENERAL 79-year-old male appearing his stated age who is in no acute distress. Communicates well with provider and answers questions appropriately. SKIN Without rashes or lesions. NOSE Midline and without cyanosis. MOUTH/OROPHARYNX Without perioral cyanosis. LUNGS Chest wall evaluation demonstrates normal chest wall A:P diameter. Auscultation reveals bilateral crackles appreciated. CARDIAC RRR with S1/S2. No murmur, rubs, or gallops appreciated. PSYCH A&Ox3 and cooperates fully with examiner. Pt is very pleasant and interacts well with examiner. Skin: no rashes, warm and dry Lymphatic: no cervical or axillary lymphadenopathy Results & Data Results & Data Vital Signs (Past 12 Hours) Vital Signs Temp Pulse Pulse Resp BP Pulse Ox O2 Del Method 10/29/24 07:40 70 18 90 Nasal Cannula 10/29/24 07:35 Nasal Cannula 10/29/24 07:00 36.4 C L 60 18 144/71 H 94 Nasal Cannula O2 Flow Rate 10/29/24 07:40 2.5 10/29/24 07:35 2 10/29/24 07:00 2.5 Laboratory Results 10/29/24 05:36 10/29/24 05:36 PG Care Time/CCT Total # of Minutes Spent Total Time Spent with Patient: Total time spent is greater than 50% in coordination of care (as documented) at patient's floor/unit and/or counseling patient: Coding Level of Care Code 51360 SUB INP/OBS CARE 2/35MIN Diagnoses Abnormal chest CT R93.89 ILD (interstitial lung disease) J84.9 History of lung cancer Z85.118 COPD (chronic obstructive pulmonary disease) J44.9 Acute on chronic hypoxic respiratory failure J96.21
[2024-10-29] MEDS ORDERED: ALBUT/IPRATROP 3MG/0.5MG NEB 3 ML VIAL INH PRN (12:07)
[2024-10-29] MEDS: PANTOprazole 40 MG TAB PO SCH (16:56)
--- NOTE | 2024-10-29 20:22 | Hospitalist Progress Note ---
Date of Service October 29, 2024 Assessment & Plan (1) Acute on chronic hypoxic respiratory failure: Plan: -Patient recently had a hospitalization for similar diagnosis. 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: Plan: -f/u autoimmune workup (3) Bilateral pulmonary infiltrates: Plan: see above (4) Rheumatoid arthritis: Plan: -continue plaquenil (5) COPD (chronic obstructive pulmonary disease): Plan: -continue inhalers (6) History of lung cancer: Plan: -noted (7) History of bladder cancer: Plan: -noted (8) Hypertension: (9) BPH (benign prostatic hyperplasia): (10) Status post partial lobectomy of lung: Plan Feeding/fluids: regular Analgesia: tylenol Sedation: na Thromboprophylaxis: lovenox Head up position: na Ulcer prophylaxis: na Glycemic control: na Spontaneous breathing trial: NC Bowel care: miralax prn Indwelling catheter removal: na Deescalation of antibiotics: pending culture results I spent a total of 45 minutes in direct patient care, including [id number] time with the patient and/or family, reviewing medical records, ordering and reviewing diagnostic tests, and coordinating care with other healthcare providers. This time includes: history taking, physical examination, medical decision making, counseling, ECG interpretation, imaging interpretation, lab interpretation, orders, and education, excluding time spent in the performance of separately billed services. Admission and Anticipated Discharge Date Admission Date: October 26, 2024 Subjective Patient seen and examined at bedside. Patient tolerated bronchoscopy well and is feeling well overall. 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 Currently working [facility]. Review of Systems Review of Systems: CONSTITUTIONAL: fatigue, weakness EYES: Patient denies any visual symptoms. EARS, NOSE, AND THROAT: No difficulties with hearing. No symptoms of rhinitis or sore throat. CARDIOVASCULAR: Patient denies chest pains, palpitations, orthopnea and paroxysmal nocturnal dyspnea. RESPIRATORY: SOB, improved from prior GI: No nausea, vomiting, diarrhea, constipation, abdominal pain, hematochezia or melena. : No urinary hesitancy or dribbling. No nocturia or urinary frequency. No abnormal urethral discharge. MUSCULOSKELETAL: No myalgias or arthralgias. NEUROLOGIC: No chronic headaches, no seizures. Patient denies numbness, tingling or weakness. PSYCHIATRIC: Patient denies problems with mood disturbance. No problems with anxiety. ENDOCRINE: No excessive urination or excessive thirst. DERMATOLOGIC: Patient denies any rashes or skin changes. Physical Exam Physical Exam: Gen: A&O 3 NAD HEENT: NCAT, EOMI, not icteric. External ears normal. No rhinorrhea. Moist mucous membranes. Neck: Supple, full range of motion, no observable masses, No meningeal sign. Lungs: noted trace rhonchi on examination CV: RRR, no edema. Abdomen: Soft, nondistended, No rebound tenderness. MSK: No joint swelling, no redness. Skin: No rashes, petechiae, lesions. Normal color per patient. Neuro: Normal Gait, Grossly intact. Psych: Appropriate for situation. Results & Data Results & Data Vital Signs (Past 12 Hours) Vital Signs Temp Pulse Resp BP Pulse Ox O2 Del Method O2 Flow Rate 10/29/24 15:30 36.6 C 54 L 20 107/60 94 Nasal Cannula 3 10/29/24 14:48 90 Nasal Cannula 3 10/29/24 14:44 36.4 C L 64 24 100/58 L 86 L Nasal Cannula 2 Laboratory Results -personally reviewed, stable leukocytosis in setting of prednisone use, bronch fluid with neutrophilic predominance Medications Administered Acetaminophen (Acetaminophen 325 Mg Tab) 650 mg PO Q4H PRN PRN Reason: pain/fever Stop: 11/25/24 16:20 Last Admin: 10/28/24 07:22 Dose: 650 mg Documented By: Admin: 10/27/24 21:03 Dose: 650 mg Documented By: Admin: 10/26/24 19:56 Dose: 650 mg Documented By: NOA Aspirin (Aspirin 81 Mg Ectab) 81 mg PO DAILY MAYTE Stop: 11/26/24 08:59 Last Admin: 10/29/24 09:24 Dose: 81 mg Documented By: Admin: 10/28/24 07:40 Dose: Not Given Documented By: Admin: 10/27/24 07:21 Dose: 81 mg Documented By: DELANEY Carvedilol (Carvedilol 12.5 Mg Tab) 12.5 mg PO BIDM MAYTE Stop: 11/25/24 16:59 Last Admin: 10/29/24 16:56 Dose: 12.5 mg Documented By: Admin: 10/29/24 09:24 Dose: 12.5 mg Documented By: Admin: 10/28/24 17:03 Dose: 12.5 mg Documented By: Admin: 10/28/24 07:42 Dose: 12.5 mg Documented By: Admin: 10/27/24 15:59 Dose: 12.5 mg Documented By: Admin: 10/27/24 08:17 Dose: Not Given Documented By: Admin: 10/26/24 17:42 Dose: 12.5 mg Documented By: MARLI Chlorthalidone (Chlorthalidone 25 Mg Tab) 25 mg PO QAM MAYTE Stop: 11/26/24 08:59 Last Admin: 10/29/24 09:26 Dose: 25 mg Documented By: Admin: 10/28/24 07:44 Dose: 25 mg Documented By: Admin: 10/27/24 07:20 Dose: 25 mg Documented By: DELANEY Enoxaparin Sodium (Enoxaparin Inj 40 Mg/0.4 Ml Syr) 40 mg SQ Q24H MAYTE Stop: 11/25/24 17:59 Last Admin: 10/27/24 18:07 Dose: 40 mg Documented By: Admin: 10/26/24 17:43 Dose: 40 mg Documented By: AMRLI Finasteride (Finasteride 5 Mg Tab) 5 mg PO QAM MAYTE Stop: 11/26/24 08:59 Last Admin: 10/29/24 09:25 Dose: 5 mg Documented By: Admin: 10/28/24 07:44 Dose: 5 mg Documented By: Admin: 10/27/24 07:20 Dose: 5 mg Documented By: DELANEY Fluticasone/Vilanterol (Fluticasone/Vilanterol 100/25mcg 14 Puffs/Inhaler) 1 puffs INH DAILY MAYTE Stop: 11/26/24 08:59 Last Admin: 10/29/24 09:24 Dose: 1 puffs Documented By: Admin: 10/28/24 07:44 Dose: 1 puffs Documented By: Admin: 10/27/24 07:19 Dose: 1 puffs Documented By: DELANEY Folic Acid (Folic Acid 1 Mg Tab) 1 mg PO QAM MAYTE Stop: 11/26/24 08:59 Last Admin: 10/29/24 09:26 Dose: 1 mg Documented By: Admin: 10/28/24 07:43 Dose: 1 mg Documented By: Admin: 10/27/24 07:22 Dose: 1 mg Documented By: DELANEY Hydroxychloroquine Sulfate (Hydroxychloroquine Sulfate 200 Mg Tab) 200 mg PO BID MAYTE Stop: 11/25/24 20:59 Last Admin: 10/29/24 20:10 Dose: 200 mg Documented By: Admin: 10/29/24 09:25 Dose: 200 mg Documented By: Admin: 10/28/24 21:42 Dose: 200 mg Documented By: Admin: 10/28/24 07:43 Dose: 200 mg Documented By: Admin: 10/27/24 20:58 Dose: 200 mg Documented By: Admin: 10/27/24 07:21 Dose: 200 mg Documented By: Admin: 10/26/24 19:57 Dose: 200 mg Documented By: NOA Montelukast Sodium (Montelukast Sodium 10 Mg Tablet) 10 mg PO HS MAYTE Stop: 11/25/24 20:59 Last Admin: 10/29/24 20:10 Dose: 10 mg Documented By: Admin: 10/28/24 21:43 Dose: 10 mg Documented By: Admin: 10/27/24 20:58 Dose: 10 mg Documented By: Admin: 10/26/24 19:58 Dose: 10 mg Documented By: NOA Nifedipine (Nifedipine Extended Rel 30 Mg Tabcr) 60 mg PO QAM MAYTE Stop: 11/26/24 08:59 Last Admin: 10/29/24 09:25 Dose: 60 mg Documented By: Admin: 10/28/24 07:42 Dose: 60 mg Documented By: Admin: 10/27/24 07:20 Dose: 60 mg Documented By: DELANEY Oxybutynin Chloride (Oxybutynin Chloride 5 Mg Tab) 5 mg PO BID MAYTE Stop: 11/25/24 20:59 Last Admin: 10/29/24 20:11 Dose: 5 mg Documented By: Admin: 10/29/24 09:26 Dose: 5 mg Documented By: Admin: 10/28/24 21:42 Dose: 5 mg Documented By: Admin: 10/28/24 07:45 Dose: 5 mg Documented By: Admin: 10/27/24 20:59 Dose: 5 mg Documented By: Admin: 10/27/24 07:23 Dose: 5 mg Documented By: Admin: 10/26/24 19:57 Dose: 5 mg Documented By: NOA Oxycodone HCl (Oxycodone Hcl Ir 5 Mg Tab (Immediate Release)) 5 mg PO Q4 PRN PRN Reason: Breakthrough Pain Stop: 11/11/24 07:30 Last Admin: 10/29/24 17:54 Dose: 5 mg Documented By: Admin: 10/29/24 13:58 Dose: 5 mg Documented By: Admin: 10/29/24 07:48 Dose: 5 mg Documented By: Admin: 10/28/24 07:38 Dose: 5 mg Documented By: DELANEY Pantoprazole Sodium ([facility]ole 40 Mg Tab) [facility] Stop: 11/28/24 16:29 Last Admin: 10/29/24 16:56 Dose: 40 mg Documented By: PASTOR Prednisone (Prednisone 20 Mg Tab) 40 mg PO BID MAYTE; Taper Stop: 11/19/24 08:59 Last Admin: 10/29/24 20:11 Dose: 40 mg Documented By: Admin: 10/29/24 09:25 Dose: 40 mg Documented By: PASTOR Sertraline HCl (Sertraline Hcl 100 Mg Tablet) [facility] Stop: 11/26/24 08:59 Last Admin: 10/29/24 09:58 Dose: 100 mg Documented By: Admin: 10/28/24 07:42 Dose: 100 mg Documented By: Admin: 10/27/24 07:21 Dose: 100 mg Documented By: DELANEY Tamsulosin HCl (Tamsulosin Hcl 0.4 Mg Cap) 0.[facility] Stop: 11/26/24 08:59 Last Admin: 10/29/24 09:26 Dose: 0.4 mg Documented By: Admin: 10/28/24 07:42 Dose: 0.4 mg Documented By: Admin: 10/27/24 07:21 Dose: 0.4 mg Documented By: DELANEY Trazodone HCl (Trazodone Hcl 50 Mg Tab) 150 mg PO HS [facility] Stop: 11/25/24 20:59 Last Admin: 10/29/24 20:11 Dose: 150 mg Documented By: Admin: 10/28/24 21:42 Dose: 150 mg Documented By: Admin: 10/27/24 20:59 Dose: 150 mg Documented By: Admin: 10/26/24 19:58 Dose: 150 mg Documented By: NOA Trimethoprim/Sulfamethoxazole (Sulfamethoxazole/Trimethoprim Ds 800/160mg Tab) 3 tab PO BID@0600,2200 [facility] Stop: 11/04/24 21:59 Last Admin: 10/29/24 05:38 Dose: 3 tab Documented By: Admin: 10/28/24 22:28 Dose: 3 tab Documented By: MARIZA Trimethoprim/Sulfamethoxazole (Sulfamethoxazole/Trimethoprim Ds 800/160mg Tab) 4 tab PO DAILY@1400 [facility] Stop: 11/04/24 13:59 Last Admin: 10/29/24 13:58 Dose: 4 tab Documented By: Admin: 10/28/24 15:29 Dose: 4 tab Documented By: DELANEY
[2024-10-30 07:54] LABS: Hematocrit (blood only) 31.1 % (42.0-52.0); Hemoglobin 10.5 g/dl (14.0-18.0); Mean Corpuscular Hemoglobin 29.9 pg (25.0-34.0); Mean Corpuscular Hgb Conc 33.8 g/dL (32.0-36.0); Mean Corpuscular Volume 88.6 fL (80.0-100.0); Mean Platelet Volume 10.3 fL (9.4-12.4); Platelet Count 437 K/uL (130-400); RDW Coefficient of Variation 14.2 % (11.5-14.5); RDW Standard Deviation 45.6 fL (36.4-46.3); Red Blood Count 3.51 M/uL (4.70-6.10)
[2024-10-30 08:21] LABS: BUN Creatinine Ratio 27.4 (10-20); Calcium 8.6 mg/dl (8.6-10.3); Creatinine Clr Calc Pharmacy 66.1 ml/min; Potassium 4.5 mmol/L (3.5-5.1)
[2024-10-30] MEDS: PNEUMOCOCCAL VACCINE (PCV20) 20-VAL CONJ-DIP CRM/PF 0.5 ML SYR IM ONE (09:04)
--- NOTE | 2024-10-30 09:21 | Pulmonology Progress Note ---
Date of Service October 30, 2024 Assessment & Plan (1) Abnormal chest CT: (2) ILD (interstitial lung disease): (3) History of lung cancer: (4) COPD (chronic obstructive pulmonary disease): (5) Acute on chronic hypoxic respiratory failure: Plan CT chest 10/26/2024 personally reviewed: Increased interstitial marking appreciated in the left upper and left lower as well as right lower lobe More pronounced on the left side Questionable traction bronchiectasis in the right lower lobe Minimal subcarinal as well as 10L lymphadenopathy --Acute hypoxic respiratory failure Respiratory BioFire positive for COVID-19 on 10/26/2024, he also tested positive on 09/25/2024 at [facility]NP 243 Procalcitonin 0.05 I do not think patient has active COVID given that he was positive more than a month ago S/p bronchoscopy 10/28/2024 Follow-up cultures especially fungal and PJP On bronchoscopy patient seems to have foreign body in the right middle lobe which is most likely jonny from the previous surgery that he had done. They have been present on multiple CAT scans of the chest in the past -- Abnormal chest CT Patient seems to have increased reticular marking as well as traction bronchiectasis bilateral lower lobe I was able to look at the CAT scan of the chest which was done 10/18/2024 at [facility]. It seems that the opacities are getting worse especially in the left upper lobe -- History of rheumatoid arthritis On chronic prednisone as well as methotrexate --History of lung cancer Status post partial lobectomy Plan: Follow-up cultures especially fungal and PJP Continue with empiric treatment with PJP till we get the PCR result While being treated with Bactrim and prednisone, will need to monitor for sodium as well as potassium as Bactrim can cause hyperkalemia and hyponatremia Continue with pantoprazole pantoprazole given that he is on high-dose prednisone right now Case was discussed with primary team Please note the above document was generated using voice recognition software. It may contain grammatical, syntax or spelling errors.Any formal questions or concerns about the content, text or information contained within the body of this dictation should be directly addressed to the provider for clarification. Admission and Anticipated Discharge Date Admission Date: October 26, 2024 Subjective Patient seen and examined at bedside. No acute distress, no adverse events overnight. He was saturating 87% on 3 L nasal cannula, increase it to 4 L Overall he said he is feeling better. Denies any nausea or vomiting Coughing up clear phlegm. No hemoptysis. Review of Systems 2 Review of Systems: All systems reviewed & are unremarkable except as noted in Subjective Physical Exam 2 Physical Exam: Constitutional: No acute distress HEENT: EOMI, PERRLA, legally blind in the right eye Respiratory system: Decreased air entry bilaterally, no wheeze, no rhonchi, positive Velcro-like crackles appreciated bilaterally more on the right side CVS: S1-S2 positive, no murmurs or gallops Abdomen: Soft, nontender, nondistended, positive bowel sounds x4 Extremities: +2 pulses bilaterally radialis/ dorsalis pedis, no cyanosis, no edema Neuro: Awake alert oriented x3 Psych: Normal mood and affect G/U: No Clemons Skin: no rashes, warm and dry Lymphatic: no cervical or axillary lymphadenopathy Results & Data Results & Data Vital Signs (Past 12 Hours) Vital Signs Temp Pulse Resp BP Pulse Ox O2 Del Method O2 Flow Rate 10/30/24 07:20 Nasal Cannula 3 10/30/24 07:14 36.4 C L 59 L 18 122/63 94 Nasal Cannula 3 Laboratory Results 10/30/24 07:06 10/30/24 07:06 PG Care Time/CCT Total # of Minutes Spent Total Time Spent with Patient: Total time spent is greater than 50% in coordination of care (as documented) at patient's floor/unit and/or counseling patient: Coding Level of Care Code 89918 SUB INP/OBS CARE 2/35MIN Diagnoses Abnormal chest CT R93.89 ILD (interstitial lung disease) J84.9 History of lung cancer Z85.118 COPD (chronic obstructive pulmonary disease) J44.9 Acute on chronic hypoxic respiratory failure J96.21
--- NOTE | 2024-10-30 16:19 | Hospitalist Progress Note ---
Date of Service October 30, 2024 Assessment & Plan (1) Acute on chronic hypoxic respiratory failure: Plan: -Patient recently had a hospitalization for similar diagnosis. -concern for interstitial lung disease w/ arthritis, had bronch at 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: Plan: -f/u autoimmune workup (3) Bilateral pulmonary infiltrates: Plan: see above (4) Rheumatoid arthritis: Plan: -continue plaquenil (5) COPD (chronic obstructive pulmonary disease): Plan: -continue inhalers (6) History of lung cancer: Plan: -noted (7) History of bladder cancer: Plan: -noted (8) Hypertension: (9) BPH (benign prostatic hyperplasia): (10) Status post partial lobectomy of lung: Plan Feeding/fluids: regular Analgesia: tylenol Sedation: na Thromboprophylaxis: lovenox Head up position: na Ulcer prophylaxis: na Glycemic control: na Spontaneous breathing trial: NC Bowel care: miralax prn Indwelling catheter removal: na Deescalation of antibiotics: pending culture results I spent a total of 45 minutes in direct patient care, including [id number] time with the patient and/or family, reviewing medical records, ordering and reviewing diagnostic tests, and coordinating care with other healthcare providers. This time includes: history taking, physical examination, medical decision making, counseling, ECG interpretation, imaging interpretation, lab interpretation, orders, and education, excluding time spent in the performance of separately billed services. Admission and Anticipated Discharge Date Admission Date: October 26, 2024 Subjective Patient seen and examined at bedside. Patient feels much better today. Feels less short of breath. Review of Systems Review of Systems: CONSTITUTIONAL: fatigue, weakness, improving EYES: Patient denies any visual symptoms. EARS, NOSE, AND THROAT: No difficulties with hearing. No symptoms of rhinitis or sore throat. CARDIOVASCULAR: Patient denies chest pains, palpitations, orthopnea and paroxysmal nocturnal dyspnea. RESPIRATORY: SOB, improved from prior GI: No nausea, vomiting, diarrhea, constipation, abdominal pain, hematochezia or melena. : No urinary hesitancy or dribbling. No nocturia or urinary frequency. No abnormal urethral discharge. MUSCULOSKELETAL: No myalgias or arthralgias. NEUROLOGIC: No chronic headaches, no seizures. Patient denies numbness, tingling or weakness. PSYCHIATRIC: Patient denies problems with mood disturbance. No problems with anxiety. ENDOCRINE: No excessive urination or excessive thirst. DERMATOLOGIC: Patient denies any rashes or skin changes. Physical Exam Physical Exam: Gen: A&O 3 NAD HEENT: NCAT, EOMI, not icteric. External ears normal. No rhinorrhea. Moist mucous membranes. Neck: Supple, full range of motion, no observable masses, No meningeal sign. Lungs: noted trace rhonchi on examination CV: RRR, no edema. Abdomen: Soft, nondistended, No rebound tenderness. MSK: No joint swelling, no redness. Skin: No rashes, petechiae, lesions. Normal color per patient. Neuro: Normal Gait, Grossly intact. Psych: Appropriate for situation. Results & Data Results & Data Vital Signs (Past 12 Hours) Vital Signs Temp Pulse Resp BP Pulse Ox O2 Del Method O2 Flow Rate 10/30/24 14:46 36.4 C L 54 L 16 126/62 94 Room Air 10/30/24 07:20 Nasal Cannula 3 10/30/24 07:14 36.4 C L 59 L 18 122/63 94 Nasal Cannula 3 Laboratory Results -personally reviewed, downtrending Na and leukocytosis Medications Administered Acetaminophen (Acetaminophen 325 Mg Tab) 650 mg PO Q4H PRN PRN Reason: pain/fever Stop: 11/25/24 16:20 Last Admin: 10/28/24 07:22 Dose: 650 mg Documented By: Admin: 10/27/24 21:03 Dose: 650 mg Documented By: Admin: 10/26/24 19:56 Dose: 650 mg Documented By: NOA Aspirin (Aspirin 81 Mg Ectab) 81 mg PO DAILY [facility] Stop: 11/26/24 08:59 Last Admin: 10/30/24 09:07 Dose: 81 mg Documented By: Admin: 10/29/24 09:24 Dose: 81 mg Documented By: Admin: 10/28/24 07:40 Dose: Not Given Documented By: Admin: 10/27/24 07:21 Dose: 81 mg Documented By: DELANEY Carvedilol (Carvedilol 12.5 Mg Tab) 12.5 mg PO BIDM MAYTE Stop: 11/25/24 16:59 Last Admin: 10/30/24 09:07 Dose: 12.5 mg Documented By: Admin: 10/29/24 16:56 Dose: 12.5 mg Documented By: Admin: 10/29/24 09:24 Dose: 12.5 mg Documented By: Admin: 10/28/24 17:03 Dose: 12.5 mg Documented By: Admin: 10/28/24 07:42 Dose: 12.5 mg Documented By: Admin: 10/27/24 15:59 Dose: 12.5 mg Documented By: Admin: 10/27/24 08:17 Dose: Not Given Documented By: Admin: 10/26/24 17:42 Dose: 12.5 mg Documented By: MARLI Chlorthalidone (Chlorthalidone 25 Mg Tab) 25 mg PO QAM MAYTE Stop: 11/26/24 08:59 Last Admin: 10/30/24 09:07 Dose: 25 mg Documented By: Admin: 10/29/24 09:26 Dose: 25 mg Documented By: Admin: 10/28/24 07:44 Dose: 25 mg Documented By: Admin: 10/27/24 07:20 Dose: 25 mg Documented By: DELANEY Enoxaparin Sodium (Enoxaparin Inj 40 Mg/0.4 Ml Syr) 40 mg SQ Q24H MAYTE Stop: 11/25/24 17:59 Last Admin: 10/27/24 18:07 Dose: 40 mg Documented By: Admin: 10/26/24 17:43 Dose: 40 mg Documented By: MARLI Finasteride (Finasteride 5 Mg Tab) 5 mg PO QAM MAYTE Stop: 11/26/24 08:59 Last Admin: 10/30/24 09:07 Dose: 5 mg Documented By: Admin: 10/29/24 09:25 Dose: 5 mg Documented By: Admin: 10/28/24 07:44 Dose: 5 mg Documented By: Admin: 10/27/24 07:20 Dose: 5 mg Documented By: DELANEY Fluticasone/Vilanterol (Fluticasone/Vilanterol 100/25mcg 14 Puffs/Inhaler) 1 puffs INH DAILY MAYTE Stop: 11/26/24 08:59 Last Admin: 10/30/24 09:04 Dose: 1 puffs Documented By: Admin: 10/29/24 09:24 Dose: 1 puffs Documented By: Admin: 10/28/24 07:44 Dose: 1 puffs Documented By: Admin: 10/27/24 07:19 Dose: 1 puffs Documented By: DELANEY Folic Acid (Folic Acid 1 Mg Tab) 1 mg PO QAM MAYTE Stop: 11/26/24 08:59 Last Admin: 10/30/24 09:06 Dose: 1 mg Documented By: Admin: 10/29/24 09:26 Dose: 1 mg Documented By: Admin: 10/28/24 07:43 Dose: 1 mg Documented By: Admin: 10/27/24 07:22 Dose: 1 mg Documented By: DELANEY Hydroxychloroquine Sulfate (Hydroxychloroquine Sulfate 200 Mg Tab) 200 mg PO BID MAYTE Stop: 11/25/24 20:59 Last Admin: 10/30/24 09:06 Dose: 200 mg Documented By: Admin: 10/29/24 20:10 Dose: 200 mg Documented By: Admin: 10/29/24 09:25 Dose: 200 mg Documented By: Admin: 10/28/24 21:42 Dose: 200 mg Documented By: Admin: 10/28/24 07:43 Dose: 200 mg Documented By: Admin: 10/27/24 20:58 Dose: 200 mg Documented By: Admin: 10/27/24 07:21 Dose: 200 mg Documented By: Admin: 10/26/24 19:57 Dose: 200 mg Documented By: NOA Montelukast Sodium (Montelukast Sodium 10 Mg Tablet) 10 mg PO HS MAYTE Stop: 11/25/24 20:59 Last Admin: 10/29/24 20:10 Dose: 10 mg Documented By: Admin: 10/28/24 21:43 Dose: 10 mg Documented By: Admin: 10/27/24 20:58 Dose: 10 mg Documented By: Admin: 10/26/24 19:58 Dose: 10 mg Documented By: NOA Nifedipine (Nifedipine Extended Rel 30 Mg Tabcr) 60 mg PO QAM MAYTE Stop: 11/26/24 08:59 Last Admin: 10/30/24 09:06 Dose: 60 mg Documented By: Admin: 10/29/24 09:25 Dose: 60 mg Documented By: Admin: 10/28/24 07:42 Dose: 60 mg Documented By: Admin: 10/27/24 07:20 Dose: 60 mg Documented By: DELANEY Oxybutynin Chloride (Oxybutynin Chloride 5 Mg Tab) 5 mg PO BID MAYTE Stop: 11/25/24 20:59 Last Admin: 10/30/24 09:07 Dose: 5 mg Documented By: Admin: 10/29/24 20:11 Dose: 5 mg Documented By: Admin: 10/29/24 09:26 Dose: 5 mg Documented By: Admin: 10/28/24 21:42 Dose: 5 mg Documented By: Admin: 10/28/24 07:45 Dose: 5 mg Documented By: Admin: 10/27/24 20:59 Dose: 5 mg Documented By: Admin: 10/27/24 07:23 Dose: 5 mg Documented By: Admin: 10/26/24 19:57 Dose: 5 mg Documented By: NOA Oxycodone HCl (Oxycodone Hcl Ir 5 Mg Tab (Immediate Release)) 5 mg PO Q4 PRN PRN Reason: Breakthrough Pain Stop: 11/11/24 07:30 Last Admin: 10/30/24 13:15 Dose: 5 mg Documented By: Admin: 10/30/24 09:07 Dose: 5 mg Documented By: Admin: 10/29/24 17:54 Dose: 5 mg Documented By: Admin: 10/29/24 13:58 Dose: 5 mg Documented By: Admin: 10/29/24 07:48 Dose: 5 mg Documented By: Admin: 10/28/24 07:38 Dose: 5 mg Documented By: DELANEY Pantoprazole Sodium (Pantoprazole 40 Mg Tab) 40 mg PO QAM MAYTE Stop: 11/28/24 16:29 Last Admin: 10/30/24 09:07 Dose: 40 mg Documented By: Admin: 10/29/24 16:56 Dose: 40 mg Documented By: PASTOR Prednisone (Prednisone 20 Mg Tab) 40 mg PO BID [facility]; Taper Stop: 11/19/24 08:59 Last Admin: 10/30/24 09:06 Dose: 40 mg Documented By: Admin: 10/29/24 20:11 Dose: 40 mg Documented By: Admin: 10/29/24 09:25 Dose: 40 mg Documented By: PASTOR Sertraline HCl (Sertraline Hcl 100 Mg Tablet) [facility] Stop: 11/26/24 08:59 Last Admin: 10/30/24 09:07 Dose: 100 mg Documented By: Admin: 10/29/24 09:58 Dose: 100 mg Documented By: Admin: 10/28/24 07:42 Dose: 100 mg Documented By: Admin: 10/27/24 07:21 Dose: 100 mg Documented By: DELANEY Tamsulosin HCl (Tamsulosin Hcl 0.4 Mg Cap) 0.4 mg PO [facility] Stop: 11/26/24 08:59 Last Admin: 10/30/24 09:08 Dose: 0.4 mg Documented By: Admin: 10/29/24 09:26 Dose: 0.4 mg Documented By: Admin: 10/28/24 07:42 Dose: 0.4 mg Documented By: Admin: 10/27/24 07:21 Dose: 0.4 mg Documented By: DELANEY Trazodone HCl (Trazodone Hcl 50 Mg Tab) 150 mg PO [facility] Stop: 11/25/24 20:59 Last Admin: 10/29/24 20:11 Dose: 150 mg Documented By: Admin: 10/28/24 21:42 Dose: 150 mg Documented By: Admin: 10/27/24 20:59 Dose: 150 mg Documented By: Admin: 10/26/24 19:58 Dose: 150 mg Documented By: NOA Trimethoprim/Sulfamethoxazole (Sulfamethoxazole/Trimethoprim Ds 800/160mg Tab) 3 tab PO BID@0600,2200 [facility] Stop: 11/04/24 21:59 Last Admin: 10/30/24 05:25 Dose: 3 tab Documented By: Admin: 10/29/24 21:41 Dose: 3 tab Documented By: Admin: 10/29/24 05:38 Dose: 3 tab Documented By: Admin: 10/28/24 22:28 Dose: 3 tab Documented By: MARIZA Trimethoprim/Sulfamethoxazole (Sulfamethoxazole/Trimethoprim Ds 800/160mg Tab) 4 tab PO DAILY@1400 MAYTE Stop: 11/04/24 13:59 Last Admin: 10/30/24 13:15 Dose: 4 tab Documented By: Admin: 10/29/24 13:58 Dose: 4 tab Documented By: Admin: 10/28/24 15:29 Dose: 4 tab Documented By: DELANEY
[2024-10-31 07:25] LABS: Hematocrit (blood only) 30.8 % (42.0-52.0); Hemoglobin 10.4 g/dl (14.0-18.0); Mean Corpuscular Hemoglobin 29.8 pg (25.0-34.0); Mean Corpuscular Hgb Conc 33.8 g/dL (32.0-36.0); Mean Corpuscular Volume 88.3 fL (80.0-100.0); Platelet Count 440 K/uL (130-400); RDW Coefficient of Variation 14.3 % (11.5-14.5); Red Blood Count 3.49 M/uL (4.70-6.10)
[2024-10-31 07:45] LABS: Albumin Globulin Ratio 0.8 (0.9-2); Albumin Level 2.8 gm/dl (3.4-5.0); BUN Creatinine Ratio 26.8 (10-20); Bilirubin,Total 0.3 mg/dl (0.2-1.0); Calcium 8.5 mg/dl (8.6-10.3); Creatinine Clr Calc Pharmacy 58.9 ml/min; Globulin 3.3 gm/dl (2.5-4.0); Potassium 4.5 mmol/L (3.5-5.1); Total Protein 6.1 gm/dl (6.0-8.3)
--- NOTE | 2024-10-31 08:56 | Pulmonology Progress Note ---
Date of Service October 31, 2024 Assessment & Plan (1) Abnormal chest CT: (2) ILD (interstitial lung disease): (3) History of lung cancer: (4) COPD (chronic obstructive pulmonary disease): (5) Acute on chronic hypoxic respiratory failure: Plan CT chest 10/26/2024 personally reviewed: Increased interstitial marking appreciated in the left upper and left lower as well as right lower lobe More pronounced on the left side Questionable traction bronchiectasis in the right lower lobe Minimal subcarinal as well as 10L lymphadenopathy --Acute hypoxic respiratory failure Respiratory BioFire positive for COVID-19 on 10/26/2024, he also tested positive on 09/25/2024 at [facility] BNP 243 Procalcitonin 0.05 I do not think patient has active COVID given that he was positive more than a month ago S/p bronchoscopy 10/28/2024 Follow-up cultures especially fungal and PJP One of the [facility] culture is growing a yeast which is most likely a colonizer. Follow-up PJP PCR On bronchoscopy patient seems to have foreign body in the right middle lobe which is most likely jonny from the previous surgery that he had done. They have been present on multiple CAT scans of the chest in the past -- Abnormal chest CT Patient seems to have increased reticular marking as well as traction bronchiectasis bilateral lower lobe I was able to look at the CAT scan of the chest which was done 10/18/2024 at [facility]. It seems that the opacities are getting worse especially in the left upper lobe -- History of rheumatoid arthritis On chronic prednisone as well as methotrexate --History of lung cancer Status post partial lobectomy Plan: Follow-up cultures especially fungal and PJP Continue with empiric treatment with PJP till we get the PCR result While being treated with Bactrim and prednisone, will need to monitor for sodium as well as potassium as Bactrim can cause hyperkalemia and hyponatremia Continue with pantoprazole pantoprazole given that he is on high-dose prednisone right now Case was discussed with primary team Please note the above document was generated using voice recognition software. It may contain grammatical, syntax or spelling errors.Any formal questions or concerns about the content, text or information contained within the body of this dictation should be directly addressed to the provider for clarification. Admission and Anticipated Discharge Date Admission Date: October 26, 2024 Subjective Patient seen and examined at bedside. No acute distress, no adverse events overnight Denied any chest pain, no headache Overall he says his breathing is getting better He was saturating 97% on 3 L, I went down to 2 L Review of Systems 2 Review of Systems: All systems reviewed & are unremarkable except as noted in Subjective Physical Exam 2 Physical Exam: Constitutional: No acute distress HEENT: EOMI, PERRLA, legally blind in the right eye Respiratory system: Decreased air entry bilaterally, no wheeze, no rhonchi, positive Velcro-like crackles appreciated bilaterally more on the right side CVS: S1-S2 positive, no murmurs or gallops, bradycardia Abdomen: Soft, nontender, nondistended, positive bowel sounds x4 Extremities: +2 pulses bilaterally radialis/ dorsalis pedis, no cyanosis, no edema Neuro: Awake alert oriented x3 Psych: Normal mood and affect G/U: No Clemons Skin: no rashes, warm and dry Lymphatic: no cervical or axillary lymphadenopathy Results & Data Results & Data Vital Signs (Past 12 Hours) Vital Signs Temp Pulse Resp BP Pulse Ox O2 Del Method O2 Flow Rate 10/31/24 08:19 36.5 C 54 L 14 127/55 L 91 Nasal Cannula 4.5 Laboratory Results 10/31/24 07:07 10/31/24 07:07 PG Care Time/CCT Total # of Minutes Spent Total Time Spent with Patient: Total time spent is greater than 50% in coordination of care (as documented) at patient's floor/unit and/or counseling patient: Coding Level of Care Code 22886 SUB INP/OBS CARE 2/35MIN Diagnoses Abnormal chest CT R93.89 ILD (interstitial lung disease) J84.9 History of lung cancer Z85.118 COPD (chronic obstructive pulmonary disease) J44.9 Acute on chronic hypoxic respiratory failure J96.21
--- NOTE | 2024-10-31 14:00 | Hospitalist Progress Note ---
Date of Service October 31, 2024 Assessment & Plan (1) Acute on chronic hypoxic respiratory failure: Plan: -Patient recently had a hospitalization for similar diagnosis. 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: Plan: -f/u autoimmune workup (3) Bilateral pulmonary infiltrates: Plan: see above (4) Rheumatoid arthritis: Plan: -continue plaquenil (5) COPD (chronic obstructive pulmonary disease): Plan: -continue inhalers (6) History of lung cancer: Plan: -noted (7) History of bladder cancer: Plan: -noted (8) Hypertension: (9) BPH (benign prostatic hyperplasia): (10) Status post partial lobectomy of lung: Plan Feeding/fluids: regular Analgesia: tylenol Sedation: na Thromboprophylaxis: lovenox Head up position: na Ulcer prophylaxis: na Glycemic control: na Spontaneous breathing trial: NC Bowel care: miralax prn Indwelling catheter removal: na Deescalation of antibiotics: pending culture results I spent a total of 50 minutes in direct patient care, including [id number] time with the patient and/or family, reviewing medical records, ordering and reviewing diagnostic tests, and coordinating care with other healthcare providers. This time includes: history taking, physical examination, medical decision making, counseling, ECG interpretation, imaging interpretation, lab interpretation, orders, and education, excluding time spent in the performance of separately billed services. Admission and Anticipated Discharge Date Admission Date: October 26, 2024 Subjective Patient seen and examined at bedside. Mr. Ford is doing ok today. He states he feels quite dry. Otherwise, he states his breathing is about the same as yesterday. Review of Systems Review of Systems: CONSTITUTIONAL: fatigue, weakness, improving EYES: Patient denies any visual symptoms. EARS, NOSE, AND THROAT: No difficulties with hearing. No symptoms of rhinitis or sore throat. CARDIOVASCULAR: Patient denies chest pains, palpitations, orthopnea and paroxysmal nocturnal dyspnea. RESPIRATORY: SOB, improved from prior GI: No nausea, vomiting, diarrhea, constipation, abdominal pain, hematochezia or melena. : No urinary hesitancy or dribbling. No nocturia or urinary frequency. No abnormal urethral discharge. MUSCULOSKELETAL: No myalgias or arthralgias. NEUROLOGIC: No chronic headaches, no seizures. Patient denies numbness, tingling or weakness. PSYCHIATRIC: Patient denies problems with mood disturbance. No problems with anxiety. ENDOCRINE: No excessive urination or excessive thirst. DERMATOLOGIC: Patient denies any rashes or skin changes. Physical Exam Physical Exam: Gen: A&O 3 NAD HEENT: NCAT, EOMI, not icteric. External ears normal. No rhinorrhea. Moist mucous membranes. Neck: Supple, full range of motion, no observable masses, No meningeal sign. Lungs: noted trace rhonchi on examination CV: RRR, no edema. Abdomen: Soft, nondistended, No rebound tenderness. MSK: No joint swelling, no redness. Skin: No rashes, petechiae, lesions. Normal color per patient. Neuro: Normal Gait, Grossly intact. Psych: Appropriate for situation. Results & Data Results & Data Vital Signs (Past 12 Hours) Vital Signs Temp Pulse Resp BP Pulse Ox O2 Del Method O2 Flow Rate 10/31/24 08:19 36.5 C 54 L 14 127/55 L 91 Nasal Cannula 4.5 Laboratory Results -personally reviewed, uptrending leukocytosis in setting of steroid use, downtrending sodium likely in setting of dehydration (dry on exam) Medications Administered Acetaminophen (Acetaminophen 325 Mg Tab) 650 mg PO Q4H PRN PRN Reason: pain/fever Stop: 11/25/24 16:20 Last Admin: 10/28/24 07:22 Dose: 650 mg Documented By: Admin: 10/27/24 21:03 Dose: 650 mg Documented By: Admin: 10/26/24 19:56 Dose: 650 mg Documented By: NOA Aspirin (Aspirin 81 Mg Ectab) 81 mg PO DAILY [facility] Stop: 11/26/24 08:59 Last Admin: 10/31/24 09:41 Dose: 81 mg Documented By: Admin: 10/30/24 09:07 Dose: 81 mg Documented By: Admin: 10/29/24 09:24 Dose: 81 mg Documented By: Admin: 10/28/24 07:40 Dose: Not Given Documented By: Admin: 10/27/24 07:21 Dose: 81 mg Documented By: DELANEY Carvedilol (Carvedilol 12.5 Mg Tab) 12.5 mg PO BIDM MAYTE Stop: 11/25/24 16:59 Last Admin: 10/31/24 09:40 Dose: 12.5 mg Documented By: Admin: 10/30/24 17:47 Dose: 12.5 mg Documented By: Admin: 10/30/24 09:07 Dose: 12.5 mg Documented By: Admin: 10/29/24 16:56 Dose: 12.5 mg Documented By: Admin: 10/29/24 09:24 Dose: 12.5 mg Documented By: Admin: 10/28/24 17:03 Dose: 12.5 mg Documented By: Admin: 10/28/24 07:42 Dose: 12.5 mg Documented By: Admin: 10/27/24 15:59 Dose: 12.5 mg Documented By: Admin: 10/27/24 08:17 Dose: Not Given Documented By: Admin: 10/26/24 17:42 Dose: 12.5 mg Documented By: MARLI Enoxaparin Sodium (Enoxaparin Inj 40 Mg/0.4 Ml Syr) 40 mg SQ Q24H MAYTE Stop: 11/25/24 17:59 Last Admin: 10/27/24 18:07 Dose: 40 mg Documented By: Admin: 10/26/24 17:43 Dose: 40 mg Documented By: MARLI Finasteride (Finasteride 5 Mg Tab) 5 mg PO QAM MAYTE Stop: 11/26/24 08:59 Last Admin: 10/31/24 09:00 Dose: 5 mg Documented By: Admin: 10/30/24 09:07 Dose: 5 mg Documented By: Admin: 10/29/24 09:25 Dose: 5 mg Documented By: Admin: 10/28/24 07:44 Dose: 5 mg Documented By: Admin: 10/27/24 07:20 Dose: 5 mg Documented By: DELANEY Fluticasone/Vilanterol (Fluticasone/Vilanterol 100/25mcg 14 Puffs/Inhaler) 1 puffs INH DAILY MAYTE Stop: 11/26/24 08:59 Last Admin: 10/31/24 09:00 Dose: 1 puffs Documented By: Admin: 10/30/24 09:04 Dose: 1 puffs Documented By: Admin: 10/29/24 09:24 Dose: 1 puffs Documented By: Admin: 10/28/24 07:44 Dose: 1 puffs Documented By: Admin: 10/27/24 07:19 Dose: 1 puffs Documented By: DELANEY Hydroxychloroquine Sulfate (Hydroxychloroquine Sulfate 200 Mg Tab) 200 mg PO BID MAYTE Stop: 11/25/24 20:59 Last Admin: 10/31/24 09:01 Dose: 200 mg Documented By: Admin: 10/30/24 20:51 Dose: 200 mg Documented By: Admin: 10/30/24 09:06 Dose: 200 mg Documented By: Admin: 10/29/24 20:10 Dose: 200 mg Documented By: Admin: 10/29/24 09:25 Dose: 200 mg Documented By: Admin: 10/28/24 21:42 Dose: 200 mg Documented By: Admin: 10/28/24 07:43 Dose: 200 mg Documented By: Admin: 10/27/24 20:58 Dose: 200 mg Documented By: Admin: 10/27/24 07:21 Dose: 200 mg Documented By: Admin: 10/26/24 19:57 Dose: 200 mg Documented By: NOA Sodium Chloride (Nss) 500 mls @ 80 mls/hr IV .Q6H15M MAYTE Stop: 10/31/24 19:44 Last Admin: 10/31/24 14:30 Dose: 80 mls/hr Documented By: BILL Montelukast Sodium (Montelukast Sodium 10 Mg Tablet) 10 mg PO HS MAYTE Stop: 11/25/24 20:59 Last Admin: 10/30/24 20:51 Dose: 10 mg Documented By: Admin: 10/29/24 20:10 Dose: 10 mg Documented By: Admin: 10/28/24 21:43 Dose: 10 mg Documented By: Admin: 10/27/24 20:58 Dose: 10 mg Documented By: Admin: 10/26/24 19:58 Dose: 10 mg Documented By: NOA Nifedipine (Nifedipine Extended Rel 30 Mg Tabcr) [facility] Stop: 11/26/24 08:59 Last Admin: 10/31/24 09:41 Dose: 60 mg Documented By: Admin: 10/30/24 09:06 Dose: 60 mg Documented By: Admin: 10/29/24 09:25 Dose: 60 mg Documented By: Admin: 10/28/24 07:42 Dose: 60 mg Documented By: Admin: 10/27/24 07:20 Dose: 60 mg Documented By: DELANEY Oxybutynin Chloride (Oxybutynin Chloride 5 Mg Tab) 5 mg PO BID [facility] Stop: 11/25/24 20:59 Last Admin: 10/31/24 09:02 Dose: 5 mg Documented By: Admin: 10/30/24 20:51 Dose: 5 mg Documented By: Admin: 10/30/24 09:07 Dose: 5 mg Documented By: Admin: 10/29/24 20:11 Dose: 5 mg Documented By: Admin: 10/29/24 09:26 Dose: 5 mg Documented By: Admin: 10/28/24 21:42 Dose: 5 mg Documented By: Admin: 10/28/24 07:45 Dose: 5 mg Documented By: Admin: 10/27/24 20:59 Dose: 5 mg Documented By: Admin: 10/27/24 07:23 Dose: 5 mg Documented By: Admin: 10/26/24 19:57 Dose: 5 mg Documented By: NOA Oxycodone HCl (Oxycodone Hcl Ir 5 Mg Tab (Immediate Release)) 5 mg PO Q4 PRN PRN Reason: Breakthrough Pain Stop: 11/11/24 07:30 Last Admin: 10/31/24 08:52 Dose: 5 mg Documented By: Admin: 10/30/24 17:07 Dose: 5 mg Documented By: Admin: 10/30/24 13:15 Dose: 5 mg Documented By: Admin: 10/30/24 09:07 Dose: 5 mg Documented By: Admin: 10/29/24 17:54 Dose: 5 mg Documented By: Admin: 10/29/24 13:58 Dose: 5 mg Documented By: Admin: 10/29/24 07:48 Dose: 5 mg Documented By: Admin: 10/28/24 07:38 Dose: 5 mg Documented By: DELANEY Pantoprazole Sodium (Pantoprazole 40 Mg Tab) 40 mg PO QAM MAYTE Stop: 11/28/24 16:29 Last Admin: 10/31/24 09:41 Dose: 40 mg Documented By: Admin: 10/30/24 09:07 Dose: 40 mg Documented By: Admin: 10/29/24 16:56 Dose: 40 mg Documented By: PASTOR Prednisone (Prednisone 20 Mg Tab) 40 mg PO BID MAYTE; Taper Stop: 11/19/24 08:59 Last Admin: 10/31/24 13:10 Dose: 40 mg Documented By: Admin: 10/30/24 20:51 Dose: 40 mg Documented By: Admin: 10/30/24 09:06 Dose: 40 mg Documented By: Admin: 10/29/24 20:11 Dose: 40 mg Documented By: Admin: 10/29/24 09:25 Dose: 40 mg Documented By: PASTOR Sertraline HCl (Sertraline Hcl 100 Mg Tablet) 100 mg PO QAM MAYTE Stop: 11/26/24 08:59 Last Admin: 10/31/24 09:01 Dose: 100 mg Documented By: Admin: 10/30/24 09:07 Dose: 100 mg Documented By: Admin: 10/29/24 09:58 Dose: 100 mg Documented By: Admin: 10/28/24 07:42 Dose: 100 mg Documented By: Admin: 10/27/24 07:21 Dose: 100 mg Documented By: DELANEY Tamsulosin HCl (Tamsulosin Hcl 0.4 Mg Cap) 0.4 mg PO QAM MAYTE Stop: 11/26/24 08:59 Last Admin: 10/31/24 09:43 Dose: 0.4 mg Documented By: Admin: 10/30/24 09:08 Dose: 0.4 mg Documented By: Admin: 10/29/24 09:26 Dose: 0.4 mg Documented By: Admin: 10/28/24 07:42 Dose: 0.4 mg Documented By: Admin: 10/27/24 07:21 Dose: 0.4 mg Documented By: DELANEY Trazodone HCl (Trazodone Hcl 50 Mg Tab) 150 mg PO HS MAYTE Stop: 11/25/24 20:59 Last Admin: 10/30/24 20:52 Dose: 150 mg Documented By: Admin: 10/29/24 20:11 Dose: 150 mg Documented By: Admin: 10/28/24 21:42 Dose: 150 mg Documented By: Admin: 10/27/24 20:59 Dose: 150 mg Documented By: Admin: 10/26/24 19:58 Dose: 150 mg Documented By: NOA Trimethoprim/Sulfamethoxazole (Sulfamethoxazole/Trimethoprim Ds 800/160mg Tab) 3 tab PO BID@0600,2200 MAYTE Stop: 11/04/24 21:59 Last Admin: 10/31/24 06:00 Dose: 3 tab Documented By: Admin: 10/30/24 20:53 Dose: 3 tab Documented By: Admin: 10/30/24 05:25 Dose: 3 tab Documented By: Admin: 10/29/24 21:41 Dose: 3 tab Documented By: Admin: 10/29/24 05:38 Dose: 3 tab Documented By: Admin: 10/28/24 22:28 Dose: 3 tab Documented By: MARIZA Trimethoprim/Sulfamethoxazole (Sulfamethoxazole/Trimethoprim Ds 800/160mg Tab) 4 tab PO DAILY@1400 MAYTE Stop: 11/04/24 13:59 Last Admin: 10/31/24 14:30 Dose: 4 tab Documented By: Admin: 10/30/24 13:15 Dose: 4 tab Documented By: Admin: 10/29/24 13:58 Dose: 4 tab Documented By: Admin: 10/28/24 15:29 Dose: 4 tab Documented By: DELANEY
[2024-10-31] MEDS: SODIUM CHLORIDE 0.9% 500 ML IV SCH (14:30)
[2024-10-31 15:43] LABS: Anti Cardiolipin Ab IgG <2.0 GPL-U/mL; Anti Cardiolipin Ab IgM <2.0 MPL-U/mL; Anti Nuclear Antibody Screen NEGATIVE (NEGATIVE); Anti-Centromere Ab <1.0 NEG AI (<1.0 NEG); Anti-SS-A <1.0 NEG AI (<1.0 NEG); Anti-SS-B <1.0 NEG AI (<1.0 NEG); Chromatin Antibody <1.0 NEG AI (<1.0 NEG); Complement C3 143 mg/dL (82-185); DNA ds Crithidia NEGATIVE (NEGATIVE); Microsomal Ab <1 IU/mL (<9); RNP Antibody <1.0 NEG AI (<1.0 NEG); Sm Antibody <1.0 NEG AI (<1.0 NEG)
[2024-11-01 07:05] LABS: Hematocrit (blood only) 31.6 % (42.0-52.0); Hemoglobin 10.3 g/dl (14.0-18.0); Mean Corpuscular Hgb Conc 32.6 g/dL (32.0-36.0); Platelet Count 428 K/uL (130-400); RDW Coefficient of Variation 14.6 % (11.5-14.5); RDW Standard Deviation 47.1 fL (36.4-46.3); Red Blood Count 3.55 M/uL (4.70-6.10); White Blood Count 18.62 K/ul (4.8-10.8)
[2024-11-01 07:16] LABS: Albumin Globulin Ratio 0.8 (0.9-2); Albumin Level 2.7 gm/dl (3.4-5.0); BUN Creatinine Ratio 27.5 (10-20); Bilirubin,Total 0.2 mg/dl (0.2-1.0); Calcium 8.3 mg/dl (8.6-10.3); Creatinine Clr Calc Pharmacy 62.3 ml/min; Globulin 3.2 gm/dl (2.5-4.0); Potassium 4.8 mmol/L (3.5-5.1); Total Protein 5.9 gm/dl (6.0-8.3)
--- NOTE | 2024-11-01 08:44 | XRay Report ---
EXAM: XR chest 1V portable CLINICAL HISTORY: f/u TECHNIQUE: An X-ray image of the chest is obtained in AP projection. COMPARISON: Prior x ray 10/28/2024 , CT 10/26/2024 FINDINGS: Pulmonary Parenchyma: Mild improvement of diffuse interstitial and patchy pulmonary opacities throughout the left lung. Stable stranding opacity at the right lung base. Accentuated vascular lung markings bilaterally. No pulmonary nodules are identified. No pneumothorax Heart and Mediastinum: Heart size is enlarged. No mediastinal widening or masses. No hilar or mediastinal lymphadenopathy. Bony Thorax: Bony thorax appears intact without fractures or deformities. Soft Tissues: Soft tissues overlying the chest wall are unremarkable. IMPRESSION: Stable cardiomegaly with accentuated vascular lung markings bilaterally. Mild improvement of diffuse interstitial and patchy pulmonary opacities throughout the left lung. Stable stranding interstitial opacity at the right lung base. Findings of chronic interstitial lung disease as seen in previous CT Electronically signed by Silvestre Lambert 11-01-2024 08:44 AM
--- NOTE | 2024-11-01 08:56 | Pulmonology Progress Note ---
Date of Service November 01, 2024 Assessment & Plan (1) Abnormal chest CT: (2) ILD (interstitial lung disease): (3) History of lung cancer: (4) COPD (chronic obstructive pulmonary disease): (5) Acute on chronic hypoxic respiratory failure: Plan CT chest 10/26/2024 personally reviewed: Increased interstitial marking appreciated in the left upper and left lower as well as right lower lobe More pronounced on the left side Questionable traction bronchiectasis in the right lower lobe Minimal subcarinal as well as 10L lymphadenopathy --Acute hypoxic respiratory failure Respiratory BioFire positive for COVID-19 on 10/26/2024, he also tested positive on 09/25/2024 at [facility] BNP 243 Procalcitonin 0.05 I do not think patient has active COVID given that he was positive more than a month ago S/p bronchoscopy 10/28/2024 Follow-up cultures especially fungal and PJP One of the [facility] culture is growing a yeast which is most likely a colonizer. Follow-up PJP PCR On bronchoscopy patient seems to have foreign body in the right middle lobe which is most likely jonny from the previous surgery that he had done. They have been present on multiple CAT scans of the chest in the past -- Abnormal chest CT Patient seems to have increased reticular marking as well as traction bronchiectasis bilateral lower lobe I was able to look at the CAT scan of the chest which was done 10/18/2024 at [facility]. It seems that the opacities are getting worse especially in the left upper lobe -- History of rheumatoid arthritis On chronic prednisone as well as methotrexate --History of lung cancer Status post partial lobectomy Plan: Chest x-ray from today shows improvement in the opacities on the left side. Bilateral lower lobe interstitial marking still persists Follow-up cultures especially fungal and PJP Continue with empiric treatment with PJP till we get the PCR result While being treated with Bactrim and prednisone, will need to monitor for sodium as well as potassium as Bactrim can cause hyperkalemia and hyponatremia Continue with pantoprazole pantoprazole given that he is on high-dose prednisone right now Case was discussed with primary team Please note the above document was generated using voice recognition software. It may contain grammatical, syntax or spelling errors.Any formal questions or concerns about the content, text or information contained within the body of this dictation should be directly addressed to the provider for clarification. Admission and Anticipated Discharge Date Admission Date: October 26, 2024 Subjective Patient seen and examined at bedside. No acute distress, no adverse events overnight Overall he says that his breathing is getting better He was saturating 91-92% on 2 L nasal cannula Coughing up clear phlegm. Denied any hemoptysis Has been afebrile Review of Systems 2 Review of Systems: All systems reviewed & are unremarkable except as noted in Subjective Physical Exam 2 Physical Exam: Constitutional: No acute distress HEENT: EOMI, PERRLA, legally blind in the right eye Respiratory system: Decreased air entry bilaterally, no wheeze, no rhonchi, positive Velcro-like crackles appreciated bilaterally more on the right side CVS: S1-S2 positive, no murmurs or gallops, bradycardia Abdomen: Soft, nontender, nondistended, positive bowel sounds x4 Extremities: +2 pulses bilaterally radialis/ dorsalis pedis, no cyanosis, no edema Neuro: Awake alert oriented x3 Psych: Normal mood and affect G/U: No Clemons Skin: no rashes, warm and dry Lymphatic: no cervical or axillary lymphadenopathy Results & Data Results & Data Vital Signs (Past 12 Hours) Vital Signs Temp Pulse Resp BP Pulse Ox O2 Del Method O2 Flow Rate 11/01/24 08:04 36.5 C 59 L 18 113/60 90 Nasal Cannula 2.5 10/31/24 21:45 Nasal Cannula 3 Laboratory Results 11/01/24 06:38 11/01/24 06:38 PG Care Time/CCT Total # of Minutes Spent Total Time Spent with Patient: Total time spent is greater than 50% in coordination of care (as documented) at patient's floor/unit and/or counseling patient: Coding Level of Care Code 96296 SUB INP/OBS CARE 2/35MIN Diagnoses Abnormal chest CT R93.89 ILD (interstitial lung disease) J84.9 History of lung cancer Z85.118 COPD (chronic obstructive pulmonary disease) J44.9 Acute on chronic hypoxic respiratory failure J96.21
--- NOTE | 2024-11-01 12:19 | Hospitalist Progress Note ---
Date of Service November 01, 2024 Assessment & Plan (1) Acute on chronic hypoxic respiratory failure: Plan: -Patient recently had a hospitalization for similar diagnosis. 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: Plan: -f/u autoimmune workup (3) Bilateral pulmonary infiltrates: Plan: see above (4) Rheumatoid arthritis: Plan: -continue plaquenil (5) COPD (chronic obstructive pulmonary disease): Plan: -continue inhalers (6) History of lung cancer: Plan: -noted (7) History of bladder cancer: Plan: -noted (8) Hypertension: (9) BPH (benign prostatic hyperplasia): (10) Status post partial lobectomy of lung: Plan Feeding/fluids: regular Analgesia: tylenol Sedation: na Thromboprophylaxis: lovenox Head up position: na Ulcer prophylaxis: na Glycemic control: na Spontaneous breathing trial: NC Bowel care: miralax prn Indwelling catheter removal: na Deescalation of antibiotics: pending culture results I spent a total of 50 minutes in direct patient care, including [id number] time with the patient and/or family, reviewing medical records, ordering and reviewing diagnostic tests, and coordinating care with other healthcare providers. This time includes: history taking, physical examination, medical decision making, counseling, ECG interpretation, imaging interpretation, lab interpretation, orders, and education, excluding time spent in the performance of separately billed services. Admission and Anticipated Discharge Date Admission Date: October 26, 2024 Subjective Patient seen and examined at bedside. Patient is doing okay today. Discussed plan to send him home with home oxygen tomorrow with follow-up with PCP and deck specialist in regards to cultures. He is agreeable and appreciative of the update Review of Systems Review of Systems: CONSTITUTIONAL: fatigue, weakness, improving EYES: Patient denies any visual symptoms. EARS, NOSE, AND THROAT: No difficulties with hearing. No symptoms of rhinitis or sore throat. CARDIOVASCULAR: Patient denies chest pains, palpitations, orthopnea and paroxysmal nocturnal dyspnea. RESPIRATORY: SOB, improved from prior GI: No nausea, vomiting, diarrhea, constipation, abdominal pain, hematochezia or melena. : No urinary hesitancy or dribbling. No nocturia or urinary frequency. No abnormal urethral discharge. MUSCULOSKELETAL: No myalgias or arthralgias. NEUROLOGIC: No chronic headaches, no seizures. Patient denies numbness, tingling or weakness. PSYCHIATRIC: Patient denies problems with mood disturbance. No problems with anxiety. ENDOCRINE: No excessive urination or excessive thirst. DERMATOLOGIC: Patient denies any rashes or skin changes. Physical Exam Physical Exam: Gen: A&O 3 NAD HEENT: NCAT, EOMI, not icteric. External ears normal. No rhinorrhea. Moist mucous membranes. Neck: Supple, full range of motion, no observable masses, No meningeal sign. Lungs: trace rhonchi on examination CV: RRR, no edema. Abdomen: Soft, nondistended, No rebound tenderness. MSK: No joint swelling, no redness. Skin: No rashes, petechiae, lesions. Normal color per patient. Neuro: Normal Gait, Grossly intact. Psych: Appropriate for situation. Results & Data Results & Data Vital Signs (Past 12 Hours) Vital Signs Temp Pulse Resp BP Pulse Ox O2 Del Method O2 Flow Rate 11/01/24 08:10 Nasal Cannula 3 11/01/24 08:04 36.5 C 59 L 18 113/60 90 Nasal Cannula 2.5 Laboratory Results -personally reviewed, creatinine slightly downtrending
[2024-11-01] MEDS: SODIUM CHLORIDE 0.9% 1,000 ML IV SCH (13:26)
[2024-11-01] MEDS: oxyBUTYnin chloride 5 MG TAB PO SCH (21:44)
[2024-11-02 08:02] LABS: Hematocrit (blood only) 34.3 % (42.0-52.0); Hemoglobin 11.2 g/dl (14.0-18.0); Mean Corpuscular Hemoglobin 29.3 pg (25.0-34.0); Mean Corpuscular Hgb Conc 32.7 g/dL (32.0-36.0); Mean Corpuscular Volume 89.8 fL (80.0-100.0); Platelet Count 473 K/uL (130-400); RDW Coefficient of Variation 14.8 % (11.5-14.5); RDW Standard Deviation 48.9 fL (36.4-46.3); Red Blood Count 3.82 M/uL (4.70-6.10); White Blood Count 19.25 K/ul (4.8-10.8)
[2024-11-02 08:23] LABS: Albumin Globulin Ratio 0.9 (0.9-2); BUN Creatinine Ratio 23.9 (10-20); Bilirubin,Total 0.3 mg/dl (0.2-1.0); Creatinine Clr Calc Pharmacy 63.9 ml/min; Globulin 3.4 gm/dl (2.5-4.0); Potassium 4.7 mmol/L (3.5-5.1); Total Protein 6.4 gm/dl (6.0-8.3)
--- NOTE | 2024-11-02 09:29 | XRay Report ---
XR chest 1V portable CLINICAL HISTORY: worsening hypoxia COMPARISON STUDY: 11/01/2024 FINDINGS: Heart size and pulmonary vasculature are normal. There are stable reticular and faint patch y opacities at the left mid and lower lung and right lung base. No pleural effusion and pneumothorax. IMPRESSION: Stable exam. ACT 112: Negative or not required by law. Electronically signed by: Mat Westbrook M.D. 11/02/2024 9:28 AM
--- NOTE | 2024-11-02 10:14 | Pulmonology Progress Note ---
Date of Service November 02, 2024 Assessment & Plan (1) Abnormal chest CT: (2) ILD (interstitial lung disease): (3) History of lung cancer: (4) COPD (chronic obstructive pulmonary disease): (5) Acute on chronic hypoxic respiratory failure: Plan Impression: 79-year-old male with a history of rheumatoid arthritis and lung cancer status post lobectomy on the right admitted with shortness of breath and recent diagnosis of COVID. He is undergone bronchoscopy here in the hospital. He was treated empirically for PJP but PCR negative. Recommendation: 1. Interstitial lung disease: Unclear etiology but certainly rheumatoid lung disease would be on the differential. He is already on prednisone and methotrexate in the outpatient setting. Cannot rule out methotrexate associated lung toxicity however the dosage that he is using in the outpatient setting is quite low and unlikely to contribute to pulmonary toxicity. Would recommend continuing for now. Would recommend that he follow-up with his cash room clerk and his outpatient experimental mechanic spacecraft. 2. Patient's PCR for PJP was negative. High-dose steroids and Bactrim can be discontinued at this point in time. 3. Consider outpatient PFTs. 4. Patient should be assessed for supplemental oxygen prior to discharge and th is should be arranged if he qualifies. Pulmonary will sign off at this point in time. [facility] Feel free to contact us with questions or concerns Admission and Anticipated Discharge Date Admission Date: October 26, 2024 Subjective Patient seen and examined. EMR reviewed. Discussed with off going experimental mechanic spacecraft. The patient reports he is feeling better. He is waiting getting set up with supplemental oxygen to discharge. He is having minimal cough. No fevers chills or night sweats. No significant sputum production. He has no new respiratory concerns today Review of Systems Review of Systems: All systems reviewed & are unremarkable except as noted in Subjective Physical Exam Constitutional: WD/WN, vitals as above Neck: trachea midline, no thyromegaly Respiratory: no respiratory distress, no labored breathing, no cough and not tachypneic Auscultation: + crackles; no wheezes Cardiovascular: RRR, no murmur, no edema Gastrointestinal (Abdomen): normal bowel sounds, soft, nontender, no hepatosplenomegaly Musculoskeletal: Extremities: extremities normal to inspection Skin: no rashes, warm and dry Neurologic: Nonfocal exam Lymphatic: no cervical lymphadenopathy Results & Data Results & Data Vital Signs (Past 12 Hours) Vital Signs Temp Pulse Pulse Pulse Resp Resp Resp 11/02/24 09:00 60 61 16 16 11/02/24 07:46 36.4 C L 62 16 11/02/24 07:40 11/02/24 07:30 BP Pulse Ox Pulse Ox Pulse Ox O2 Del Method O2 Flow Rate O2 Flow Rate 11/02/24 09:00 91 88 L 2 11/02/24 07:46 117/57 L 90 Nasal Cannula 4 11/02/24 07:40 Nasal Cannula 4 11/02/24 07:30 84 L Nasal Cannula 2 Laboratory Results BAL results: Cocci PCR negative Histo/blasto PCR negative Pneumocystis PCR negative Diagnostic Findings No new imaging PG Care Time/CCT Total # of Minutes Spent Total Time Spent with Patient: Total time spent is greater than 50% in coordination of care (as documented) at patient's floor/unit and/or counseling patient: Coding Level of Care Code 40342 SUB INP/OBS CARE 2/35MIN Diagnoses Abnormal chest CT R93.89 ILD (interstitial lung disease) J84.9 History of lung cancer Z85.118 COPD (chronic obstructive pulmonary disease) J44.9 Acute on chronic hypoxic respiratory failure J96.21
[2024-11-02] MEDS: POLYETHYLENE (MIRALAX) 17 GM PACK PO PRN (11:01)
--- NOTE | 2024-11-02 17:01 | Hospitalist Progress Note ---
Date of Service November 02, 2024 Assessment & Plan (1) Acute on chronic hypoxic respiratory failure: Plan: -Patient recently had a hospitalization for similar diagnosis. 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: Plan: -f/u autoimmune workup (3) Bilateral pulmonary infiltrates: Plan: see above (4) Rheumatoid arthritis: Plan: -continue plaquenil (5) COPD (chronic obstructive pulmonary disease): Plan: -continue inhalers (6) History of lung cancer: Plan: -noted (7) History of bladder cancer: Plan: -noted (8) Hypertension: (9) BPH (benign prostatic hyperplasia): (10) Status post partial lobectomy of lung: Plan Feeding/fluids: regular Analgesia: tylenol Sedation: na Thromboprophylaxis: lovenox Head up position: na Ulcer prophylaxis: na Glycemic control: na Spontaneous breathing trial: NC Bowel care: miralax prn Indwelling catheter removal: na Deescalation of antibiotics: discharge with course of abx for CAP I spent a total of 45 minutes in direct patient care, including [id number] time with the patient and/or family, reviewing medical records, ordering and reviewing diagnostic tests, and coordinating care with other healthcare providers. This time includes: history taking, physical examination, medical decision making, counseling, ECG interpretation, imaging interpretation, lab interpretation, orders, and education, excluding time spent in the performance of separately billed services. Admission and Anticipated Discharge Date Admission Date: October 26, 2024 Subjective Patient seen and examined at bedside. Patient doing well today, looking forward to going home soon. Review of Systems Review of Systems: CONSTITUTIONAL: fatigue, weakness, improving EYES: Patient denies any visual symptoms. EARS, NOSE, AND THROAT: No difficulties with hearing. No symptoms of rhinitis or sore throat. CARDIOVASCULAR: Patient denies chest pains, palpitations, orthopnea and paroxysmal nocturnal dyspnea. RESPIRATORY: SOB, improved from prior GI: No nausea, vomiting, diarrhea, constipation, abdominal pain, hematochezia or melena. : No urinary hesitancy or dribbling. No nocturia or urinary frequency. No abnormal urethral discharge. MUSCULOSKELETAL: No myalgias or arthralgias. NEUROLOGIC: No chronic headaches, no seizures. Patient denies numbness, tingling or weakness. PSYCHIATRIC: Patient denies problems with mood disturbance. No problems with anxiety. ENDOCRINE: No excessive urination or excessive thirst. DERMATOLOGIC: Patient denies any rashes or skin changes. Physical Exam Physical Exam: Gen: A&O 3 NAD HEENT: NCAT, EOMI, not icteric. External ears normal. No rhinorrhea. Moist mucous membranes. Neck: Supple, full range of motion, no observable masses, No meningeal sign. Lungs: trace rhonchi on examination CV: RRR, no edema. Abdomen: Soft, nondistended, No rebound tenderness. MSK: No joint swelling, no redness. Skin: No rashes, petechiae, lesions. Normal color per patient. Neuro: Normal Gait, Grossly intact. Psych: Appropriate for situation. Results & Data Results & Data Vital Signs (Past 12 Hours) Vital Signs Temp Pulse Pulse Pulse Resp Resp Resp 11/02/24 15:26 36.3 C L 51 L 18 11/02/24 11:02 11/02/24 09:00 60 61 16 16 11/02/24 07:46 36.4 C L 62 16 11/02/24 07:40 11/02/24 07:30 BP Pulse Ox Pulse Ox Pulse Ox O2 Del Method O2 Flow Rate O2 Flow Rate 11/02/24 15:26 139/69 96 Room Air 11/02/24 11:02 93 Nasal Cannula 4 11/02/24 09:00 91 88 L 2 11/02/24 07:46 117/57 L 90 Nasal Cannula 4 11/02/24 07:40 Nasal Cannula 4 11/02/24 07:30 84 L Nasal Cannula 2 Laboratory Results -personally reviewed, increased WBC at this time 2/2 steroid use Medications Administered Acetaminophen (Acetaminophen 325 Mg Tab) 650 mg PO Q4H PRN PRN Reason: pain/fever Stop: 11/25/24 16:20 Last Admin: 10/28/24 07:22 Dose: 650 mg Documented By: Admin: 10/27/24 21:03 Dose: 650 mg Documented By: Admin: 10/26/24 19:56 Dose: 650 mg Documented By: NOA Aspirin (Aspirin 81 Mg Ectab) 81 mg PO DAILY MAYTE Stop: 11/26/24 08:59 Last Admin: 11/02/24 08:20 Dose: 81 mg Documented By: Admin: 11/01/24 08:55 Dose: 81 mg Documented By: Admin: 10/31/24 09:41 Dose: 81 mg Documented By: Admin: 10/30/24 09:07 Dose: 81 mg Documented By: Admin: 10/29/24 09:24 Dose: 81 mg Documented By: Admin: 10/28/24 07:40 Dose: Not Given Documented By: Admin: 10/27/24 07:21 Dose: 81 mg Documented By: DELANEY Carvedilol (Carvedilol 12.5 Mg Tab) 12.5 mg PO BIDM MAYTE Stop: 11/25/24 16:59 Last Admin: 11/02/24 16:50 Dose: Not Given Documented By: Admin: 11/02/24 08:19 Dose: 12.5 mg Documented By: Admin: 11/01/24 17:11 Dose: Not Given Documented By: Admin: 11/01/24 08:54 Dose: Not Given Documented By: Admin: 10/31/24 16:29 Dose: 12.5 mg Documented By: Admin: 10/31/24 09:40 Dose: 12.5 mg Documented By: Admin: 10/30/24 17:47 Dose: 12.5 mg Documented By: Admin: 10/30/24 09:07 Dose: 12.5 mg Documented By: Admin: 10/29/24 16:56 Dose: 12.5 mg Documented By: Admin: 10/29/24 09:24 Dose: 12.5 mg Documented By: Admin: 10/28/24 17:03 Dose: 12.5 mg Documented By: Admin: 10/28/24 07:42 Dose: 12.5 mg Documented By: Admin: 10/27/24 15:59 Dose: 12.5 mg Documented By: Admin: 10/27/24 08:17 Dose: Not Given Documented By: Admin: 10/26/24 17:42 Dose: 12.5 mg Documented By: MARLI Enoxaparin Sodium (Enoxaparin Inj 40 Mg/0.4 Ml Syr) 40 mg SQ Q24H MAYTE Stop: 11/25/24 17:59 Last Admin: 10/27/24 18:07 Dose: 40 mg Documented By: Admin: 10/26/24 17:43 Dose: 40 mg Documented By: MARLI Finasteride (Finasteride 5 Mg Tab) 5 mg PO QAM MAYTE Stop: 11/26/24 08:59 Last Admin: 11/02/24 08:23 Dose: 5 mg Documented By: Admin: 11/01/24 08:55 Dose: 5 mg Documented By: Admin: 10/31/24 09:00 Dose: 5 mg Documented By: Admin: 10/30/24 09:07 Dose: 5 mg Documented By: Admin: 10/29/24 09:25 Dose: 5 mg Documented By: Admin: 10/28/24 07:44 Dose: 5 mg Documented By: Admin: 10/27/24 07:20 Dose: 5 mg Documented By: DELANEY Fluticasone/Vilanterol (Fluticasone/Vilanterol 100/25mcg 14 Puffs/Inhaler) 1 puffs INH DAILY MAYTE Stop: 11/26/24 08:59 Last Admin: 11/02/24 08:19 Dose: 1 puffs Documented By: Admin: 11/01/24 08:55 Dose: 1 puffs Documented By: Admin: 10/31/24 09:00 Dose: 1 puffs Documented By: Admin: 10/30/24 09:04 Dose: 1 puffs Documented By: Admin: 10/29/24 09:24 Dose: 1 puffs Documented By: Admin: 10/28/24 07:44 Dose: 1 puffs Documented By: Admin: 10/27/24 07:19 Dose: 1 puffs Documented By: DELANEY Hydroxychloroquine Sulfate (Hydroxychloroquine Sulfate 200 Mg Tab) 200 mg PO BID MAYTE Stop: 11/25/24 20:59 Last Admin: 11/02/24 08:20 Dose: 200 mg Documented By: Admin: 11/01/24 21:45 Dose: 200 mg Documented By: Admin: 11/01/24 08:56 Dose: 200 mg Documented By: Admin: 10/31/24 21:41 Dose: 200 mg Documented By: Admin: 10/31/24 09:01 Dose: 200 mg Documented By: Admin: 10/30/24 20:51 Dose: 200 mg Documented By: Admin: 10/30/24 09:06 Dose: 200 mg Documented By: Admin: 10/29/24 20:10 Dose: 200 mg Documented By: Admin: 10/29/24 09:25 Dose: 200 mg Documented By: Admin: 10/28/24 21:42 Dose: 200 mg Documented By: Admin: 10/28/24 07:43 Dose: 200 mg Documented By: Admin: 10/27/24 20:58 Dose: 200 mg Documented By: Admin: 10/27/24 07:21 Dose: 200 mg Documented By: Admin: 10/26/24 19:57 Dose: 200 mg Documented By: NOA Nifedipine (Nifedipine Extended Rel 30 Mg Tabcr) 60 mg PO QAM MAYTE Stop: 11/26/24 08:59 Last Admin: 11/02/24 08:20 Dose: 60 mg Documented By: Admin: 11/01/24 08:56 Dose: 60 mg Documented By: Admin: 10/31/24 09:41 Dose: 60 mg Documented By: Admin: 10/30/24 09:06 Dose: 60 mg Documented By: Admin: 10/29/24 09:25 Dose: 60 mg Documented By: Admin: 10/28/24 07:42 Dose: 60 mg Documented By: Admin: 10/27/24 07:20 Dose: 60 mg Documented By: DELANEY Oxybutynin Chloride (Oxybutynin Chloride 5 Mg Tab) 2.5 mg PO BID MAYTE Stop: 12/01/24 20:59 Last Admin: 11/02/24 08:21 Dose: 2.5 mg Documented By: Admin: 11/01/24 21:44 Dose: 2.5 mg Documented By: FANNIE Oxycodone HCl (Oxycodone Hcl Ir 5 Mg Tab (Immediate Release)) 5 mg PO Q4 PRN PRN Reason: Breakthrough Pain Stop: 11/11/24 07:30 Last Admin: 10/31/24 21:46 Dose: 5 mg Documented By: Admin: 10/31/24 08:52 Dose: 5 mg Documented By: Admin: 10/30/24 17:07 Dose: 5 mg Documented By: Admin: 10/30/24 13:15 Dose: 5 mg Documented By: Admin: 10/30/24 09:07 Dose: 5 mg Documented By: Admin: 10/29/24 17:54 Dose: 5 mg Documented By: Admin: 10/29/24 13:58 Dose: 5 mg Documented By: Admin: 10/29/24 07:48 Dose: 5 mg Documented By: Admin: 10/28/24 07:38 Dose: 5 mg Documented By: DELANEY Pantoprazole Sodium (Pantoprazole 40 Mg Tab) 40 mg PO [facility] Stop: 11/28/24 16:29 Last Admin: 11/02/24 08:22 Dose: 40 mg Documented By: Admin: 11/01/24 08:57 Dose: 40 mg Documented By: Admin: 10/31/24 09:41 Dose: 40 mg Documented By: Admin: 10/30/24 09:07 Dose: 40 mg Documented By: Admin: 10/29/24 16:56 Dose: 40 mg Documented By: PASTOR Polyethylene Glycol (Polyethylene (Miralax) 17 Gm Pack) 17 gm PO DAILY PRN PRN Reason: Constipation Stop: 11/26/24 15:18 Last Admin: 11/02/24 11:01 Dose: 17 gm Documented By: MARLI Sertraline HCl (Sertraline Hcl 100 Mg Tablet) [facility] [place] Stop: 11/26/24 08:59 Last Admin: 11/02/24 08:20 Dose: 100 mg Documented By: Admin: 11/01/24 08:57 Dose: 100 mg Documented By: Admin: 10/31/24 09:01 Dose: 100 mg Documented By: Admin: 10/30/24 09:07 Dose: 100 mg Documented By: Admin: 10/29/24 09:58 Dose: 100 mg Documented By: Admin: 10/28/24 07:42 Dose: 100 mg Documented By: Admin: 10/27/24 07:21 Dose: 100 mg Documented By: DELANEY Tamsulosin HCl (Tamsulosin Hcl 0.4 Mg Cap) 0.4 mg PO QAM MAYTE Stop: 11/26/24 08:59 Last Admin: 11/02/24 08:20 Dose: 0.4 mg Documented By: Admin: 11/01/24 08:57 Dose: 0.4 mg Documented By: Admin: 10/31/24 09:43 Dose: 0.4 mg Documented By: Admin: 10/30/24 09:08 Dose: 0.4 mg Documented By: Admin: 10/29/24 09:26 Dose: 0.4 mg Documented By: Admin: 10/28/24 07:42 Dose: 0.4 mg Documented By: Admin: 10/27/24 07:21 Dose: 0.4 mg Documented By: DELANEY Trazodone HCl (Trazodone Hcl 50 Mg Tab) 150 mg PO MAYTE Stop: 11/25/24 20:59 Last Admin: 11/01/24 21:44 Dose: 150 mg Documented By: Admin: 10/31/24 21:41 Dose: 150 mg Documented By: Admin: 10/30/24 20:52 Dose: 150 mg Documented By: Admin: 10/29/24 20:11 Dose: 150 mg Documented By: Admin: 10/28/24 21:42 Dose: 150 mg Documented By: Admin: 10/27/24 20:59 Dose: 150 mg Documented By: Admin: 10/26/24 19:58 Dose: 150 mg Documented By: NOA
[2024-11-03 07:29] LABS: Hematocrit (blood only) 34.7 % (42.0-52.0); Hemoglobin 11.6 g/dl (14.0-18.0); Mean Corpuscular Hemoglobin 29.6 pg (25.0-34.0); Mean Corpuscular Hgb Conc 33.4 g/dL (32.0-36.0); Mean Corpuscular Volume 88.5 fL (80.0-100.0); Mean Platelet Volume 10.3 fL (9.4-12.4); Platelet Count 443 K/uL (130-400); RDW Coefficient of Variation 14.8 % (11.5-14.5); RDW Standard Deviation 48.2 fL (36.4-46.3); Red Blood Count 3.92 M/uL (4.70-6.10); White Blood Count 16.23 K/ul (4.8-10.8)
[2024-11-03 07:40] LABS: Calcium 8.7 mg/dl (8.6-10.3); Creatinine Clr Calc Pharmacy 69.9 ml/min; Potassium 4.1 mmol/L (3.5-5.1)
--- NOTE | 2024-11-03 15:40 | Discharge Summary ---
Discharge Summary Date of Service November 03, 2024 Principal Dx & Hospital Course #1 = Principal Diagnosis (1) Acute on chronic hypoxic respiratory failure: -Patient recently had a hospitalization for similar diagnosis. 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 He received a full course of antibiotics/prednisone and ultimately was determined that most likely he had progression of interstitial lung disease and possibly rheumatoid lung disease. Admitted to [facility] a few days later with reoccurence of symptoms. Pulmonology consulted, recommended a bronchoscopy. Given a course of abx and prednisone for CAP here. Initially started on bactrim for PJP prophylaxis. Based on culture results, abx and prednisone stopped. Patient needs oxygen at home. Patient medically stable for discharge on 11/03/2024. Medication Changes From Visit -aspirin, decreased anticholinergic medication doses Admission HPI Per Admitting Provider Patient is a an 89-year-old gentleman who was just recently discharged from [facility] where he was treated for a presumed pneumonia and hypoxia. He received a full course of antibiotics and ultimately was determined that most likely he had progression of interstitial lung disease and possibly rheumatoid lung disease. At the time of discharge he did not meet criteria for home oxygen. He was discharged this past . Initially was doing fine, however the weekend he started noticing some more shortness of breath especially with exertion. Today he had a follow-up appointment at the [place] outpatient clinic. He reported just the activities of getting ready to go to the [place] because some significant amount of dyspnea. Home O2 sat monitor showed that his O2 sat dropped into the low 70s. When he rested it would come up to about 88%. Over at the [place] as he was going through there facility getting blood work etc. he was noted to be hypoxic. [facility] for evaluation. Here in the emergency room was noted to be hypoxic on room air about 85% and improved on 3 to 4 L of oxygen. Chest x-ray was concerning for bilateral infiltrates and he did have a slightly elevated white blood cell count. He received IV antibiotics here in the emergency room as well as IV Solu-Medrol and referred to our service for further evaluation. Time my evaluation the patient was feeling better on the oxygen. He was convinced that he needed to have oxygen when he was discharged from [facility]. Did take some time to explain to him the criteria required for insurance to pay for home oxygen. He denies any fevers. His cough might be a little bit more congested than his chronic baseline cough. He has continued a low dose prednisone which is a chronic medication for him. As mentioned he completed all 6 at the time of discharge last week. Appetite has been down a little bit but no nausea, no diarrhea. Has chronic joint pain associated with his rheumatoid arthritis. Admission Exam Per Admitting Provider -albuterol inhaler Discharge Exam Gen: A&O 3 NAD HEENT: NCAT, EOMI, not icteric. External ears normal. No rhinorrhea. Moist mucous membranes. Neck: Supple, full range of motion, no observable masses, No meningeal sign. Lungs: trace rhonchi on examination CV: RRR, no edema. Abdomen: Soft, nondistended, No rebound tenderness. MSK: No joint swelling, no redness. Skin: No rashes, petechiae, lesions. Normal color per patient. Neuro: Normal Gait, Grossly intact. Psych: Appropriate for situation. Updated Medication List Medication Instructions Recorded Confirmed Type atorvastatin 40 mg tablet 60 mg PO HS 10/26/24 10/26/24 History budesonide 90 mcg/actuation breath 0 inh inhalation DAILY 10/26/24 10/26/24 History activated powder inhaler carvedilol 12.5 mg tablet 12.5 mg PO BID 10/26/24 10/26/24 History cholecalciferol (vitamin D3) 25 50 mcg PO DAILY 10/26/24 10/26/24 History mcg (1,000 unit) tablet (Vitamin D3) fluticasone 500 mcg-salmeterol 50 1 inh inhalation DAILY 10/26/24 10/26/24 History mcg/dose blistr powdr for inhalation folic acid 1 mg tablet 1 mg PO DAILY 10/26/24 10/26/24 History hydroxychloroquine 200 mg tablet 200 mg PO BID 10/26/24 10/26/24 History methotrexate sodium 2.5 mg tablet 20 mg PO DAILY 10/26/24 10/26/24 History nifedipine 60 mg tablet,extended 60 mg PO DAILY 10/26/24 10/26/24 History release 24 hr prednisone 5 mg tablet 5 mg PO QAM 10/26/24 10/26/24 History sertraline 100 mg tablet 100 mg PO QAM 10/26/24 10/26/24 History tamsulosin 0.4 mg capsule 0.4 mg PO HS 10/26/24 10/26/24 History albuterol sulfate 90 mcg/actuation 1 inh inhalation Q6H PRN shortness 11/03/24 Rx breath activated powder inhaler of breath or wheezing #1 ea aspirin 81 mg tablet,delayed 81 mg PO DAILY #30 tabs 11/03/24 Rx release finasteride 5 mg tablet 5 mg PO QAM #30 tabs 11/03/24 Rx oxybutynin chloride 5 mg tablet 2.5 mg (1/2 x 5 mg) PO BID #30 tabs 11/03/24 Rx trazodone 50 mg tablet 50 mg PO HS #30 tabs 11/03/24 Rx Hospital Stay Data Consultations 10/26/24 13:05 ED Decision to Admit Stat 10/26/24 16:21 Consult Pulmonology Routine Procedures Performed Operation Date: 10/28/24 10:00 Actual Procedures p Bronchoscopy Respiratory - [facility] Dow [facility] Diagnostic Imagining Performed 10/26/24 13:40 CT for pulmonary embolism PE [CT angio chest PE protocol] Stat Pending Results Patient Have Any Pending Studies at Discharge: No Discharge Instructions Given to Patient (Per Discharging Provider) 1. Please follow up with PCP, commodity industry analyst, valet manager (for rheumatoid arthritis). 2. Use incentive spirometer, and stay active. Total Time Total Time Spent Total Time Spent (In Minutes): I spent a total of 35 minutes in direct patient care, including [id number] time with the patient and/or family, reviewing medical records, ordering and reviewing diagnostic tests, and coordinating care with other healthcare providers. This time includes: history taking, physical examination, medical decision making, counseling, ECG interpretation, imaging interpretation, lab interpretation, orders, and education, excluding time spent in the performance of separately billed services.
[2024-11-19] MEDS ORDERED: predniSONE 5 MG TAB PO SCH (09:00)
== END 2024-11-03 15:59 | disposition home or self-care (01) | DRG 189 ==
LOC: ED 11:33 → EDINP 15:30 → SUATTDRO 15:30 → 3W 16:02